=== PATIENT | female | born 1930 | race Caucasian/White ===

== ENCOUNTER 2016-09-23 08:37 | Inpatient (IN) | payer MEDICARE, BC ==
[~2016-09-23] VITALS: Ht 160 cm; Wt 53.4 kg
[2016-09-23] VITALS (7 sets, daily range): BP systolic 146–184; BP diastolic 67–81; PULSE 77–93; RESP 14–18; TEMP 98.7–98.9; O2SAT 92–98
[~2016-09-23 08:37] MED LIST: ACET325 PO; ASPI81TA82 PO; ATOR20TA PO; COMMODE 3:1; LEVO112T20 PO; LISI20 PO; LORTA5 PO; MECL25 PO; REFR0.5D4 EACH EYE; TOPR50TA PO
[2016-09-23] MEDS ORDERED: ATOR20TA15 PO (08:55)
[2016-09-23] MEDS ORDERED: ASPI1TAB69 PO (08:55)
[2016-09-23] MEDS ORDERED: LISI-515 PO (08:55)
[2016-09-23] MEDS ORDERED: LEVO-168 PO (08:55)
[2016-09-23] MEDS ORDERED: [UNRECOGNIZED DRUG - CODE] EACH EYE (08:55)
[2016-09-23] MEDS ORDERED: MECL12.574 PO (08:55)
[2016-09-23] MEDS ORDERED: OXYC1TAB63 PO (08:55)
[2016-09-23] MEDS ORDERED: TOPR50TA PO (08:55)
[2016-09-23] MEDS ORDERED: SODIUM CHLOR 0.9% 1000 ML INJ 1,000 ML IV SCH ×2 (08:58→11:15)
[2016-09-23] MEDS ORDERED: ONDANSETRON HCL 4 MG/2 ML VIAL IVP ONE (09:00)
[2016-09-23] MEDS ORDERED: SODIUM CHLORIDE 0.9% FLUSH 10 ML FLUSH IV FLUSH PRN ×2 (09:00→12:15)
[2016-09-23] MEDS ORDERED: MORPHINE SULFATE 4 MG/ML INJ IV PUSH ONE (09:00)
[2016-09-23 09:19] LABS: AUTOMATED NEUTROPHIL # 8.4 TH/MM3 (1.8-7.7); BASOPHIL % 0.4 % (0.0-2.0); EOSINOPHIL % 0.3 % (0.0-4.0); HEMATOCRIT 37.2 % (35.0-46.0); HEMO FLAGS DIFF FINAL; LYMPH % 17.8 % (9.0-44.0); MEAN CELL VOLUME 92.2 FL (80.0-100.0); MEAN CORPUSCULAR HEMOGLOBIN 31.2 PG (27.0-34.0); MEAN CORPUSCULAR HGB CONC 33.8 % (32.0-36.0); MONO % 7.1 % (0.0-8.0); NEUT % 74.4 % (16.0-70.0); PLATELET COUNT 186 TH/MM3 (150-450); RED BLOOD COUNT 4.04 MIL/MM3 (4.00-5.30); RED CELL DISTRIBUTION WIDTH 17.2 % (11.6-17.2); WHITE BLOOD COUNT 11.3 TH/MM3 (4.0-11.0)
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
[2016-09-23 09:28] LABS: APTT (PATIENT) 24.2 SEC (24.3-30.1); PROTHROMBIN TIME - PATIENT 10.7 SEC (9.8-11.6)
[2016-09-23 09:38] LABS: ANION GAP 8 MEQ/L (5-15); AST (GOT) 39 U/L (15-37); BICARBONATE 27.7 MEQ/L (21.0-32.0); BLOOD UREA NITROGEN 15 MG/DL (7-18); CHLORIDE 103 MEQ/L (98-107); GLOMERULAR FILTRATION RATE 77 ML/MIN (>89); POTASSIUM 3.6 MEQ/L (3.5-5.1); SODIUM (NA) 139 MEQ/L (136-145)
[2016-09-23 09:41] LABS: ALKALINE PHOSPHATASE 84 U/L (45-117); ALT (GPT) 32 U/L (10-53); TOTAL BILIRUBIN ADULT 0.6 MG/DL (0.2-1.0)
[2016-09-23 09:55] LABS: BACTERIA, URINE MANY /hpf; BLOOD, URINE SMALL (NEG); GLUCOSE,URINE NEG (NEG); KETONE, URINE NEG (NEG); MUCUS URINE FEW /lpf (OCC); PH, URINE 6.5 (5.0-8.5); URINE COLOR YELLOW (YELLW/STRAW)
[2016-09-23 10:08] LABS: COMMENT (UR) CATH-CULTURE IND; CULTURE IF INDICATED CATH CULTURE IND; NITRITE,URINE POS (NEG)
[2016-09-23] MEDS ORDERED: IOHEXOL 350 MG/ML 10 ML VIAL (for RAD DIAG) IV ONE (10:23)
--- NOTE | 2016-09-23 10:57 | RADRPT ---
EXAM DATE/TIME: 09/23/2016 10:11 [facility] COMPARISON: CT ABDOMEN & PELVIS W CONTRAST, April 09, 2016, 12:29. INDICATIONS: Lower right abdomen pain. IV CONTRAST: 80 cc Omnipaque 350 (iohexol) IV ORAL CONTRAST: No oral contrast ingested. RADIATION DOSE: 9.96 CTDIvol (mGy) MEDICAL HISTORY: Cardiovascular disease. SURGICAL HISTORY: Hysterectomy. ENCOUNTER: Initial ACUITY: 1 month PAIN SCALE: 8/10 LOCATION: Right abdomen TECHNIQUE: Volumetric scanning of the abdomen and pelvis was performed. Using automated exposure control and ad justment of the mA and/or kV according to patient size, radiation dose was kept as low as reasonably achievable to obtain optimal diagnostic quality images. FINDINGS: Again, there is a solid enhancing right adrenal mass which measures 3.7 x 2.9 cm. The left adrenal g land is unremarkable. The gallbladder is significantly distended, its wall is mildly thickened and there is evidence of pericholecystic fluid. The findings raise the possibility of acute cholecystitis. Clinical correlat ion is recommended. The liver is mildly prominent. No focal hepatic mass is noted. There is some minimal prominence of the central intrahepatic and extrahepatic biliary system without definite calcified obs tructing stone identified. Correlation with alkaline phosphatase and bilirubin levels is recommended. The spleen i s normal. The pancreas is unremarkable. There are multiple stable bilateral renal cysts. No solid renal mass is noted. No hydronephrosis is noted. The abdominal aorta calcified but is not aneurysmally dilated. The inferio r vena cava is normal. There is no paraaortic, retroperitoneal or mesenteric lymphadenopathy. No ascites is noted. The urinary bladder is unremarkable. Uncomplicated sigmoid diverticulosis is noted. There is no acute diverticu litis. Bilateral inguinal hernias containing only fat are noted. No pelvic lymphadenopathy is noted. Degen erative changes and scoliosis of the thoracolumbar spine are noted. There is grade I anterolisthesis of L5 i n relation to S1, L4 in relation to L5 and L3 in relation to L2. CONCLUSION: 1. Solid enhancing right adrenal mass measuring 3.7 x 2.9 cm. 2. Distended gallbladder with mild wall thickening and pericholecystic fluid raising the possibility of acute cholecystitis. Clinical correlation is recommended. 3. Minimal central intrahepatic and extrahepatic biliary ductal dilatation. Correlation with alkali ne phosphatase and bilirubin levels is suggested. 4. Uncomplicated colonic diverticulosis. 5. Multiple bilateral renal cysts. 6. Mild hepatomegaly. 7. Grade I anterolisthesis of L5 in relation to S1, L4 in relation to L5 and L3 in relation to L2. 8. Degenerative changes and scoliosis of the thoracolumbar spine. 9. Bilateral inguinal hernias containing only fat. Carroll Bruce MD on September 23, 2016 at 10:31 Board Certified Radiologist. This report was verified electronically.
[2016-09-23] MEDS ORDERED: PIPERACIL-TAZO 3.375 GM PREMIX 50 ML IV ONE (11:15)
--- NOTE | 2016-09-23 11:24 | EKG ---
Date Performed: 09/23/2016 Time Performed: 09:19:17 PTAGE: 86 years EKG: Sinus rhythm BORDERLINE LEFT AXIS DEVIATION MINIMAL VOLTAGE CRITERIA FOR LVH, CONSIDER NORMAL VARIANT BORDERLINE ECG PREVIOUS TRACING : 04/09/2016 11.21 DOCTOR: Bryson Grewal Interpretating Date/Time 09/23/2016 11:22:39
[2016-09-23] MEDS ORDERED: NALOXONE HCL 0.4 MG/ML AMP IV PRN (12:15)
[2016-09-23] MEDS ORDERED: PILL SPLITTER OTHER PRN (12:45)
[2016-09-23] MEDS: SODIUM CHLOR 0.9% 1000 ML INJ 1,000 ML IV SCH (13:00)
[2016-09-23] MEDS: MORPHINE SULFATE 4 MG/ML INJ IV PUSH PRN (13:10)
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
[2016-09-23] MEDS: ONDANSETRON HCL 4 MG/2 ML VIAL IVP PRN (14:43)
[2016-09-23] MEDS: ENOXAPARIN SODIUM 40 MG/0.4 ML SYRINGE SQ SCH (14:43)
[2016-09-23] MEDS: MECLIZINE HCL 25 MG TAB PO PRN (16:38)
[2016-09-23] MEDS: PROMETHAZINE HCL 12.5 MG SUPP RECTAL PRN (16:50)
[2016-09-23] MEDS: PIPERACIL-TAZO 3.375 GM PREMIX 50 ML IV SCH (17:58)
--- NOTE | 2016-09-23 19:09 | HHI.PR ---
Addendum to Inpatient Note Addendum Reason: Additional Documentation Additional Information from Coretta Schroeder MD (her primary): Ms Mccloud has had issues with HTN and cardiovascular disease in addition to the adrenal adenoma. She has been unable to collect a 24 hour urine due to significant urinary incontinence and cannot keep a [place] catheter in for 24 hours at home (thus unable to get catecholamine , metanephrine testing). rest of her labs have been wnl regarding adenoma ( done previously at [place]). I believe, based her her symptoms of the past few years, that she has significant cardiovascular disease but has declined to do any cardiac evaluation for a preoperative status. Overall, I think she is a poor surgical candidate unless this were really needed for comfort care/urgent need. We had discussed consideration of radiation therapy to the adrenal but only if we could get the 24 hour completed (which she hasn't). I'll get my office to send over her last note tomorrow. Call if you have further questions. Coretta Zimmer MD Sep 23, 2016 19:09
[2016-09-23] MEDS: SODIUM CHLORIDE 0.9% FLUSH 10 ML FLUSH IV FLUSH SCH (21:00)
[2016-09-23] MEDS: ATORVASTATIN 20 MG TAB PO SCH (21:45)
[2016-09-24] VITALS: BP 155/72; PULSE 75; RESP 18; TEMP 96.7; O2SAT 95
[2016-09-24] MEDS: SODIUM CHLOR 0.9% 1000 ML INJ 1,000 ML IV SCH ×3 (01:15→21:05)
[2016-09-24] MEDS: PIPERACIL-TAZO 3.375 GM PREMIX 50 ML IV SCH ×5 (01:16→23:21)
[2016-09-24 05:39] LABS: MEAN CELL VOLUME 93.4 FL (80.0-100.0); MEAN CORPUSCULAR HEMOGLOBIN 31.4 PG (27.0-34.0); MEAN CORPUSCULAR HGB CONC 33.6 % (32.0-36.0); PLATELET COUNT 154 TH/MM3 (150-450); RED BLOOD COUNT 3.53 MIL/MM3 (4.00-5.30); RED CELL DISTRIBUTION WIDTH 17.2 % (11.6-17.2); REVIEW FLAG FINAL; WHITE BLOOD COUNT 8.3 TH/MM3 (4.0-11.0)
[2016-09-24 05:52] LABS: BICARBONATE 28.1 MEQ/L (21.0-32.0); INDIRECT BILIRUBIN 0.5 MG/DL (0.0-0.8); POTASSIUM 3.9 MEQ/L (3.5-5.1); TOTAL BILIRUBIN ADULT 0.7 MG/DL (0.2-1.0)
[2016-09-24] MEDS: LEVOTHYROXINE SODIUM 112 MCG TAB PO SCH (06:45)
[2016-09-24] MEDS: SODIUM CHLORIDE 0.9% FLUSH 10 ML FLUSH IV FLUSH SCH ×2 (07:41→21:04)
[2016-09-24] MEDS: METOPROLOL SUCCINATE 50 MG EXTENDED RELEASE TAB PO SCH (07:43)
[2016-09-24] MEDS: ASPIRIN EC 81 MG TABEC PO SCH (07:43)
[2016-09-24] MEDS: LISINOPRIL 20 MG TAB PO SCH (07:43)
[2016-09-24 08:00] VITALS: BP 146/71; PULSE 79; RESP 17; TEMP 97.6; O2SAT 96
[2016-09-24] MEDS: MORPHINE SULFATE 4 MG/ML INJ IV PUSH PRN ×3 (11:14→22:15)
[2016-09-24] MEDS: ENOXAPARIN SODIUM 40 MG/0.4 ML SYRINGE SQ SCH (11:29)
[2016-09-24 12:00] VITALS: BP 156/65; PULSE 75; RESP 18; TEMP 98.6; O2SAT 94
[2016-09-24] MEDS ORDERED: BUPIVACAINE/EPINEPHRINE 0.25% 50 ML VIAL ONE (14:07)
[2016-09-24 16:00] VITALS: BP 156/87; PULSE 81; RESP 19; TEMP 98.4; O2SAT 94
--- NOTE | 2016-09-24 16:37 | HHI.PR ---
Subjective Subjective Notes Resting in bed Son at bedside Agrees to have surgery although understands the risks Objective Vitals/I&O Vital Signs Date Time Temp Pulse Resp B/P Pulse Ox O2 Delivery O2 Flow Rate FiO2 09/24/16 12:00 98.6 75 18 156/65 94 09/23/16 15:39 Nasal Cannula 2 Labs Laboratory Tests Test 09/24/16 04:54 White Blood Count 8.3 Red Blood Count 3.53 Hemoglobin 11.1 Hematocrit 33.0 Mean Corpuscular Volume 93.4 Mean Corpuscular Hemoglobin 31.4 Mean Corpuscular Hemoglobin 33.6 Concent Red Cell Distribution Width 17.2 Platelet Count 154 Mean Platelet Volume 10.3 Sodium Level 143 Potassium Level 3.9 Chloride Level 108 Carbon Dioxide Level 28.1 Anion Gap 7 Blood Urea Nitrogen 11 Creatinine 0.54 Estimat Glomerular Filtration 107 Rate Random Glucose 83 Calcium Level 8.7 Total Bilirubin 0.7 Direct Bilirubin 0.2 Indirect Bilirubin 0.5 Aspartate Amino Transf 675 (AST/SGOT) Alanine Aminotransferase 622 (ALT/SGPT) Alkaline Phosphatase 179 Total Protein 6.1 Albumin 2.9 Date/Time Procedure Status Source Growth 09/23/16 09:25 Urine Culture - Preliminary Resulted Urine Catheterized Urine Gram Negative Ryan Cardiovascular: Regular Lungs: Clear Abdomen: Non-distended, Other (right upper quadrant pain with palpation) Extremities: No edema A/P Assessment and Plan 86-year-old female with acute cholecystitis -Await cardiology clearance -Okay for diet from general surgery standpoint until cardiac clears patient for surgery -Continue IV antibiotics -Discussed with patient and son at bedside I CERTIFY AND ATTEST THAT I PERSONALLY EXAMINED THIS PATIENT IN THEIR ROOM WITH THE [employer] PRESENT. MS HOGAN IS DOCUMENTING OUR VISIT IN THE EMR AND ENTERED ORDERS UNDER MY DIRECT SUPERVISION. I DISCUSSED THE CARE PLAN WITH THE PATIENT AND THEIR [facility] STAFF. Nickie Messina MD, FACS Sep 24, 2016 16:37 Andrew Correa MD Oct 03, 2016 13:38
--- NOTE | 2016-09-24 17:02 | HHI.PR ---
Subjective Remarks f/u for RUQ pain. patient stated she continues to have pain and nausea. She stated that she cannot live in pain. Patient stated she understands surgery is high risk for her but wants it done. Patient son is at bedside. she remains afebrile. Objective Vitals Vital Signs Date Time Temp Pulse Resp B/P Pulse Ox O2 Delivery O2 Flow Rate FiO2 09/24/16 16:00 98.4 81 19 156/87 94 09/24/16 12:00 98.6 75 18 156/65 94 09/24/16 08:00 97.6 79 17 146/71 96 09/24/16 00:00 96.7 75 18 155/72 95 09/23/16 20:00 98.7 89 18 149/67 92 I/O 09/23/16 09/23/16 09/23/16 09/24/16 09/24/16 09/24/16 07:00 15:00 23:00 07:00 15:00 23:00 Intake Total 983 ml 687 ml Output Total 300 ml Balance 983 ml 387 ml Intake Oral 120 ml 0 ml IV Total 863 ml 687 ml Output Urine Total 300 ml # Voids 1 1 1 # Bowel Movements 1 0 Result Diagram: 09/24/16 0454 09/24/16 0454 Objective Remarks GENERAL: in NAD CARDIOVASCULAR: Regular rate and rhythm without murmurs, gallops, or rubs. RESPIRATORY: Breath sounds equal bilaterally. No accessory muscle use. GASTROINTESTINAL: Abdomen soft, nondistended, + TTP in RUQ. no peritoneal signs. normoactive BS. MUSCULOSKELETAL: No cyanosis, or edema. BACK: Nontender without obvious deformity. No CVA tenderness. Medications and IVs Current Medications Morphine Sulfate (Morphine Inj) 2 mg ONCE ONCE IV PUSH Last administered on 09:37; Start 09/23/16 at 09:00; Stop 09/23/16 at 09:01; Status DC Ondansetron HCl 4 mg 4 mg ONCE ONCE IVP Last administered on 09/23/16 09:36; Start 09/23/16 at 09:00; Stop 09/23/16 at 09:01; Status DC Sodium Chloride (NS 1000 ml Inj) 1,000 ml @ 125 mls/hr Q8H IV Last administered on 09/23/16 09:01; Start 09/23/16 at 08:58; Stop 09/23/16 at 16:57 ; Status DC Sodium Chloride (NS Flush) 2 ml UNSCH PRN IV FLUSH FLUSH AFTER USING IV ACCESS ; Start 09/23/16 at 09:00; Stop 09/23/16 at 12:32; Status DC Iohexol 80 ml 80 ml STK-MED ONCE IV Last administered on 09/23/16 10:23; Start 09/23/16 at 10:23; Stop 09/23/16 at 10:24; Status DC Piperacillin Sod/ Tazobactam Sod 50 ml @ 100 mls/hr ONCE ONCE IV Last administered on 09/23/16 11:31; Start 09/23/16 at 11:15; Stop 09/23/16 at 11:44 ; Status DC Sodium Chloride 1,000 ml @ 125 mls/hr Q8H IV ; Start 09/23/16 at 11:15; Stop at 19:14; Status DC Sodium Chloride (NS 1000 ml Inj) 1,000 ml @ 100 mls/hr Q10H IV Last administered on 09/24/16 16:07; Start 09/23/16 at 13:00 Sodium Chloride (NS Flush) 2 ml UNSCH PRN IV FLUSH FLUSH AFTER USING IV ACCESS ; Start 09/23/16 at 12:15 Sodium Chloride (NS Flush) 2 ml BID IV FLUSH Last administered on 09/23/16 21: 00; Start 09/23/16 at 21:00 Ondansetron HCl (Zofran Inj) 4 mg Q6H PRN IVP NAUSEA OR VOMITING Last administered on 09/23/16 14:43; Start 09/23/16 at 12:15 Enoxaparin Sodium (Lovenox Inj) 40 mg Q24H SQ Last administered on 09/23/16 14 :43; Start 09/23/16 at 13:00 Naloxone HCl 0.4 mg 0.4 mg UNSCH PRN IV SEE LABEL COMMENTS; Start 09/23/16 at 12:15 Piperacillin Sod/ Tazobactam Sod (Zosyn 3.375 Gm Premix) 50 ml @ 100 mls/hr Q6H IV Last administered on 09/24/16 16:06; Start 09/23/16 at 18:00 Morphine Sulfate (Morphine Inj) 2 mg Q3H PRN IV PUSH PAIN SCALE 6 TO 10 Last administered on 09/24/16 11:14; Start 09/23/16 at 12:15 Aspirin (Ecotrin Ec) 81 mg DAILY PO Last administered on 09/24/16 07:43; Start 09/24/16 at 09:00 Atorvastatin Calcium (Lipitor) 20 mg HS PO Last administered on 09/23/16 21:45 ; Start 09/23/16 at 21:00 Levothyroxine Sodium (Synthroid) 112 mcg DAILY@06 PO Last administered on 06:45; Start 09/24/16 at 06:00 Lisinopril (Prinivil) 20 mg DAILY PO Last administered on 09/24/16 07:43; Start 09/24/16 at 09:00 Meclizine HCl (Antivert) 12.5 mg TID PRN PO VERTIGO Last administered on 16:38; Start 09/23/16 at 12:15 Metoprolol Succinate (Toprol Xl) 50 mg DAILY PO Last administered on 09/24/16 07:43; Start 09/24/16 at 09:00 Miscellaneous (Pill Splitter) 1 ea UNSCH PRN OTHER SEE LABEL COMMENTS; Start at 12:45 Promethazine HCl (Phenergan Supp) 12.5 mg Q6H PRN RECTAL NAUSEA OR VOMITING Last administered on 09/23/16 16:50; Start 09/23/16 at 16:15 Bupivacaine HCl/ Epinephrine Bitart (Sensorcaine-Epinephrine 0.25% Inj) 50 ml STK-MED ONCE .ROUTE ; Start 09/24/16 at 14:07; Stop 09/24/16 at 14:08; Status DC A/P Assessment and Plan Acute on chronic right upper quadrant pain -CT suggest possible cholecystitis. -GS is ff and recommend acute cholecystectomy that she is now in agreement with. -Per patient's PCP Dr. Schroeder patient is high cardiovascular risk, so will consult field crop farm worker for clearance. -Patient was given doses Zosyn in the ED. Will continue with Zosyn. -Will give supportive care with IV fluids, antiemetics, and pain medication. -Continue to monitor with serial exams. Elevated LFTs -worsening. -see above. -continue to monitor. Adrenal mass -Per Dr. Schroeder difficulty working up patient. please refer to her note. -patient to f/u as outpatient with Dr. Schroeder. UTI -Asymptomatic. -Patient will be on Zosyn and cultures growing gram negative rods. -continue with treatment pending final cultures. Hypertension/hyperlipidemia/hypothyroidism -continue home medication. DVT prophylaxis -Lovenox. Discharge Planning field crop farm worker consulted for cardiac clearance. patient understand that based on what her PCP stated she is high risk for cardiovascular events during surgery. patient understands and wants to pursue with surgery. Most likely she will have cholecystectomy done tomorrow. Liliya Bran MD Sep 24, 2016 17:02
[2016-09-24 20:00] VITALS: BP 149/67; PULSE 79; RESP 16; TEMP 99.4; O2SAT 94
[2016-09-24] MEDS: ATORVASTATIN 20 MG TAB PO SCH (21:04)
[2016-09-25] VITALS: BP 168/71; PULSE 81; RESP 18; TEMP 99.6; O2SAT 94
[2016-09-25] MEDS: MORPHINE SULFATE 4 MG/ML INJ IV PUSH PRN (01:21)
[2016-09-25] MEDS: MECLIZINE HCL 25 MG TAB PO PRN ×2 (01:24→23:45)
[2016-09-25 04:21] LABS: HEMATOCRIT 33.2 % (35.0-46.0); MEAN CELL VOLUME 93.3 FL (80.0-100.0); MEAN CORPUSCULAR HEMOGLOBIN 30.5 PG (27.0-34.0); MEAN CORPUSCULAR HGB CONC 32.8 % (32.0-36.0); PLATELET COUNT 139 TH/MM3 (150-450); RED BLOOD COUNT 3.55 MIL/MM3 (4.00-5.30); RED CELL DISTRIBUTION WIDTH 17.4 % (11.6-17.2); REVIEW FLAG FINAL; WHITE BLOOD COUNT 8.3 TH/MM3 (4.0-11.0)
[2016-09-25] MEDS: LACTATED RINGER'S 1000 ML IV SCH (04:30)
[2016-09-25 04:47] LABS: BICARBONATE 28.6 MEQ/L (21.0-32.0); POTASSIUM 3.4 MEQ/L (3.5-5.1)
[2016-09-25 04:49] LABS: INDIRECT BILIRUBIN 0.5 MG/DL (0.0-0.8); TOTAL BILIRUBIN ADULT 0.9 MG/DL (0.2-1.0)
[2016-09-25] MEDS: SODIUM CHLOR 0.9% 1000 ML INJ 1,000 ML IV SCH ×3 (05:00→23:43)
[2016-09-25] MEDS: PIPERACIL-TAZO 3.375 GM PREMIX 50 ML IV SCH (05:30)
[2016-09-25] MEDS: LEVOTHYROXINE SODIUM 112 MCG TAB PO SCH (05:30)
--- NOTE | 2016-09-25 06:34 | MB ---
cc: STEVE FLOWERS DO DATE OF CONSULTATION September 24, 2016 REASON FOR CONSULTATION Preoperative risk assessment. HISTORY OF PRESENT ILLNESS Hanny Mccloud is a pleasant 86-year-old female who presents to [facility] on September 23, 2016, due to chronic right upper quadrant pain. Originally in April the patient developed right upper quadrant pain and was told that she had a fracture of her right ribs and was treated with pain medications. She states the pain never resolved and has been chronic and constant since then. Over the last few months it has worsened and she presented to the emergency room and was found to have acute cholecystitis. She admits to feeling nauseated but denies any emesis. She also was noted to have an abdominal mass for some time. She had been worked up by her primary physician in consideration of surgery for the abdominal mass. She decided that she did not want surgery for this as she would have to undergo cardiovascular risk assessment for an elective procedure. In seeing her today, she states that she has no chest pain or shortness of breath. She does do work around her house and gets short of breath with this. PAST MEDICAL HISTORY 1. Hypertension. 2. Hyperlipidemia. 3. Depression. 4. Hypothyroidism. PAST SURGICAL HISTORY 1. Back surgery. 2. Thyroidectomy. 3. Hysterectomy. 4. Cataract surgery. 5. Right wrist surgery. ALLERGIES TETANUS. CEFTIN. MEDICATIONS 1. Toprol XL 50 mg daily. 2. Meclizine 12.5 mg t.i.d. as needed. 3. Lisinopril 20 mg daily. 4. Synthroid 112 mcg daily. 5. Percocet 5/325 every 6 hours as needed for pain. 6. Lipitor 20 mg every night 7. Aspirin mg daily. FAMILY HISTORY Denies premature coronary artery disease or sudden cardiac within the family. Son has brain cancer. Sibling has epilepsy. SOCIAL HISTORY Lives by herself and is independent. Denies tobacco, alcohol or drug abuse. REVIEW OF SYSTEMS Fourteen systems were reviewed in the history and physical and above pertinent positives and negatives above, otherwise negative. PHYSICAL EXAMINATION VITAL SIGNS: Temperature 99.4, heart rate 79, blood pressure 149/67, respirations 16, pulse ox 94% on 2 liters. IN GENERAL: The patient appears well, in no acute distress. Alert, awake and oriented x 3. Extraocular muscles intact. Mucous membranes moist. NECK: Supple. No JVD at 45 degrees. No carotid bruits heard bilaterally. Carotid upstroke is brisk in nature. HEART: Regular rate and rhythm. Positive first and second heart sounds with no noted murmurs, gallops or rubs. LUNGS: Clear to auscultation bilaterally. No wheezes, rales or rhonchi. ABDOMEN: Soft with tenderness in the right upper quadrant. EXTREMITIES: No clubbing, cyanosis or edema. Femoral and distal pulses intact bilaterally. NEUROLOGICALLY: No focal deficits. SKIN: Warm, dry and intact. OSTEOPATHIC EXAM: Mild kyphoscoliosis. No lordosis or paraspinal tender points. LABORATORY FINDINGS Hemoglobin 11.1, hematocrit 33.0, platelets 154. Potassium 3.9, BUN 11, creatinine 0.54. AST 675, ALT 622, alk phosphatase 179. ELECTROCARDIOGRAM (September 23, 2016, at 09:19) Normal sinus rhythm, borderline left axis deviation, LVH. IMPRESSION 1. Preoperative risk assessment for possible laparoscopic cholecystectomy. 2. Acute cholecystitis. 3. Adrenal mass. 4. History of hypertension. 5. History of hyperlipidemia. 6. Hypothyroidism. RECOMMENDATIONS 1. Mrs. Mccloud appears to have acute cholecystitis. I discussed her risk assessment with her and her son extensively in that she has a high cardiovascular risk due to her shortness of breath with work around the house. 2. She has a recent echocardiogram on the chart showing no significant valvopathies and a normal ejection fraction. 3. Due to the urgent nature of her condition, no further ischemic evaluation can be done which will decrease her risks. Further on this, she does not want any further ischemic evaluation. 4. She and her son understand that surgery is high risk due to her comorbidities and current state, but they would like to proceed anyway. 5. I cannot decrease her risk any further at this time. As she was on beta adilene therapy chronically, would continue this perioperatively. 6. I did discuss with Dr. Correa about her surgical risk and he agrees that she is high risk. 7. Currently she does not appear to be in acute coronary syndrome or acute congestive heart failure. 8. I will see her as needed. Please call with questions. Thank you for allowing me to see Hanny Mccloud. If there are any questions, please do not hesitate to call. Steve Flowers DO VGP/SSB /9:53 PM /6:23 AM
[2016-09-25] MEDS: ASPIRIN EC 81 MG TABEC PO SCH (07:29)
[2016-09-25] MEDS: SODIUM CHLORIDE 0.9% FLUSH 10 ML FLUSH IV FLUSH SCH ×2 (07:29→21:00)
[2016-09-25] MEDS: METOPROLOL SUCCINATE 50 MG EXTENDED RELEASE TAB PO SCH (07:30)
[2016-09-25] MEDS: LISINOPRIL 20 MG TAB PO SCH (07:30)
[2016-09-25 08:00] VITALS: BP 162/64; PULSE 77; RESP 15; TEMP 98.9; O2SAT 94
[2016-09-25] MEDS ORDERED: BUPIVACAINE/EPINEPHRINE 0.5% 50 ML VIAL ONE (09:05)
[2016-09-25] MEDS ORDERED: SUGAMMADEX SODIUM 200 MG/2 ML VIAL IV PUSH ONE ×2 (09:55)
[2016-09-25] MEDS ORDERED: METOPROLOL SUCCINATE 25 MG EXTENDED RELEASE TAB PO ONE (10:45)
[2016-09-25] MEDS ORDERED: POTASSIUM CHLORIDE 10 MEQ CONTROLLED RELEASE TAB PO ONE (11:00)
[2016-09-25] MEDS ORDERED: DO NOT ADM ANY ANTICOAGULANT DRUGS XX PRN (11:54)
--- NOTE | 2016-09-25 12:00 | HHI.PR ---
Immediate Post Op Note Procedure Date: Sep 25, 2016 Pre Op Diagnosis: acute cholecystitis Post Op Diagnosis: same Surgeon: Andrew Correa Dye Box Operator(s): Donna DAWN MS3 Procedure: laparoscopic cholecystectomy Complications: NONE Specimen(s) removed: gallbladder Estimated blood loss: 50cc Anesthesia: General Drains: BOO Patient to: PACU Patient Condition: Andrew Myers MD Sep 25, 2016 12:00
[2016-09-25] MEDS ORDERED: *morphine SULFATE 8 MG/ML PERIprocedure ONLY ONE ×2 (12:16→12:25)
[2016-09-25] MEDS ORDERED: *LABETALOL HCL 100 MG/20 ML VIAL PERIprocedural Use ONLY ONE (12:16)
[2016-09-25] MEDS ORDERED: MORPHINE SULFATE 4 MG/ML INJ IV PUSH PRN (12:30)
[2016-09-25] MEDS ORDERED: DICLOFENAC SODIUM 37.5 MG/ML VIAL IV PUSH PRN (12:30)
[2016-09-25] MEDS ORDERED: *ENALAPRILAT 1.25 MG/ML VIAL PERIprocedural Use ONLY ONE (12:36)
[2016-09-25] MEDS: CIPROFLOXACIN 400 MG PREMIX 200 ML IV SCH ×2 (13:30→22:20)
[2016-09-25] MEDS ORDERED: ONDANSETRON HCL 4 MG/2 ML VIAL IV PUSH ONE (13:53)
[2016-09-25] MEDS ORDERED: PROPOFOL 200 MG/20 ML AMP IV ONE (13:53)
[2016-09-25] MEDS ORDERED: NEOSTIGMINE 3 MG/3 ML SYR IV ONE (13:53)
[2016-09-25] MEDS: ENOXAPARIN SODIUM 40 MG/0.4 ML SYRINGE SQ SCH (14:41)
[2016-09-25 16:00] VITALS: BP 174/81; PULSE 86; RESP 17; TEMP 99.3; O2SAT 94
[2016-09-25 18:25] VITALS: O2SAT 94
[2016-09-25] MEDS: ACETAMINOPHEN/HYDROcodone 325 MG/5 MG TAB PO PRN (18:46)
[2016-09-25 20:00] VITALS: BP 148/72; PULSE 96; RESP 20; TEMP 97.9; O2SAT 94
--- NOTE | 2016-09-25 21:38 | HHI.PR ---
Subjective Remarks Patient is sp lap cholecystectomy states feels confused denies cp/sob stable vital signs Objective Vitals Vital Signs Date Time Temp Pulse Resp B/P Pulse Ox O2 Delivery O2 Flow Rate FiO2 09/25/16 18:25 94 21 09/25/16 16:00 99.3 86 17 174/81 94 09/25/16 13:40 75 18 145/68 98 Nasal Cannula 2 09/25/16 13:30 78 18 149/67 98 Nasal Cannula 2 09/25/16 13:15 69 18 144/65 98 Nasal Cannula 3 09/25/16 13:00 80 18 153/62 96 Nasal Cannula 3 09/25/16 12:45 72 18 164/65 98 Nasal Cannula 3 09/25/16 12:30 71 18 180/69 97 Nasal Cannula 3 09/25/16 12:15 64 18 206/80 98 Nasal Cannula 3 09/25/16 12:00 97.7 75 18 202/82 91 Nasal Cannula 3 09/25/16 08:00 98.9 77 15 162/64 94 09/25/16 00:00 99.6 81 18 168/71 94 09/24/16 22:38 18 I/O 09/24/16 09/24/16 09/24/16 09/25/16 09/25/16 09/25/16 07:00 15:00 23:00 07:00 15:00 23:00 Intake Total 983 ml 687 ml 240 ml 1350 ml 1618 ml Output Total 300 ml 330 ml Balance 983 ml 387 ml 240 ml 1350 ml 1288 ml Intake Oral 120 ml 0 ml 240 ml 120 ml 450 ml IV Total 863 ml 687 ml 1230 ml 168 ml Other 1000 ml Output Urine Total 300 ml 250 ml Drainage Total 70 ml Estimated Blood Loss 10 ml # Voids 1 2 1 7 # Bowel Movements 1 0 0 0 2 Result Diagram: 09/25/16 03409/25/16 0340 Imaging Last Impressions Abdomen/Pelvis CT 09/23/16 0858 Signed Impressions: Service Date/Time: Friday, September 23, 2016 10:11 - CONCLUSION: 1. Solid enhancing right adrenal mass measuring 3.7 x 2.9 cm. 2. Distended gallbladder with mild wall thickening and pericholecystic fluid raising the possibility of acute cholecystitis. Clinical correlation is recommended. 3. Minimal central intrahepatic and extrahepatic biliary ductal dilatation. Correlation with alkaline phosphatase and bilirubin levels is suggested. 4. Uncomplicated colonic diverticulosis. 5. Multiple bilateral renal cysts. 6. Mild hepatomegaly. 7. Grade I anterolisthesis of L5 in relation to S1, L4 in relation to L5 and L3 in relation to L2. 8. Degenerative changes and scoliosis of the thoracolumbar spine. 9. Bilateral inguinal hernias containing only fat. Carroll Bruce MD Objective Remarks GENERAL: in NAD CARDIOVASCULAR: Regular rate and rhythm without murmurs, gallops, or rubs. RESPIRATORY: Breath sounds equal bilaterally. No accessory muscle use. GASTROINTESTINAL: Abdomen soft, slightly distended, diffuse tenderness in abdomen especially in the right upper quadrant. No peritoneal signs. Bowel sounds present. MUSCULOSKELETAL: No cyanosis, or edema. BACK: Nontender without obvious deformity. No CVA tenderness. Procedures Status post laparoscopic cholecystectomy. Medications and IVs Current Medications Medications (Trade) Dose Ordered Sig/Park Route Start Time Stop Time Status Last Admin (NS 1000 ml Inj) 1,000 ml @ 100 mls/hr Q10H IV 09/23/16 13:00 09/25/16 13:30 (NS Flush) 2 ml UNSCH PRN IV FLUSH 09/23/16 12:15 (NS Flush) 2 ml BID IV FLUSH 09/23/16 21:00 09/24/16 21:04 (Zofran Inj) 4 mg Q6H PRN IVP 09/23/16 12:15 09/23/16 14:43 (Lovenox Inj) 40 mg Q24H SQ 09/23/16 13:00 09/25/16 14:41 (Narcan Inj) 0.4 mg UNSCH PRN IV 09/23/16 12:15 (Morphine Inj) 2 mg Q3H PRN IV PUSH 09/23/16 12:15 09/25/16 01:21 (Ecotrin Ec) 81 mg DAILY PO 09/24/16 09:00 09/24/16 07:43 (Lipitor) 20 mg HS PO 09/23/16 21:00 09/24/16 21:04 (Synthroid) 112 mcg DAILY@06 PO 09/24/16 06:00 09/25/16 05:30 (Prinivil) 20 mg DAILY PO 09/24/16 09:00 09/25/16 07:30 (Antivert) 12.5 mg TID PRN PO 09/23/16 12:15 09/25/16 01:24 (Pill Splitter) 1 ea UNSCH PRN OTHER 09/23/16 12:45 Promethazine HCl 12.5 mg 12.5 mg Q6H PRN RECTAL 09/23/16 16:15 09/23/16 16:50 (Lr 1000 ml Inj) 1,000 ml @ 30 mls/hr Q24H IV 09/25/16 04:30 Metoprolol Succinate 75 mg 75 mg DAILY PO 09/26/16 09:00 (Cipro 400 Mg Premix) 200 ml @ 200 mls/hr Q12H IV 09/25/16 11:00 09/25/16 13:30 ([place] 5-325 Mg) 2 tab Q6H PRN PO 09/25/16 12:00 09/25/16 18:46 (Dyloject Inj) 37.5 mg Q6H PRN IV PUSH 09/25/16 12:30 (Morphine Inj) 4 mg Q3H PRN IV PUSH 09/25/16 12:30 Miscellaneous Information ALL NURSING DEPARTME... UNSCH PRN XX 09/25/16 11:54 09/26/16 11:53 Urinary Catheter: No Vascular Central Line Catheter: No A/P Assessment and Plan Acute on chronic right upper quadrant pain Patient with suggested acute cholecystitis. Patient status post laparoscopic cholecystectomy. Patient initially treated with IV Zosyn. Now on IV ciprofloxacin. Continue. -Will give supportive care with IV fluids, antiemetics, and pain medication. Elevated LFTs Nontender down. Continue to monitor LFTs. Adrenal mass -Per Dr. Schroeder difficulty working up patient. please refer to her note. -patient to f/u as outpatient with Dr. Schroeder. UTI -Asymptomatic. Initially treated with IV Zosyn. Urine culture grew Escherichia coli UTI. Continue ciprofloxacin. Hypertension/hyperlipidemia/hypothyroidism -continue home medication. Seems stable. Toxic encephalopathy Patient states he feels confused. This likely secondary to medications used for anesthesia. Will likely subside on its own. Reassured patient. Consults physical therapy. Discharge Planning Discharge pending general surgery clearance. Hemanth Brown MD Sep 25, 2016 21:38
[2016-09-25] MEDS: ATORVASTATIN 20 MG TAB PO SCH (22:20)
[2016-09-26] VITALS (8 sets, daily range): BP systolic 147–198; BP diastolic 66–93; PULSE 73–93; RESP 18–20; TEMP 98.1–99.6; O2SAT 94–96
[2016-09-26 00:13] LABS: HEMATOCRIT 34.7 % (35.0-46.0); MEAN CELL VOLUME 93.4 FL (80.0-100.0); MEAN CORPUSCULAR HEMOGLOBIN 30.8 PG (27.0-34.0); PLATELET COUNT 186 TH/MM3 (150-450); RED BLOOD COUNT 3.72 MIL/MM3 (4.00-5.30); RED CELL DISTRIBUTION WIDTH 17.1 % (11.6-17.2); REVIEW FLAG FINAL; WHITE BLOOD COUNT 11.6 TH/MM3 (4.0-11.0)
[2016-09-26] MEDS: ACETAMINOPHEN/HYDROcodone 325 MG/5 MG TAB PO PRN ×2 (03:12→18:19)
[2016-09-26] MEDS: LACTATED RINGER'S 1000 ML IV SCH (04:30)
[2016-09-26 04:35] LABS: AUTOMATED NEUTROPHIL # 8.9 TH/MM3 (1.8-7.7); BASOPHIL # 0.1 TH/MM3 (0-0.2); BASOPHIL % 0.8 % (0.0-2.0); EOSINOPHIL # 0.1 TH/MM3 (0-0.4); EOSINOPHIL % 0.5 % (0.0-4.0); HEMATOCRIT 36.8 % (35.0-46.0); HEMO FLAGS DIFF FINAL; LYMPH % 19.6 % (9.0-44.0); LYMPHOCYTE # 2.4 TH/MM3 (1.0-4.8); MEAN CELL VOLUME 94.2 FL (80.0-100.0); MEAN CORPUSCULAR HEMOGLOBIN 30.6 PG (27.0-34.0); MEAN CORPUSCULAR HGB CONC 32.5 % (32.0-36.0); MONO % 7.1 % (0.0-8.0); PLATELET COUNT 167 TH/MM3 (150-450); RED BLOOD COUNT 3.91 MIL/MM3 (4.00-5.30); RED CELL DISTRIBUTION WIDTH 17.2 % (11.6-17.2); WHITE BLOOD COUNT 12.4 TH/MM3 (4.0-11.0)
[2016-09-26 04:58] LABS: ALT (GPT) 387 U/L (10-53); ANION GAP 10 MEQ/L (5-15); AST (GOT) 251 U/L (15-37); BICARBONATE 25.1 MEQ/L (21.0-32.0); BLOOD UREA NITROGEN 6 MG/DL (7-18); CHLORIDE 105 MEQ/L (98-107); GLOMERULAR FILTRATION RATE 115 ML/MIN (>89); POTASSIUM 3.4 MEQ/L (3.5-5.1); SODIUM (NA) 140 MEQ/L (136-145)
[2016-09-26 05:00] LABS: ALKALINE PHOSPHATASE 238 U/L (45-117); TOTAL BILIRUBIN ADULT 0.7 MG/DL (0.2-1.0)
[2016-09-26] MEDS: MECLIZINE HCL 25 MG TAB PO PRN (06:12)
[2016-09-26] MEDS: LEVOTHYROXINE SODIUM 112 MCG TAB PO SCH (06:12)
[2016-09-26] MEDS: METOPROLOL SUCCINATE 50 MG EXTENDED RELEASE TAB PO SCH (08:08)
[2016-09-26] MEDS: LISINOPRIL 20 MG TAB PO SCH (08:08)
[2016-09-26] MEDS: CIPROFLOXACIN 400 MG PREMIX 200 ML IV SCH (08:08)
[2016-09-26] MEDS: ASPIRIN EC 81 MG TABEC PO SCH (08:08)
[2016-09-26] MEDS: SODIUM CHLORIDE 0.9% FLUSH 10 ML FLUSH IV FLUSH SCH ×2 (08:44→20:47)
--- NOTE | 2016-09-26 09:29 | HHI.PR ---
Subjective Remarks Patient complains of some abdominal pain, however this is controlled. States that has been having trouble swallowing solids, no trouble swallowing liquids. denies fevers/chills denies nausea and vomiting ate part of her breakfast. Bp elevated patient upset because IV fluid pump alarm goes off very often. Passing gas Objective Vitals Vital Signs Date Time Temp Pulse Resp B/P Pulse Ox O2 Delivery O2 Flow Rate FiO2 09/26/16 08:15 94 21 09/26/16 08:00 98.1 83 19 197/89 95 09/26/16 04:12 18 09/26/16 04:00 98.9 93 20 158/77 95 09/26/16 00:00 99.6 93 20 147/66 94 09/25/16 20:00 97.9 96 20 148/72 94 09/25/16 18:25 94 21 09/25/16 16:00 99.3 86 17 174/81 94 09/25/16 13:40 75 18 145/68 98 Nasal Cannula 2 09/25/16 13:30 78 18 149/67 98 Nasal Cannula 2 09/25/16 13:15 69 18 144/65 98 Nasal Cannula 3 09/25/16 13:00 80 18 153/62 96 Nasal Cannula 3 09/25/16 12:45 72 18 164/65 98 Nasal Cannula 3 09/25/16 12:30 71 18 180/69 97 Nasal Cannula 3 09/25/16 12:15 64 18 206/80 98 Nasal Cannula 3 09/25/16 12:00 97.7 75 18 202/82 91 Nasal Cannula 3 I/O 09/25/16 09/25/16 09/25/16 09/26/16 09/26/16 09/26/16 07:00 15:00 23:00 07:00 15:00 23:00 Intake Total 1350 ml 1618 ml 240 ml 240 ml Output Total 330 ml 600 ml 40 ml Balance 1350 ml 1288 ml 240 ml -360 ml -40 ml Intake Oral 120 ml 450 ml 240 ml 240 ml IV Total 1230 ml 168 ml Other 1000 ml Output Urine Total 250 ml 600 ml Drainage Total 70 ml 40 ml Estimated Blood Loss 10 ml # Voids 1 7 1 # Bowel Movements 0 2 Result Diagram: 09/26/16 0321 09/26/16 0321 Objective Remarks GENERAL: in NAD CARDIOVASCULAR: Regular rate and rhythm without murmurs, gallops, or rubs. RESPIRATORY: Breath sounds equal bilaterally. No accessory muscle use. GASTROINTESTINAL: Abdomen soft, slightly distended, diffuse tenderness in abdomen especially in the right upper quadrant. No peritoneal signs. Bowel sounds present. MUSCULOSKELETAL: No cyanosis, or edema. BACK: Nontender without obvious deformity. No CVA tenderness. Procedures Status post laparoscopic cholecystectomy. Medications and IVs Current Medications Medications (Trade) Dose Ordered Sig/Park Route Start Time Stop Time Status Last Admin (NS 1000 ml Inj) 1,000 ml @ 100 mls/hr Q10H IV 09/23/16 13:00 09/25/16 23:43 (NS Flush) 2 ml UNSCH PRN IV FLUSH 09/23/16 12:15 (NS Flush) 2 ml BID IV FLUSH 09/23/16 21:00 09/24/16 21:04 (Zofran Inj) 4 mg Q6H PRN IVP 09/23/16 12:15 09/23/16 14:43 (Lovenox Inj) 40 mg Q24H SQ 09/23/16 13:00 09/25/16 14:41 (Narcan Inj) 0.4 mg UNSCH PRN IV 09/23/16 12:15 (Morphine Inj) 2 mg Q3H PRN IV PUSH 09/23/16 12:15 09/25/16 01:21 (Ecotrin Ec) 81 mg DAILY PO 09/24/16 09:00 09/26/16 08:08 (Lipitor) 20 mg HS PO 09/23/16 21:00 09/25/16 22:20 (Synthroid) 112 mcg DAILY@06 PO 09/24/16 06:00 09/26/16 06:12 (Prinivil) 20 mg DAILY PO 09/24/16 09:00 09/26/16 08:08 (Antivert) 12.5 mg TID PRN PO 09/23/16 12:15 09/26/16 06:12 (Pill Splitter) 1 ea UNSCH PRN OTHER 09/23/16 12:45 Promethazine HCl 12.5 mg 12.5 mg Q6H PRN RECTAL 09/23/16 16:15 09/23/16 16:50 (Lr 1000 ml Inj) 1,000 ml @ 30 mls/hr Q24H IV 09/25/16 04:30 (Toprol Xl) 75 mg DAILY PO 09/26/16 09:00 09/26/16 08:08 ([place] 5-325 Mg) 2 tab Q6H PRN PO 09/25/16 12:00 09/26/16 03:12 (Dyloject Inj) 37.5 mg Q6H PRN IV PUSH 09/25/16 12:30 (Morphine Inj) 4 mg Q3H PRN IV PUSH 09/25/16 12:30 09/25/16 23:41 Miscellaneous Information ALL NURSING DEPARTME... UNSCH PRN XX 09/25/16 11:54 09/26/16 11:53 (Cipro) 250 mg Q12HR PO 09/26/16 21:00 Urinary Catheter: No Vascular Central Line Catheter: No A/P Assessment and Plan Acute cholecystitis. Patient with suggested acute cholecystitis. Patient status post laparoscopic cholecystectomy. Patient initially treated with IV Zosyn. Now on IV ciprofloxacin. Continue. Discontinue IV fluids, continue antiemetics. Elevated LFTs Liver function tests continued to trend down. Continue to monitor LFTs. Adrenal mass -Per Dr. Schroeder difficulty working up patient. please refer to her note. -patient to f/u as outpatient with Dr. Schroeder. UTI -Asymptomatic. Initially treated with IV Zosyn. Urine culture grew Escherichia coli UTI. Continue ciprofloxacin. Hypertension/hyperlipidemia/hypothyroidism -continue home medication. Seems stable. Toxic encephalopathy Patient felt very confused and foggy after surgical procedure. This is likely due to anesthetics provided during surgery. This has almost completely resolved as per patient. Dysphagia Will order a modified barium swallow with speech pathology. Sore throat Likely secondary to intubation during surgical procedure. I will order lozenges. Consults physical therapy ---> pending Discharge Planning Pending general surgery clearance, barium swallow and clinical improvement. Hemanth Brown MD Sep 26, 2016 09:29
[2016-09-26] MEDS: SODIUM CHLOR 0.9% 1000 ML INJ 1,000 ML IV SCH (10:03)
[2016-09-26] MEDS: ENOXAPARIN SODIUM 40 MG/0.4 ML SYRINGE SQ SCH (11:38)
[2016-09-26] MEDS ORDERED: MAGNESIUM HYDROXIDE SUSP 30 ML CUP PO ONE (12:00)
[2016-09-26] MEDS ORDERED: BISACODYL EC 5 MG TABEC PO ONE (12:00)
--- NOTE | 2016-09-26 12:35 | HHI.PR ---
Subjective Subjective Notes POD1 s/p lap cholecystectomy Patient in room with son Johnathan, reports shes doing well, ate some breakfast this am Some pain in her abdomen No BM yet but passing gas Objective Vitals/I&O Vital Signs Date Time Temp Pulse Resp B/P Pulse Ox O2 Delivery O2 Flow Rate FiO2 09/26/16 08:15 94 21 09/26/16 08:00 98.1 83 19 197/89 09/25/16 13:40 Nasal Cannula 2 Labs Laboratory Tests Test 09/25/16 09/26/16 23:46 03:21 White Blood Count 11.6 12.4 Red Blood Count 3.72 3.91 Hemoglobin 11.4 12.0 Hematocrit 34.7 36.8 Mean Corpuscular Volume 93.4 94.2 Mean Corpuscular Hemoglobin 30.8 30.6 Mean Corpuscular Hemoglobin 33.0 32.5 Concent Red Cell Distribution Width 17.1 17.2 Platelet Count 186 167 Mean Platelet Volume 10.6 10.9 Neutrophils (%) (Auto) 72.0 Lymphocytes (%) (Auto) 19.6 Monocytes (%) (Auto) 7.1 Eosinophils (%) (Auto) 0.5 Basophils (%) (Auto) 0.8 Neutrophils # (Auto) 8.9 Lymphocytes # (Auto) 2.4 Monocytes # (Auto) 0.9 Eosinophils # (Auto) 0.1 Basophils # (Auto) 0.1 CBC Comment DIFF FINAL Differential Comment Sodium Level 140 Potassium Level 3.4 Chloride Level 105 Carbon Dioxide Level 25.1 Anion Gap 10 Blood Urea Nitrogen 6 Creatinine 0.51 Estimat Glomerular Filtration 115 Rate Random Glucose 116 Calcium Level 8.8 Phosphorus Level 2.7 Magnesium Level 2.0 Total Bilirubin 0.7 Aspartate Amino Transf 251 (AST/SGOT) Alanine Aminotransferase 387 (ALT/SGPT) Alkaline Phosphatase 238 Total Protein 6.9 Albumin 3.0 Date/Time Procedure Status Source Growth 09/23/16 09:25 Urine Culture - Final Complete Urine Catheterized Urine Escherichia Coli Cardiovascular: Regular Lungs: Clear Abdomen: Post-op tenderness Extremities: Perfused Wound Wound : Wound Location: Abdomen Appearance: Clean & Dry (some spots of blood) Drainage: Clear (serosanguineous fluid) A/P Assessment and Plan 86 year old white female POD1 s/p Lap Cholecystectomy Patient is stable and doing well Patient is unsteady on her feet and needs assistance ambulating, will need PT Plan to discontinue drain tomorrow morning with plans to discharge home tomorrow if doing well, has BM and unsteadiness improves Andrew Correa MD Sep 26, 2016 12:35
--- NOTE | 2016-09-26 13:25 | RADRPT ---
EXAM DATE/TIME: 09/26/2016 00:00 [place] COMPARISON: No previous studies available for comparison. INDICATIONS : Dysphagia FLUORO TIME: 1.3 minutes IMAGE COUNT: 0 CONTRAST: Dose as prescribed by speech pathologist. MEDICAL HISTORY : Cardiovascular disease. SURGICAL HISTORY : Hysterectomy. Cholecystectomy. ENCOUNTER: Subsequent ACUITY: 1 day PAIN SCORE: 0/10 LOCATION: esophagus FINDINGS: A modified barium swallow was performed with speech pathology. Patient was given a variety of liquids to swallow. Normal formation of bolus and normal swallowing mechanism with a small amount of penetration identifi ed. No evidence of stricture, diverticula or other concerning pathology. For a full detailed report, see report by the speech pathologist. CONCLUSION: Normal swallowing with a trace amount of penetration identified on real-time imaging. No significant pathology identified. Carmel Yen MD on September 26, 2016 at 13:22 Board Certified Radiologist. This report was verified electronically.
[2016-09-26] MEDS ORDERED: POTASSIUM CHLORIDE 10 MEQ CONTROLLED RELEASE TAB PO ONE (16:45)
[2016-09-26] MEDS ORDERED: ACETAMINOPHEN 500 MG CPLT PO PRN (16:45)
[2016-09-26] MEDS ORDERED: PILL SPLITTER OTHER PRN (16:45)
[2016-09-26] MEDS: cloNIDine HCL 0.1 MG TAB PO PRN (16:58)
[2016-09-26] MEDS: ATORVASTATIN 20 MG TAB PO SCH (20:46)
[2016-09-26] MEDS: CIPROFLOXACIN 500 MG TAB PO SCH (20:46)
[2016-09-27] VITALS (8 sets, daily range): BP systolic 124–182; BP diastolic 54–79; PULSE 60–78; RESP 16–20; TEMP 95.6–98.4; O2SAT 93–96
[2016-09-27] MEDS: LACTATED RINGER'S 1000 ML IV SCH (04:04)
[2016-09-27] MEDS: LEVOTHYROXINE SODIUM 112 MCG TAB PO SCH (05:36)
[2016-09-27] MEDS: ACETAMINOPHEN/HYDROcodone 325 MG/5 MG TAB PO PRN ×2 (06:06→15:18)
[2016-09-27] MEDS: CIPROFLOXACIN 500 MG TAB PO SCH ×2 (08:20→19:41)
[2016-09-27] MEDS: LISINOPRIL 20 MG TAB PO SCH (08:20)
[2016-09-27] MEDS: METOPROLOL SUCCINATE 50 MG EXTENDED RELEASE TAB PO SCH (08:20)
[2016-09-27] MEDS: ASPIRIN EC 81 MG TABEC PO SCH (08:20)
[2016-09-27] MEDS: SODIUM CHLORIDE 0.9% FLUSH 10 ML FLUSH IV FLUSH SCH ×2 (08:22→19:42)
[2016-09-27 10:15] LABS: AUTOMATED NEUTROPHIL # 6.1 TH/MM3 (1.8-7.7); BASOPHIL % 0.5 % (0.0-2.0); EOSINOPHIL # 0.3 TH/MM3 (0-0.4); EOSINOPHIL % 3.2 % (0.0-4.0); HEMATOCRIT 32.6 % (35.0-46.0); HEMO FLAGS DIFF FINAL; LYMPH % 25.2 % (9.0-44.0); LYMPHOCYTE # 2.4 TH/MM3 (1.0-4.8); MEAN CORPUSCULAR HEMOGLOBIN 31.7 PG (27.0-34.0); MEAN CORPUSCULAR HGB CONC 34.1 % (32.0-36.0); MONO % 8.2 % (0.0-8.0); NEUT % 62.9 % (16.0-70.0); PLATELET COUNT 172 TH/MM3 (150-450); RED CELL DISTRIBUTION WIDTH 17.4 % (11.6-17.2); WHITE BLOOD COUNT 9.7 TH/MM3 (4.0-11.0)
[2016-09-27 10:58] LABS: ALKALINE PHOSPHATASE 156 U/L (45-117); ALT (GPT) 211 U/L (10-53); ANION GAP 8 MEQ/L (5-15); AST (GOT) 87 U/L (15-37); BICARBONATE 27.7 MEQ/L (21.0-32.0); BLOOD UREA NITROGEN 9 MG/DL (7-18); CHLORIDE 103 MEQ/L (98-107); GLOMERULAR FILTRATION RATE 132 ML/MIN (>89); SODIUM (NA) 139 MEQ/L (136-145); TOTAL BILIRUBIN ADULT 0.5 MG/DL (0.2-1.0)
[2016-09-27] MEDS: ENOXAPARIN SODIUM 40 MG/0.4 ML SYRINGE SQ SCH (13:59)
--- NOTE | 2016-09-27 15:06 | HHI.PR ---
Subjective Remarks Patient states she is doing well denies having a BM and passing gas told surgeon earlier she was passing gas denies fevers/chills Some abdominal pain - now improved Objective Vitals Vital Signs Date Time Temp Pulse Resp B/P Pulse Ox O2 Delivery O2 Flow Rate FiO2 09/27/16 13:40 94 Nasal Cannula 21 09/27/16 12:00 98.3 60 16 146/67 94 09/27/16 08:00 98.4 72 16 139/64 95 09/27/16 04:00 98.3 76 18 147/66 94 09/27/16 00:00 95.6 73 18 124/54 94 09/26/16 22:09 96 Nasal Cannula 2.00 09/26/16 20:00 98.9 85 18 152/66 95 09/26/16 16:00 99.2 83 20 198/93 95 I/O 09/26/16 09/26/16 09/26/16 09/27/16 09/27/16 09/27/16 07:00 15:00 23:00 07:00 15:00 23:00 Intake Total 240 ml 320 ml 0 ml 0 ml Output Total 600 ml 100 ml 830 ml 30 ml Balance -360 ml 220 ml -830 ml -30 ml Intake Oral 240 ml 120 ml 0 ml 0 ml IV Total 200 ml 0 ml 0 ml Output Urine Total 600 ml 800 ml Drainage Total 100 ml 30 ml 30 ml # Voids 3 2 # Bowel Movements 0 Result Diagram: 09/27/16 0950 09/27/16 0950 Imaging Last Impressions Modified Barium Swallow 09/26/16 0000 Signed Impressions: Service Date/Time: Monday, September 26, 2016 00:00 - CONCLUSION: Normal swallowing with a trace amount of penetration identified on real-time imaging. No significant pathology identified. Carmel Yen MD Abdomen/Pelvis CT 09/23/16 0858 Signed Impressions: Service Date/Time: Friday, September 23, 2016 10:11 - CONCLUSION: 1. Solid enhancing right adrenal mass measuring 3.7 x 2.9 cm. 2. Distended gallbladder with mild wall thickening and pericholecystic fluid raising the possibility of acute cholecystitis. Clinical correlation is recommended. 3. Minimal central intrahepatic and extrahepatic biliary ductal dilatation. Correlation with alkaline phosphatase and bilirubin levels is suggested. 4. Uncomplicated colonic diverticulosis. 5. Multiple bilateral renal cysts. 6. Mild hepatomegaly. 7. Grade I anterolisthesis of L5 in relation to S1, L4 in relation to L5 and L3 in relation to L2. 8. Degenerative changes and scoliosis of the thoracolumbar spine. 9. Bilateral inguinal hernias containing only fat. Carroll Bruce MD Objective Remarks GENERAL: in NAD CARDIOVASCULAR: Regular rate and rhythm without murmurs, gallops, or rubs. RESPIRATORY: Breath sounds equal bilaterally. No accessory muscle use. GASTROINTESTINAL: Abdomen soft, slightly distended, diffuse tenderness in abdomen especially in the right upper quadrant. No peritoneal signs. Bowel sounds present. MUSCULOSKELETAL: No cyanosis, or edema. BACK: Nontender without obvious deformity. No CVA tenderness. Procedures Status post laparoscopic cholecystectomy. Medications and IVs Current Medications Medications (Trade) Dose Ordered Sig/Park Route Start Time Stop Time Status Last Admin (NS Flush) 2 ml UNSCH PRN IV FLUSH 09/23/16 12:15 (NS Flush) 2 ml BID IV FLUSH 09/23/16 21:00 09/27/16 08:22 (Zofran Inj) 4 mg Q6H PRN IVP 09/23/16 12:15 09/23/16 14:43 (Lovenox Inj) 40 mg Q24H SQ 09/23/16 13:00 09/27/16 13:59 (Narcan Inj) 0.4 mg UNSCH PRN IV 09/23/16 12:15 (Morphine Inj) 2 mg Q3H PRN IV PUSH 09/23/16 12:15 09/25/16 01:21 (Ecotrin Ec) 81 mg DAILY PO 09/24/16 09:00 09/27/16 08:20 (Lipitor) 20 mg HS PO 09/23/16 21:00 09/26/16 20:46 (Synthroid) 112 mcg DAILY@06 PO 09/24/16 06:00 09/27/16 05:36 (Antivert) 12.5 mg TID PRN PO 09/23/16 12:15 09/26/16 06:12 (Pill Splitter) 1 ea UNSCH PRN OTHER 09/23/16 12:45 Promethazine HCl 12.5 mg 12.5 mg Q6H PRN RECTAL 09/23/16 16:15 09/23/16 16:50 (Lr 1000 ml Inj) 1,000 ml @ 30 mls/hr Q24H IV 09/25/16 04:30 (Toprol Xl) 75 mg DAILY PO 09/26/16 09:00 09/27/16 08:20 ([place] 5-325 Mg) 2 tab Q6H PRN PO 09/25/16 12:00 09/27/16 06:06 (Dyloject Inj) 37.5 mg Q6H PRN IV PUSH 09/25/16 12:30 (Morphine Inj) 4 mg Q3H PRN IV PUSH 09/25/16 12:30 09/25/16 23:41 (Cipro) 500 mg Q12HR PO 09/26/16 21:00 09/27/16 08:20 ([place]) 0.1 mg Q6H PRN PO 09/26/16 16:45 09/26/16 16:58 (Prinivil) 30 mg DAILY PO 09/27/16 09:00 09/27/16 08:20 (Tylenol) 1,000 mg Q6H PRN PO 09/26/16 16:45 (Pill Splitter) 1 ea UNSCH PRN OTHER 09/26/16 16:45 Urinary Catheter: No Vascular Central Line Catheter: No A/P Assessment and Plan Acute cholecystitis. Patient with suggested acute cholecystitis. Patient status post laparoscopic cholecystectomy. This posttreatment with IV Zosyn. Discontinue IV fluids, continue antiemetics. Continue oral ciprofloxacin. management as per surgery Elevated LFTs Liver function tests continued to trend down. Continue to monitor LFTs. Adrenal mass -Per Dr. Schroeder difficulty working up patient. please refer to her note. -patient to f/u as outpatient with Dr. Schroeder. UTI -Asymptomatic. Initially treated with IV Zosyn. Urine culture grew Escherichia coli UTI. Continue ciprofloxacin. Hypertension/hyperlipidemia/hypothyroidism -continue home medication. Seems stable. Toxic encephalopathy Patient felt very confused and foggy after surgical procedure. This is likely due to anesthetics provided during surgery. This has almost completely resolved as per patient. Dysphagia Modified barium swallow was within functional limits, otherwise normal. His therapy recommended soft diet with thin liquids and patient does not require skilled speech therapy. Sore throat Likely secondary to intubation during surgical procedure. Better today. Continue lozenges. Consults physical therapy ---> recommended PT at rehabilitation versus home with home health physical therapy. Discharge Planning Pending general surgery clearance, barium swallow and clinical improvement. Hemanth Brown MD Sep 27, 2016 15:06
[2016-09-27] MEDS: ATORVASTATIN 20 MG TAB PO SCH (19:41)
[2016-09-27] MEDS: cloNIDine HCL 0.1 MG TAB PO PRN (21:43)
--- NOTE | 2016-09-27 23:50 | HHI.PR ---
Subjective Subjective Notes no new c/o seven diet Objective Vitals/I&O Vital Signs Date Time Temp Pulse Resp B/P Pulse Ox O2 Delivery O2 Flow Rate FiO2 09/27/16 20:01 93 Whisper-Flow 21 09/27/16 20:00 96.6 75 20 182/79 09/26/16 22:09 2.00 Labs Laboratory Tests Test 09/27/16 09:50 White Blood Count 9.7 Red Blood Count 3.50 Hemoglobin 11.1 Hematocrit 32.6 Mean Corpuscular Volume 93.0 Mean Corpuscular Hemoglobin 31.7 Mean Corpuscular Hemoglobin 34.1 Concent Red Cell Distribution Width 17.4 Platelet Count 172 Mean Platelet Volume 10.4 Neutrophils (%) (Auto) 62.9 Lymphocytes (%) (Auto) 25.2 Monocytes (%) (Auto) 8.2 Eosinophils (%) (Auto) 3.2 Basophils (%) (Auto) 0.5 Neutrophils # (Auto) 6.1 Lymphocytes # (Auto) 2.4 Monocytes # (Auto) 0.8 Eosinophils # (Auto) 0.3 Basophils # (Auto) 0.0 CBC Comment DIFF FINAL Differential Comment Sodium Level 139 Potassium Level 4.0 Chloride Level 103 Carbon Dioxide Level 27.7 Anion Gap 8 Blood Urea Nitrogen 9 Creatinine 0.45 Estimat Glomerular Filtration 132 Rate Random Glucose 103 Calcium Level 8.2 Total Bilirubin 0.5 Aspartate Amino Transf 87 (AST/SGOT) Alanine Aminotransferase 211 (ALT/SGPT) Alkaline Phosphatase 156 Total Protein 6.2 Albumin 2.5 Date/Time Procedure Status Source Growth 09/23/16 09:25 Urine Culture - Final Complete Urine Catheterized Urine Escherichia Coli Abdomen: Non-distended, Post-op tenderness, BS normal Narrative Exam incisions c/d/i A/P Assessment and Plan 86 year old female POD2 s/p Lap Cholecystectomy, doing well. Patient is unsteady on her feet and needs assistance ambulating, will need PT minimal clear drainage from BOO, DC drain DC planning King Patricio MD Sep 27, 2016 23:50
[2016-09-28] VITALS: BP 154/76; PULSE 76; RESP 20; TEMP 97.4; O2SAT 95
[2016-09-28] MEDS: LACTATED RINGER'S 1000 ML IV SCH ×2 (04:30→22:57)
[2016-09-28] MEDS: LEVOTHYROXINE SODIUM 112 MCG TAB PO SCH (04:53)
[2016-09-28 05:42] LABS: ALKALINE PHOSPHATASE 143 U/L (45-117); ALT (GPT) 167 U/L (10-53); ANION GAP 7 MEQ/L (5-15); AST (GOT) 56 U/L (15-37); BICARBONATE 31.4 MEQ/L (21.0-32.0); BLOOD UREA NITROGEN 9 MG/DL (7-18); CHLORIDE 104 MEQ/L (98-107); GLOMERULAR FILTRATION RATE 156 ML/MIN (>89); MAGNESIUM 2.2 MG/DL (1.5-2.5); POTASSIUM 3.5 MEQ/L (3.5-5.1); SODIUM (NA) 142 MEQ/L (136-145); TOTAL BILIRUBIN ADULT 0.3 MG/DL (0.2-1.0)
[2016-09-28] MEDS: ACETAMINOPHEN/HYDROcodone 325 MG/5 MG TAB PO PRN ×3 (05:46→22:58)
[2016-09-28 05:49] LABS: AUTOMATED NEUTROPHIL # 5.5 TH/MM3 (1.8-7.7); BASOPHIL % 0.3 % (0.0-2.0); EOSINOPHIL # 0.3 TH/MM3 (0-0.4); EOSINOPHIL % 3.4 % (0.0-4.0); HEMATOCRIT 32.6 % (35.0-46.0); HEMO FLAGS DIFF FINAL; LYMPH % 24.9 % (9.0-44.0); LYMPHOCYTE # 2.2 TH/MM3 (1.0-4.8); MEAN CORPUSCULAR HEMOGLOBIN 31.6 PG (27.0-34.0); MEAN CORPUSCULAR HGB CONC 34.3 % (32.0-36.0); MONO % 7.7 % (0.0-8.0); NEUT % 63.7 % (16.0-70.0); PLATELET COUNT 177 TH/MM3 (150-450); RED BLOOD COUNT 3.54 MIL/MM3 (4.00-5.30); RED CELL DISTRIBUTION WIDTH 17.2 % (11.6-17.2); WHITE BLOOD COUNT 8.7 TH/MM3 (4.0-11.0)
[2016-09-28 08:00] VITALS: BP 143/78; PULSE 75; RESP 16; TEMP 96.4; O2SAT 98
[2016-09-28] MEDS: SODIUM CHLORIDE 0.9% FLUSH 10 ML FLUSH IV FLUSH SCH ×2 (09:00→21:00)
[2016-09-28] MEDS: ASPIRIN EC 81 MG TABEC PO SCH (09:04)
[2016-09-28] MEDS: LISINOPRIL 20 MG TAB PO SCH (09:05)
[2016-09-28] MEDS: CIPROFLOXACIN 500 MG TAB PO SCH ×2 (09:05→22:56)
[2016-09-28] MEDS: METOPROLOL SUCCINATE 50 MG EXTENDED RELEASE TAB PO SCH (09:05)
[2016-09-28 09:22] VITALS: O2SAT 94
--- NOTE | 2016-09-28 11:02 | HHI.PR ---
Subjective Subjective Notes Resting in bed Wants to go home today Worried about falling though Objective Vitals/I&O Vital Signs Date Time Temp Pulse Resp B/P Pulse Ox O2 Delivery O2 Flow Rate FiO2 09/28/16 09:22 94 21 09/28/16 08:00 96.4 75 16 143/78 09/27/16 20:01 Whisper-Flow 09/26/16 22:09 2.00 Labs Laboratory Tests Test 09/28/16 04:45 White Blood Count 8.7 Red Blood Count 3.54 Hemoglobin 11.2 Hematocrit 32.6 Mean Corpuscular Volume 92.0 Mean Corpuscular Hemoglobin 31.6 Mean Corpuscular Hemoglobin 34.3 Concent Red Cell Distribution Width 17.2 Platelet Count 177 Mean Platelet Volume 10.0 Neutrophils (%) (Auto) 63.7 Lymphocytes (%) (Auto) 24.9 Monocytes (%) (Auto) 7.7 Eosinophils (%) (Auto) 3.4 Basophils (%) (Auto) 0.3 Neutrophils # (Auto) 5.5 Lymphocytes # (Auto) 2.2 Monocytes # (Auto) 0.7 Eosinophils # (Auto) 0.3 Basophils # (Auto) 0.0 CBC Comment DIFF FINAL Differential Comment Sodium Level 142 Potassium Level 3.5 Chloride Level 104 Carbon Dioxide Level 31.4 Anion Gap 7 Blood Urea Nitrogen 9 Creatinine 0.39 Estimat Glomerular Filtration 156 Rate Random Glucose 86 Calcium Level 8.5 Phosphorus Level 2.4 Magnesium Level 2.2 Total Bilirubin 0.3 Aspartate Amino Transf 56 (AST/SGOT) Alanine Aminotransferase 167 (ALT/SGPT) Alkaline Phosphatase 143 Total Protein 5.9 Albumin 2.5 Cardiovascular: Regular Lungs: Clear Abdomen: Other (lap sites c/d/i ), Post-op tenderness Extremities: No edema A/P Assessment and Plan 86-year-old female with acute cholecystitis -POD3 lap dominique -Tolerating regular diet -Continue PT -BOO drain removed -No acute surgical needs at this time -GS clear for DC -Follow up with Dr. Correa in 10-14 days I CERTIFY AND ATTEST THAT I PERSONALLY EXAMINED THIS PATIENT IN THEIR ROOM WITH THE DELIVERY CONSULTANT PRESENT. MS HOGAN IS DOCUMENTING OUR VISIT IN THE EMR AND ENTERED ORDERS UNDER MY DIRECT SUPERVISION. I DISCUSSED THE CARE PLAN WITH THE PATIENT AND THEIR [facility] ST[facility]FF. Nickie Messina MD, FACS DELIVERY CONSULTANT Sep 28, 2016 11:02 Andrew Correa MD Oct 03, 2016 13:43
[2016-09-28 12:00] VITALS: BP 152/70; PULSE 71; RESP 18; TEMP 99.3; O2SAT 94
[2016-09-28] MEDS: ENOXAPARIN SODIUM 40 MG/0.4 ML SYRINGE SQ SCH (12:34)
[2016-09-28] MEDS: POLYETHYLENE GLYCOL 17 GM PKG PO SCH (14:34)
[2016-09-28 16:00] VITALS: BP 158/72; PULSE 77; RESP 16; TEMP 99.8; O2SAT 93
--- NOTE | 2016-09-28 16:00 | HHI.PR ---
Subjective Remarks pain controlled, denies cp/sob denies fevers and chills passing gas BP elevated into 140 to 150's Objective Vitals Vital Signs Date Time Temp Pulse Resp B/P Pulse Ox O2 Delivery O2 Flow Rate FiO2 09/28/16 09:22 94 21 09/28/16 08:00 96.4 75 16 143/78 98 09/28/16 00:00 97.4 76 20 154/76 95 09/27/16 20:01 93 Whisper-Flow 21 09/27/16 20:00 96.6 75 20 182/79 96 09/27/16 16:00 98.2 78 17 179/75 94 I/O 09/27/16 09/27/16 09/27/16 09/28/16 09/28/16 09/28/16 07:00 15:00 23:00 07:00 15:00 23:00 Intake Total 360 ml 240 ml 0 ml 0 ml Output Total 530 ml 20 ml Balance -170 ml 240 ml -20 ml 0 ml Intake Oral 360 ml 240 ml IV Total 0 ml 0 ml 0 ml Output Urine Total 500 ml Drainage Total 30 ml 20 ml # Voids 2 2 # Bowel Movements 0 0 Result Diagram: 09/28/16 0445 09/28/16 0445 Imaging Last Impressions Modified Barium Swallow 09/26/16 0000 Signed Impressions: Service Date/Time: Monday, September 26, 2016 00:00 - CONCLUSION: Normal swallowing with a trace amount of penetration identified on real-time imaging. No significant pathology identified. Carmel Yen MD Abdomen/Pelvis CT 09/23/16 0858 Signed Impressions: Service Date/Time: Friday, September 23, 2016 10:11 - CONCLUSION: 1. Solid enhancing right adrenal mass measuring 3.7 x 2.9 cm. 2. Distended gallbladder with mild wall thickening and pericholecystic fluid raising the possibility of acute cholecystitis. Clinical correlation is recommended. 3. Minimal central intrahepatic and extrahepatic biliary ductal dilatation. Correlation with alkaline phosphatase and bilirubin levels is suggested. 4. Uncomplicated colonic diverticulosis. 5. Multiple bilateral renal cysts. 6. Mild hepatomegaly. 7. Grade I anterolisthesis of L5 in relation to S1, L4 in relation to L5 and L3 in relation to L2. 8. Degenerative changes and scoliosis of the thoracolumbar spine. 9. Bilateral inguinal hernias containing only fat. Carroll Bruce MD Objective Remarks GENERAL: in NAD CARDIOVASCULAR: Regular rate and rhythm without murmurs, gallops, or rubs. RESPIRATORY: Breath sounds equal bilaterally. No accessory muscle use. GASTROINTESTINAL: Abdomen soft, slightly distended, diffuse tenderness in abdomen especially in the right upper quadrant. No peritoneal signs. Bowel sounds present. MUSCULOSKELETAL: No cyanosis, or edema. BACK: Nontender without obvious deformity. No CVA tenderness. Procedures Status post laparoscopic cholecystectomy. Medications and IVs Current Medications Medications (Trade) Dose Ordered Sig/Park Route Start Time Stop Time Status Last Admin (NS Flush) 2 ml UNSCH PRN IV FLUSH 09/23/16 12:15 (NS Flush) 2 ml BID IV FLUSH 09/23/16 21:00 09/28/16 09:00 (Zofran Inj) 4 mg Q6H PRN IVP 09/23/16 12:15 09/23/16 14:43 (Lovenox Inj) 40 mg Q24H SQ 09/23/16 13:00 09/28/16 12:34 (Narcan Inj) 0.4 mg UNSCH PRN IV 09/23/16 12:15 (Morphine Inj) 2 mg Q3H PRN IV PUSH 09/23/16 12:15 09/25/16 01:21 (Ecotrin Ec) 81 mg DAILY PO 09/24/16 09:00 09/28/16 09:04 (Lipitor) 20 mg HS PO 09/23/16 21:00 09/27/16 19:41 (Synthroid) 112 mcg DAILY@06 PO 09/24/16 06:00 09/28/16 04:53 (Antivert) 12.5 mg TID PRN PO 09/23/16 12:15 09/26/16 06:12 (Pill Splitter) 1 ea UNSCH PRN OTHER 09/23/16 12:45 Promethazine HCl 12.5 mg 12.5 mg Q6H PRN RECTAL 09/23/16 16:15 09/23/16 16:50 (Lr 1000 ml Inj) 1,000 ml @ 30 mls/hr Q24H IV 09/25/16 04:30 (Colon 5-325 Mg) 2 tab Q6H PRN PO 09/25/16 12:00 09/28/16 16:49 (Morphine Inj) 4 mg Q3H PRN IV PUSH 09/25/16 12:30 09/25/16 23:41 (Cipro) 500 mg Q12HR PO 09/26/16 21:00 09/28/16 09:05 (Catapres) 0.1 mg Q6H PRN PO 09/26/16 16:45 09/27/16 21:43 (Prinivil) 30 mg DAILY PO 09/27/16 09:00 09/28/16 09:05 (Tylenol) 1,000 mg Q6H PRN PO 09/26/16 16:45 (Pill Splitter) 1 ea UNSCH PRN OTHER 09/26/16 16:45 (Miralax) 17 gm DAILY PO 09/28/16 13:15 09/28/16 14:34 (Toprol Xl) 100 mg DAILY PO 09/29/16 09:00 Urinary Catheter: No Vascular Central Line Catheter: No A/P Assessment and Plan Acute cholecystitis. Patient with suggested acute cholecystitis. Patient status post laparoscopic cholecystectomy. This posttreatment with IV Zosyn. Discontinue IV fluids, continue antiemetics. Continue oral ciprofloxacin. Patient has been cleared by General surgery. Elevated LFTs Liver function tests continued to trend down. Continue to monitor LFTs. Adrenal mass -Per Dr. Schroeder difficulty working up patient. please refer to her note. -patient to f/u as outpatient with Dr. Schroeder. E Coli UTI -Asymptomatic. Initially treated with IV Zosyn. Urine culture grew Escherichia coli UTI. Continue ciprofloxacin. Hypertension/hyperlipidemia/hypothyroidism - BP uncontrolled persistently with sbp into the 150's systolic. I will increase Metoprolol Succinate to 100 mg daily. Toxic encephalopathy Patient felt very confused and foggy after surgical procedure. This likely was caused due to anesthetics provided during surgery. Resolved. Dysphagia Modified barium swallow was within functional limits, otherwise normal. His therapy recommended soft diet with thin liquids and patient does not require skilled speech therapy. Sore throat Likely secondary to intubation during surgical procedure. Better today. Continue lozenges. Consults physical therapy ---> recommended PT at rehabilitation versus home with home health physical therapy. Discharge Planning Pending general surgery clearance, barium swallow and clinical improvement. Hemanth Brown MD Sep 28, 2016 15:59
[2016-09-28] MEDS ORDERED: METOPROLOL SUCCINATE 25 MG EXTENDED RELEASE TAB PO ONE (16:15)
[2016-09-28 20:00] VITALS: BP 160/64; PULSE 72; RESP 20; TEMP 99; O2SAT 94
[2016-09-28] MEDS: ATORVASTATIN 20 MG TAB PO SCH (22:56)
[2016-09-29] VITALS (9 sets, daily range): BP systolic 141–194; BP diastolic 67–83; PULSE 68–78; RESP 17–20; TEMP 98.2–98.9; O2SAT 93–98
[2016-09-29] MEDS: ONDANSETRON HCL 4 MG/2 ML VIAL IVP PRN (01:08)
[2016-09-29] MEDS: PROMETHAZINE HCL 12.5 MG SUPP RECTAL PRN (01:22)
[2016-09-29 05:03] LABS: AUTOMATED NEUTROPHIL # 4.9 TH/MM3 (1.8-7.7); BASOPHIL % 0.5 % (0.0-2.0); EOSINOPHIL # 0.3 TH/MM3 (0-0.4); EOSINOPHIL % 3.6 % (0.0-4.0); HEMATOCRIT 32.8 % (35.0-46.0); HEMO FLAGS DIFF FINAL; LYMPH % 28.8 % (9.0-44.0); LYMPHOCYTE # 2.5 TH/MM3 (1.0-4.8); MEAN CELL VOLUME 92.9 FL (80.0-100.0); MEAN CORPUSCULAR HEMOGLOBIN 30.8 PG (27.0-34.0); MEAN CORPUSCULAR HGB CONC 33.2 % (32.0-36.0); MONO % 9.6 % (0.0-8.0); NEUT % 57.5 % (16.0-70.0); PLATELET COUNT 198 TH/MM3 (150-450); RED BLOOD COUNT 3.53 MIL/MM3 (4.00-5.30); RED CELL DISTRIBUTION WIDTH 17.4 % (11.6-17.2); WHITE BLOOD COUNT 8.5 TH/MM3 (4.0-11.0)
[2016-09-29 05:30] LABS: ALT (GPT) 159 U/L (10-53); ANION GAP 9 MEQ/L (5-15); AST (GOT) 85 U/L (15-37); BICARBONATE 29.5 MEQ/L (21.0-32.0); BLOOD UREA NITROGEN 8 MG/DL (7-18); CHLORIDE 106 MEQ/L (98-107); GLOMERULAR FILTRATION RATE 140 ML/MIN (>89); POTASSIUM 3.5 MEQ/L (3.5-5.1); SODIUM (NA) 144 MEQ/L (136-145)
[2016-09-29 05:32] LABS: ALKALINE PHOSPHATASE 175 U/L (45-117); TOTAL BILIRUBIN ADULT 0.3 MG/DL (0.2-1.0)
[2016-09-29] MEDS: ACETAMINOPHEN/HYDROcodone 325 MG/5 MG TAB PO PRN ×2 (06:23→19:50)
[2016-09-29] MEDS: LEVOTHYROXINE SODIUM 112 MCG TAB PO SCH (06:23)
[2016-09-29] MEDS: SODIUM CHLORIDE 0.9% FLUSH 10 ML FLUSH IV FLUSH SCH ×2 (08:06→21:00)
[2016-09-29] MEDS: METOPROLOL SUCCINATE 50 MG EXTENDED RELEASE TAB PO SCH (08:42)
[2016-09-29] MEDS: LISINOPRIL 20 MG TAB PO SCH (08:42)
[2016-09-29] MEDS: ASPIRIN EC 81 MG TABEC PO SCH (08:42)
[2016-09-29] MEDS: POLYETHYLENE GLYCOL 17 GM PKG PO SCH (08:43)
[2016-09-29] MEDS: CIPROFLOXACIN 500 MG TAB PO SCH ×2 (08:43→19:50)
--- NOTE | 2016-09-29 10:59 | HHI.PR ---
Subjective Remarks Patient states that does not feel well, has bilateral ear pain. Blood pressure noted to be very elevated in the 190s systolic. Denies abdominal pain, nausea vomiting. As per RN BM yet. Patient afebrile. Objective Vitals Vital Signs Date Time Temp Pulse Resp B/P Pulse Ox O2 Delivery O2 Flow Rate FiO2 09/29/16 08:00 98.9 73 17 194/83 94 09/29/16 07:35 1.00 09/29/16 00:00 98.8 78 20 146/72 95 09/28/16 20:00 99.0 72 20 160/64 94 09/28/16 16:00 99.8 77 16 158/72 93 09/28/16 12:00 99.3 71 18 152/70 94 I/O 09/28/16 09/28/16 09/28/16 09/29/16 09/29/16 09/29/16 07:00 15:00 23:00 07:00 15:00 23:00 Intake Total 0 ml 720 ml 340 ml 240 ml Output Total 500 ml 350 ml Balance 0 ml 720 ml -160 ml -110 ml Intake Oral 720 ml 340 ml 240 ml IV Total 0 ml Output Urine Total 500 ml 350 ml # Voids 4 # Bowel Movements 0 0 0 Result Diagram: 09/29/16 0416 09/29/16 0416 Imaging Last Impressions Modified Barium Swallow 09/26/16 0000 Signed Impressions: Service Date/Time: Monday, September 26, 2016 00:00 - CONCLUSION: Normal swallowing with a trace amount of penetration identified on real-time imaging. No significant pathology identified. Carmel Yen MD Abdomen/Pelvis CT 09/23/16 0858 Signed Impressions: Service Date/Time: Friday, September 23, 2016 10:11 - CONCLUSION: 1. Solid enhancing right adrenal mass measuring 3.7 x 2.9 cm. 2. Distended gallbladder with mild wall thickening and pericholecystic fluid raising the possibility of acute cholecystitis. Clinical correlation is recommended. 3. Minimal central intrahepatic and extrahepatic biliary ductal dilatation. Correlation with alkaline phosphatase and bilirubin levels is suggested. 4. Uncomplicated colonic diverticulosis. 5. Multiple bilateral renal cysts. 6. Mild hepatomegaly. 7. Grade I anterolisthesis of L5 in relation to S1, L4 in relation to L5 and L3 in relation to L2. 8. Degenerative changes and scoliosis of the thoracolumbar spine. 9. Bilateral inguinal hernias containing only fat. Carroll Bruce MD Objective Remarks GENERAL: in NAD CARDIOVASCULAR: Regular rate and rhythm without murmurs, gallops, or rubs. RESPIRATORY: Breath sounds equal bilaterally. No accessory muscle use. GASTROINTESTINAL: Abdomen soft, slightly distended, diffuse tenderness in abdomen especially in the right upper quadrant. No peritoneal signs. Bowel sounds present. MUSCULOSKELETAL: No cyanosis, or edema. BACK: Nontender without obvious deformity. No CVA tenderness. Procedures Status post laparoscopic cholecystectomy. Medications and IVs Current Medications Medications (Trade) Dose Ordered Sig/Park Route Start Time Stop Time Status Last Admin (NS Flush) 2 ml UNSCH PRN IV FLUSH 09/23/16 12:15 (NS Flush) 2 ml BID IV FLUSH 09/23/16 21:00 09/28/16 21:00 (Zofran Inj) 4 mg Q6H PRN IVP 09/23/16 12:15 09/23/16 14:43 (Lovenox Inj) 40 mg Q24H SQ 09/23/16 13:00 09/28/16 12:34 (Narcan Inj) 0.4 mg UNSCH PRN IV 09/23/16 12:15 (Morphine Inj) 2 mg Q3H PRN IV PUSH 09/23/16 12:15 09/25/16 01:21 (Ecotrin Ec) 81 mg DAILY PO 09/24/16 09:00 09/29/16 08:42 (Lipitor) 20 mg HS PO 09/23/16 21:00 09/28/16 22:56 (Synthroid) 112 mcg DAILY@06 PO 09/24/16 06:00 09/29/16 06:23 (Antivert) 12.5 mg TID PRN PO 09/23/16 12:15 09/26/16 06:12 (Pill Splitter) 1 ea UNSCH PRN OTHER 09/23/16 12:45 Promethazine HCl 12.5 mg 12.5 mg Q6H PRN RECTAL 09/23/16 16:15 09/29/16 01:22 (Lr 1000 ml Inj) 1,000 ml @ 30 mls/hr Q24H IV 09/25/16 04:30 ([place] 5-325 Mg) 2 tab Q6H PRN PO 09/25/16 12:00 09/29/16 06:23 (Morphine Inj) 4 mg Q3H PRN IV PUSH 09/25/16 12:30 09/25/16 23:41 (Cipro) 500 mg Q12HR PO 09/26/16 21:00 09/29/16 08:43 (Catapres) 0.1 mg Q6H PRN PO 09/26/16 16:45 09/27/16 21:43 (Prinivil) 30 mg DAILY PO 09/27/16 09:00 09/29/16 08:42 (Tylenol) 1,000 mg Q6H PRN PO 09/26/16 16:45 (Pill Splitter) 1 ea UNSCH PRN OTHER 09/26/16 16:45 (Miralax) 17 gm DAILY PO 09/28/16 13:15 09/29/16 08:43 (Toprol Xl) 100 mg DAILY PO 09/29/16 09:00 09/29/16 08:42 A/P Assessment and Plan Acute cholecystitis. Patient with suggested acute cholecystitis. Patient status post laparoscopic cholecystectomy. This posttreatment with IV Zosyn. Discontinue IV fluids, continue antiemetics. Continue oral ciprofloxacin. Patient has been cleared by General surgery. Elevated LFTs Liver function tests continued to trend down. Continue to monitor LFTs. Adrenal mass -Per Dr. Schroeder difficulty working up patient. please refer to her note. -patient to f/u as outpatient with Dr. Schroeder. E Coli UTI -Asymptomatic. Initially treated with IV Zosyn. Urine culture grew Escherichia coli UTI. Continue ciprofloxacin. Hypertension/hyperlipidemia/hypothyroidism - BP uncontrolled persistently with sbp into the 150's systolic. I will increase Metoprolol Succinate to 100 mg daily. 09/29 blood pressure continues to be uncontrolled. I will likely start the patient on Cardura 2 mg daily if the patient continues to be elevated. Toxic encephalopathy Patient felt very confused and foggy after surgical procedure. This likely was caused due to anesthetics provided during surgery. Resolved. Dysphagia Modified barium swallow was within functional limits, otherwise normal. His therapy recommended soft diet with thin liquids and patient does not require skilled speech therapy. Sore throat Likely secondary to intubation during surgical procedure. Better today. Continue lozenges. Constipation I will add senna and Colace, try Dulcolax suppository, continue MiraLAX. Consults physical therapy ---> recommended PT at rehabilitation versus home with home health physical therapy. Discharge Planning Possible discharge in a.m., pending stabilization of blood pressure. Hemanth Brown MD Sep 29, 2016 10:59
--- NOTE | 2016-09-29 11:19 | MP ---
cc: PHILLIP MARTINEZ M.D. DATE OF SURGERY: 09/25/2016 PREOPERATIVE DIAGNOSIS Acute cholecystitis. POSTOPERATIVE DIAGNOSIS Acute cholecystitis. PROCEDURE PERFORMED Laparoscopic cholecystectomy. SURGEON Phillip Martinez DIRECTOR ECONOMIC Heavenly Doyle, MS III ANESTHESIA General endotracheal. COMPLICATIONS None. ESTIMATED BLOOD LOSS 50 cc. INDICATION FOR PROCEDURE Ms. Mccloud is a pleasant 86-year-old female who presented to the emergency department with abdominal pain. She was worked up and found to have acute cholecystitis. Specifically, she was found to have a markedly distended gallbladder with some mild ductal dilatation, gallbladder wall thickening and pericholecystic fluid. She was advised to undergo cholecystectomy. The patient required cardiac clearance. Once she was cleared for surgery the risks and benefits of the procedure were reviewed with her and her son in detail and they were agreeable. INTRAOPERATIVE FINDINGS The patient had a markedly distended edematous gallbladder. It was very thickened and large and difficult to manipulate due to its large size. We had to open additional instrumentation and took a prolonged amount of time in order to dissect the gallbladder out safely. We also had to aspirate about 150 cc of dark-green bile out of the gallbladder in order to manipulate it due to its large size. DETAILS OF PROCEDURE The patient was identified, brought to the operating room and placed supine on the operating table. After adequate general endotracheal anesthesia was achieved the abdomen was prepped and draped in standard surgical fashion. The supraumbilical space was anesthetized with 0.25% Marcaine. A supraumbilical incision was made. Dissection was carried down through subcutaneous tissue to the midline fascia. The midline fascia was then incised sharply. A finger was then placed in the peritoneal cavity without difficulty. A blunt balloon trocar was inserted and the abdomen was insufflated to 15 mmHg using CO2 gas. A 30 degree laparoscope was inserted. Immediately we noted the patient to have extensive lower midline adhesions from previous surgery. She also had Frkr-Drqi-Qjgnya adhesions all around the liver with the left lobe of the liver completely adherent to the abdominal wall on the left side. Two 5 mm trocars were placed in the right upper quadrant after anesthetizing the skin and subcutaneous tissue with 0.25% Marcaine. The Pfvq-[id number]-Ilukza adhesions were taken down with sharp dissection. Next, the gallbladder was clearly seen as it was markedly distended and protruding out from the liver and displacing the liver anteriorly. The gallbladder was large and unable to be grasped and therefore we had to aspirate it. An aspirating needle was used and we retrieved approximately 150 cc of dark-green bile out of the gallbladder. Once we did this we were able to manipulate the gallbladder. The gallbladder was then retracted cephalad. The gallbladder neck was then dissected. The cystic artery and cystic duct were clearly identified in two planes entering the neck of the gallbladder. Once they were confirmed entering the neck of the gallbladder they were clipped twice proximally, once distally and then divided. The gallbladder was then dissected out of the hepatic fossa using electrocautery Bovie. The gallbladder was a large size and made this dissection quite lengthy as it was densely adherent to the liver. Once we freed it up completely it was placed into an EndoCatch bag. We then had to enlarge the supraumbilical incision in order to retrieve the large gallbladder out. There were no stones noted. The gallbladder was sent to pathology for analysis. Next, the abdominal cavity was re-visualized. The liver bed was hemostatic. The clips were in place on the cystic artery and cystic duct stump. There was a moderate amount of edema that was noted. We washed out the abdomen with one liter of warm saline solution. Once we did this the patient still had a moderate amount of edema and I therefore elected to place a 7-Turkmen Cesar-Willingham drain. A 7-Turkmen drain was placed in the liver bed under direct vision and brought out through one of the 5 mm ports. At this point all ports were removed under direct vision. The abdomen was desufflated. The midline fascia was repaired with 0 Vicryl interrupted. The skin was closed with 4-0 Vicryl. The patient tolerated the procedure well. She was awakened, extubated and brought to Recovery in stable condition. Please note the operative time of this case was in excess of one hour and we had to open additional instrumentation in order to safely complete the procedure laparoscopically due to the acute inflammatory nature of the gallbladder and it's quite large size. MD RON Perez/EMILY /11:58 AM /11:07 AM
[2016-09-29] MEDS ORDERED: BISACODYL 10 MG SUPP RECTAL ONE (11:30)
[2016-09-29] MEDS: DOCUSATE SODIUM 50 MG/SENNA 8.6 MG TAB PO SCH (11:31)
[2016-09-29] MEDS: ENOXAPARIN SODIUM 40 MG/0.4 ML SYRINGE SQ SCH (11:31)
[2016-09-29] MEDS: cloNIDine HCL 0.1 MG TAB PO PRN (12:17)
[2016-09-29] MEDS: DOXAZOSIN MESYLATE 2 MG TAB PO SCH (13:55)
[2016-09-29] MEDS: ATORVASTATIN 20 MG TAB PO SCH (19:50)
[2016-09-30] VITALS: BP 148/61; PULSE 65; RESP 20; TEMP 97.4; O2SAT 94
[2016-09-30] MEDS: LACTATED RINGER'S 1000 ML IV SCH (02:48)
[2016-09-30] MEDS: LEVOTHYROXINE SODIUM 112 MCG TAB PO SCH (05:54)
[2016-09-30] MEDS: ACETAMINOPHEN/HYDROcodone 325 MG/5 MG TAB PO PRN ×2 (05:56→14:29)
[2016-09-30 08:00] VITALS: BP 161/73; PULSE 75; RESP 16; TEMP 97.2; O2SAT 95
[2016-09-30] MEDS: CIPROFLOXACIN 500 MG TAB PO SCH (08:08)
[2016-09-30] MEDS: DOCUSATE SODIUM 50 MG/SENNA 8.6 MG TAB PO SCH (08:08)
[2016-09-30] MEDS: POLYETHYLENE GLYCOL 17 GM PKG PO SCH (08:08)
[2016-09-30] MEDS: LISINOPRIL 20 MG TAB PO SCH (08:08)
[2016-09-30] MEDS: METOPROLOL SUCCINATE 50 MG EXTENDED RELEASE TAB PO SCH (08:09)
[2016-09-30] MEDS: DOXAZOSIN MESYLATE 2 MG TAB PO SCH (08:09)
[2016-09-30] MEDS: SODIUM CHLORIDE 0.9% FLUSH 10 ML FLUSH IV FLUSH SCH (08:09)
[2016-09-30] MEDS: ASPIRIN EC 81 MG TABEC PO SCH (08:11)
[2016-09-30] MEDS ORDERED: SENN1TAB PO (11:56)
[2016-09-30] MEDS ORDERED: METO50TA11 PO (11:56)
[2016-09-30] MEDS ORDERED: CARD2TAB PO (11:56)
[2016-09-30] MEDS ORDERED: LISI-515 PO (11:56)
[2016-09-30] MEDS ORDERED: OXYC1TAB63 PO (11:56)
--- NOTE | 2016-09-30 11:57 | HHI.DCPOC ---
Discharge Care Plan Diagnosis: (1) Acute cholecystitis (2) UTI (urinary tract infection) (3) Hypertension (4) Vertigo (5) Hypothyroidism (6) ASHD (arteriosclerotic heart disease) (7) Adrenal mass, right (8) Hyperlipidemia Goals to Promote Your Health * To prevent worsening of your condition and complications * To maintain your health at the optimal level Directions to Meet Your Goals Take your medications as prescribed Follow your dietary instruction Follow activity as directed Keep your appointments as scheduled Take your immunizations and boosters as scheduled If your symptoms worsen call your PCP, if no PCP go to Urgent Care Center or Emergency Room Smoking is Dangerous to Your Health. Avoid second hand smoke Call the 24-hour hour crisis hotline for domestic abuse at Hemanth Brown MD Sep 30, 2016 11:57
[2016-09-30 12:00] VITALS: BP 147/68; PULSE 77; RESP 17; TEMP 96.9; O2SAT 96
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
[2016-09-30] MEDS: ENOXAPARIN SODIUM 40 MG/0.4 ML SYRINGE SQ SCH (13:09)
== END 2016-09-30 15:04 | DRG 417 ==
LOC: NEPC 08:37 → NEDA 11:55 → N07A 19:03
PROVIDERS: ADMIT Hospitalist; ATTEND Hospitalist
PROC: 0FN04ZZ Release Liver, Percutaneous Endoscopic Approach (ICD-10-PCS; 2016-09-25)
PROC: 0FT44ZZ Resection of Gallbladder, Percutaneous Endoscopic Approach (ICD-10-PCS; principal; 2016-09-25 10:14)
DX: K81.0 Acute cholecystitis (principal); G92 Toxic encephalopathy; N39.0 Urinary tract infection, site not specified; N28.1 Cyst of kidney, acquired; M41.85 Other forms of scoliosis, thoracolumbar region; R13.10 Dysphagia, unspecified; R16.0 Hepatomegaly, not elsewhere classified; K66.0 Peritoneal adhesions (postprocedural) (postinfection); I10 Essential (primary) hypertension; E78.5 Hyperlipidemia, unspecified; D35.00 Benign neoplasm of unspecified adrenal gland; M19.90 Unspecified osteoarthritis, unspecified site; K21.9 Gastro-esophageal reflux disease without esophagitis; G47.30 Sleep apnea, unspecified; E89.0 Postprocedural hypothyroidism; K57.30 Diverticulosis of large intestine without perforation or abscess without bleeding; M43.16 Spondylolisthesis, lumbar region; K40.20 Bilateral inguinal hernia, without obstruction or gangrene, not specified as recurrent; R32 Unspecified urinary incontinence; I25.10 Atherosclerotic heart disease of native coronary artery without angina pectoris; J02.9 Acute pharyngitis, unspecified; R26.81 Unsteadiness on feet; K59.00 Constipation, unspecified; R42 Dizziness and giddiness; F32.9 Major depressive disorder, single episode, unspecified; F41.9 Anxiety disorder, unspecified; B96.20 Unspecified Escherichia coli [E. coli] as the cause of diseases classified elsewhere; T41.205A Adverse effect of unspecified general anesthetics, initial encounter; Y92.239 Unspecified place in hospital as the place of occurrence of the external cause; Z66 Do not resuscitate; Z86.73 Personal history of transient ischemic attack (TIA), and cerebral infarction without residual deficits; Z87.891 Personal history of nicotine dependence; Z88.1 Allergy status to other antibiotic agents; Z88.7 Allergy status to serum and vaccine
CPT/HCPCS: 74177; 74230; 80048; 80053; 80076; 81001; 83605; 83690; 83735; 84100; 85025; 85027; 85610; 85730; 87077; 87086; 87186; 88304; 93005; 94150; 96361; 96365; 96375; J0744; J1650; J2270; J2405; J2543; J2710; J3010; J7030; Q9967

== ENCOUNTER 2017-03-21 19:03 | Emergency (ER) | payer MEDICARE, BC ==
[~2017-03-21] VITALS: Ht 162.6 cm; Wt 66.0 kg
[~2017-03-21 19:03] MED LIST changes: -ACET325 PO; +ASPI1TAB69 PO; -ASPI81TA82 PO; -ATOR20TA PO; +ATOR20TA15 PO; +CARD2TAB PO; -COMMODE 3:1; +LEVO-168 PO; -LEVO112T20 PO; +LISI-515 PO; -LISI20 PO; -LORTA5 PO; +MECL12.574 PO; -MECL25 PO; +METO50TA11 PO; +OXYC1TAB63 PO; -REFR0.5D4 EACH EYE; +SENN1TAB PO; -TOPR50TA PO; +[UNRECOGNIZED DRUG - CODE] EACH EYE
[2017-03-21 19:42] VITALS: BP 196/79; PULSE 84; RESP 16; TEMP 98.8; O2SAT 88
[2017-03-21] MEDS ORDERED: BUPR100T4 PO (19:55)
[2017-03-21] MEDS ORDERED: METO50TA11 PO (19:55)
[2017-03-21] MEDS ORDERED: FURO1TAB62 PO (19:55)
[2017-03-21] MEDS ORDERED: INFL1INJ52 IM (19:55)
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
--- NOTE | 2017-03-21 20:40 | RADRPT ---
EXAM DATE/TIME: 03/21/2017 20:07 [facility] COMPARISON: CHEST PA & LAT, May 24, 2014, 19:35. INDICATIONS : General illness. MEDICAL HISTORY : Hypertension. Cardiovascular disease. Bilateral inguinal hernias SURGICAL HISTORY : Hysterectomy. ENCOUNTER: Initial ACUITY: 1 day PAIN SCORE: 0/10 LOCATION: Bilateral chest FINDINGS: There is trace left base atelectasis. Lungs otherwise appear clear. No significant effusion seen. No pneumothorax. Heart size stable, upper limits of normal. Tortuous and atherosclerotic aorta again noted. CONCLUSION: Mild left base atelectasis. Avila Hammer MD on March 21, 2017 at 20:38 Board Certified Radiologist. This report was verified electronically.
[2017-03-21 20:53] VITALS: O2SAT 98
[2017-03-21 22:08] LABS: BASOPHIL % 0.3 % (0.0-2.0); EOSINOPHIL % 0.1 % (0.0-4.0); HEMATOCRIT 35.3 % (35.0-46.0); HEMO FLAGS DIFF FINAL; LYMPH % 12.8 % (9.0-44.0); LYMPHOCYTE # 1.9 TH/MM3 (1.0-4.8); MEAN CELL VOLUME 94.3 FL (80.0-100.0); MEAN CORPUSCULAR HGB CONC 32.9 % (32.0-36.0); MONO % 4.9 % (0.0-8.0); NEUT % 81.9 % (16.0-70.0); PLATELET COUNT 183 TH/MM3 (150-450); RED BLOOD COUNT 3.74 MIL/MM3 (4.00-5.30); WHITE BLOOD COUNT 14.7 TH/MM3 (4.0-11.0)
[2017-03-21 22:25] LABS: ALT (GPT) 97 U/L (10-53); ANION GAP 10 MEQ/L (5-15); APTT (PATIENT) 19.5 SEC (24.3-30.1); AST (GOT) 32 U/L (15-37); BLOOD UREA NITROGEN 15 MG/DL (7-18); CHLORIDE 107 MEQ/L (98-107); GLOMERULAR FILTRATION RATE 110 ML/MIN (>89); INTERNATIONAL NORMALIZED RATIO 0.9 RATIO; POTASSIUM 3.5 MEQ/L (3.5-5.1); PROTHROMBIN TIME - PATIENT 10.3 SEC (9.8-11.6); SODIUM (NA) 143 MEQ/L (136-145)
[2017-03-21 22:35] LABS: ALKALINE PHOSPHATASE 119 U/L (45-117); TOTAL BILIRUBIN ADULT 0.5 MG/DL (0.2-1.0)
[2017-03-21] MEDS ORDERED: IOHEXOL 350 MG/ML 10 ML VIAL (for RAD DIAG) IVCONTRAST ONE (23:03)
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
[2017-03-21 23:48] LABS: BACTERIA, URINE MANY /hpf; BLOOD, URINE SMALL (NEG); COMMENT (UR) CULTURE INDICATED; CULTURE IF INDICATED CULTURE INDICATED; GLUCOSE,URINE NEG (NEG); KETONE, URINE NEG (NEG); NITRITE,URINE POS (NEG); PH, URINE 6.5 (5.0-8.5); SQUAMOUS EPITHELIAL CELL URINE <1 /hpf (0-5); URINE COLOR DARK-YELLOW (YELLW/STRAW)
[2017-03-22] MEDS ORDERED: BACT800T5 PO (00:09)
[2017-03-22] MEDS ORDERED: LEVOFLOXACIN 750 MG TAB PO ONE (00:15)
[2017-03-22 00:25] VITALS: BP 170/70
--- NOTE | 2017-03-22 14:22 | EKG ---
Date Performed: 03/21/2017 Time Performed: 21:02:45 PTAGE: 86 years EKG: Sinus rhythm MINIMAL VOLTAGE CRITERIA FOR LVH, CONSIDER NORMAL VARIANT BORDERLINE ECG PREVIOUS TRACING : 09/23/2016 09.19 No significant change from previous tracing noted. DOCTOR: Alfredo Landers Interpretating Date/Time 03/22/2017 14:21:16
[2017-03-22] MEDS ORDERED: AMOX500C PO (23:28)
[2017-04-06] MEDS ORDERED: COMMODE 3-IN-11 MIS (08:34)
[2017-04-06] MEDS ORDERED: WHEEMIS3 (08:34)
[2017-04-13] MEDS ORDERED: CIPR-9 PO (08:37)
[2017-04-13] MEDS ORDERED: TEMA7.5C9 PO (08:37)
[2017-04-13] MEDS ORDERED: METO50TA11 PO (08:37)
[2017-04-13] MEDS ORDERED: ATOR20TA15 PO (08:37)
[2017-04-13] MEDS ORDERED: LEVO.1 PO (08:37)
[2017-04-13] MEDS ORDERED: LISI-515 PO (08:37)
[2017-04-13] MEDS ORDERED: NIFE60TA8 PO (08:37)
[2017-04-13] MEDS ORDERED: MECL12.574 PO (08:37)
== END 2017-03-22 01:38 | disposition home or self-care (01) ==
LOC: NEPD 19:03
DX: N39.0 Urinary tract infection, site not specified (principal); E78.00 Pure hypercholesterolemia, unspecified; Z87.891 Personal history of nicotine dependence; B96.20 Unspecified Escherichia coli [E. coli] as the cause of diseases classified elsewhere; R94.31 Abnormal electrocardiogram [ECG] [EKG]; I10 Essential (primary) hypertension; E03.9 Hypothyroidism, unspecified; R42 Dizziness and giddiness; E27.8 Other specified disorders of adrenal gland; E89.0 Postprocedural hypothyroidism; Z86.73 Personal history of transient ischemic attack (TIA), and cerebral infarction without residual deficits
CPT/HCPCS: 71010; 74177; 80053; 81001; 83605; 83690; 84443; 85025; 85610; 85730; 87040; 87077; 87086; 87186; 93005; 99285; Q9967

== ENCOUNTER 2017-03-22 17:34 | Inpatient (IN) | payer MEDICARE, BC ==
[~2017-03-22] VITALS: Ht 157.5 cm; Wt 54.5 kg
[~2017-03-22 17:34] MED LIST changes: +BACT800T5 PO; +BUPR100T4 PO; -CARD2TAB PO; +FURO1TAB62 PO; +INFL1INJ52 IM; -[UNRECOGNIZED DRUG - CODE] EACH EYE
[2017-03-22 17:45] VITALS: BP 137/74; PULSE 92; RESP 14; TEMP 98.1; O2SAT 97
[2017-03-22 19:10] VITALS: BP 166/77; PULSE 103; RESP 20; TEMP 98.5; O2SAT 91
[2017-03-22] MEDS ORDERED: SODIUM CHLORID 0.9% 500 ML INJ 500 ML IV ONE (19:15)
[2017-03-22] MEDS ORDERED: ONDANSETRON HCL 4 MG/2 ML VIAL IV PUSH ONE (19:45)
--- NOTE | 2017-03-22 19:51 | RADRPT ---
EXAM DATE/TIME: 03/22/2017 19:33 [facility] COMPARISON: CHEST SINGLE AP, March 21, 2017, 20:07. INDICATIONS : Fever and dizziness. MEDICAL HISTORY : Hypertension. Cardiovascular disease. Bilateral inguinal hernias. SURGICAL HISTORY : Hysterectomy. ENCOUNTER: [facility]ela ACUITY: 2 days PAIN SCORE: 0/10 LOCATION: Bilateral chest FINDINGS: The heart is enlarged. Scattered atelectatic changes are noted within the lung bases. No focal alve olar consolidation is noted. Degenerative changes and scoliosis of the thoracolumbar spine are stable . CONCLUSION: 1. Cardiomegaly. 2. Scattered atelectatic changes within the lung bases. 3. No acute focal alveolar consolidation or pulmonary vascular congestion. Carroll Bruce MD on March 22, 2017 at 19:45 Board Certified Radiologist. This report was verified electronically.
[2017-03-22 19:53] LABS: AUTOMATED NEUTROPHIL # 20.1 TH/MM3 (1.8-7.7); BASOPHIL # 0.1 TH/MM3 (0-0.2); BASOPHIL % 0.3 % (0.0-2.0); HEMATOCRIT 34.3 % (35.0-46.0); LYMPH % 7.1 % (9.0-44.0); LYMPHOCYTE # 1.6 TH/MM3 (1.0-4.8); MEAN CELL VOLUME 93.8 FL (80.0-100.0); MEAN CORPUSCULAR HEMOGLOBIN 30.5 PG (27.0-34.0); MEAN CORPUSCULAR HGB CONC 32.5 % (32.0-36.0); MONO % 3.6 % (0.0-8.0); PLATELET COUNT 208 TH/MM3 (150-450); RED BLOOD COUNT 3.66 MIL/MM3 (4.00-5.30); RED CELL DISTRIBUTION WIDTH 17.9 % (11.6-17.2); WHITE BLOOD COUNT 22.6 TH/MM3 (4.0-11.0)
[2017-03-22 19:54] LABS: HEMO FLAGS AUTO DIFF
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
[2017-03-22 20:09] LABS: ALKALINE PHOSPHATASE 121 U/L (45-117); ALT (GPT) 86 U/L (10-53); ANION GAP 8 MEQ/L (5-15); AST (GOT) 28 U/L (15-37); BICARBONATE 28.3 MEQ/L (21.0-32.0); BLOOD UREA NITROGEN 14 MG/DL (7-18); CHLORIDE 102 MEQ/L (98-107); GLOMERULAR FILTRATION RATE 99 ML/MIN (>89); POTASSIUM 3.4 MEQ/L (3.5-5.1); SODIUM (NA) 138 MEQ/L (136-145); TOTAL BILIRUBIN ADULT 0.6 MG/DL (0.2-1.0)
[2017-03-22] MEDS ORDERED: cefTRIAXone INJ 1,000 MG in SODIUM CHLORIDE 0.9% INJ 100 ML IV ONE (20:15)
--- NOTE | 2017-03-22 20:23 | PD ---
Physical Exam Date Seen by Provider: Mar 22, 2017 Data Data Last Documented VS Vital Signs Date Time Temp Pulse Resp B/P (MAP) Pulse Ox O2 Delivery O2 Flow Rate FiO2 03/22/17 19:10 98.5 103 20 166/77 (106) 91 Nasal Cannula 2.00 Orders Orders Electrocardiogram (03/22/17 19:08) Complete Blood Count With Diff (03/22/17 19:08) Comprehensive Metabolic Panel (03/22/17 19:08) Lactic Acid Sepsis Protocol (03/22/17 19:08) Urinalysis - C+S If Indicated (03/22/17 19:08) Blood Culture (03/22/17 19:08) Chest, Single Ap (03/22/17 19:08) Sodium Chlorid 0.9% 500 Ml Inj (Ns 500 M (03/22/17 19:15) Electrocardiogram (03/22/17 ) Ondansetron Inj (Zofran Inj) (03/22/17 19:45) Ceftriaxone Inj (Rocephin Inj) (03/22/17 20:15) Potassium Chlor 20 Meq Premix (Kcl 20 Me (03/22/17 20:30) Urine Culture (03/22/17 20:10) Admit To Inpatient (03/22/17 ) Vital Signs (Adult) Q4H (03/22/17 20:43) Activity Oob With Assistance (03/22/17 20:43) Dinkey Engine Firer/Fireman / Telemetry .CONTINUOUS (03/22/17 20:43) Diet Heart Healthy (03/23/17 Breakfast) Sodium Chloride 0.9% Flush (Ns Flush) (03/22/17 20:45) Sodium Chloride 0.9% Flush (Ns Flush) (03/22/17 21:00) Basic Metabolic Panel (Bmp) (03/23/17 06:00) Complete Blood Count With Diff (03/23/17 06:00) Pt Request For Service (03/22/17 20:43) Case Management Consult (03/22/17 20:43) Naloxone Inj (Narcan Inj) (03/22/17 20:45) Inpatient Certification (03/22/17 ) Ceftriaxone Inj (Rocephin Inj) (03/23/17 09:00) Admit Order (Ed Use Only) (03/22/17 20:46) Acetaminophen (Tylenol) (03/22/17 21:00) Labs Laboratory Tests Test 03/22/17 19:20 03/22/17 20:10 White Blood Count 22.6 TH/MM3 Red Blood Count 3.66 MIL/MM3 Hemoglobin 11.1 GM/DL Hematocrit 34.3 % Mean Corpuscular Volume 93.8 FL Mean Corpuscular Hemoglobin 30.5 PG Mean Corpuscular Hemoglobin Concent 32.5 % Red Cell Distribution Width 17.9 % Platelet Count 208 TH/MM3 Mean Platelet Volume 10.3 FL Neutrophils (%) (Auto) 89.0 % Lymphocytes (%) (Auto) 7.1 % Monocytes (%) (Auto) 3.6 % Eosinophils (%) (Auto) 0.0 % Basophils (%) (Auto) 0.3 % Neutrophils # (Auto) 20.1 TH/MM3 Lymphocytes # (Auto) 1.6 TH/MM3 Monocytes # (Auto) 0.8 TH/MM3 Eosinophils # (Auto) 0.0 TH/MM3 Basophils # (Auto) 0.1 TH/MM3 CBC Comment AUTO DIFF Differential Total Cells Counted 100 Neutrophils % (Manual) 83 % Band Neutrophils % 8 % Lymphocytes % 3 % Monocytes % 6 % Neutrophils # (Manual) 20.6 TH/MM3 Differential Comment FINAL DIFF MANUAL Toxic Vacuolation PRESENT Dohle Bodies PRESENT Platelet Estimate NORMAL Platelet Morphology Comment NORMAL Blood Urea Nitrogen 14 MG/DL Creatinine 0.58 MG/DL Random Glucose 137 MG/DL Total Protein 7.5 GM/DL Albumin 3.6 GM/DL Calcium Level 9.1 MG/DL Alkaline Phosphatase 121 U/L Aspartate Amino Transf (AST/SGOT) 28 U/L Alanine Aminotransferase (ALT/SGPT) 86 U/L Total Bilirubin 0.6 MG/DL Sodium Level 138 MEQ/L Potassium Level 3.4 MEQ/L Chloride Level 102 MEQ/L Carbon Dioxide Level 28.3 MEQ/L Anion Gap 8 MEQ/L Estimat Glomerular Filtration Rate 99 ML/MIN Lactic Acid Level 1.1 mmol/L Urine Color DARK-YELLOW Urine Turbidity HAZY Urine pH 6.5 Urine Specific [place] 1.022 Urine Protein 30 mg/dL Urine Glucose (UA) NEG mg/dL Urine Ketones 40 mg/dL Urine Occult Blood SMALL Urine Nitrite NEG Urine Bilirubin NEG Urine Urobilinogen LESS THAN 2.0 MG/DL Urine Leukocyte Esterase LARGE Urine RBC 21 /hpf Urine WBC 162 /hpf Urine Squamous Epithelial Cells 2 /hpf Urine Transitional Epithelial Cells 1 /hpf Urine Amorphous Sediment RARE Urine Bacteria MANY /hpf Urine Mucus FEW /lpf Microscopic Urinalysis Comment CATH-CULTURE IND MDM Medical Record Reviewed: Yes Supervised Visit with ZHANG: Yes Interpretation(s) Vital Signs Date Time Temp Pulse Resp B/P (MAP) Pulse Ox O2 Delivery O2 Flow Rate FiO2 03/22/17 19:10 98.5 103 20 166/77 (106) 91 Nasal Cannula 2.00 03/22/17 19:03 Nasal Cannula 03/22/17 17:45 98.1 92 14 137/74 (95) 97 CBC & BMP Diagram 03/22/17 19:20 Total Protein 7.5, Albumin 3.6, Calcium Level 9.1 #, Alkaline Phosphatase 121 H , Aspartate Amino Transf (AST/SGOT) 28, Alanine Aminotransferase (ALT/SGPT) 86 H , Total Bilirubin 0.6 Narrative Course Patient is an 86-year-old female who returns to emergency for evaluation of nausea, vomiting and diarrhea and generalized weakness. Patient was seen and evaluated in emergency and yesterday, she was sent home with a prescription for Bactrim for treatment of a UTI. Patient returns today with her son as she has been having increased nausea, vomiting and diarrhea and has not been able tolerate her antibiotics or any food or fluids since her discharge. As per son, patient is too weak to ambulate and take care of herself at home. Labs were repeated from yesterday, CBC & BMP Diagram 03/22/17 19:20 Total Protein 7.5, Albumin 3.6, Calcium Level 9.1 #, Alkaline Phosphatase 121 H , Aspartate Amino Transf (AST/SGOT) 28, Alanine Aminotransferase (ALT/SGPT) 86 H , Total Bilirubin 0.6 Patient was found to have a white blood cell count of 22.6 which was elevated from yesterday. She is also tachycardic on exam. Patient meets SIRS criteria, source infection as the urine as she did have gram-negative rods growing in her urine cultures yesterday. Patient with sepsis due to UTI. Prior micro ua was reviewed - patient sensitive to rocephin. Will administer dose of rocephin and admit to hospital. Diagnosis Primary Impression: Sepsis Additional Impressions: Nausea & vomiting Qualified Codes: R11.2 - Nausea with vomiting, unspecified Gastroenteritis UTI (urinary tract infection) Qualified Codes: N39.0 - Urinary tract infection, site not specified Admitting Information Admitting Physician Requests: Admit Vanesa Cabrera DO Mar 22, 2017 20:23
[2017-03-22 20:26] LABS: BANDS 8 % (0-6); NEUTROPHIL # MANUAL DIFF 20.6 TH/MM3 (1.8-7.7); POLYS (SEG NEUTROPHILS) 83 % (16-70); WBC DIFF SAMPLE 100
[2017-03-22 20:27] LABS: DOHLE BODIES PRESENT (NONE SEEN); PLATELET ESTIMATE SMEAR NORMAL (NORMAL); TOXIC VACUOLATION PRESENT (NONE SEEN)
[2017-03-22 20:28] LABS: PLATELET MORPHOLOGY NORMAL (NORMAL); SCAN/DIFF FINAL DIFF MANUAL
[2017-03-22 20:41] LABS: BACTERIA, URINE MANY /hpf; BLOOD, URINE SMALL (NEG); COMMENT (UR) CATH-CULTURE IND; CULTURE IF INDICATED CATH CULTURE IND; GLUCOSE,URINE NEG (NEG); KETONE, URINE 40 mg/dL (NEG); MUCUS URINE FEW /lpf (OCC); NITRITE,URINE NEG (NEG); PH, URINE 6.5 (5.0-8.5); SQUAMOUS EPITHELIAL CELL URINE 2 /hpf (0-5); TRANSITIONAL EPI CELLS, URINE 1 /hpf; URINE COLOR DARK-YELLOW (YELLW/STRAW)
[2017-03-22] MEDS ORDERED: NALOXONE HCL 0.4 MG/ML AMP IV PUSH PRN (20:45)
[2017-03-22] MEDS ORDERED: SODIUM CHLORIDE 0.9% FLUSH 10 ML FLUSH IV FLUSH PRN (20:45)
[2017-03-22] MEDS: POTASSIUM CHLOR 20 MEQ PREMIX 100 ML IV SCH ×2 (20:58→23:00)
[2017-03-22] MEDS ORDERED: ACETAMINOPHEN 325 MG TAB PO ONE (21:00)
[2017-03-22] MEDS: SODIUM CHLORIDE 0.9% FLUSH 10 ML FLUSH IV FLUSH SCH (21:03)
[2017-03-22 21:11] VITALS: BP 173/74; PULSE 89; RESP 18; O2SAT 96
--- NOTE | 2017-03-22 21:27 | HHI.HP ---
[facility] Coretta Schroeder MD Admission Diagnosis sepsis, UTI, gastroenteritis Diagnoses: Chief Complaint: uti, n/v/d Travel History International Travel<30 Days: No Contact w/Intl Traveler <30 Da: No Traveled to Known Affected Are: No Sepsis Criteria SIRS Criteria (2 or more): Heart rate over 90, WBC > 72757, < 4000 or > 10% bands Sepsis Criteria (SIRS+source): Infect source susp/known History of Present Illness Written by FUENTES Hall acting as scribe for [Rhett] on 03/22/17 at 21: 19. 86 y/o with a history HTN, HLD, vertigo, adrenal mass, diastolic HF, incontinence and hypothyroid of presented to the ED with increased nausea, vomiting and diarrhea. Starting on Wednesday she began to have burning and frequency with urination. For the last 2 days she has been having the nausea, vomiting and diarrhea x once a day, prior to this she was constipated and she look laxatives for it. She was taking AZO over the counter. She was seen last night in the ED diagnosed with UTI, and sent home on antibiotics. She filled the prescription today but could not keep food down or antibiotics. She states she has had some confusion with associated headaches. She lives alone, but her son does come to visit frequently, and at times she thinks he is her . No history of cva, seizures or dementia. Review of Systems Except as stated in HPI: all other systems reviewed are Neg Past Family Social History Past Medical History HTN HLD Adrenal mass Hypothyroid s/p thyroidectomy Vertigo Diastolic CHF Incontinence Past Surgical History Cholecystectomy Thyroidectomy Back surgery Hysterectomy Cataract surgery Right wrist surgery Reported Medications Reported Meds & Active Scripts Active Bactrim DS (Sulfamethoxazole-Trimethoprim) 800-160 Mg Tab 1 Tab PO BID Lisinopril 20 Mg Tab 30 Mg PO DAILY Reported Metoprolol Succinate ER 24 HR (Metoprolol Succinate) 50 Mg Tab 50 Mg PO DAILY Lasix (Furosemide) 20 Mg Tab 20 Mg PO DAILY Fluzone High-Dose Trivalent Inj (Influenza Virus Vaccine) 0.5 Ml Syr 0.5 Ml IM .ONCE Meclizine (Meclizine HCl) 12.5 Mg Tab 12.5 Mg PO TID PRN Levothyroxine (Levothyroxine Sodium) 112 Mcg Tab 100 Mcg PO DAILY Atorvastatin (Atorvastatin Calcium) 20 Mg Tab 20 Mg PO HS Allergies: Coded Allergies: tetanus toxoid, adsorbed (Unverified Allergy, Severe, FEVER, 03/22/17) cefuroxime (Unverified Adverse Reaction, Intermediate, UPSET STOMACH, 03/22) Active Ordered Medications Current Medications Medications (Trade) Dose Ordered Sig/Park Route Start Time Stop Time Status Last Admin Potassium Chloride 100 ml @ 50 mls/hr Q2H IV 03/22/17 20:30 03/23/17 00:29 03/22/17 20:58 (NS Flush) 2 ml UNSCH PRN IV FLUSH 03/22/17 20:45 (NS Flush) 2 ml BID IV FLUSH 03/22/17 21:00 03/22/17 21:03 (Narcan Inj) 0.4 mg UNSCH PRN IV PUSH 03/22/17 20:45 Ceftriaxone Sodium 1000 mg/ Sodium Chloride 100 ml @ 200 mls/hr Q12H IV 03/23/17 09:00 Family History Mom: Cancer Son: Brain cancer Brother: Epilepsy Social History Tobacco use: Quit in the 70s Alcohol use: Denies Illicit drug use: Denies Patient lives with her son, and does not drive Physical Exam Vital Signs Vital Signs Date Time Temp Pulse Resp B/P (MAP) Pulse Ox O2 Delivery O2 Flow Rate FiO2 03/22/17 21:11 89 18 173/74 (107) 96 Room Air 03/22/17 19:10 98.5 103 20 166/77 (106) 91 Nasal Cannula 2.00 03/22/17 19:03 Nasal Cannula 03/22/17 17:45 98.1 92 14 137/74 (95) 97 Physical Exam GENERAL: This is a well-nourished, well-developed patient, in no apparent distress. SKIN: No rashes, ecchymoses or lesions. Cool and dry. HEAD: Atraumatic. Normocephalic. EYES: Pupils equal round and reactive. ENT: Nose without bleeding, purulent drainage or septal hematoma. Airway patent. NECK: Trachea midline. No JVD or lymphadenopathy. CARDIOVASCULAR: Regular rate and rhythm without murmurs, gallops, or rubs. RESPIRATORY: Clear to auscultation. Breath sounds equal bilaterally. No wheezes , rales, or rhonchi. GASTROINTESTINAL: Abdomen soft, non-tender, nondistended. MUSCULOSKELETAL: Extremities without clubbing, cyanosis, or edema. No calf tenderness. NEUROLOGICAL: Awake and alert.Motor and sensory grossly within normal limits.Normal speech. Laboratory Laboratory Tests Test 03/22/17 19:20 03/22/17 20:10 White Blood Count 22.6 Red Blood Count 3.66 Hemoglobin 11.1 Hematocrit 34.3 Mean Corpuscular Volume 93.8 Mean Corpuscular Hemoglobin 30.5 Mean Corpuscular Hemoglobin Concent 32.5 Red Cell Distribution Width 17.9 Platelet Count 208 Mean Platelet Volume 10.3 Neutrophils (%) (Auto) 89.0 Lymphocytes (%) (Auto) 7.1 Monocytes (%) (Auto) 3.6 Eosinophils (%) (Auto) 0.0 Basophils (%) (Auto) 0.3 Neutrophils # (Auto) 20.1 Lymphocytes # (Auto) 1.6 Monocytes # (Auto) 0.8 Eosinophils # (Auto) 0.0 Basophils # (Auto) 0.1 CBC Comment AUTO DIFF Differential Total Cells Counted 100 Neutrophils % (Manual) 83 Band Neutrophils % 8 Lymphocytes % 3 Monocytes % 6 Neutrophils # (Manual) 20.6 Differential Comment FINAL DIFF MANUAL Toxic Vacuolation PRESENT Dohle Bodies PRESENT Platelet Estimate NORMAL Platelet Morphology Comment NORMAL Blood Urea Nitrogen 14 Creatinine 0.58 Random Glucose 137 Total Protein 7.5 Albumin 3.6 Calcium Level 9.1 Alkaline Phosphatase 121 Aspartate Amino Transf (AST/SGOT) 28 Alanine Aminotransferase (ALT/SGPT) 86 Total Bilirubin 0.6 Sodium Level 138 Potassium Level 3.4 Chloride Level 102 Carbon Dioxide Level 28.3 Anion Gap 8 Estimat Glomerular Filtration Rate 99 Lactic Acid Level 1.1 Urine Color DARK-YELLOW Urine Turbidity HAZY Urine pH 6.5 Urine Specific [place] 1.022 Urine Protein 30 Urine Glucose (UA) NEG Urine Ketones 40 Urine Occult Blood SMALL Urine Nitrite NEG Urine Bilirubin NEG Urine Urobilinogen LESS THAN 2.0 Urine Leukocyte Esterase LARGE Urine RBC 21 Urine WBC 162 Urine Squamous Epithelial Cells 2 Urine Transitional Epithelial Cells 1 Urine Amorphous Sediment RARE Urine Bacteria MANY Urine Mucus FEW Microscopic Urinalysis Comment CATH-CULTURE IND Date/Time Source Procedure Growth Status 03/22/17 19:25 Blood Peripheral Aerobic Blood Culture Pending Received 03/22/17 19:25 Blood Peripheral Anaerobic Blood Culture Pending Received 03/22/17 20:10 Urine Catheterized Urine Urine Culture Pending Received Result Diagram: 03/22/17191903/22/171919 Caprini VTE Risk Assessment Caprini VTE Risk Assessment: Mod/High Risk (score >= 2) Caprini Risk Assessment Model Point Value = 1 Point Value = 2 Point Value = 3 Point Value = 5 Age 41-60 Minor surgery BMI > 25 kg/m2 Swollen legs Varicose veins or History of unexplained or recurrent spontaneous Oral contraceptives or hormone replacement Sepsis (< 1 month) Serious lung disease, including pneumonia (< 1 month) Abnormal pulmonary function Acute myocardial infarction Congestive heart failure (< 1 month) History of inflammatory bowel disease Medical patient at bed rest Age 61-74 Arthroscopic surgery Major open surgery (> 45 min) Laparoscopic surgery (> 45 min) Malignancy Confined to bed (> 72 hours) Immobilizing plaster cast Central venous access Age >= 75 History of VTE Family history of VTE Factor V Leiden Prothrombin [id number] Lupus anticoagulant Anticardiolipin antibodies Elevated serum homocysteine Heparin-induced thrombocytopenia Other congenital or acquired thrombophilia Stroke (< 1 month) Elective arthroplasty Hip, pelvis, or leg fracture Acute spinal cord injury (< 1 month) Prophylaxis Regimen Total Risk Factor Score Risk Level Prophylaxis Regimen 0-1 Low Early ambulation 2 Moderate Order ONE of the following: *Sequential Compression Device (SCD) *Heparin 5000 units SQ BID 3-4 Higher Order ONE of the following medications: *Heparin 5000 units SQ TID *Enoxaparin/Lovenox 40 mg SQ daily (WT < 150 kg, CrCl > 30 mL/min) *Enoxaparin/Lovenox 30 mg SQ daily (WT < 150 kg, CrCl > 10-29 mL/min) *Enoxaparin/Lovenox 30 mg SQ BID (WT < 150 kg, CrCl > 30 mL/min) AND/OR *Sequential Compression Device (SCD) 5 or more Highest Order ONE of the following medications: *Heparin 5000 units SQ TID (Preferred with Epidurals) *Enoxaparin/Lovenox 40 mg SQ daily (WT < 150 kg, CrCl > 30 mL/min) *Enoxaparin/Lovenox 30 mg SQ daily (WT < 150 kg, CrCl > 10-29 mL/min) *Enoxaparin/Lovenox 30 mg SQ BID (WT < 150 kg, CrCl > 30 mL/min) AND *Sequential Compression Device (SCD) Assessment and Plan Problem List: (1) Sepsis ICD Code: A41.9 - Sepsis, unspecified organism Status: Acute (2) Urinary tract infection ICD Code: N39.0 - Urinary tract infection Status: Acute (3) CHF (congestive heart failure) ICD Code: I50.9 - Heart failure, unspecified Status: Chronic (4) Hypertension ICD Code: I10 - Essential (primary) hypertension Status: Chronic (5) Nausea & vomiting ICD Code: R11.2 - Nausea with vomiting, unspecified Status: Acute Assessment and Plan 86 y/o with a history HTN, HLD, vertigo, adrenal mass, diastolic HF, and hypothyroid of presented to the ED with increased nausea, vomiting and diarrhea. Diarrhea happened after taking laxatives as treatment for her constipation- and happened only once or twice yesterday Sepsis, wbc 22.6, HR 103, source UTI, with associated nausea and vomiting, abnormal UA with large leukocyte esterase, lactic 1.1 -IV antibiotics Rocephin -500ml bolus given in ED -CBC in AM -Urine culture pending -Antiemetics as needed CHF, diastolic, chronic Last echo showed EF 55-60% -Cont home medications Lasix -Monitor for fluid overload Headaches with some confusion -Head CT ordered Hypokalemia, potassium 3.4 -Supplementation ordered, labs in AM, replace as needed Hypertension, chronic: resume home medications, monitor vitals Vertigo, chronic: resume home medications, PT eval DVT prophylaxis: lovenox This note was transcribed by miguel a [Sue Matamoros]. I, Dr. Leonidas Delaney personally performed the history, physical exam, and medical decision making; and confirmed the accuracy of the information in the transcribed note. Authenticated by Dr. Leonidas Delaney on 03/22/17 at 21:19. Discussed Condition With Patient and patients son Physician Certification 2 Midnight Certification Type: Admission for Inpatient Services Order for Inpatient Services The services are ordered in accordance with Medicare regulations or non- Medicare payer requirements, as applicable. In the case of services not specified as inpatient-only, they are appropriately provided as inpatient services in accordance with the 2-midnight benchmark. Estimated LOS (days): 2 days is the estimated time the patient will need to remain in the hospital, assuming treatment plan goals are met and no additional complications. Post-Hospital Plan: Home Problem Qualifiers (1) Urinary tract infection: Qualified Codes: N30.00 - Acute cystitis without hematuria (2) CHF (congestive heart failure): Qualified Codes: I50.32 - Chronic diastolic (congestive) heart failure (3) Nausea & vomiting: Qualified Codes: R11.2 - Nausea with vomiting, unspecified Sue Matamoros Mar 22, 2017 21:27 Leonidas Delaney MD Mar 22, 2017 23:59
--- NOTE | 2017-03-22 22:48 | RADRPT ---
EXAM DATE/TIME: 03/22/2017 22:18 [place] COMPARISON: CT BRAIN W/O CONTRAST, April 09, 2016, 12:21. INDICATIONS : Altered mental status. RADIATION DOSE: 56.35 CTDIvol (mGy) MEDICAL HISTORY : Cerebrovascular disease. Hypertension. Vertigo. SURGICAL HISTORY : None. ENCOUNTER: Initial ACUITY: 1 day PAIN SCALE: 0/10 LOCATION: Cranial TECHNIQUE: Multiple contiguous axial images were obtained of the head. Using automated exposure control and adj ustment of the mA and/or kV according to patient size, radiation dose was kept as low as reasonably a chievable to obtain optimal diagnostic quality images. DICOM format image data is available electro nically for review and comparison. FINDINGS: There is worsening ventriculomegaly compared to the previous examination suggesting worsening hydroce phalus or very severe central cerebral atrophy. Clinical correlation is recommended. Moderate to sev ere periventricular and subcortical areas of decreased attenuation are noted and are stable. There i s no acute infarct, acute hemorrhage, midline shift or extra-axial fluid collections. CONCLUSION: 1. Worsening ventriculomegaly suggesting worsening hydrocephalus or very severe central cerebral atro phy. Clinical correlation is recommended. 2. Moderate to severe periventricular and subcortical areas of decreased attenuation consistent with probable sequelae of small vessel ischemic disease. 3. No acute infarct, acute hemorrhage, midline shift or extra-axial fluid collections. Carroll Bruce MD on March 22, 2017 at 22:32 Board Certified Radiologist. This report was verified electronically.
[2017-03-22] MEDS: ACETAMINOPHEN 325 MG TAB PO PRN (23:11)
[2017-03-22] MEDS ORDERED: AMOX500C PO (23:28)
[2017-03-23] VITALS (7 sets, daily range): BP systolic 132–203; BP diastolic 60–88; PULSE 81–92; RESP 16–18; TEMP 98.2–99.3; O2SAT 92–99
[2017-03-23] MEDS ORDERED: MECLIZINE HCL 25 MG TAB PO PRN
[2017-03-23] MEDS: ACETAMINOPHEN 325 MG TAB PO PRN ×3 (03:48→18:18)
[2017-03-23] MEDS: LEVOTHYROXINE SODIUM 100 MCG TAB PO SCH (06:55)
[2017-03-23] MEDS ORDERED: FUROSEMIDE 20 MG TAB PO SCH (09:00)
[2017-03-23] MEDS: ONDANSETRON HCL 4 MG/2 ML VIAL IV PUSH PRN ×2 (09:32→11:07)
[2017-03-23] MEDS: LISINOPRIL 20 MG TAB PO SCH (09:32)
[2017-03-23] MEDS: cefTRIAXone INJ 1,000 MG in SODIUM CHLORIDE 0.9% INJ 100 ML IV SCH ×2 (09:33→21:00)
[2017-03-23] MEDS: SODIUM CHLORIDE 0.9% FLUSH 10 ML FLUSH IV FLUSH SCH ×2 (09:33→21:00)
[2017-03-23] MEDS: METOPROLOL SUCCINATE 50 MG EXTENDED RELEASE TAB PO SCH (09:33)
[2017-03-23] MEDS: ENOXAPARIN SODIUM 40 MG/0.4 ML SYRINGE SQ SCH (09:33)
[2017-03-23 09:42] LABS: AUTOMATED NEUTROPHIL # 10.2 TH/MM3 (1.8-7.7); BASOPHIL % 0.2 % (0.0-2.0); EOSINOPHIL % 0.2 % (0.0-4.0); HEMATOCRIT 34.7 % (35.0-46.0); HEMO FLAGS DIFF FINAL; LYMPH % 13.9 % (9.0-44.0); LYMPHOCYTE # 1.8 TH/MM3 (1.0-4.8); MEAN CELL VOLUME 95.2 FL (80.0-100.0); MEAN CORPUSCULAR HEMOGLOBIN 31.5 PG (27.0-34.0); MONO % 5.8 % (0.0-8.0); NEUT % 79.9 % (16.0-70.0); PLATELET COUNT 188 TH/MM3 (150-450); RED BLOOD COUNT 3.64 MIL/MM3 (4.00-5.30); RED CELL DISTRIBUTION WIDTH 18.1 % (11.6-17.2); WHITE BLOOD COUNT 12.8 TH/MM3 (4.0-11.0)
[2017-03-23 10:00] LABS: BICARBONATE 23.2 MEQ/L (21.0-32.0); POTASSIUM 3.8 MEQ/L (3.5-5.1)
--- NOTE | 2017-03-23 11:32 | HHI.PR ---
Subjective Remarks Follow up for gastroenteritis, UTI. Patient reports no fever, chills but she is still having a lot of nausea, vomiting. Objective Vitals Vital Signs Date Time Temp Pulse Resp B/P (MAP) Pulse Ox O2 Delivery O2 Flow Rate FiO2 03/23/17 08:00 98.4 85 16 142/84 (103) 99 03/23/17 04:00 98.2 81 18 168/72 (104) 92 03/23/17 00:00 98.4 84 17 132/60 (84) 94 03/22/17 21:11 89 18 173/74 (107) 96 Room Air 03/22/17 19:10 98.5 103 20 166/77 (106) 91 Nasal Cannula 2.00 03/22/17 19:03 Nasal Cannula 03/22/17 17:45 98.1 92 14 137/74 (95) 97 I/O 03/22/17 03/22/17 03/22/17 03/23/17 03/23/17 03/23/17 06:59 14:59 22:59 06:59 14:59 22:59 Intake Total 700 ml 100 ml Balance 700 ml 100 ml Intake IV Total 700 ml 100 ml # Voids 2 # Bowel Movements 0 Result Diagram: 03/23/17 0857 03/23/17 0857 Imaging Last Impressions Chest X-Ray 03/22/17 1908 Signed Impressions: Service Date/Time: Wednesday, March 22, 2017 19:33 - CONCLUSION: 1. Cardiomegaly. 2. Scattered atelectatic changes within the lung bases. 3. No acute focal alveolar consolidation or pulmonary vascular congestion. Carroll Bruce MD Head CT 03/22/17 0000 Signed Impressions: Service Date/Time: Wednesday, March 22, 2017 22:18 - CONCLUSION: 1. Worsening ventriculomegaly suggesting worsening hydrocephalus or very severe central cerebral atrophy. Clinical correlation is recommended. 2. Moderate to severe periventricular and subcortical areas of decreased attenuation consistent with probable sequelae of small vessel ischemic disease. 3. No acute infarct, acute hemorrhage, midline shift or extra-axial fluid collections. Carroll Bruce MD Objective Remarks GENERAL: Alert, NAD. SKIN: Warm and dry. HEAD: Normocephalic. EYES: No scleral icterus. No injection or drainage. NECK: Supple, trachea midline. No JVD or lymphadenopathy. CARDIOVASCULAR: Regular rate and rhythm without murmurs, gallops, or rubs. RESPIRATORY: Breath sounds equal bilaterally. No accessory muscle use. GASTROINTESTINAL: Abdomen soft, non-tender, nondistended. MUSCULOSKELETAL: No cyanosis, or edema. BACK: Nontender without obvious deformity. No CVA tenderness. Procedures None. A/P Problem List: (1) Sepsis ICD Code: A41.9 - Sepsis, unspecified organism Status: Acute (2) Urinary tract infection ICD Code: N39.0 - Urinary tract infection Status: Acute (3) CHF (congestive heart failure) ICD Code: I50.9 - Heart failure, unspecified Status: Chronic (4) Hypertension ICD Code: I10 - Essential (primary) hypertension Status: Chronic (5) Nausea & vomiting ICD Code: R11.2 - Nausea with vomiting, unspecified Status: Acute Assessment and Plan 86 y/o with a history HTN, HLD, vertigo, adrenal mass, diastolic HF, and hypothyroid of presented to the ED with increased nausea, vomiting and diarrhea. Diarrhea happened after taking laxatives as treatment for her constipation- and happened only once or twice yesterday Sepsis, wbc 22.6, HR 103, source UTI, with associated nausea and vomiting, abnormal UA with large leukocyte esterase, lactic 1.1 Probable urinary tract infection. -IV antibiotics Rocephin -Will continue gentle hydration with NS 100cc/hour. -CBC shows WBC 22.6 --> 12.8. -Urine culture --> no growth. -Antiemetics as needed CHF, diastolic, chronic Last echo showed EF 55-60% -Monitor for fluid overload Headaches with some confusion -Head CT shows worsening ventriculomegaly. Images reviewed by me. Hypokalemia, potassium 3.4 -Replaced. Repeat K+ 3.8. Hypertension, chronic: resume home medications, monitor vitals Vertigo, chronic: resume home medications, PT eval DVT prophylaxis: lovenox Problem Qualifiers (1) Urinary tract infection: Qualified Codes: N30.00 - Acute cystitis without hematuria (2) CHF (congestive heart failure): Qualified Codes: I50.32 - Chronic diastolic (congestive) heart failure (3) Nausea & vomiting: Qualified Codes: R11.2 - Nausea with vomiting, unspecified Josef Chavarria DO Mar 23, 2017 11:32
[2017-03-23] MEDS: SODIUM CHLOR 0.9% 1000 ML INJ 1,000 ML IV SCH ×2 (12:24→21:30)
--- NOTE | 2017-03-23 14:07 | EKG ---
Date Performed: 03/22/2017 Time Performed: 20:44:57 PTAGE: 86 years EKG: Sinus rhythm NORMAL ECG Compared to prior tracing no significant change PREVIOUS TRACING : 03/21/2017 21.02 DOCTOR: Eric Pearce Interpretating Date/Time 03/23/2017 14:05:43
[2017-03-23] MEDS ORDERED: ACETAMINOPHEN/CODEINE 300 MG/30 MG TAB PO ONE (22:15)
--- NOTE | 2017-03-23 22:30 | PD.CONS ---
History of Present Illness Service Neurosurgery Consult Requested By Dr. Leonidas Delaney Reason for Consult Hydrocephalus Primary Care Physician Coretta Schroeder MD Diagnoses: History of Present Illness Pleasant 86-year-old female admitted through the emergency room 03/12/17 after she presented with several days of urinary urgency frequency and dysuria with approximately 2-3 days of dizziness, nausea, vomiting and diarrhea. She denies significant abdominal pain. States that she feels hot and sweaty but no chills. The patient states that she has been having significant problems with ambulation for the past few weeks to months. She has a somewhat poor historian , and cannot accurately tell me how long her gait has been a problem. She does state that she feels off balance when she walks, and tends to shuffle. She does use a walker. Patient denies significant problems with her memory. She does complain of urinary incontinence for an extended period of time. She denies vertigo but complains of some dizziness. No tenderness. No complaining of significant hearing loss. She has no complaint of headaches or diplopia but has some problems with blurred vision. Review of Systems Constitutional: COMPLAINS OF: Diaphoretic episodes, Fatigue, Fever, Dizziness, Change in appetite Eyes: COMPLAINS OF: Blurred vision, DENIES: Diplopia Ears, nose, mouth, throat: COMPLAINS OF: Hearing loss, DENIES: Tinnitus, Vertigo Respiratory: DENIES: Cough, Shortness of breath Cardiovascular: DENIES: Chest pain, Palpitations Gastrointestinal: COMPLAINS OF: Diarrhea, Nausea, Vomiting, DENIES: Abdominal pain Musculoskeletal: COMPLAINS OF: Muscle aches, DENIES: Joint pain, Back pain, Neck pain Hematologic/lymphatic: DENIES: Bruising Neurologic: COMPLAINS OF: Abnormal gait, DENIES: Headache Psychiatric: DENIES: Anxiety, Confusion Past Family Social History Allergies: Coded Allergies: tetanus toxoid, adsorbed (Unverified Allergy, Severe, FEVER, 03/22/17) cefuroxime (Unverified Adverse Reaction, Intermediate, UPSET STOMACH, 03/22) Past Medical History Congestive heart failure Hypertension Dyslipidemia Hypothyroidism Adrenal mass Past Surgical History Hysterectomy Cholecystectomy Thyroidectomy Cataract surgery Spinal surgery Reported Medications Reported Meds & Active Scripts Active Lisinopril 20 Mg Tab 30 Mg PO DAILY Reported Amoxicillin 500 Mg Cap 500 Mg PO TID Metoprolol Succinate ER 24 HR (Metoprolol Succinate) 50 Mg Tab 50 Mg PO DAILY Lasix (Furosemide) 20 Mg Tab 20 Mg PO DAILY Fluzone High-Dose Trivalent Inj (Influenza Virus Vaccine) 0.5 Ml Syr 0.5 Ml IM .ONCE Meclizine (Meclizine HCl) 12.5 Mg Tab 12.5 Mg PO TID PRN Levothyroxine (Levothyroxine Sodium) 112 Mcg Tab 100 Mcg PO DAILY Atorvastatin (Atorvastatin Calcium) 20 Mg Tab 20 Mg PO HS Family History She has a son who had brain cancer. Also cancer in her mother. Social History She quit smoking many years ago. Does not use alcohol. She lives alone. She states that her son helps her intermittently. Physical Exam Vital Signs Vital Signs Date Time Temp Pulse Resp B/P (MAP) Pulse Ox O2 Delivery O2 Flow Rate FiO2 03/23/17 20:30 99.0 91 17 171/72 (105) 93 03/23/17 16:00 99.3 88 18 157/67 (97) 94 03/23/17 12:00 99.0 90 18 162/74 (103) 92 03/23/17 08:00 98.4 85 16 142/84 (103) 99 03/23/17 04:00 98.2 81 18 168/72 (104) 92 03/23/17 00:00 98.4 84 17 132/60 (84) 94 Physical Exam GENERAL: This is a well-nourished, well-developed patient, no apparent distress. SKIN: No abrasions, contusion, rash noted. Skin warm and dry. HEAD: Atraumatic. Normocephalic. No temporal or scalp tenderness. EYES: Sclerae are clear and nonicteric ENT: No facial edema or ecchymosis. No periorbital edema. No CSF otorrhea or rhinorrhea. No palpable facial fracture or deformity. NECK: Trachea midline. No cervical spine tenderness. CARDIOVASCULAR: Regular rate and rhythm without murmurs, gallops, or rubs. RESPIRATORY: Clear to auscultation. Breath sounds equal bilaterally. No wheezes , rales, or rhonchi. GASTROINTESTINAL: Abdomen soft, non-tender, nondistended. No hepato-splenomegaly , or palpable masses. No guarding. MUSCULOSKELETAL: Extremities without cyanosis, or edema. No joint tenderness, or edema noted. No calf tenderness. Dorsalis pedis pulses 2+ bilateral NEUROLOGICAL: Awake and alert Oriented X 3 Speech is clear Conversant and appropriate Follow simple commands well Answers questions appropriately Mild judgment and insight Recent and remote memory are mildly to moderately impaired Exhibits anxiety Pupils are equal and reactive to accommodation. Extra-ocular movements, visual godinez to confrontation, facial sensorimotor, tongue, palate, sternocleidomastoid testing, hearing to finger rub testing, and bilateral shoulder shrug are all intact. Sensation is intact to light touch in all extremities Strength normal for age major flexion and extension groups all extremities Altaf's absent bilaterally No ankle clonus Plantar responses absent bilateral Fine motor movements mildly impaired upper extremities Laboratory Laboratory Tests Test 03/23/17 08:57 White Blood Count 12.8 Red Blood Count 3.64 Hemoglobin 11.5 Hematocrit 34.7 Mean Corpuscular Volume 95.2 Mean Corpuscular Hemoglobin 31.5 Mean Corpuscular Hemoglobin Concent 33.0 Red Cell Distribution Width 18.1 Platelet Count 188 Mean Platelet Volume 9.6 Neutrophils (%) (Auto) 79.9 Lymphocytes (%) (Auto) 13.9 Monocytes (%) (Auto) 5.8 Eosinophils (%) (Auto) 0.2 Basophils (%) (Auto) 0.2 Neutrophils # (Auto) 10.2 Lymphocytes # (Auto) 1.8 Monocytes # (Auto) 0.7 Eosinophils # (Auto) 0.0 Basophils # (Auto) 0.0 CBC Comment DIFF FINAL Differential Comment Blood Urea Nitrogen 12 Creatinine 0.53 Random Glucose 80 Calcium Level 8.9 Sodium Level 138 Potassium Level 3.8 Chloride Level 106 Carbon Dioxide Level 23.2 Anion Gap 9 Estimat Glomerular Filtration Rate 110 Date/Time Source Procedure Growth Status 03/22/17 19:25 Blood Peripheral Aerobic Blood Culture - Preliminary NO GROWTH IN 1 DAY Resulted 03/22/17 19:25 Blood Peripheral Anaerobic Blood Culture - Preliminary NO GROWTH IN 1 DAY Resulted 03/22/17 20:10 Urine Catheterized Urine Urine Culture - Preliminary NO GROWTH IN 24 HOURS. Resulted Result Diagram: 03/23/17 0857 03/23/17 0857 Imaging 03/22/17 CT scan head images reviewed and compared to prior study from April 2016. There is moderately severe diffuse hydrocephalus which appears out of proportion to degree of surrounding atrophy, significantly increased from degree of hydrocephalus in April 2016. Chest X-Ray 03/22/17 1908 Signed Impressions: Service Date/Time: Wednesday, March 22, 2017 19:33 - CONCLUSION: 1. Cardiomegaly. 2. Scattered atelectatic changes within the lung bases. 3. No acute focal alveolar consolidation or pulmonary vascular congestion. Carroll Bruce MD Head CT 03/22/17 0000 Signed Impressions: Service Date/Time: Wednesday, March 22, 2017 22:18 - CONCLUSION: 1. Worsening ventriculomegaly suggesting worsening hydrocephalus or very severe central cerebral atrophy. Clinical correlation is recommended. 2. Moderate to severe periventricular and subcortical areas of decreased attenuation consistent with probable sequelae of small vessel ischemic disease. 3. No acute infarct, acute hemorrhage, midline shift or extra-axial fluid collections. Carroll Bruce MD Laboratory Tests Test 03/23/17 08:57 White Blood Count 12.8 TH/MM3 Red Blood Count 3.64 MIL/MM3 Hemoglobin 11.5 GM/DL Hematocrit 34.7 % Mean Corpuscular Volume 95.2 FL Mean Corpuscular Hemoglobin 31.5 PG Mean Corpuscular Hemoglobin Concent 33.0 % Red Cell Distribution Width 18.1 % Platelet Count 188 TH/MM3 Mean Platelet Volume 9.6 FL Neutrophils (%) (Auto) 79.9 % Lymphocytes (%) (Auto) 13.9 % Monocytes (%) (Auto) 5.8 % Eosinophils (%) (Auto) 0.2 % Basophils (%) (Auto) 0.2 % Neutrophils # (Auto) 10.2 TH/MM3 Lymphocytes # (Auto) 1.8 TH/MM3 Monocytes # (Auto) 0.7 TH/MM3 Eosinophils # (Auto) 0.0 TH/MM3 Basophils # (Auto) 0.0 TH/MM3 CBC Comment DIFF FINAL Differential Comment Blood Urea Nitrogen 12 MG/DL Creatinine 0.53 MG/DL Random Glucose 80 MG/DL Calcium Level 8.9 MG/DL Sodium Level 138 MEQ/L Potassium Level 3.8 MEQ/L Chloride Level 106 MEQ/L Carbon Dioxide Level 23.2 MEQ/L Anion Gap 9 MEQ/L Estimat Glomerular Filtration Rate 110 ML/MIN Assessment and Plan Assessment and Plan Impression: 1. Progressive hydrocephalus. Possible NPH. 2. Gait disturbance. No definite myelopathy on exam. Possibly related to NPH. Recommendations: Findings were discussed at length with the patient. She is somewhat anxious during the exam today, but appears to have reasonable understanding of the explanation of the hydrocephalus and diagnostic and treatment options. Options of conservative treatment and observation versus possible temporary lumbar subarachnoid drain for diagnostic purposes as well as possible ventriculoperitoneal shunt placement have all been discussed. The procedure of [employer] shunt placement along with risks and possible complications has been discussed in detail. She appears to understand the above. Ms. Mccloud is quite adamant that she does not wish to undergo any invasive studies or surgery. I did advise her that I would be pleased to discuss this further with her son, and she indicates that she will also discuss this with him. She otherwise will need to continue PT and OT for further state assessment and improvement of ambulation and coordination. Abhay Medina MD Mar 23, 2017 22:30
[2017-03-23] MEDS: ENALAPRILAT 2.5 MG/2 ML VIAL IV PUSH PRN (23:07)
[2017-03-23] MEDS: ATORVASTATIN 20 MG TAB PO SCH (23:08)
[2017-03-24] MEDS ORDERED: MAGNESIUM HYDROXIDE SUSP 30 ML CUP PO PRN (00:45)
[2017-03-24] MEDS ORDERED: DOCUSATE SODIUM 100 MG CAP PO ONE (00:45)
[2017-03-24 04:00] VITALS: BP 179/79; PULSE 84; RESP 18; TEMP 99; O2SAT 95
[2017-03-24] MEDS: ENALAPRILAT 2.5 MG/2 ML VIAL IV PUSH PRN (04:45)
[2017-03-24] MEDS: LEVOTHYROXINE SODIUM 100 MCG TAB PO SCH (05:57)
[2017-03-24 08:05] VITALS: BP 200/90; PULSE 83; RESP 20; TEMP 98.9; O2SAT 93
[2017-03-24] MEDS ORDERED: LACTULOSE SYRUP 20 GM/30 ML CUP PO PRN (09:00)
[2017-03-24] MEDS ORDERED: NALOXONE HCL 0.4 MG/ML AMP IV PUSH PRN (09:00)
[2017-03-24] MEDS ORDERED: SENNOSIDES 8.6 MG TAB PO PRN (09:00)
[2017-03-24] MEDS: cefTRIAXone INJ 1,000 MG in SODIUM CHLORIDE 0.9% INJ 100 ML IV SCH (09:00)
[2017-03-24] MEDS ORDERED: BISACODYL 10 MG SUPP RECTAL PRN (09:00)
[2017-03-24] MEDS: METOPROLOL SUCCINATE 50 MG EXTENDED RELEASE TAB PO SCH (09:05)
[2017-03-24] MEDS: SODIUM CHLORIDE 0.9% FLUSH 10 ML FLUSH IV FLUSH SCH ×2 (09:05→21:00)
[2017-03-24] MEDS: ACETAMINOPHEN 325 MG TAB PO PRN ×2 (09:06→22:35)
[2017-03-24] MEDS: LISINOPRIL 20 MG TAB PO SCH (09:07)
[2017-03-24] MEDS: ENOXAPARIN SODIUM 40 MG/0.4 ML SYRINGE SQ SCH (09:07)
[2017-03-24] MEDS ORDERED: cloNIDine HCL 0.1 MG TAB PO PRN (09:30)
[2017-03-24 10:25] VITALS: BP 164/72
[2017-03-24] MEDS ORDERED: NIFEdipine 60 MG SUSTAINED RELEASE TAB PO ONE (10:30)
[2017-03-24] MEDS: DOCUSATE SODIUM 50 MG/SENNA 8.6 MG TAB PO SCH ×2 (10:34→21:00)
--- NOTE | 2017-03-24 10:36 | HHI.PR ---
Subjective Remarks Follow up for gastroenteritis, UTI. Patient is doing well. She is eager to go home. However, after discussing for sometime, she agrees that a rehab may be a good place for her for now. No fever, chills. Objective Vitals Vital Signs Date Time Temp Pulse Resp B/P (MAP) Pulse Ox O2 Delivery O2 Flow Rate FiO2 03/24/17 10:34 16 03/24/17 10:25 164/72 (102) 03/24/17 08:05 98.9 83 20 200/90 (126) 93 03/24/17 04:00 99.0 84 18 179/79 (112) 95 03/23/17 23:02 98.3 92 16 203/88 (126) 97 03/23/17 20:30 99.0 91 17 171/72 (105) 93 03/23/17 16:00 99.3 88 18 157/67 (97) 94 03/23/17 12:00 99.0 90 18 162/74 (103) 92 I/O 03/23/17 03/23/17 03/23/17 03/24/17 03/24/17 03/24/17 07:00 15:00 23:00 07:00 15:00 23:00 Intake Total 100 ml 120 ml 132 ml Balance 100 ml 120 ml 132 ml Intake Oral 120 ml IV Total 100 ml 132 ml # Voids 2 5 4 # Bowel Movements 0 0 0 Result Diagram: 03/23/17 0857 03/23/17 0857 Imaging Last Impressions Chest X-Ray 03/22/17 1908 Signed Impressions: Service Date/Time: Wednesday, March 22, 2017 19:33 - CONCLUSION: 1. Cardiomegaly. 2. Scattered atelectatic changes within the lung bases. 3. No acute focal alveolar consolidation or pulmonary vascular congestion. Carroll Bruce MD Head CT 03/22/17 0000 Signed Impressions: Service Date/Time: Wednesday, March 22, 2017 22:18 - CONCLUSION: 1. Worsening ventriculomegaly suggesting worsening hydrocephalus or very severe central cerebral atrophy. Clinical correlation is recommended. 2. Moderate to severe periventricular and subcortical areas of decreased attenuation consistent with probable sequelae of small vessel ischemic disease. 3. No acute infarct, acute hemorrhage, midline shift or extra-axial fluid collections. Carroll Bruce MD Objective Remarks GENERAL: Alert, NAD. SKIN: Warm and dry. HEAD: Normocephalic. EYES: No scleral icterus. No injection or drainage. NECK: Supple, trachea midline. No JVD or lymphadenopathy. CARDIOVASCULAR: Regular rate and rhythm without murmurs, gallops, or rubs. RESPIRATORY: Breath sounds equal bilaterally. No accessory muscle use. GASTROINTESTINAL: Abdomen soft, non-tender, nondistended. MUSCULOSKELETAL: No cyanosis, or edema. BACK: Nontender without obvious deformity. No CVA tenderness. Procedures None. A/P Problem List: (1) Sepsis ICD Code: A41.9 - Sepsis, unspecified organism Status: Acute (2) Urinary tract infection ICD Code: N39.0 - Urinary tract infection Status: Acute (3) CHF (congestive heart failure) ICD Code: I50.9 - Heart failure, unspecified Status: Chronic (4) Hypertension ICD Code: I10 - Essential (primary) hypertension Status: Chronic (5) Nausea & vomiting ICD Code: R11.2 - Nausea with vomiting, unspecified Status: Acute Assessment and Plan 86 y/o with a history HTN, HLD, vertigo, adrenal mass, diastolic HF, and hypothyroid of presented to the ED with increased nausea, vomiting and diarrhea. Diarrhea happened after taking laxatives as treatment for her constipation- and happened only once or twice yesterday Sepsis, wbc 22.6, HR 103, source UTI, with associated nausea and vomiting, abnormal UA with large leukocyte esterase, lactic 1.1 Probable urinary tract infection. - Received IV antibiotics Rocephin -CBC shows WBC 22.6 --> 12.8. -Urine culture --> mixed gram positive gena. This is not significant. Will d /c Abx. -Antiemetics as needed CHF, diastolic, chronic Last echo showed EF 55-60% -Monitor for fluid overload Headaches with some confusion Probable normal pressure hydrocephalus (NPH). -Head CT shows worsening ventriculomegaly. Images reviewed by me. - Dr. Medina (neurosurgery) evaluated patient. Patient is adamantly against any surgery. Hypokalemia, potassium 3.4 -Replaced. Repeat K+ 3.8. Hypertension - today, HTN went upto 200 systolic. - Continue metoprolol 50mg Qday, Lisinopril 30mg Qday - Start Nifedipine 60mg Qday and Clonidine 0.1mg PO Q6hrs PRN. - Constipation - Will add various PRN meds including suppository. Vertigo, chronic: resume home medications, PT eval --> recommends rehab. DVT prophylaxis: lovenox Problem Qualifiers (1) Urinary tract infection: Qualified Codes: N30.00 - Acute cystitis without hematuria (2) CHF (congestive heart failure): Qualified Codes: I50.32 - Chronic diastolic (congestive) heart failure (3) Nausea & vomiting: Qualified Codes: R11.2 - Nausea with vomiting, unspecified Josef Chavarria DO Mar 24, 2017 10:36 am
[2017-03-24] MEDS ORDERED: PILL SPLITTER OTHER PRN (10:45)
[2017-03-24] MEDS ORDERED: oxyCODONE/ACETAMINOPHEN 5 MG/325 MG TAB PO PRN (10:45)
[2017-03-24 12:10] VITALS: BP 142/67; PULSE 76; RESP 20; TEMP 97.5; O2SAT 95
[2017-03-24 16:17] VITALS: BP 136/67; PULSE 75; RESP 20; TEMP 98.1; O2SAT 96
[2017-03-24 20:00] VITALS: BP 136/59; PULSE 82; RESP 19; TEMP 98.2; O2SAT 91
[2017-03-24] MEDS: ATORVASTATIN 20 MG TAB PO SCH (22:34)
[2017-03-25] VITALS (7 sets, daily range): BP systolic 118–160; BP diastolic 59–76; PULSE 62–85; RESP 20; TEMP 97.5–98.1; O2SAT 90–96
[2017-03-25] MEDS: LEVOTHYROXINE SODIUM 100 MCG TAB PO SCH ×2 (06:58→10:58)
[2017-03-25] MEDS: METOPROLOL SUCCINATE 50 MG EXTENDED RELEASE TAB PO SCH (08:38)
[2017-03-25] MEDS: DOCUSATE SODIUM 50 MG/SENNA 8.6 MG TAB PO SCH (08:38)
[2017-03-25] MEDS: SODIUM CHLORIDE 0.9% FLUSH 10 ML FLUSH IV FLUSH SCH (08:39)
[2017-03-25] MEDS: LISINOPRIL 20 MG TAB PO SCH (08:39)
[2017-03-25] MEDS ORDERED: NIFEdipine 60 MG SUSTAINED RELEASE TAB PO SCH (09:00)
[2017-03-25] MEDS: ENOXAPARIN SODIUM 40 MG/0.4 ML SYRINGE SQ SCH (11:00)
--- NOTE | 2017-03-25 11:29 | HHI.DS ---
Discharge Summary Admission Date Mar 22, 2017 at 8:48 pm Discharge Date: Mar 25, 2017 Admitting Diagnosis sepsis, UTI, gastroenteritis (1) Sepsis ICD Code: A41.9 - Sepsis, unspecified organism Status: Acute (2) Urinary tract infection ICD Code: N39.0 - Urinary tract infection Status: Acute (3) CHF (congestive heart failure) ICD Code: I50.9 - Heart failure, unspecified Status: Chronic (4) Hypertension ICD Code: I10 - Essential (primary) hypertension Status: Chronic (5) Nausea & vomiting ICD Code: R11.2 - Nausea with vomiting, unspecified Status: Acute Procedures None. Brief History - From Admission Written by FUENTES Hall acting as scribe for [Rhett] on 03/22/17 at 21: 19. 86 y/o with a history HTN, HLD, vertigo, adrenal mass, diastolic HF, incontinence and hypothyroid of presented to the ED with increased nausea, vomiting and diarrhea. Starting on Wednesday she began to have burning and frequency with urination. For the last 2 days she has been having the nausea, vomiting and diarrhea x once a day, prior to this she was constipated and she look laxatives for it. She was taking AZO over the counter. She was seen last night in the ED diagnosed with UTI, and sent home on antibiotics. She filled the prescription today but could not keep food down or antibiotics. She states she has had some confusion with associated headaches. She lives alone, but her son does come to visit frequently, and at times she thinks he is her . No history of cva, seizures or dementia. CBC/BMP: 03/23/17 0857 03/23/17 0857 Significant Findings Laboratory Tests Test 03/22/17 19:20 03/22/17 20:10 03/23/17 08:57 White Blood Count 22.6 TH/MM3 (4.0-11.0) 12.8 TH/MM3 (4.0-11.0) Red Blood Count 3.66 MIL/MM3 (4.00-5.30) 3.64 MIL/MM3 (4.00-5.30) Hemoglobin 11.1 GM/DL (11.6-15.3) 11.5 GM/DL (11.6-15.3) Hematocrit 34.3 % (35.0-46.0) 34.7 % (35.0-46.0) Red Cell Distribution Width 17.9 % (11.6-17.2) 18.1 % (11.6-17.2) Neutrophils (%) (Auto) 89.0 % (16.0-70.0) 79.9 % (16.0-70.0) Lymphocytes (%) (Auto) 7.1 % (9.0-44.0) Neutrophils # (Auto) 20.1 TH/MM3 (1.8-7.7) 10.2 TH/MM3 (1.8-7.7) Neutrophils % (Manual) 83 % (16-70) Band Neutrophils % 8 % (0-6) Lymphocytes % 3 % (9-44) Neutrophils # (Manual) 20.6 TH/MM3 (1.8-7.7) Toxic Vacuolation PRESENT (NONE SEEN) Dohle Bodies PRESENT (NONE SEEN) Random Glucose 137 MG/DL (74-106) Alkaline Phosphatase 121 U/L (45-117) Alanine Aminotransferase (ALT/SGPT) 86 U/L (10-53) Potassium Level 3.4 MEQ/L (3.5-5.1) Urine Color DARK-YELLOW (YELLW/STRAW) Urine Turbidity HAZY (CLEAR) Urine Protein 30 mg/dL (NEG-TRACE) Urine Ketones 40 mg/dL (NEG) Urine Occult Blood SMALL (NEG) Urine Leukocyte Esterase LARGE (NEG) Urine RBC 21 /hpf (0-3) Urine WBC 162 /hpf (0-5) Urine Bacteria MANY /hpf (NONE) Urine Mucus FEW /lpf (OCC) Imaging Last Impressions Chest X-Ray 03/22/17 1908 Signed Impressions: Service Date/Time: Wednesday, March 22, 2017 19:33 - CONCLUSION: 1. Cardiomegaly. 2. Scattered atelectatic changes within the lung bases. 3. No acute focal alveolar consolidation or pulmonary vascular congestion. Carroll Bruce MD Head CT 03/22/17 0000 Signed Impressions: Service Date/Time: Jesus, March 22, 2017 22:18 - CONCLUSION: 1. Worsening ventriculomegaly suggesting worsening hydrocephalus or very severe central cerebral atrophy. Clinical correlation is recommended. 2. Moderate to severe periventricular and subcortical areas of decreased attenuation consistent with probable sequelae of small vessel ischemic disease. 3. No acute infarct, acute hemorrhage, midline shift or extra-axial fluid collections. Carroll Bruce MD PE at Discharge GENERAL: Alert, NAD. SKIN: Warm and dry. HEAD: Normocephalic. EYES: No scleral icterus. No injection or drainage. NECK: Supple, trachea midline. No JVD or lymphadenopathy. CARDIOVASCULAR: Regular rate and rhythm without murmurs, gallops, or rubs. RESPIRATORY: Breath sounds equal bilaterally. No accessory muscle use. GASTROINTESTINAL: Abdomen soft, non-tender, nondistended. MUSCULOSKELETAL: No cyanosis, or edema. BACK: Nontender without obvious deformity. No CVA tenderness. Pt update on day of discharge Patient is doing well, sitting in her chair. Son at bedside. No new concerns. Hospital Course 86 y/o with a history HTN, HLD, vertigo, adrenal mass, diastolic HF, and hypothyroid of presented to the ED with increased nausea, vomiting and diarrhea. Diarrhea happened after taking laxatives as treatment for her constipation- and happened only once or twice yesterday Sepsis, wbc 22.6, HR 103, source UTI, with associated nausea and vomiting, abnormal UA with large leukocyte esterase, lactic 1.1 Probable urinary tract infection. - Received IV antibiotics Rocephin -CBC shows WBC 22.6 --> 12.8. -Urine culture --> mixed gram positive gena. This is not significant. Will d /c Abx. -Antiemetics as needed CHF, diastolic, chronic Last echo showed EF 55-60% -No sign of fluid overload. Headaches with some confusion Probable normal pressure hydrocephalus (NPH). -Head CT shows worsening ventriculomegaly. Images reviewed by me. - Dr. Medina (neurosurgery) evaluated patient. Patient is adamantly against any surgery. Hypokalemia, potassium 3.4 -Replaced. Repeat K+ 3.8. Hypertension - today, HTN went upto 200 systolic. - Continue metoprolol 50mg Qday, Lisinopril 30mg Qday - Start Nifedipine 60mg Qday and Clonidine 0.1mg PO Q6hrs PRN. - Constipation - Will add various PRN meds including suppository. Vertigo, chronic: resume home medications, PT eval --> recommends rehab. DVT prophylaxis: lovenox Pt Condition on Discharge: Good Discharge Disposition: Rehab Inpatient Discharge Time: > 30 minutes Discharge Instructions DIET: Follow Instructions for: Heart Healthy Diet Activities you can perform: Regular-No Restrictions Continued Medications: Atorvastatin (Atorvastatin) 20 Mg Tab 20 MG PO HS for Cholesterol Management, #30 TAB 0 Refills Levothyroxine (Levothyroxine) 112 Mcg Tab 100 MCG PO DAILY, #30 TAB 0 Refills Lisinopril (Lisinopril) 20 Mg Tab 30 MG PO DAILY for Blood Pressure Management, #30 TAB Meclizine (Meclizine) 12.5 Mg Tab 12.5 MG PO TID PRN for VERTIGO, TAB 0 Refills Metoprolol Succinate ER 24 HR (Metoprolol Succinate ER 24 HR) 50 Mg Tab 50 MG PO DAILY, #30 TAB 0 Refills Discontinued Medications: Amoxicillin (Amoxicillin) 500 Mg Cap 500 MG PO TID, CAP 0 Refills Furosemide (Lasix) 20 Mg Tab 20 MG PO DAILY, #30 TAB 0 Refills Influenza Virus Vaccine High-Dose [place] Inj (Fluzone High-Dose Trivalent 2015- Inj) 0.5 Ml Syr 0.5 ML IM .ONCE for Immunization, #1 SYRINGE 0 Refills Josef Chavarria DO Mar 25, 2017 11:29
[2017-04-06] MEDS ORDERED: WHEEMIS3 (08:34)
[2017-04-06] MEDS ORDERED: COMMODE 3-IN-11 MIS (08:34)
[2017-04-13] MEDS ORDERED: CIPR-9 PO (08:37)
[2017-04-13] MEDS ORDERED: MECL12.574 PO (08:37)
[2017-04-13] MEDS ORDERED: METO50TA11 PO (08:37)
[2017-04-13] MEDS ORDERED: NIFE60TA8 PO (08:37)
[2017-04-13] MEDS ORDERED: ATOR20TA15 PO (08:37)
[2017-04-13] MEDS ORDERED: LISI-515 PO (08:37)
[2017-04-13] MEDS ORDERED: LEVO.1 PO (08:37)
[2017-04-13] MEDS ORDERED: TEMA7.5C9 PO (08:37)
== END 2017-03-25 15:22 | DRG 872 ==
LOC: NEPE 17:34 → NEDA 20:48 → N05B 22:31
PROVIDERS: ADMIT Hospitalist; ATTEND Hospitalist
DX: A41.9 Sepsis, unspecified organism (principal); I11.0 Hypertensive heart disease with heart failure; G91.2 (Idiopathic) normal pressure hydrocephalus; I50.32 Chronic diastolic (congestive) heart failure; N30.00 Acute cystitis without hematuria; G93.89 Other specified disorders of brain; E78.5 Hyperlipidemia, unspecified; E87.6 Hypokalemia; E89.0 Postprocedural hypothyroidism; G47.30 Sleep apnea, unspecified; K21.9 Gastro-esophageal reflux disease without esophagitis; K52.9 Noninfective gastroenteritis and colitis, unspecified; K59.00 Constipation, unspecified; Z86.73 Personal history of transient ischemic attack (TIA), and cerebral infarction without residual deficits; Z87.891 Personal history of nicotine dependence; M19.90 Unspecified osteoarthritis, unspecified site; F41.8 Other specified anxiety disorders; B96.20 Unspecified Escherichia coli [E. coli] as the cause of diseases classified elsewhere; R94.31 Abnormal electrocardiogram [ECG] [EKG]; R42 Dizziness and giddiness; E27.8 Other specified disorders of adrenal gland
CPT/HCPCS: 70450; 71010; 76937; 80048; 80053; 81001; 83605; 85007; 85025; 85027; 87040; 87086; 93005; 96361; 96365; 96375; J0696; J1650; J2405; J3480; J7030; J7040

== ENCOUNTER 2017-07-24 12:11 | Emergency (ER) | payer MEDICARE, BC ==
[~2017-07-24 12:11] MED LIST changes: -ASPI1TAB69 PO; -BACT800T5 PO; -BUPR100T4 PO; +CIPR-9 PO; +COMMODE 3-IN-11 MIS; -FURO1TAB62 PO; -INFL1INJ52 IM; -LEVO-168 PO; +LEVO.1 PO; +MECL-62 PO; -MECL12.574 PO; +METO1TAB9 PO; -METO50TA11 PO; +NIFE60TA8 PO; -OXYC1TAB63 PO; -SENN1TAB PO; +TEMA7.5C9 PO; +WHEEMIS3
[2017-07-24 12:12] VITALS: BP 209/93; PULSE 75; RESP 20; TEMP 97.9; O2SAT 99
[2017-07-24 12:27] VITALS: PULSE 70; RESP 16; O2SAT 94
[2017-07-24 13:29] LABS: AUTOMATED NEUTROPHIL # 4.4 TH/MM3 (1.8-7.7); BASOPHIL # 0.1 TH/MM3 (0-0.2); BASOPHIL % 0.6 % (0.0-2.0); EOSINOPHIL # 0.2 TH/MM3 (0-0.4); EOSINOPHIL % 2.1 % (0.0-4.0); HEMATOCRIT 35.3 % (35.0-46.0); HEMOGLOBIN 11.9 GM/DL (11.6-15.3); LYMPH % 37.2 % (9.0-44.0); LYMPHOCYTE # 3.2 TH/MM3 (1.0-4.8); MEAN CELL VOLUME 93.4 FL (80.0-100.0); MEAN CORPUSCULAR HEMOGLOBIN 31.4 PG (27.0-34.0); MEAN CORPUSCULAR HGB CONC 33.7 % (32.0-36.0); MEAN PLATELET VOLUME 9.8 FL (7.0-11.0); MONO % 8.7 % (0.0-8.0); MONOCYTE # 0.7 TH/MM3 (0-0.9); NEUT % 51.4 % (16.0-70.0); PLATELET COUNT 190 TH/MM3 (150-450); RED BLOOD COUNT 3.78 MIL/MM3 (4.00-5.30); RED CELL DISTRIBUTION WIDTH 17.3 % (11.6-17.2); WHITE BLOOD COUNT 8.5 TH/MM3 (4.0-11.0)
[2017-07-24 13:38] LABS: BACTERIA, URINE OCC /hpf; BILIRUBIN, URINE NEG (NEG); BLOOD, URINE TRACE (NEG); GLUCOSE,URINE NEG (NEG); KETONE, URINE NEG (NEG); MUCUS URINE FEW /lpf (OCC); NITRITE,URINE POS (NEG); SQUAMOUS EPITHELIAL CELL URINE 1 /hpf (0-5); URINE COLOR DARK-YELLOW (YELLW/STRAW); URINE LEUKOCYTE ESTERASE LARGE (NEG)
[2017-07-24 13:45] LABS: ALT (GPT) 70 U/L (10-53)
[2017-07-24 13:48] LABS: ALKALINE PHOSPHATASE 108 U/L (45-117); TOTAL BILIRUBIN ADULT 0.3 MG/DL (0.2-1.0); TOTAL PROTEIN 7.5 GM/DL (6.4-8.2)
[2017-07-24 13:50] LABS: ALBUMIN 3.7 GM/DL (3.4-5.0); AST (GOT) 60 U/L (15-37); BICARBONATE 27.5 MEQ/L (21.0-32.0); BLOOD UREA NITROGEN 18 MG/DL (7-18); CALCIUM 8.9 MG/DL (8.5-10.1); CHLORIDE 107 MEQ/L (98-107); CREATININE 0.58 MG/DL (0.50-1.00); GLOMERULAR FILTRATION RATE 99 ML/MIN (>89); GLUCOSE,RANDOM 84 MG/DL (74-106); SODIUM (NA) 141 MEQ/L (136-145)
[2017-07-24] MEDS ORDERED: cefTRIAXone INJ 1,000 MG in SODIUM CHLORIDE 0.9% INJ 100 ML IV ONE (14:00)
--- NOTE | 2017-07-24 15:10 | PD ---
HPI Chief Complaint: Complaint Time Seen by Provider: 12:38 Travel History International Travel<30 days: No Contact w/Intl Traveler<30days: No Traveled to known affect area: No History of Present Illness HPI Patient is a 87 year old female who comes in complaining of lower abdominal pain and concern for UTI. She has had issues with UTIs in the past. She has had the symptoms since Wednesday. Family is worried because she had sepsis secondary to UTI in April. She has been taking Azo to help with her symptoms , but they have persisted. She denies any fever. She says she has some nausea and dizziness, but this is chronic for her. She says she has urgency and frequency. She says the pain goes up into her left flank. She saw her PCP on Wednesday and was not stared on any medications. 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) Cardiovascular Problems: Yes High Cholesterol: Yes Chemotherapy: No Chest Pain: No Congestive Heart Failure: Yes COPD: No Cerebrovascular Accident: No Diabetes: No Diminished Hearing: No Endocrine: Yes Gastrointestinal Disorders: Yes (Has adrenal gland tumor) GERD: Yes Glaucoma: No Genitourinary: Yes (INCONTINENT) Headaches: No Hepatitis: No Hiatal Hernia: No Heparin Induced Thrombocytopen: No Hypertension: Yes Immune Disorder: Yes Implanted Vascular Access Dvce: No Kidney Stones: No Medical other: Yes (back/neck problems,arthritis,lupus,reflux) Musculoskeletal: Yes Neurologic: Yes Psychiatric: Yes Reproductive: Yes Respiratory: Yes Migraines: No Radiation Therapy: No Renal Failure: No Seizures: No Sickle Cell Disease: No Sleep Apnea: No (wear sleep right nasal strips) Thyroid Disease: Yes (THYROIDECTOMY) Ulcer: No PNEUMOCCOCAL Vaccine (Year): 1 Menopausal: Yes : 2 Para: 2 Past Surgical History Abdominal Surgery: Yes ([facility] age 40 ) AICD: No Arteriovenous Shunt: No Ear Surgery: No Endocrine Surgery: Yes (complete thyroidectomy) Eye Surgery: Yes ("DOCTOR PLUGGED UP EYE DUCTS") Gynecologic Surgery: Yes (hysterectomy right breast benign tumor removed) Hysterectomy: Yes Insulin Pump: No Joint Replacement: No Oral Surgery: No Pacemaker: No Other Surgery: Yes Social History Alcohol Use: No Tobacco Use: No (QUIT 1996 ) Substance Use: No Allergies-Medications (Allergen,Severity, Reaction): Coded Allergies: tetanus toxoid, adsorbed (Unverified Allergy, Severe, FEVER, 03/22/17) cefuroxime (Unverified Adverse Reaction, Intermediate, UPSET STOMACH, 03/22) Reported Meds & Prescriptions Reported Meds & Active Scripts Active Meclizine (Meclizine HCl) 25 Mg Tab 25 Mg PO TID PRN Cipro (Ciprofloxacin HCl) 500 Mg Tab 500 Mg PO BID Synthroid (Levothyroxine Sodium) 100 Mcg Tab 100 Mcg PO DAILY@0600 Restoril (Temazepam) 7.5 Mg Cap 7.5 Mg PO HS PRN Lisinopril 20 Mg Tab 20 Mg PO BID Nifedipine ER 24 HR (Nifedipine) 60 Mg Tab 60 Mg PO DAILY Metoprolol Succinate ER 24 HR (Metoprolol Succinate) 50 Mg Tab 50 Mg PO DAILY Atorvastatin (Atorvastatin Calcium) 20 Mg Tab 20 Mg PO HS Commode 3-in-1 (Device) 1 Mis Mis Ea .ROUTE DIRECTED Wheelchair (Device) 1 Mis Mis Ea .ROUTE DIRECTED Review of Systems Except as stated in HPI: all other systems reviewed are Neg General / Constitutional: No: Fever, Chills HENT: No: Headaches, Lightheadedness Cardiovascular: No: Chest Pain or Discomfort Respiratory: No: Shortness of Breath Gastrointestinal: Positive: Nausea, Abdominal Pain, No: Vomiting Genitourinary: Positive: Urgency, Frequency, Flank Pain Musculoskeletal: No: Myalgias, Edema Skin: No Rash, No Change in Pigmentation Neurologic: Positive: Dizziness, No: Weakness Physical Exam Narrative GENERAL: Awake and alert, in no acute distress. SKIN: Focused skin assessment warm/dry. HEAD: Atraumatic. Normocephalic. EYES: Pupils equal and round. No scleral icterus. EOMI. ENT: Mucous membranes pink and moist. NECK: Trachea midline. No JVD. CARDIOVASCULAR: Regular rate and rhythm. No murmur appreciated. RESPIRATORY: No accessory muscle use. Clear to auscultation. Breath sounds equal bilaterally. GASTROINTESTINAL: Abdomen soft, mild suprapubic tenderness, nondistended. No rebound or guarding. No CVA tenderness. MUSCULOSKELETAL: No obvious deformities. No clubbing. No cyanosis. No edema. NEUROLOGICAL: Awake and alert. No obvious cranial nerve deficits. Motor grossly within normal limits. Normal speech. PSYCHIATRIC: Appropriate mood and affect; insight and judgment normal. Data Data Last Documented VS Vital Signs Date Time Temp Pulse Resp B/P (MAP) Pulse Ox O2 Delivery O2 Flow Rate FiO2 07/24/17 12:27 70 16 94 Room Air 07/24/17 12:12 97.9 Orders Orders Iv Access Insert/Monitor (07/24/17 13:12) Complete Blood Count With Diff (07/24/17 13:12) Comprehensive Metabolic Panel (07/24/17 13:12) Urinalysis - C+S If Indicated (07/24/17 13:12) Ct Abd/Pel W/O Iv Contrast (07/24/17 ) Urine Culture (07/24/17 13:20) Ceftriaxone Inj (Rocephin Inj) (07/24/17 14:00) Labs Laboratory Tests Test 07/24/17 13:20 White Blood Count 8.5 TH/MM3 Red Blood Count 3.78 MIL/MM3 Hemoglobin 11.9 GM/DL Hematocrit 35.3 % Mean Corpuscular Volume 93.4 FL Mean Corpuscular Hemoglobin 31.4 PG Mean Corpuscular Hemoglobin Concent 33.7 % Red Cell Distribution Width 17.3 % Platelet Count 190 TH/MM3 Mean Platelet Volume 9.8 FL Neutrophils (%) (Auto) 51.4 % Lymphocytes (%) (Auto) 37.2 % Monocytes (%) (Auto) 8.7 % Eosinophils (%) (Auto) 2.1 % Basophils (%) (Auto) 0.6 % Neutrophils # (Auto) 4.4 TH/MM3 Lymphocytes # (Auto) 3.2 TH/MM3 Monocytes # (Auto) 0.7 TH/MM3 Eosinophils # (Auto) 0.2 TH/MM3 Basophils # (Auto) 0.1 TH/MM3 CBC Comment DIFF FINAL Differential Comment Urine Color DARK-YELLOW Urine Turbidity CLEAR Urine pH 6.0 Urine Specific [place] 1.017 Urine Protein NEG mg/dL Urine Glucose (UA) NEG mg/dL Urine Ketones NEG mg/dL Urine Occult Blood TRACE Urine Nitrite POS Urine Bilirubin NEG Urine Urobilinogen LESS THAN 2.0 MG/DL Urine Leukocyte Esterase LARGE Urine RBC 4 /hpf Urine WBC 88 /hpf Urine Squamous Epithelial Cells 1 /hpf Urine Bacteria OCC /hpf Urine Mucus FEW /lpf Microscopic Urinalysis Comment CULTURE INDICATED Blood Urea Nitrogen 18 MG/DL Creatinine 0.58 MG/DL Random Glucose 84 MG/DL Total Protein 7.5 GM/DL Albumin 3.7 GM/DL Calcium Level 8.9 MG/DL Alkaline Phosphatase 108 U/L Aspartate Amino Transf (AST/SGOT) 60 U/L Alanine Aminotransferase (ALT/SGPT) 70 U/L Total Bilirubin 0.3 MG/DL Sodium Level 141 MEQ/L Potassium Level 4.0 MEQ/L Chloride Level 107 MEQ/L Carbon Dioxide Level 27.5 MEQ/L Anion Gap 7 MEQ/L Estimat Glomerular Filtration Rate 99 ML/MIN MDM Medical Decision Making Medical Screen Exam Complete: Yes Emergency Medical Condition: Yes Medical Record Reviewed: Yes Differential Diagnosis UTI vs pyelonephritis vs renal stone Narrative Course Patient is an 87-year-old female who comes in complaining of urinary urgency, frequency, lower abdominal pain. Exam shows suprapubic tenderness. IV established, labs sent. Labs show normal creatinine. Urinalysis is positive for UTI. Patient given IV fluids, Rocephin. CT abdomen and pelvis performed shows no acute abnormalities. Last 24 hours Impressions Abdomen/Pelvis CT 07/24/17 0000 Signed Impressions: Service Date/Time: Monday, July 24, 2017 15:22 - CONCLUSION: 1. Diverticulosis without diverticulitis. 2. Right adrenal mass cannot be classified as a typical adrenal adenoma. 3. Right renal cyst. 4. Cholecystectomy clips. 5. Small hiatal hernia. Arias Montaño MD Based on prior sensitivities, patient will be discharged with a prescription for Augmentin. She is advised follow-up with her PCP. Advised to return any time for any worsening symptoms. Diagnosis Primary Impression: UTI (urinary tract infection) Qualified Codes: N30.00 - Acute cystitis without hematuria Patient Instructions: General Instructions, Urinary Tract Infection in Women ( ED) Additional Instructions: Take all of your antibiotic. Drink plenty of fluids. Follow-up with your primary care doctor. Return to the ED as needed for any worsening symptoms. Scripts Amoxicillin-Clavulanate (Augmentin) 875-125 Mg Tab 1 TAB PO BID for Infection for 7 Days, #14 TAB 0 Refills Prov: Tana Figueroa MD 07/24/17 Disposition: 01 DISCHARGE HOME Condition: Stable Tana Figueroa MD Jul 24, 2017 15:10
--- NOTE | 2017-07-24 15:47 | RADRPT ---
EXAM DATE/TIME: 07/24/2017 15:22 [facility] COMPARISON: No previous studies available for comparison. INDICATIONS : Diffuse abdomen pain today. ORAL CONTRAST: No oral contrast ingested. RADIATION DOSE: 5.78 CTDIvol (mGy) MEDICAL HISTORY : Congestive heart failure. Gastroesophageal reflux disease. adrenal gland cancer SURGICAL HISTORY : Hysterectomy. ENCOUNTER: Initial ACUITY: 1 day PAIN SCALE: 5/10 LOCATION: Bilateral abdomen TECHNIQUE: Volumetric scanning of the abdomen and pelvis was performed. Using automated exposure control and ad justment of the mA and/or kV according to patient size, radiation dose was kept as low as reasonably achievable to obtain optimal diagnostic quality images. DICOM format image data is available electro nically for review and comparison. FINDINGS: LOWER LUNGS: The visualized lower lungs are clear. LIVER: Homogeneous density without lesion. There is no dilation of the biliary tree. Cholecystectomy clips. SPLEEN: Normal size without lesion. PANCREAS: Within normal limits. KIDNEYS: Normal in size and shape. There is no mass, stone, or hydronephrosis. Right renal densities likely c ysts. ADRENAL GLANDS: 3.3 x 2.4 cm right adrenal lesion. VASCULAR: There is no aortic aneurysm. Atherosclerotic changes. BOWEL/MESENTERY: Scattered diverticulosis without diverticulitis. Small hiatal hernia. There is no free intraperitone al air or fluid. ABDOMINAL WALL: Within normal limits. RETROPERITONEUM: There is no lymphadenopathy. BLADDER: No wall thickening or mass. REPRODUCTIVE: Within normal limits. INGUINAL: There is no lymphadenopathy. Bilateral fat containing inguinal hernias.. MUSCULOSKELETAL: Within normal limits for patient age. CONCLUSION: 1. Diverticulosis without diverticulitis. 2. Right adrenal mass cannot be classified as a typical adrenal adenoma. 3. Right renal cyst. 4. Cholecystectomy clips. 5. Small hiatal hernia. Arias Montaño MD on July 24, 2017 at 15:43 Board Certified Radiologist. This report was verified electronically.
[2017-07-24] MEDS ORDERED: AUGM875T3 PO (16:05)
== END 2017-07-24 16:25 | disposition home or self-care (01) ==
LOC: NEPE 12:11
DX: N30.00 Acute cystitis without hematuria (principal); B96.4 Proteus (mirabilis) (morganii) as the cause of diseases classified elsewhere; E78.00 Pure hypercholesterolemia, unspecified; I11.0 Hypertensive heart disease with heart failure; I50.9 Heart failure, unspecified; M32.9 Systemic lupus erythematosus, unspecified; F32.9 Major depressive disorder, single episode, unspecified; F41.9 Anxiety disorder, unspecified; Z87.891 Personal history of nicotine dependence
CPT/HCPCS: 74176; 80053; 81001; 85025; 87077; 87086; 87186; 96374; 99285; J0696

== ENCOUNTER 2017-10-03 16:38 | Inpatient (IN) | payer MEDICARE, BC ==
[~2017-10-03] VITALS: Ht 157.5 cm; Wt 55.1 kg
[~2017-10-03 16:38] MED LIST changes: +AUGM875T3 PO
[2017-10-03 16:43] VITALS: BP 222/96; PULSE 70; RESP 14; TEMP 97.6; O2SAT 95
[2017-10-03] MEDS ORDERED: HYDR-3516 PO (17:38)
[2017-10-03 17:42] LABS: AUTOMATED NEUTROPHIL # 6.2 TH/MM3 (1.8-7.7); BASOPHIL % 0.4 % (0.0-2.0); EOSINOPHIL # 0.2 TH/MM3 (0-0.4); EOSINOPHIL % 2.3 % (0.0-4.0); HEMATOCRIT 39.1 % (35.0-46.0); HEMOGLOBIN 12.9 GM/DL (11.6-15.3); LYMPHOCYTE # 2.5 TH/MM3 (1.0-4.8); MEAN CORPUSCULAR HEMOGLOBIN 31.1 PG (27.0-34.0); MEAN PLATELET VOLUME 10.5 FL (7.0-11.0); MONO % 3.7 % (0.0-8.0); MONOCYTE # 0.3 TH/MM3 (0-0.9); NEUT % 66.6 % (16.0-70.0); PLATELET COUNT 172 TH/MM3 (150-450); RED BLOOD COUNT 4.16 MIL/MM3 (4.00-5.30); RED CELL DISTRIBUTION WIDTH 17.1 % (11.6-17.2); WHITE BLOOD COUNT 9.4 TH/MM3 (4.0-11.0)
[2017-10-03 17:49] LABS: PROTHROMBIN TIME - PATIENT 10.2 SEC (9.8-11.6)
[2017-10-03 17:52] LABS: BACTERIA, URINE RARE /hpf; BILIRUBIN, URINE NEG (NEG); BLOOD, URINE NEG (NEG); GLUCOSE,URINE NEG (NEG); KETONE, URINE NEG (NEG); MUCUS URINE FEW /lpf (OCC); NITRITE,URINE NEG (NEG); SQUAMOUS EPITHELIAL CELL URINE 1 /hpf (0-5); TRANSITIONAL EPI CELLS, URINE <1 /hpf; URINE COLOR YELLOW (YELLW/STRAW); URINE LEUKOCYTE ESTERASE MOD (NEG)
[2017-10-03 18:04] LABS: ALBUMIN 3.8 GM/DL (3.4-5.0); ALT (GPT) 23 U/L (10-53); BICARBONATE 25.7 MEQ/L (21.0-32.0); BLOOD UREA NITROGEN 20 MG/DL (7-18); CALCIUM 8.7 MG/DL (8.5-10.1); CHLORIDE 108 MEQ/L (98-107); CREATININE 0.55 MG/DL (0.50-1.00); GLOMERULAR FILTRATION RATE 105 ML/MIN (>89); GLUCOSE,RANDOM 95 MG/DL (74-106); SODIUM (NA) 141 MEQ/L (136-145)
[2017-10-03 18:07] LABS: ALKALINE PHOSPHATASE 84 U/L (45-117); AST (GOT) 30 U/L (15-37); TOTAL BILIRUBIN ADULT 0.3 MG/DL (0.2-1.0); TOTAL PROTEIN 7.6 GM/DL (6.4-8.2)
[2017-10-03] MEDS ORDERED: IOHEXOL 350 MG/ML 10 ML VIAL (for RAD DIAG) IVCONTRAST ONE (18:30)
--- NOTE | 2017-10-03 18:54 | RADRPT ---
EXAM DATE/TIME: 10/03/2017 18:29 [facility] COMPARISON: CT ABDOMEN & PELVIS W CONTRAST, March 21, 2017, 23:01. INDICATIONS : Constipation for one week. Lower abdomen pain. IV CONTRAST: 94 cc Omnipaque 350 (iohexol) IV ORAL CONTRAST: No oral contrast ingested. RADIATION DOSE: 5.25 CTDIvol (mGy) MEDICAL HISTORY : Cardiovascular disease. Hypertension. Gastroesophageal reflux disease. SURGICAL HISTORY : Hysterectomy. ENCOUNTER: Initial ACUITY: 1 week PAIN SCALE: 6/10 LOCATION: Bilateral lower quadrant TECHNIQUE: Volumetric scanning of the abdomen and pelvis was performed. Using automated exposure control and ad justment of the mA and/or kV according to patient size, radiation dose was kept as low as reasonably achievable to obtain optimal diagnostic quality images. DICOM format image data is available electro nically for review and comparison. FINDINGS: There is a heterogeneous, avidly enhancing right adrenal mass again seen measuring 3.8 x 2.8 cm in AP and transverse dimension. Bilateral renal cysts are noted, the largest on the right at the upper shavonne e measuring 5.4 cm. Left adrenal, spleen, pancreas unremarkable. Atherosclerotic calcification of the aorta and iliac vessels small fat-containing inguinal hernias are noted bilaterally. Urinary bladder unremarkable. Diverticulosis of the sigmoid and descending colon without diverticulitis. Tiny fat co ntaining umbilical hernia. No inflammatory changes are identified in the abdomen or pelvis. Mild bron chiectasis is seen in the lower lobes. There are degenerative changes of the spine. CONCLUSION: 1. Right adrenal mass again seen. 2. Renal cysts. 3. Atherosclerosis. 4. Diverticulosis. Chance Lobo MD on October 03, 2017 at 18:50 Board Certified Radiologist. This report was verified electronically.
[2017-10-03] MEDS ORDERED: SOD PHOSPHATE/SOD BIPHOSPHATE (ADULT) ENEMA 133ML RECTAL ONE (19:00)
--- NOTE | 2017-10-03 20:22 | PD ---
HPI Chief Complaint: Abdominal Pain Time Seen by Provider: 16:53 Travel History International Travel<30 days: No Contact w/Intl Traveler<30days: No Traveled to known affect area: No History of Present Illness HPI 87-year-old female presents emergency department complaining of abdominal pain and constipation for 1 week. Patient states her pain is diffuse and is lasted for several days. No palliative or provocative factors. Says her lower rib/ upper abdominal area is painful, mild to moderate. Says she has been using suppositories without significant relief. Denies urinary symptoms. [facility] states they gave Zofran and 500 cc normal saline IV fluids with some relief of her pain. Says she has had nonbloody, nonbilious vomiting for approximately 1 hour. Patient takes lisinopril, meclizine, hydrocodone, and levothyroxine. Says she has chronic dizzy episodes which is the reason for her meclizine. 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) Cardiovascular Problems: Yes (htn) High Cholesterol: Yes Chemotherapy: No Chest Pain: No Congestive Heart Failure: Yes COPD: No Cerebrovascular Accident: No Diabetes: No Diminished Hearing: No Endocrine: Yes Gastrointestinal Disorders: Yes (Has adrenal gland tumor) GERD: Yes Glaucoma: No Genitourinary: Yes (INCONTINENT) Headaches: No Hepatitis: No Hiatal Hernia: No Heparin Induced Thrombocytopen: No Hypertension: Yes Immune Disorder: Yes Implanted Vascular Access Dvce: No Kidney Stones: No Medical other: Yes (back/neck problems,arthritis,lupus,reflux) Musculoskeletal: Yes Neurologic: Yes Psychiatric: Yes Reproductive: Yes Respiratory: Yes Migraines: No Radiation Therapy: No Renal Failure: No Seizures: No Sickle Cell Disease: No Sleep Apnea: No (wear sleep right nasal strips) Thyroid Disease: Yes (THYROIDECTOMY) Ulcer: No PNEUMOCCOCAL Vaccine (Year): 1 Menopausal: Yes : 2 Para: 2 Past Surgical History Abdominal Surgery: Yes ([facility] age 40 ) AICD: No Arteriovenous Shunt: No Ear Surgery: No Endocrine Surgery: Yes (complete thyroidectomy) Eye Surgery: Yes ("DOCTOR PLUGGED UP EYE DUCTS") Gynecologic Surgery: Yes (hysterectomy right breast benign tumor removed) Hysterectomy: Yes Insulin Pump: No Joint Replacement: No Oral Surgery: No Pacemaker: No Other Surgery: Yes Social History Alcohol Use: No Tobacco Use: No (QUIT 1996 ) Substance Use: No Allergies-Medications (Allergen,Severity, Reaction): Coded Allergies: tetanus toxoid, adsorbed (Unverified Allergy, Severe, FEVER, 10/03/17) cefuroxime (Unverified Adverse Reaction, Intermediate, UPSET STOMACH, ) Reported Meds & Prescriptions Reported Meds & Active Scripts Active Meclizine (Meclizine HCl) 25 Mg Tab 25 Mg PO TID PRN Synthroid (Levothyroxine Sodium) 100 Mcg Tab 100 Mcg PO DAILY@0600 Lisinopril 20 Mg Tab 20 Mg PO BID Metoprolol Succinate ER 24 HR (Metoprolol Succinate) 50 Mg Tab 50 Mg PO DAILY Atorvastatin (Atorvastatin Calcium) 20 Mg Tab 20 Mg PO HS Commode 3-in-1 (Device) 1 Mis Mis Ea .ROUTE DIRECTED Wheelchair (Device) 1 Mis Mis Ea .ROUTE DIRECTED Reported Hydrocodone-Acetaminophen 5-325 mg Tab 1 Tab PO Q6H PRN Review of Systems Except as stated in HPI: all other systems reviewed are Neg Physical Exam Narrative GENERAL: Well-nourished in mild distress SKIN: Focused skin assessment warm/dry. HEAD: Atraumatic. Normocephalic. EYES: Pupils equal and round. No scleral icterus. No injection or drainage. ENT: No nasal bleeding or discharge. Mucous membranes pink and moist. NECK: Trachea midline. No JVD. CARDIOVASCULAR: Regular rate and rhythm. No murmur appreciated. RESPIRATORY: No accessory muscle use. Clear to auscultation. Breath sounds equal bilaterally. GASTROINTESTINAL: Abdomen soft, non-tender, nondistended. Hepatic and splenic margins not palpable. MUSCULOSKELETAL: No obvious deformities. No clubbing. No cyanosis. No edema. NEUROLOGICAL: Awake and alert. No obvious cranial nerve deficits. Motor grossly within normal limits. Normal speech. PSYCHIATRIC: Appropriate mood and affect; insight and judgment normal. Data Data Last Documented VS Vital Signs Date Time Temp Pulse Resp B/P (MAP) Pulse Ox O2 Delivery O2 Flow Rate FiO2 10/03/17 22:10 160/98 (118) 10/03/17 22:02 72 18 100 10/03/17 16:43 97.6 Orders Orders Complete Blood Count With Diff (10/03/17 16:54) Comprehensive Metabolic Panel (10/03/17 16:54) Lipase (10/03/17 16:54) Prothrombin Time / Inr (Pt) (10/03/17 16:54) Act Partial Throm Time (Ptt) (10/03/17 16:54) Urinalysis - C+S If Indicated (10/03/17 16:54) Ct Abd/Pel W Iv Contrast(Rout) (10/03/17 16:54) Iv Access Insert/Monitor (10/03/17 16:54) Ecg Monitoring (10/03/17 16:54) Oximetry (10/03/17 16:54) NPO (10/03/17 16:54) Electrocardiogram (10/03/17 16:54) Urine Culture (10/03/17 17:10) Iohexol 350 Inj (Omnipaque 350 Inj) (10/03/17 18:30) Fleets Enema (Adult) (Fleets Enema (Adul (10/03/17 19:00) Ceftriaxone Inj (Rocephin Inj) (10/03/17 20:30) Ondansetron Inj (Zofran Inj) (10/03/17 20:45) Sodium Chlorid 0.9% 500 Ml Inj (Ns 500 M (10/03/17 20:45) Admit Order (Ed Use Only) (10/03/17 22:09) Labs Laboratory Tests Test 10/03/17 17:10 10/03/17 17:16 Urine Color YELLOW Urine Turbidity CLEAR Urine pH 7.0 Urine Specific [place] 1.014 Urine Protein TRACE mg/dL Urine Glucose (UA) NEG mg/dL Urine Ketones NEG mg/dL Urine Occult Blood NEG Urine Nitrite NEG Urine Bilirubin NEG Urine Urobilinogen LESS THAN 2.0 MG/DL Urine Leukocyte Esterase MOD Urine RBC 1 /hpf Urine WBC 12 /hpf Urine Squamous Epithelial Cells 1 /hpf Urine Transitional Epithelial Cells <1 /hpf Urine Bacteria RARE /hpf Urine Mucus FEW /lpf Microscopic Urinalysis Comment CULTURE INDICATED White Blood Count 9.4 TH/MM3 Red Blood Count 4.16 MIL/MM3 Hemoglobin 12.9 GM/DL Hematocrit 39.1 % Mean Corpuscular Volume 94.0 FL Mean Corpuscular Hemoglobin 31.1 PG Mean Corpuscular Hemoglobin Concent 33.0 % Red Cell Distribution Width 17.1 % Platelet Count 172 TH/MM3 Mean Platelet Volume 10.5 FL Neutrophils (%) (Auto) 66.6 % Lymphocytes (%) (Auto) 27.0 % Monocytes (%) (Auto) 3.7 % Eosinophils (%) (Auto) 2.3 % Basophils (%) (Auto) 0.4 % Neutrophils # (Auto) 6.2 TH/MM3 Lymphocytes # (Auto) 2.5 TH/MM3 Monocytes # (Auto) 0.3 TH/MM3 Eosinophils # (Auto) 0.2 TH/MM3 Basophils # (Auto) 0.0 TH/MM3 CBC Comment DIFF FINAL Differential Comment Prothrombin Time 10.2 SEC Prothromb Time International Ratio 1.0 RATIO Activated Partial Thromboplast Time 23.6 SEC Blood Urea Nitrogen 20 MG/DL Creatinine 0.55 MG/DL Random Glucose 95 MG/DL Total Protein 7.6 GM/DL Albumin 3.8 GM/DL Calcium Level 8.7 MG/DL Alkaline Phosphatase 84 U/L Aspartate Amino Transf (AST/SGOT) 30 U/L Alanine Aminotransferase (ALT/SGPT) 23 U/L Total Bilirubin 0.3 MG/DL Sodium Level 141 MEQ/L Potassium Level 3.7 MEQ/L Chloride Level 108 MEQ/L Carbon Dioxide Level 25.7 MEQ/L Anion Gap 7 MEQ/L Estimat Glomerular Filtration Rate 105 ML/MIN Lipase 236 U/L MDM Medical Decision Making Medical Screen Exam Complete: Yes Emergency Medical Condition: Yes Differential Diagnosis UTI, hypotension, constipation, SBO, ileus Narrative Course 87-year-old female presents emergency department for evaluation of abdominal pain and constipation for 1 week. Labs and imaging studies ordered. Last Impressions Abdomen/Pelvis CT 10/03/17 [id number] Signed Impressions: Service Date/Time: Tuesday, October 03, 2017 18:29 - CONCLUSION: 1. Right adrenal mass again seen. 2. Renal cysts. 3. Atherosclerosis. 4. Diverticulosis. Chance Lobo MD CBC & BMP Diagram 10/03/17 17:16 Total Protein 7.6, Albumin 3.8, Calcium Level 8.7, Alkaline Phosphatase 84, Aspartate Amino Transf (AST/SGOT) 30, Alanine Aminotransferase (ALT/SGPT) 23, Total Bilirubin 0.3 Urinalysis-moderate leukocyte esterase, 12 WBCs, rare bacteria. As I was discussing the results with the patient, her son Johnathan was adamant about her being admitted for urinary tract infection. States that she previous had a urinary tract tract infection that required a 4 week stay in the hospital. I explained to him 2-3 times why this scenario was different than the previous. I explained that previously, her white blood cell count was elevated and she had a rather significant urinary tract infection that required admission. Ceftriaxone 1g IV, 500cc NS IVF administered. After further discussion with her son, Johnathan and the patient, they state that she has been admitted for a complicated UTI in 03/2017 which required several weeks of rehab therapy. Patient return to the emergency department July where she was treated for urinary tract infection that persisted until August when she saw her primary care physician. She does not remember what antibiotics she was given but says she is unsure if this completely resolved. She has not seen an outpatient urologist or been evaluated by any specialists other than her primary care physician. Patient will admitted with weakness, complicated UTI to Dr. Kennedy. Consider infectious disease and urology consult as she has had 2 urinary tract infection since March and July. Possibly a 3rd in August that was treated by her PCP. Diagnosis Primary Impression: Urinary tract infection Qualified Codes: N30.00 - Acute cystitis without hematuria Additional Impression: Weakness Admitting Information Admitting Physician Requests: Observation Condition: Stable Elis Ridley Oct 03, 2017 20:22
[2017-10-03] MEDS ORDERED: cefTRIAXone INJ 1,000 MG in SODIUM CHLORIDE 0.9% INJ 100 ML IV ONE (20:30)
[2017-10-03] MEDS ORDERED: ONDANSETRON HCL 4 MG/2 ML VIAL IV PUSH ONE (20:45)
[2017-10-03] MEDS ORDERED: SODIUM CHLORID 0.9% 500 ML INJ 500 ML IV ONE (20:45)
[2017-10-03 22:02] VITALS: BP 220/107; PULSE 72; RESP 18; O2SAT 100
[2017-10-03 22:10] VITALS: BP 160/98
[2017-10-03] MEDS ORDERED: NALOXONE HCL 0.4 MG/ML AMP IV PUSH PRN (23:00)
[2017-10-03] MEDS ORDERED: SODIUM CHLORIDE 0.9% FLUSH 10 ML FLUSH IV FLUSH PRN (23:00)
[2017-10-04] VITALS (8 sets, daily range): BP systolic 155–198; BP diastolic 72–90; PULSE 63–76; RESP 18; TEMP 97.6–98.3; O2SAT 93–96
--- NOTE | 2017-10-04 00:11 | HHI.HP ---
HPI Service [facility] ([place], [place])ists Primary Care Physician Coretta Schroeder MD Admission Diagnosis complicated UTI, weakness Diagnoses: Travel History International Travel<30 Days: No Contact w/Intl Traveler <30 Da: No Traveled to Known Affected Are: No History of Present Illness 87-year-old female with a past medical history significant for hypertension, hyperlipidemia, vertigo and frequent urinary tract infections presents the emergency department for evaluation of increasingly worsening dizziness and weakness. The patient reports she is dizzy at baseline for which she takes meclizine and has frequent falls secondary to this however today her symptoms acutely worsened. She also states that she has been treated with antibiotics once in July, twice in August and continues to have increasing urinary frequency and UTI symptoms. She states that her UTIs worsen her dizziness and weakness symptoms. The patient denies any shortness of breath or chest pain. No nausea/vomiting/diarrhea. No burning with urination. No lateralizing signs/ symptoms. No abdominal pain. Review of Systems Except as stated in HPI: all other systems reviewed are Neg Past Family Social History Past Medical History Hypertension Hyperlipidemia Vertigo Frequent urinary tract infections Past Surgical History Cholecystectomy Reported Medications Reported Meds & Active Scripts Active Meclizine (Meclizine HCl) 25 Mg Tab 25 Mg PO TID PRN Synthroid (Levothyroxine Sodium) 100 Mcg Tab 100 Mcg PO DAILY@0600 Lisinopril 20 Mg Tab 20 Mg PO BID Metoprolol Succinate ER 24 HR (Metoprolol Succinate) 50 Mg Tab 50 Mg PO DAILY Atorvastatin (Atorvastatin Calcium) 20 Mg Tab 20 Mg PO HS Commode 3-in-1 (Device) 1 Mis Mis Ea .ROUTE DIRECTED Wheelchair (Device) 1 Mis Mis Ea .ROUTE DIRECTED Reported Hydrocodone-Acetaminophen 5-325 mg Tab 1 Tab PO Q6H PRN Allergies: Coded Allergies: tetanus toxoid, adsorbed (Unverified Allergy, Severe, FEVER, 10/03/17) cefuroxime (Unverified Adverse Reaction, Intermediate, UPSET STOMACH, ) Family History Negative for CAD/DM Social History Denies alcohol, tobacco and illicit drugs Physical Exam Vital Signs Vital Signs Date Time Temp Pulse Resp B/P (MAP) Pulse Ox O2 Delivery O2 Flow Rate FiO2 10/03/17 22:10 160/98 (118) 10/03/17 22:02 72 18 220/107 (144) 100 10/03/17 16:43 97.6 70 14 222/96 (138) 95 Physical Exam GENERAL: female lying in bed SKIN: No rashes, ecchymoses or lesions. Cool and dry. HEAD: Atraumatic. Normocephalic. No temporal or scalp tenderness. EYES: Pupils equal round and reactive. Extraocular motions intact. No scleral icterus. No injection or drainage. ENT: Nose without bleeding, purulent drainage or septal hematoma. Throat without erythema, tonsillar hypertrophy or exudate. Uvula midline. Airway patent. NECK: Trachea midline. No JVD or lymphadenopathy. Supple, nontender, no meningeal signs. CARDIOVASCULAR: Regular rate and rhythm without murmurs, gallops, or rubs. RESPIRATORY: Clear to auscultation. Breath sounds equal bilaterally. No wheezes , rales, or rhonchi. GASTROINTESTINAL: Abdomen soft, non-tender, nondistended. No hepato-splenomegaly , or palpable masses. No guarding. MUSCULOSKELETAL: Extremities without clubbing, cyanosis, or edema. No joint tenderness, effusion, or edema noted. No calf tenderness. NEUROLOGICAL: Awake and alert. Cranial nerves II through XII intact. Motor and sensory grossly within normal limits. Normal speech. Laboratory Laboratory Tests Test 10/03/17 17:10 10/03/17 17:16 Urine Color YELLOW Urine Turbidity CLEAR Urine pH 7.0 Urine Specific Caspian 1.014 Urine Protein TRACE Urine Glucose (UA) NEG Urine Ketones NEG Urine Occult Blood NEG Urine Nitrite NEG Urine Bilirubin NEG Urine Urobilinogen LESS THAN 2.0 Urine Leukocyte Esterase MOD Urine RBC 1 Urine WBC 12 Urine Squamous Epithelial Cells 1 Urine Transitional Epithelial Cells <1 Urine Bacteria RARE Urine Mucus FEW Microscopic Urinalysis Comment CULTURE INDICATED White Blood Count 9.4 Red Blood Count 4.16 Hemoglobin 12.9 Hematocrit 39.1 Mean Corpuscular Volume 94.0 Mean Corpuscular Hemoglobin 31.1 Mean Corpuscular Hemoglobin Concent 33.0 Red Cell Distribution Width 17.1 Platelet Count 172 Mean Platelet Volume 10.5 Neutrophils (%) (Auto) 66.6 Lymphocytes (%) (Auto) 27.0 Monocytes (%) (Auto) 3.7 Eosinophils (%) (Auto) 2.3 Basophils (%) (Auto) 0.4 Neutrophils # (Auto) 6.2 Lymphocytes # (Auto) 2.5 Monocytes # (Auto) 0.3 Eosinophils # (Auto) 0.2 Basophils # (Auto) 0.0 CBC Comment DIFF FINAL Differential Comment Prothrombin Time 10.2 Prothromb Time International Ratio 1.0 Activated Partial Thromboplast Time 23.6 Blood Urea Nitrogen 20 Creatinine 0.55 Random Glucose 95 Total Protein 7.6 Albumin 3.8 Calcium Level 8.7 Alkaline Phosphatase 84 Aspartate Amino Transf (AST/SGOT) 30 Alanine Aminotransferase (ALT/SGPT) 23 Total Bilirubin 0.3 Sodium Level 141 Potassium Level 3.7 Chloride Level 108 Carbon Dioxide Level 25.7 Anion Gap 7 Estimat Glomerular Filtration Rate 105 Lipase 236 Date/Time Source Procedure Growth Status 10/03/17 17:10 Urine Clean Catch Urine Culture Pending Received Result Diagram: 10/03/17 1716 10/03/17 1716 Caprini VTE Risk Assessment Caprini VTE Risk Assessment: Mod/High Risk (score >= 2) Caprini Risk Assessment Model Point Value = 1 Point Value = 2 Point Value = 3 Point Value = 5 Age 41-60 Minor surgery BMI > 25 kg/m2 Swollen legs Varicose veins or History of unexplained or recurrent spontaneous Oral contraceptives or hormone replacement Sepsis (< 1 month) Serious lung disease, including pneumonia (< 1 month) Abnormal pulmonary function Acute myocardial infarction Congestive heart failure (< 1 month) History of inflammatory bowel disease Medical patient at bed rest Age 61-74 Arthroscopic surgery Major open surgery (> 45 min) Laparoscopic surgery (> 45 min) Malignancy Confined to bed (> 72 hours) Immobilizing plaster cast Central venous access Age >= 75 History of VTE Family history of VTE Factor V Leiden Prothrombin [id number] Lupus anticoagulant Anticardiolipin antibodies Elevated serum homocysteine Heparin-induced thrombocytopenia Other congenital or acquired thrombophilia Stroke (< 1 month) Elective arthroplasty Hip, pelvis, or leg fracture Acute spinal cord injury (< 1 month) Prophylaxis Regimen Total Risk Factor Score Risk Level Prophylaxis Regimen 0-1 Low Early ambulation 2 Moderate Order ONE of the following: *Sequential Compression Device (SCD) *Heparin 5000 units SQ BID 3-4 Higher Order ONE of the following medications: *Heparin 5000 units SQ TID *Enoxaparin/Lovenox 40 mg SQ daily (WT < 150 kg, CrCl > 30 mL/min) *Enoxaparin/Lovenox 30 mg SQ daily (WT < 150 kg, CrCl > 10-29 mL/min) *Enoxaparin/Lovenox 30 mg SQ BID (WT < 150 kg, CrCl > 30 mL/min) AND/OR *Sequential Compression Device (SCD) 5 or more Highest Order ONE of the following medications: *Heparin 5000 units SQ TID (Preferred with Epidurals) *Enoxaparin/Lovenox 40 mg SQ daily (WT < 150 kg, CrCl > 30 mL/min) *Enoxaparin/Lovenox 30 mg SQ daily (WT < 150 kg, CrCl > 10-29 mL/min) *Enoxaparin/Lovenox 30 mg SQ BID (WT < 150 kg, CrCl > 30 mL/min) AND *Sequential Compression Device (SCD) Assessment and Plan Assessment and Plan Assessment/plan: 1. Urinary tract infection UA consistent with urinary tract infection Urine culture pending Culture from 07/24/17 showed pansensitive Proteus Rocephin 2. Dizziness/weakness Patient reports she is worse than baseline May be secondary to UTI Physical therapy consulted Continue home meclizine 3. Hypertension/hyperlipidemia Continue home atorvastatin, metoprolol and lisinopril 4. Vertigo Meclizine 5. Hypothyroidism Continue home Synthroid FEN Heart healthy diet Electrolytes: Replete when necessary Heparin Vanesa eKnnedy MD Oct 04, 2017 00:11
[2017-10-04] MEDS: ACETAMINOPHEN 325 MG TAB PO PRN ×3 (03:45→22:26)
[2017-10-04] MEDS: ENALAPRILAT 1.25 MG/ML VIAL IV PUSH PRN ×2 (03:45→12:47)
[2017-10-04 05:13] LABS: AUTOMATED NEUTROPHIL # 4.8 TH/MM3 (1.8-7.7); BASOPHIL # 0.1 TH/MM3 (0-0.2); BASOPHIL % 0.7 % (0.0-2.0); EOSINOPHIL # 0.2 TH/MM3 (0-0.4); EOSINOPHIL % 1.7 % (0.0-4.0); HEMATOCRIT 37.2 % (35.0-46.0); HEMOGLOBIN 12.6 GM/DL (11.6-15.3); LYMPH % 39.4 % (9.0-44.0); LYMPHOCYTE # 3.6 TH/MM3 (1.0-4.8); MEAN CELL VOLUME 92.1 FL (80.0-100.0); MEAN CORPUSCULAR HEMOGLOBIN 31.3 PG (27.0-34.0); MEAN PLATELET VOLUME 10.3 FL (7.0-11.0); MONO % 6.4 % (0.0-8.0); MONOCYTE # 0.6 TH/MM3 (0-0.9); NEUT % 51.8 % (16.0-70.0); PLATELET COUNT 178 TH/MM3 (150-450); RED BLOOD COUNT 4.04 MIL/MM3 (4.00-5.30); RED CELL DISTRIBUTION WIDTH 17.4 % (11.6-17.2); WHITE BLOOD COUNT 9.2 TH/MM3 (4.0-11.0)
[2017-10-04 05:46] LABS: BICARBONATE 28.1 MEQ/L (21.0-32.0); CREATININE 0.6 MG/DL (0.50-1.00)
[2017-10-04] MEDS: LISINOPRIL 20 MG TAB PO SCH ×2 (06:45→22:24)
[2017-10-04] MEDS: METOPROLOL SUCCINATE 50 MG EXTENDED RELEASE TAB PO SCH (06:45)
[2017-10-04] MEDS: LEVOTHYROXINE SODIUM 100 MCG TAB PO SCH (06:45)
--- NOTE | 2017-10-04 08:57 | EKG ---
Date Performed: 10/03/2017 Time Performed: 17:33:51 PTAGE: 87 years EKG: SINUS BRADYCARDIA LEFT VENTRICULAR HYPERTROPHY AND ST-T CHANGE ABNORMAL ECG PREVIOUS TRACING : 03/22/2017 20.44 Compared to previous tracing, rate slower DOCTOR: Lynn Chacko Interpretating Date/Time 10/04/2017 08:56:13
[2017-10-04] MEDS: HEPARIN SODIUM - SQ 10,000 UNITS/ML VIAL SQ SCH ×2 (10:14→22:25)
[2017-10-04] MEDS: SODIUM CHLORIDE 0.9% FLUSH 10 ML FLUSH IV FLUSH SCH ×2 (10:15→22:24)
[2017-10-04] MEDS: MECLIZINE HCL 25 MG TAB PO PRN ×2 (12:59→22:25)
--- NOTE | 2017-10-04 13:17 | RADRPT ---
EXAM DATE/TIME: 10/04/2017 12:34 [facility] COMPARISON: CT ABDOMEN & PELVIS W CONTRAST, October 03, 2017, 18:29. INDICATIONS : Weakness RADIATION DOSE: 38.92 CTDIvol (mGy) MEDICAL HISTORY : Hypertension. Congestive heart failure. SURGICAL HISTORY : Hysterectomy. ENCOUNTER: Initial ACUITY: 1 day PAIN SCALE: 0/10 LOCATION: cranial TECHNIQUE: Multiple contiguous axial images were obtained of the head. Using automated exposure control and adj ustment of the mA and/or kV according to patient size, radiation dose was kept as low as reasonably a chievable to obtain optimal diagnostic quality images. DICOM format image data is available electro nically for review and comparison. FINDINGS: The ventricular system is dilated. The dilation appears slightly out of proportion to sulcal atrophy. The appropriate clinical setting, this could suggest NPH. No mass lesion is identified. No acute int racranial hemorrhage is present. The appearance of the posterior fossa is unremarkable. The osseous structures of the skull are grossly intact. CONCLUSION: 1. Dilation of the ventricular system which is somewhat out of proportion to the sulci laxity. In the appropriate setting this could suggest NPH. 2. No acute intracranial hemorrhage identified. No mass lesion is present Andrea Ndiaye MD on October 04, 2017 at 13:13 Board Certified Radiologist. This report was verified electronically.
--- NOTE | 2017-10-04 16:47 | HHI.PR ---
Subjective Remarks Patient says she continues to feel weak. Denies any chest pain or shortness of breath. She does report burning with urination previously which has resolved today. Patient endorses abdominal discomfort and constipation going on for about a week. Objective Vital Signs Date Time Temp Pulse Resp B/P (MAP) Pulse Ox O2 Delivery O2 Flow Rate FiO2 10/04/17 15:09 170/72 (104) 10/04/17 13:02 157/81 (106) 10/04/17 11:12 98.3 67 18 178/74 (108) 96 10/04/17 08:45 97.6 63 18 168/79 (108) 95 10/04/17 04:54 97.9 69 180/74 (109) 93 10/04/17 04:50 21 10/04/17 00:17 97.9 68 18 181/77 (111) 95 10/03/17 22:10 160/98 (118) 10/03/17 22:02 72 18 220/107 (144) 100 10/03/17 16:43 97.6 70 14 222/96 (138) 95 I/O 10/03/17 10/03/17 10/03/17 10/04/17 10/04/17 10/04/17 07:00 15:00 23:00 07:00 15:00 23:00 Intake Total 600 ml 500 ml Balance 600 ml 500 ml Intake Oral 500 ml IV Total 600 ml # Voids 1 1 Result Diagram: 10/04/17 0452 10/04/17 0452 Objective Remarks GENERAL: Patient lying in bed. Appears comfortable. SKIN: Warm and dry. HEAD: Normocephalic. EYES: No scleral icterus. No injection or drainage. NECK: Supple, trachea midline. No JVD or lymphadenopathy. CARDIOVASCULAR: Regular rate and rhythm without murmurs, gallops, or rubs. RESPIRATORY: Breath sounds equal bilaterally. No accessory muscle use. GASTROINTESTINAL: Abdomen soft, non-tender, nondistended. MUSCULOSKELETAL: No cyanosis, or edema. BACK: Nontender without obvious deformity. No CVA tenderness. A/P Assessment and Plan //Urinary tract infection UA consistent with urinary tract infection Urine culture pending Culture from 07/24/17 showed pansensitive Proteus Rocephin = We will continue treatment for 3 days. //Dizziness/weakness Patient reports she is worse than baseline May be secondary to UTI Physical therapy consulted Continue home meclizine // Hypertension/hyperlipidemia Continue home atorvastatin, metoprolol and lisinopril //Vertigo Meclizine // Hypothyroidism Continue home Synthroid FEN Heart healthy diet Electrolytes: Replete when necessary Heparin Discharge Planning Discharge pending neurology recommendations = We will need to go to rehab. Antibiotics for UTI. Chris Zavaleta MD Oct 04, 2017 16:46
[2017-10-04] MEDS ORDERED: SODIUM CHLOR 0.9% 1000 ML INJ 1,000 ML IV SCH (18:00)
--- NOTE | 2017-10-04 18:02 | MB ---
cc: Johnathan Hampton MD DATE: 10/04/2017 HISTORY OF PRESENT ILLNESS: An 87-year-old right-handed woman with hypertension, hypercholesterolemia, hypothyroidism, some balance problems, vertigo, possibly NPH, according to her son. She has not been seen by neurology here. She was seen by Dr. Naresh Medina, the neurosurgeon, for imbalance, some urinary incontinence. She had moderately severe diffuse hydrocephalus out of proportion to degree of surrounding atrophy, slightly increased from 04/2016. He said possible NPH with a gait disturbance. She did not want to undergo the lumbar drain at that time. She has memory problems according to her son. She came in here for generalized weakness, which happens when she has recurrent UTIs. REVIEW OF SYSTEMS: According to her son, no history of diabetes, renal, hepatic or pulmonary disease, lupus, ulcer, cancer, seizure, stroke. He thought she had some heart problems, but he was not sure what and I do not see any listed in the med sheets. MEDICATIONS: She is on meclizine, Synthroid, lisinopril, metoprolol, atorvastatin, hydrocodone. ALLERGIES: TETANUS TOXOID AND CEFUROXIME. SOCIAL HISTORY: Nonsmoker, drinker, lives with son. FAMILY HISTORY: Son with cancer. Negative for seizure or stroke. PHYSICAL EXAMINATION: VITAL SIGNS: Afebrile, 170/72-180/74, 63, 18. NECK: There were no carotid bruits. HEART: Regular rhythm. I did not detect a murmur. NEUROLOGIC: Pupils were equal. Visual godinez full. Extraocular movements intact without nystagmus. Face symmetric with normal sensation. Tongue was midline. There was no drift. She had normal strength in upper and lower extremities bilaterally. DTRs were trace throughout. Toes downgoing on the left. On the right, it was equivocal to withdrawing. There was no ankle clonus. She had normal tone throughout. Pinprick was intact throughout. She was awake and alert. Speech fluent. She was not aphasic. She did not know the month or the year. She did know where she lived, however. LABORATORY DATA: CBC is normal. Sedimentation rate has been slightly elevated over the years, about 55. UA on this admission, moderate leukocyte esterase, 12 white cells. Coags are normal. Basic metabolic profile essentially unremarkable. Potassium 3.4. LFTs are normal. Albumin is normal. CRP was minimally elevated to 0.97 several years ago. TSH was normal last March. She had a serum protein electrophoresis, which was normal back in 2004. In 2013, she had a normal blood gas. CAT scan of the brain showed the dilated ventricles. Review of the films, the CT is off level somewhat. The ventricles are extremely large including the fourth ventricle. It is unclear if this is just some atrophy versus infarct in the left cerebellum peripherally, probably more of just atrophy focally. In reviewing from 03/2017 film, at that time, she has got atrophy in the cerebellum and significant transependymal flow it looks like back been in March. IMPRESSION: Very possibly she could have normal pressure hydrocephalus. We will see how her gait is. Check some standing blood pressures. She does not really seem to have too much of a urinary tract infection at this time. There is still some transependymal flow seen. We will do an MRI of the brain and check some additional blood work on her. She has dementia certainly. Will have physical therapy ambulate her. I will be following her with you in the hospital, including repeating that elevated sed rate in the past. ADDENDUM: The patient has some history of possible vertigo. We will check a Hallpike maneuver on her while she is here too. We will, however, get her up and out of bed here. MD CAITLYN Hall/MARY , 05:18 PM , 06:01 PM
[2017-10-04] MEDS: ATORVASTATIN 20 MG TAB PO SCH (22:24)
[2017-10-04] MEDS: cefTRIAXone INJ 1,000 MG in SODIUM CHLORIDE 0.9% INJ 100 ML IV SCH ×2 (22:26→23:00)
[2017-10-05 04:03] VITALS: BP 185/86; PULSE 68; RESP 18; TEMP 98; O2SAT 96
[2017-10-05] MEDS: LEVOTHYROXINE SODIUM 100 MCG TAB PO SCH (05:51)
[2017-10-05] MEDS: ACETAMINOPHEN 325 MG TAB PO PRN ×2 (05:56→17:55)
--- NOTE | 2017-10-05 07:37 | HHI.PR ---
Subjective Remarks bpup even with standing Objective Vital Signs Date Time Temp Pulse Resp B/P (MAP) Pulse Ox O2 Delivery O2 Flow Rate FiO2 10/05/17 06:56 15 10/05/17 04:03 98.0 68 18 185/86 (119) 96 10/04/17 19:54 97.9 76 18 187/82 (117) 94 198/90 (126) 188/79 (115) 10/04/17 17:22 155/81 (105) 10/04/17 15:09 170/72 (104) 10/04/17 13:02 157/81 (106) 10/04/17 11:12 98.3 67 18 178/74 (108) 96 10/04/17 08:45 97.6 63 18 168/79 (108) 95 I/O 10/04/17 10/04/17 10/04/17 10/05/17 10/05/17 10/05/17 07:00 15:00 23:00 07:00 15:00 23:00 Intake Total 500 ml 750 ml Balance 500 ml 750 ml Intake Oral 500 ml 750 ml # Voids 1 Result Diagram: 10/04/17 0452 10/04/17 0452 Objective Remarks bp up small steps stm poor Assessment and Plan Assessment and Plan imp gait cw nph if son agrees we should do lumbar drain and see if helps gait she takes small steps but can take larger ones stm poor await mri will check hallpike need bp under control some uti Johnathan Hampton MD Oct 05, 2017 07:37
[2017-10-05] MEDS: METOPROLOL SUCCINATE 50 MG EXTENDED RELEASE TAB PO SCH (07:39)
[2017-10-05] MEDS: HEPARIN SODIUM - SQ 10,000 UNITS/ML VIAL SQ SCH ×2 (07:39→21:44)
[2017-10-05] MEDS: LISINOPRIL 20 MG TAB PO SCH ×2 (07:39→21:43)
[2017-10-05] MEDS: SODIUM CHLORIDE 0.9% FLUSH 10 ML FLUSH IV FLUSH SCH ×2 (07:39→21:44)
[2017-10-05 07:55] LABS: C-REACTIVE PROTEIN LESS THAN 0.29 MG/DL (0.00-0.30); FOLATE 15.1 NG/ML (3.1-17.5); FREE T4 1.02 NG/DL (0.76-1.46)
[2017-10-05 08:27] VITALS: BP_SYST 188; BP_SYST 191; BP_SYST 211; BP_DIAS 74; BP_DIAS 85; BP_DIAS 89; PULSE 65; RESP 18; TEMP 98.1; O2SAT 96
[2017-10-05 10:41] LABS: RHEUMATOID FACTOR SCREEN NEGATIVE (NEGATIVE)
--- NOTE | 2017-10-05 11:51 | RADRPT ---
EXAM DATE/TIME: 10/05/2017 10:26 [facility] COMPARISON: CT BRAIN W/O CONTRAST, October 04, 2017, 12:34. CT BRAIN W/O CONTRAST, March 22, 2017, 22:18. INDICATIONS : CVA. MEDICAL HISTORY : Hypertension. Gastroesophageal reflux disease. Congestive heart failure. SURGICAL HISTORY : Thyroidectomy. Hysterectomy. Cholecystectomy. ENCOUNTER: Initial ACUITY: 2 day PAIN SCORE: 0/10 LOCATION: Head TECHNIQUE: Multiplanar, multisequence MRI of the brain was performed without contrast. FINDINGS: Moderate to severe ventriculomegaly again noted, diffuse and not significantly changed from the prior CTs. There is chronic-appearing flair signal abnormality in the periventricular white matter and atr ophy. There is no restricted diffusion. No evidence of bleed. No mass demonstrated. No midline shift. CONCLUSION: No acute infarct or other acute intracranial abnormality. Chronic ventriculomegaly. Atrophy and chron ic white matter changes. Avila Hammer MD on October 05, 2017 at 11:47 Board Certified Radiologist. This report was verified electronically.
[2017-10-05 12:01] VITALS: BP_SYST 181; BP_SYST 190; BP_SYST 194; BP_DIAS 82; BP_DIAS 84; BP_DIAS 86; PULSE 68; RESP 18; TEMP 97.6; O2SAT 96
[2017-10-05] MEDS ORDERED: NIFEdipine 30 MG SUSTAINED RELEASE TAB PO ONE (15:00)
[2017-10-05 15:54] VITALS: BP_SYST 176; BP_SYST 182; BP_SYST 191; BP_DIAS 84; BP_DIAS 87; BP_DIAS 88; PULSE 71; RESP 18; TEMP 98.2; O2SAT 95
--- NOTE | 2017-10-05 16:03 | HHI.PR ---
Subjective Remarks Patient says she is feeling weak still. Denies any chest pain or shortness of breath. She adamantly does not want to have a PENOLOGY PROFESSOR shunt. Son at bedside agrees. She would like to go to rehab. Objective Vital Signs Date Time Temp Pulse Resp B/P (MAP) Pulse Ox O2 Delivery O2 Flow Rate FiO2 10/05/17 15:54 98.2 71 18 191/84 (119) 95 182/87 (118) 176/88 (117) 10/05/17 12:01 97.6 68 18 190/86 (120) 96 194/82 (119) 181/84 (116) 10/05/17 08:27 98.1 65 18 191/85 (120) 96 188/74 (112) 211/89 (129) 10/05/17 06:56 15 10/05/17 04:03 98.0 68 18 185/86 (119) 96 10/04/17 19:54 97.9 76 18 187/82 (117) 94 198/90 (126) 188/79 (115) 10/04/17 17:22 155/81 (105) I/O 10/04/17 10/04/17 10/04/17 10/05/17 10/05/17 10/05/17 07:00 15:00 23:00 07:00 15:00 23:00 Intake Total 500 ml 750 ml 4000 ml Balance 500 ml 750 ml 4000 ml Intake Oral 500 ml 750 ml IV Total 4000 ml # Voids 1 Result Diagram: 10/04/17 0452 10/04/17 0452 Objective Remarks GENERAL: Patient lying in bed. Appears comfortable. Alert and oriented 3. SKIN: Warm and dry. HEAD: Normocephalic. EYES: No scleral icterus. No injection or drainage. NECK: Supple, trachea midline. No JVD. CARDIOVASCULAR: Regular rate and rhythm without murmurs, gallops, or rubs. RESPIRATORY: Breath sounds equal bilaterally. No accessory muscle use. GASTROINTESTINAL: Abdomen soft, non-tender, nondistended. MUSCULOSKELETAL: No cyanosis, or edema. BACK: Nontender without obvious deformity. No CVA tenderness. A/P Assessment and Plan //Urinary tract infection UA consistent with urinary tract infection Urine culture pending Culture from 07/24/17 showed pansensitive Proteus Rocephin = We will continue treatment for 3 days. //Dizziness/weakness Patient reports she is worse than baseline May be secondary to UTI Physical therapy consulted Continue home meclizine //Suspected normal pressure hydrocephalus. Patient does not want to have PENOLOGY PROFESSOR shunt. We discussed possibility of hospice, palliative care and patient says she will be amenable to this in the future, but would like to try rehab first. Appreciate neurology assistance. //Accelerated hypertension. Start nifedipine. Continue to monitor. // Hypertension/hyperlipidemia Continue home atorvastatin, metoprolol and lisinopril //Vertigo Meclizine // Hypothyroidism Continue home Synthroid FEN Heart healthy diet Electrolytes: Replete when necessary Heparin Discharge Planning Patient does not want to have treatment for NPH. Discharge to rehab Antibiotics for UTI. Chris Zavaleta MD Oct 05, 2017 16:03
[2017-10-05] MEDS ORDERED: NIFE30TA8 PO (16:05)
[2017-10-05] MEDS ORDERED: CIPR250T52 PO (16:05)
[2017-10-05 16:54] VITALS: BP 154/79
[2017-10-05 20:08] VITALS: BP_SYST 149; BP_SYST 159; BP_SYST 175; BP_DIAS 70; BP_DIAS 74; PULSE 76; RESP 18; TEMP 97.9; O2SAT 95
[2017-10-05] MEDS: ATORVASTATIN 20 MG TAB PO SCH (21:43)
[2017-10-05] MEDS: CIPROFLOXACIN 250 MG TAB PO SCH (21:44)
[2017-10-05] MEDS: cefTRIAXone INJ 1,000 MG in SODIUM CHLORIDE 0.9% INJ 100 ML IV SCH (21:44)
[2017-10-06] MEDS: LEVOTHYROXINE SODIUM 100 MCG TAB PO SCH (05:49)
[2017-10-06 08:13] VITALS: BP_SYST 178; BP_SYST 179; BP_SYST 190; BP_DIAS 80; BP_DIAS 81; BP_DIAS 88; PULSE 80; RESP 16; TEMP 97.8; O2SAT 95
[2017-10-06] MEDS ORDERED: NIFE30TA8 PO (08:58)
[2017-10-06] MEDS ORDERED: NIFEdipine 30 MG SUSTAINED RELEASE TAB PO SCH (09:00)
[2017-10-06] MEDS: METOPROLOL SUCCINATE 50 MG EXTENDED RELEASE TAB PO SCH (09:15)
[2017-10-06] MEDS: CIPROFLOXACIN 250 MG TAB PO SCH ×2 (09:15→23:26)
[2017-10-06] MEDS: NIFEdipine 30 MG SUSTAINED RELEASE TAB PO SCH (09:15)
[2017-10-06] MEDS: SODIUM CHLORIDE 0.9% FLUSH 10 ML FLUSH IV FLUSH SCH ×2 (09:15→23:26)
[2017-10-06] MEDS: HEPARIN SODIUM - SQ 10,000 UNITS/ML VIAL SQ SCH ×2 (09:15→23:25)
[2017-10-06] MEDS: LISINOPRIL 20 MG TAB PO SCH ×2 (09:15→23:25)
--- NOTE | 2017-10-06 11:05 | HHI.FF ---
Face to Face Verification Diagnosis: (1) Cerebral ventriculomegaly (2) Weakness Physical Therapy Order: Evaluate and Treat Home Health Nursing Order: Nursing assessment with vital signs Home Health Aide Order: To Assist In: Bathing and personal care Car Hiker Order: To Provide: Long range planning I have seen patient Hanny Mccloud on 10/06/17. My clinical findings support the need for the requested home health care services because: Deconditioned w/ increased weakness Limited ability to care for self Need for psychosocial assistance I certify that my clinical findings support that this patient is homebound because: Unsteady gait/balance Unsafe to leave home unassisted Chris Zavaleta MD Oct 06, 2017 11:05
[2017-10-06 11:09] VITALS: BP 164/71; PULSE 62; RESP 16; TEMP 98.2; O2SAT 96
[2017-10-06] MEDS: ENALAPRILAT 1.25 MG/ML VIAL IV PUSH PRN (11:16)
[2017-10-06] MEDS: ACETAMINOPHEN 325 MG TAB PO PRN ×2 (11:17→17:36)
--- NOTE | 2017-10-06 13:25 | HHI.PR ---
Subjective Remarks Patient continues to feel weak. She says she fell last night. Running call oliver, but could not wait to urinate. He got up and slid to floor. No lightheadedness, just generalized weakness. Denies any injuries. Objective Vital Signs Date Time Temp Pulse Resp B/P (MAP) Pulse Ox O2 Delivery O2 Flow Rate FiO2 10/06/17 11:09 98.2 62 16 164/71 (102) 96 10/06/17 08:13 97.8 80 16 179/81 (113) 95 190/88 (122) 178/80 (112) 10/05/17 20:08 97.9 76 18 175/74 (107) 95 159/74 (102) 149/70 (96) 10/05/17 16:54 154/79 (104) 10/05/17 15:54 98.2 71 18 191/84 (119) 95 182/87 (118) 176/88 (117) I/O 10/05/17 10/05/17 10/05/17 10/06/17 10/06/17 10/06/17 07:00 15:00 23:00 07:00 15:00 23:00 Intake Total 5750 ml Balance 5750 ml Intake Oral 750 ml IV Total 5000 ml # Voids 2 Result Diagram: 10/04/17 04510/04/17 045 Objective Remarks GENERAL: Patient lying in bed. Appears comfortable. Alert and oriented 3. Exam unchanged. SKIN: Warm and dry. HEAD: Normocephalic. EYES: No scleral icterus. No injection or drainage. NECK: Supple, trachea midline. No JVD. CARDIOVASCULAR: Regular rate and rhythm without murmurs, gallops, or rubs. RESPIRATORY: Breath sounds equal bilaterally. No accessory muscle use. GASTROINTESTINAL: Abdomen soft, non-tender, nondistended. MUSCULOSKELETAL: No cyanosis, or edema. BACK: Nontender without obvious deformity. No CVA tenderness. A/P Assessment and Plan //Urinary tract infection UA consistent with urinary tract infection Urine culture pending Culture from 07/24/17 showed pansensitive Proteus Rocephin = We will continue treatment for 3 days. //Dizziness/weakness Patient reports she is worse than baseline May be secondary to UTI Physical therapy consulted Continue home meclizine //Suspected normal pressure hydrocephalus. Patient does not want to have BRACELET FORMER shunt. We discussed possibility of hospice, palliative care and patient says she will be amenable to this in the future, but would like to try rehab first. Appreciate neurology assistance. //Accelerated hypertension. Start nifedipine. Continue to monitor. = 10/06. Systolic blood pressure still up to the 190s. Will increase nifedipine dose. // Hypertension/hyperlipidemia Continue home atorvastatin, metoprolol and lisinopril //Vertigo Meclizine // Hypothyroidism Continue home Synthroid FEN Heart healthy diet Electrolytes: Replete when necessary Heparin Discharge Planning Patient does not want to have treatment for NPH. Discharge to rehab/snf Antibiotics for UTI. Chris Zavaleta MD Oct 06, 2017 13:25
--- NOTE | 2017-10-06 15:40 | PD.CONS ---
Consult Service Palliative Care Consult Requested By Dr. Zavaleta Primary Care Physician Coretta Schroeder MD Reason for Consultation a. To assist with evaluation and management of symptoms including: b. To assist medical decision maker(s) with: better understanding of current medical conditions; weighing benefits/burdens of medical treatment options; making medical treatment decisions. (Hiwot Juares FUENTES) HPI History of Present Illness This 87-year-old female presented to the ED/07/22 with complaints of abdominal pain, constipation 1 week. No relieving or provocative factors. Reports lower rib upper abdominal painful mild to moderate. Reported using suppositories without relief. Denies urinary symptoms. EVAC reports treating with Zofran and normal saline with some relief to pain. She reported nonbloody nonbilious vomiting for 1 hour. She also reports chronic dizzy episodes for which she takes meclizine. * ED workup: Abdomen pelvis CT= right adrenal mass again seen, renal cysts, arthrosclerosis, diverticulosis. UA= moderate leukocyte esterase, 12 WBC rare bacteria. CBC unremarkable WBC 9.4, hemoglobin 12.9, hematocrit 39.1. ED physician notes that her son was adamant to have her admitted for UTI indicating in the past she has had complicated UTI. She apparently had complicated UTI March 2017, and again required treatment for UTI in July through August. She was planned for admission for further evaluation and management of weakness, UTI. Patient was started on ceftriaxone, IV fluid. * CT brain notes dilation of the ventricular system which is somewhat out of proportion to sulci laxity. This could suggest NPH. No acute intracranial hemorrhage no mass or lesion. * Physical therapy assessed: Wheelchair as needed to get around home. Frequent falls. PT notes patient required moderate assist with rolling walker high risk for falling even with walker use with shuffling gait pattern. No history of Parkinson's disease or other cerebrovascular issues. Patient with left-sided leaning, recommended neurology consult. * Neurology consulted: She had previously been seen by Dr. Medina for imbalance and urinary incontinence and is noted to have moderately severe diffuse hydrocephalus out of proportion to degree of surrounding atrophy slightly increased from 04/2016. Possible NPH with a gait disturbance. She did not wants to undergo the lumbar drain at that time. She is reported to have memory problems according to her son.Neuro evaluation notes she does likely have some dementia, may have NPH. MRI pending, additional labs pending ///////// neuro follow-up notes gait consistent with NPH. Patient with some hypertension. Recommends discuss lumbar drain with son to see if improves her gait. MRI pending. * / patient adamant she does not want to have a drain. Son at bedside agrees. She wants to go to rehab. Medical attending notes discussion of hospice versus palliative care. Patient indicates she is amenable to this in the future but wants to try rehab first. Discharge planning for rehab placement. MRI= no acute infarct no other acute intracranial abnormalities. Chronic ventriculomegaly, atrophy and chronic white matter changes. * 10/06 palliative care consulted to assist with clarification of goals of treatment. Patient seen in ED room, son at bedside. She is alert and partially to mostly oriented though forgetful at times, confuses details at times. Pleasant. At times tearful when discussing age, conditions etc. Met with patient and son at length. Discussed with primary nurse. Function/Cognitive Trajectory Wheelchair as needed to get around home. Frequent falls. PT notes patient required moderate assist with rolling walker high risk for falling even with walker use with shuffling gait pattern. No history of Parkinson's disease or other cerebrovascular issues. 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 Generally cognitively sharp though some mild confusion since around March last year. able to make her needs known, some assistance with ADLs in her home. . . (Hiwot Juares) Review of Systems Constitutional: COMPLAINS OF: Dizziness (Chronic), Generalized weakness, DENIES : Fever, Change in appetite, Pain Eyes: DENIES: Vision loss Respiratory: DENIES: Cough, Sputum production, Shortness of breath Cardiovascular: DENIES: Chest pain, Lower Extremity Edema Gastrointestinal: COMPLAINS OF: Abdominal pain, Constipation (Intermittent, chronic), DENIES: Nausea, Vomiting Musculoskeletal: DENIES: Joint pain Integumentary: DENIES: Rash Neurologic: COMPLAINS OF: Poor Balance Psychiatric: COMPLAINS OF: Confusion (Mild person), DENIES: Agitation (Hiwot Juares) Past Family Social History Coded Allergies: tetanus toxoid, adsorbed (Unverified Allergy, Severe, FEVER, 10/03/17) cefuroxime (Unverified Adverse Reaction, Intermediate, UPSET STOMACH, ) Past Medical History Hypertension Hyperlipidemia Vertigo Frequent urinary tract infections NPH--was offered 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 Current Medications Medications (Trade) Dose Ordered Sig/Park Route Start Time Stop Time Status Last Admin (NS Flush) 2 ml UNSCH PRN IV FLUSH 10/03/17 23:00 10/06/17 11:17 (NS Flush) 2 ml BID IV FLUSH 10/04/17 09:00 10/06/17 09:15 (Tylenol) 650 mg Q4H PRN PO 10/03/17 23:00 10/06/17 11:17 (Zofran Inj) 4 mg Q6H PRN IVP 10/03/17 23:00 (Narcan Inj) 0.4 mg UNSCH PRN IV PUSH 10/03/17 23:00 Ceftriaxone Sodium 1000 mg/ Sodium Chloride 100 ml @ 200 mls/hr Q24H IV 10/04/17 23:00 10/05/17 21:44 (Lipitor) 20 mg HS PO 10/04/17 21:00 10/05/17 21:43 (Synthroid) 100 mcg DAILY@0600 PO 10/04/17 06:00 10/06/17 05:49 (Prinivil) 20 mg BID PO 10/04/17 09:00 10/06/17 09:15 (Antivert) 25 mg TID PRN PO 10/04/17 00:15 10/04/17 22:25 (Toprol Xl) 50 mg DAILY PO 10/04/17 09:00 10/06/17 09:15 (Heparin Inj) 5,000 units Q12HR SQ 10/04/17 09:00 4/4/18 09:15 (Vasotec Inj) 1.25 mg Q6H PRN IV PUSH 10/04/17 02:00 10/06/17 11:16 (Cipro) 250 mg Q12HR PO 10/05/17 21:00 10/06/17 09:15 (Procardia Xl) 60 mg DAILY PO 10/06/17 09:00 10/06/17 09:15 Family History Per EMR negative for CAD/DM. No family history NPH Substance Use Tobacco: Non-smoker Alcohol: No alcohol Prescription med abuse: None Illicits: None . Psychosocial History . Supported by 2 adult sons, [place] to help his mother. Other son lives out of state. Spiritual/Cultural Factors Sabianist (Hiwot Juares) Health Care Surrogate: Copy in medical record Date completed: 08/2017 . Health Care Surrogate(s): Johnathan Zheng, son . Ethical and Legal Issues Patient reported to have mild dementia. son Johnathan is designated healthcare surrogate. On exam patient is mildly confused, though with some insight likely she can participate in shared decision making with her designated healthcare surrogate. (Hiwot Juares) Physical Exam Vital Signs Date Time Temp Pulse Resp B/P (MAP) Pulse Ox O2 Delivery O2 Flow Rate FiO2 10/06/17 11:09 98.2 62 16 164/71 (102) 96 10/06/17 08:13 97.8 80 16 179/81 (113) 95 190/88 (122) 178/80 (112) 10/05/17 20:08 97.9 76 18 175/74 (107) 95 159/74 (102) 149/70 (96) 10/05/17 16:54 154/79 (104) 10/05/17 15:54 98.2 71 18 191/84 (119) 95 182/87 (118) 176/88 (117) 10/06/17 10/07/17 18:59 06:59 # Voids 2 Exam CONSTITUTIONAL/GENERAL: This is an adequately nourished patient, in no apparent distress, alert, pleasant TUBES/LINES/DRAINS: Peripheral IV upper extremity SKIN: No jaundice, rashes, or lesions. No wounds seen anteriorly. Skin warm and dry. HEAD: Atraumatic. Normocephalic. EYES: Pupils equal and round and reactive. Extraocular motions intact. No scleral icterus. No injection or drainage. Fundi not examined. ENT: Hearing grossly normal. Nose without bleeding or purulent drainage. Oropharynx with no lesions or exudates. NECK: Trachea midline. Supple, nontender. CARDIOVASCULAR: Regular rate and rhythm without murmur.No JVD. Peripheral pulses symmetric. No peripheral edema. RESPIRATORY/CHEST: Symmetric, unlabored respirations. On room air clear to auscultation. Breath sounds equal bilaterally. GASTROINTESTINAL: Abdomen soft, non-tender, nondistended. No hepato-splenomegaly , or palpable masses. No guarding. Bowel sounds present. GENITOURINARY: Without palpable bladder distension. MUSCULOSKELETAL: Extremities without clubbing, cyanosis, or edema. No joint tenderness or effusion noted. LYMPHATICS: No palpable cervical or supraclavicular adenopathy. NEUROLOGICAL: Awake and alert. Oriented 23, forgetful at times. Confuses details at times. Some limited insight. Cooperative, follows commands. Moves all 4 extremities with generalized weakness PSYCHIATRIC: No obvious anxiety/depression. Tearful at times during conversation, situational, appropriate. No apparent hallucinations or other psychotic thought process. (Hiwot Juares) Diagnostic Tests Laboratory Laboratory Tests Test 10/03/17 17:10 10/03/17 17:16 10/04/17 04:52 10/05/17 06:43 Urine Color YELLOW (YELLW/STRAW) Urine Turbidity CLEAR (CLEAR) Urine pH 7.0 (5.0-8.5) Urine Specific [place] 1.014 (1.002-1.035) Urine Protein TRACE mg/dL (NEG-TRACE) Urine Glucose (UA) NEG mg/dL (NEG) Urine Ketones NEG mg/dL (NEG) Urine Occult Blood NEG (NEG) Urine Nitrite NEG (NEG) Urine Bilirubin NEG (NEG) Urine Urobilinogen LESS THAN 2.0 MG/DL (LESS Urine Leukocyte Esterase MOD (NEG) Urine RBC 1 /hpf (0-3) Urine WBC 12 /hpf (0-5) Urine Squamous Epithelial Cells 1 /hpf (0-5) Urine Transitional Epithelial Cells <1 /hpf (NONE) Urine Bacteria RARE /hpf (NONE) Urine Mucus FEW /lpf (OCC) Microscopic Urinalysis Comment CULTURE INDICATED White Blood Count 9.4 TH/MM3 (4.0-11.0) 9.2 TH/MM3 (4.0-11.0) Red Blood Count 4.16 MIL/MM3 (4.00-5.30) 4.04 MIL/MM3 (4.00-5.30) Hemoglobin 12.9 GM/DL (11.6-15.3) 12.6 GM/DL (11.6-15.3) Hematocrit 39.1 % (35.0-46.0) 37.2 % (35.0-46.0) Mean Corpuscular Volume 94.0 FL (80.0-100.0) 92.1 FL (80.0-100.0) Mean Corpuscular Hemoglobin 31.1 PG (27.0-34.0) 31.3 PG (27.0-34.0) Mean Corpuscular Hemoglobin Concent 33.0 % (32.0-36.0) 34.0 % (32.0-36.0) Red Cell Distribution Width 17.1 % (11.6-17.2) 17.4 % (11.6-17.2) Platelet Count 172 TH/MM3 (150-450) 178 TH/MM3 (150-450) Mean Platelet Volume 10.5 FL (7.0-11.0) 10.3 FL (7.0-11.0) Neutrophils (%) (Auto) 66.6 % (16.0-70.0) 51.8 % (16.0-70.0) Lymphocytes (%) (Auto) 27.0 % (9.0-44.0) 39.4 % (9.0-44.0) Monocytes (%) (Auto) 3.7 % (0.0-8.0) 6.4 % (0.0-8.0) Eosinophils (%) (Auto) 2.3 % (0.0-4.0) 1.7 % (0.0-4.0) Basophils (%) (Auto) 0.4 % (0.0-2.0) 0.7 % (0.0-2.0) Neutrophils # (Auto) 6.2 TH/MM3 (1.8-7.7) 4.8 TH/MM3 (1.8-7.7) Lymphocytes # (Auto) 2.5 TH/MM3 (1.0-4.8) 3.6 TH/MM3 (1.0-4.8) Monocytes # (Auto) 0.3 TH/MM3 (0-0.9) 0.6 TH/MM3 (0-0.9) Eosinophils # (Auto) 0.2 TH/MM3 (0-0.4) 0.2 TH/MM3 (0-0.4) Basophils # (Auto) 0.0 TH/MM3 (0-0.2) 0.1 TH/MM3 (0-0.2) CBC Comment DIFF FINAL DIFF FINAL Differential Comment Prothrombin Time 10.2 SEC (9.8-11.6) Prothromb Time International Ratio 1.0 RATIO Activated Partial Thromboplast Time 23.6 SEC (24.3-30.1) Blood Urea Nitrogen 20 MG/DL (7-18) 14 MG/DL (7-18) Creatinine 0.55 MG/DL (0.50-1.00) 0.60 MG/DL (0.50-1.00) Random Glucose 95 MG/DL (74-106) 112 MG/DL (74-106) Total Protein 7.6 GM/DL (6.4-8.2) Albumin 3.8 GM/DL (3.4-5.0) Calcium Level 8.7 MG/DL (8.5-10.1) 9.0 MG/DL (8.5-10.1) Alkaline Phosphatase 84 U/L (45-117) Aspartate Amino Transf (AST/SGOT) 30 U/L (15-37) Alanine Aminotransferase (ALT/SGPT) 23 U/L (10-53) Total Bilirubin 0.3 MG/DL (0.2-1.0) Sodium Level 141 MEQ/L (136-145) 142 MEQ/L (136-145) Potassium Level 3.7 MEQ/L (3.5-5.1) 3.4 MEQ/L (3.5-5.1) Chloride Level 108 MEQ/L (98-107) 108 MEQ/L (98-107) Carbon Dioxide Level 25.7 MEQ/L (21.0-32.0) 28.1 MEQ/L (21.0-32.0) Anion Gap 7 MEQ/L (5-15) 6 MEQ/L (5-15) Estimat Glomerular Filtration Rate 105 ML/MIN (>89) 95 ML/MIN (>89) Lipase 236 U/L (73-393) Erythrocyte Sedimentation Rate 17 mm/hr (0-30) C-Reactive Protein LESS THAN 0.29 MG/DL Vitamin B12 Level 277 PG/ML (193-986) Folate 15.1 NG/ML (3.1-17.5) Free Thyroxine 1.02 NG/DL (0.76-1.46) Thyroid Stimulating Hormone 3rd Gen 0.654 uIU/ML (0.358-3.740) Rheumatoid Factor Screen NEGATIVE (NEGATIVE) Rheumatoid Factor Titer IU/ML (0.0-14.9) Anti-Nuclear Antibody Screen POS (NEG) Rapid Plasma Reagin NON-REACTIVE (NON-REACTVE) (Hiwot Juares) Result Diagram: 10/04/17 0452 10/04/172 Microbiology Microbiology Date/Time Source Procedure Growth Status 10/03/17 17:10 Urine Clean Catch Urine Culture - Final 50-100,000 CFU/ML MIXED LUSI... Complete Imaging Last Impressions Brain MRI 10/05/17 1717 Signed Impressions: Service Date/Time: Thursday, October 05, 2017 10:26 - CONCLUSION: No acute infarct or other acute intracranial abnormality. Chronic ventriculomegaly. Atrophy and chronic white matter changes. Avila Hammer MD Head CT 10/04/17 0000 Signed Impressions: Service Date/Time: Wednesday, October 04, 2017 12:34 - CONCLUSION: 1. Dilation of the ventricular system which is somewhat out of proportion to the sulci laxity. In the appropriate setting this could suggest NPH. 2. No acute intracranial hemorrhage identified. No mass lesion is present Andrea Ndiaye MD Abdomen/Pelvis CT 10/03/17 1654 Signed Impressions: Service Date/Time: Tuesday, October 03, 2017 18:29 - CONCLUSION: 1. Right adrenal mass again seen. 2. Renal cysts. 3. Atherosclerosis. 4. Diverticulosis. Chance Lobo MD (Hiwot Juares) Patient/Family Conference Family Conference Time (mins): 40 (minutes) Family Conference Location: Bedside Issues Discussed: Met with patient and son at bedside discussion included the following: * Palliative care role, purpose, approach * Additional medical, psychosocial, and spiritual history * Patients general health, functional status, and cognitive changes in the months leading up to the current hospitalization * Patient/family understanding of the current medical problems * Patient/family understanding of prognosis; reviewed that without treatment patient does remain at risk for ongoing balance issues, falls and sequelae of untreated NPH, and that with surgical intervention possibly some of those issues might improve. * Patients goals of care as best understood from advance directives and/or conversations and/or values * Current medical treatment options and benefits/burdens of those options * Review of legal decision makers:patient confirms son Johnathan healthcare surrogate as per advanced directives in the chart. * Review of CODE STATUS-patient and son informed that she has had a long- standing DNR from outpatient, DNR entered at the request * Likely scenarios comparing ongoing aggressive care with a transition to comfort measures only-review of hospice role, philosophy, services provided * Questions answered to the best of my ability * Palliative care contact information provided Patient and son appear to have a good general understanding of conditions, options and prognosis. Patient is forgetful at times. She tells me that she is a "fighter" and she wishes to continue to try to live as long as she may however she is also certain that she would not want CPR. She feels like after rehab last year she did a lot better at home and had safety awareness and felt stronger. She wishes to try to do this again. She understands at some point her weakness will continue despite restorative efforts. We discussed hospice for the time when she decides she no longer wants acute hospitalizations and interventions. At this point she and son indicate for acute issues they would continue to seek hospitalization and treatments if available. Provided them with hospice contact information as well as palliative contact information. Patient complains of chronic intermittent constipation. Additional medication added today, advised her consider senna twice daily scheduled outpatient to assist with bowels. . Discussed with primary nurse. (Hiwot Juares) Assessment and Plan Disease Oriented Problem List: (1) NPH (normal pressure hydrocephalus) (2) Hyperlipidemia (3) Hypothyroidism (4) Vertigo (5) Hypertension (6) UTI (urinary tract infection) (7) Weakness Symptom Scale: (1) Constipation (2) Weakness Pertinent Non-Medical Issues Psychosocial: , supported by 2 adult sons. [place] help her. Other son lives out of state. Spiritual: Sabianist Legal:Patient reported to have mild dementia. May be able to participate some in decision making, but recommend shared decision making with healthcare surrogate son Johnathan is designated healthcare surrogate. On exam patient is mildly confused, though with some insight likely she can participate in shared decision making with her designated healthcare surrogate. Ethical issues impacting care: No ethical issues identified Important Contacts Rajesh Zheng ([place]) [phone] . Prognosis This pt was admitted for constipation, + findings NPH, which is not new for pt. She is refusing surgical interventions, and has since diagnosis. She has had recurrent falls and balance issues. While this in itself may not be terminal, when combined with her age, and other medical issues such as vertigo, frequent UTIs, falls, she does remain at risk for ongoing complications and setbacks which could certainly be life limiting. She would be appropriate for hospice admission if goals were compatible. Today she has expressed desire to pursue aggressive rehabilitation and restorative treatments. . 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 May be able to participate some in decision making, but recommend shared decision making with healthcare surrogate rajesh Mann is designated healthcare surrogate. On exam patient is mildly confused, though with some insight likely she can participate in shared decision making with her designated healthcare surrogate. * Goals: For now goals are aggressive to continue rehabilitation restorative efforts. Aggressive short of surgical intervention patient desires no invasive or surgical measures. She also does not desire CPR. She wishes to pursue rehabilitation, I have provided her with hospice information and education as well as their contact information so in the future when she does not desire restorative measures they can follow up with hospice at that time. * CODE STATUS: DNR * SYMPTOMS: --Constipation-chronic, intermittent. Likely multifactorial less mobile, she indicates "gas "problems all her life. She takes senna occasionally. Recommend outpatient she takes senna twice daily scheduled. She has had some results utilizing fleets enema here this admission. Requests additional intervention today, I ordered Dulcolax as well as senna today. --Weakness-multifactorial--advanced age, several recent hospitalizations/ deconditioning, recurrent falls, underlying NPH, underlying vertigo-PT may assist with some safety/gait issues though this is likely of limited benefit. Might see more improvement with intervention for NPH though patient is not interested in this * Palliative care will continue to follow during hospital course as condition evolves, to assist patient/decision-maker with understanding of medical conditions, weighing benefits/burdens of treatment options, for clarification of goals of treatment. Additionally will assist with any symptoms of palliative concern . (Hiwot Juares) Thank you for the opportunity to participate in the care of Ms. Mccloud. (Hiwot Juares) Attestation To help prompt me to consider important information that might be impacting today's encounter and assessment, information from prior notes written by myself or my colleagues may have been "brought forward" into today's note. My signature on this note, however, is an attestation that I personally performed the exam, history, and/or decision-making noted today, and, unless otherwise indicated, the interactions with patient, family, and staff as well as the review of records all occurred today. I also attest that the listed assessment and stated plan reflect my best clinical judgment today based on the combination of historical information, prior notes, and today's exam/ interactions. When time spent is documented, it refers only to time spent today by the signer, or if indicated, combined time spent today by collaborating physician/nurse practitioner. (Hiwot Juares) Collaborating MD Comments Chart reviewed. Case discussed with palliative care INJECTION MACHINE OPERATOR. Above INJECTION MACHINE OPERATOR note reviewed and I concur. . (Dilshad Tipton MD) Hiwot Juares Oct 06, 2017 15:40 Dilshad Tipton MD Oct 11, 2017 05:44
[2017-10-06 15:54] VITALS: BP 131/62; PULSE 78; RESP 20; TEMP 97.9; O2SAT 95
[2017-10-06] MEDS ORDERED: DOCUSATE SODIUM 50 MG/SENNA 8.6 MG TAB PO ONE (16:45)
[2017-10-06] MEDS ORDERED: BISACODYL 10 MG SUPP RECTAL ONE (16:45)
[2017-10-06 20:44] VITALS: BP 164/73; PULSE 86; RESP 18; TEMP 97.6; O2SAT 100; O2SAT 97
[2017-10-06 23:12] VITALS: BP 180/79; PULSE 78; RESP 16; TEMP 98.1; O2SAT 97
[2017-10-06] MEDS: cefTRIAXone INJ 1,000 MG in SODIUM CHLORIDE 0.9% INJ 100 ML IV SCH (23:25)
[2017-10-06] MEDS: ATORVASTATIN 20 MG TAB PO SCH (23:26)
[2017-10-07] VITALS (9 sets, daily range): BP systolic 121–185; BP diastolic 61–92; PULSE 61–92; RESP 12–20; TEMP 97.8–98.8; O2SAT 92–99
[2017-10-07 06:13] LABS: AUTOMATED NEUTROPHIL # 3.4 TH/MM3 (1.8-7.7); BASOPHIL # 0.1 TH/MM3 (0-0.2); BASOPHIL % 0.7 % (0.0-2.0); EOSINOPHIL # 0.3 TH/MM3 (0-0.4); EOSINOPHIL % 3.3 % (0.0-4.0); HEMATOCRIT 38.7 % (35.0-46.0); LYMPH % 45.2 % (9.0-44.0); LYMPHOCYTE # 3.5 TH/MM3 (1.0-4.8); MEAN CELL VOLUME 92.3 FL (80.0-100.0); MEAN CORPUSCULAR HEMOGLOBIN 30.9 PG (27.0-34.0); MEAN CORPUSCULAR HGB CONC 33.5 % (32.0-36.0); MEAN PLATELET VOLUME 10.4 FL (7.0-11.0); MONO % 7.7 % (0.0-8.0); MONOCYTE # 0.6 TH/MM3 (0-0.9); NEUT % 43.1 % (16.0-70.0); PLATELET COUNT 182 TH/MM3 (150-450); RED BLOOD COUNT 4.19 MIL/MM3 (4.00-5.30); RED CELL DISTRIBUTION WIDTH 17.6 % (11.6-17.2); WHITE BLOOD COUNT 7.8 TH/MM3 (4.0-11.0)
[2017-10-07] MEDS: LEVOTHYROXINE SODIUM 100 MCG TAB PO SCH (06:26)
[2017-10-07 06:30] LABS: ALBUMIN 3.6 GM/DL (3.4-5.0); BICARBONATE 26.4 MEQ/L (21.0-32.0); CALCIUM 9.3 MG/DL (8.5-10.1); CREATININE 0.58 MG/DL (0.50-1.00); MAGNESIUM 2.3 MG/DL (1.5-2.5); PHOSPHORUS 3.4 MG/DL (2.5-4.9)
--- NOTE | 2017-10-07 07:59 | HHI.PR ---
Subjective Remarks bpup even with standing Objective Vital Signs Date Time Temp Pulse Resp B/P (MAP) Pulse Ox O2 Delivery O2 Flow Rate FiO2 10/07/17 03:32 98.0 81 16 163/72 (102) 96 10/06/17 23:12 98.1 78 16 180/79 (112) 97 10/06/17 20:44 97.6 86 18 164/73 (103) 100 10/06/17 15:54 97.9 78 20 131/62 (85) 95 10/06/17 11:09 98.2 62 16 164/71 (102) 96 10/06/17 08:13 97.8 80 16 179/81 (113) 95 190/88 (122) 178/80 (112) I/O 10/06/17 10/06/17 10/06/17 10/07/17 10/07/17 10/07/17 06:59 14:59 22:59 06:59 14:59 22:59 # Voids 2 2 2 # Bowel Movements 1 1 Result Diagram: 10/07/17 0519 10/07/17 0519 Objective Remarks bp up hallpike neg not yr or month knows in hosp Assessment and Plan Assessment and Plan imp gait cw nph if son agrees we should do lumbar drain and see if helps gait she takes small steps but can take larger ones stm poor await mri will check hallpike need bp under control some uti 10/07/17 doing well overall needs bp control hallpike neg i dw her and son and about lumbar drain and shunt they will decide this am Johnathan Hampton MD Oct 07, 2017 07:59
[2017-10-07] MEDS: HEPARIN SODIUM - SQ 10,000 UNITS/ML VIAL SQ SCH (09:00)
[2017-10-07] MEDS: SODIUM CHLORIDE 0.9% FLUSH 10 ML FLUSH IV FLUSH SCH ×2 (09:35→22:35)
[2017-10-07] MEDS: NIFEdipine 30 MG SUSTAINED RELEASE TAB PO SCH (09:35)
[2017-10-07] MEDS: DOCUSATE SODIUM 50 MG/SENNA 8.6 MG TAB PO SCH (09:36)
[2017-10-07] MEDS: LISINOPRIL 20 MG TAB PO SCH ×2 (09:36→22:34)
[2017-10-07] MEDS: CIPROFLOXACIN 250 MG TAB PO SCH ×2 (09:36→23:58)
[2017-10-07] MEDS: METOPROLOL SUCCINATE 50 MG EXTENDED RELEASE TAB PO SCH (09:36)
--- NOTE | 2017-10-07 11:26 | HHI.PR ---
Subjective Remarks Patient says she is feeling all right. Sleeping, wakes up for exam. Denies any chest pain or shortness of breath. Reports headache improved. Objective Vital Signs Date Time Temp Pulse Resp B/P (MAP) Pulse Ox O2 Delivery O2 Flow Rate FiO2 10/07/17 07:57 97.8 77 16 184/81 (115) 97 183/92 (122) 185/91 (122) 10/07/17 03:32 98.0 81 16 163/72 (102) 96 10/06/17 23:12 98.1 78 16 180/79 (112) 97 10/06/17 20:44 97.6 86 18 164/73 (103) 100 10/06/17 15:54 97.9 78 20 131/62 (85) 95 I/O 10/06/17 10/06/17 10/06/17 10/07/17 10/07/17 10/07/17 07:00 15:00 23:00 07:00 15:00 23:00 # Voids 2 2 2 1 # Bowel Movements 1 1 Result Diagram: 10/07/17 0519 10/07/17 0519 Objective Remarks GENERAL: Patient lying in bed. Sleeping, wakes up for exam. Appears comfortable. Alert and oriented 3. Exam again unchanged. SKIN: Warm and dry. HEAD: Normocephalic. EYES: No scleral icterus. No injection or drainage. NECK: Supple, trachea midline. No JVD. CARDIOVASCULAR: Regular rate and rhythm without murmurs, gallops, or rubs. RESPIRATORY: Breath sounds equal bilaterally. No accessory muscle use. GASTROINTESTINAL: Abdomen soft, non-tender, nondistended. MUSCULOSKELETAL: No cyanosis, or edema. BACK: Nontender without obvious deformity. No CVA tenderness. A/P Assessment and Plan //Urinary tract infection UA consistent with urinary tract infection Urine culture pending Culture from 07/24/17 showed pansensitive Proteus Rocephin = We will continue treatment for 3 days. = Discontinue Cipro tomorrow 10/08. //Dizziness/weakness //History of vertigo Patient reports she is worse than baseline May be secondary to UTI Physical therapy consulted Continue home meclizine //Suspected normal pressure hydrocephalus. 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 We discussed possibility of hospice, palliative care and patient says she will be amenable to this in the future, but would like to try rehab first. Appreciate neurology assistance. = As per discussion between neurology, patient and son, neurosurgery will be consultedplan for drain placement. Appreciate assistance.. //Accelerated hypertension. = Continue home metoprolol and lisinopril. = / start nifedipine. Continue to monitor. = 10/06. Systolic blood pressure still up to the 190s. Will increase nifedipine dose. = 10/07. Systolic blood pressure still in the 190s. Increase nifedipine. Start hydralazine. Continue to monitor // hyperlipidemia Continue home atorvastatin // Hypothyroidism Continue home Synthroid FEN Heart healthy diet Electrolytes: Replete when necessary hold Heparin due to planned procedure Discharge Planning Patient to be evaluated for lumbar drain. Neurosurgery following. Patient admitted Chris Zavaleta MD Oct 07, 2017 11:26
[2017-10-07] MEDS: hydrALAZINE HCL 25 MG TAB PO SCH ×3 (11:29→22:33)
[2017-10-07] MEDS ORDERED: MIDAZOLAM HCL 2 MG/2 ML VIAL ONE (12:53)
--- NOTE | 2017-10-07 13:33 | PD.CONS ---
(Everett Brown MD) HPI Consult Requested By Primary Care Physician Coretta Schroeder MD (Everett Brown MD) Service Neurosurgery Consult Requested By Dr. Hampton Reason for Consult Lumbar drain management History of Present Illness Ms. 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 She was previously evaluated by Dr. Medina neurosurgeon in March 2017 after she presented with urinary urgency. She also was suffering from gait instability and memory difficulties. At that time Dr. Medina had discussed with her regarding conservative treatment versus placement of lumbar drain as well as a ventriculoperitoneal shunt placement however according to his notes was adamant and did not wish to undergo any invasive studies or surgery at that time. She presented back to [facility] due to generalized weakness, as well as possible UTI. She is currently now awaiting placement of a lumbar drain ordered by Neurology. She has not had any changes in her symptoms. Neurosurgery was asked for lumbar drain management. (Isabelle Lindsay) Review of Systems ROS Limitations: Altered Mental Status (Isabelle Lindsay) Past Family Social History Allergies: Coded Allergies: tetanus toxoid, adsorbed (Unverified Allergy, Severe, FEVER, 10/03/17) cefuroxime (Unverified Adverse Reaction, Intermediate, UPSET STOMACH, ) Past Medical History per EMR Congestive heart failure Hypertension Dyslipidemia Hypothyroidism Adrenal mass Past Surgical History Hysterectomy Cholecystectomy Thyroidectomy Cataract surgery Spinal surgery Past Surgical History per EMR Hysterectomy Cholecystectomy Thyroidectomy Cataract surgery Spinal surgery Reported Medications per EMR Active Ordered Medications Current Medications Medications (Trade) Dose Ordered Sig/Park Route PRN Reason Start Time Stop Time Status Last Admin Dose Admin Sodium Chloride (NS Flush) 2 ml UNSCH PRN IV FLUSH FLUSH AFTER USING IV ACCESS 10/03/17 23:00 10/06/17 11:17 Sodium Chloride (NS Flush) 2 ml BID IV FLUSH 10/04/17 09:00 10/07/17 09:35 Acetaminophen (Tylenol) 650 mg Q4H PRN PO TEMP > 100.4 10/03/17 23:00 10/06/17 17:36 Ondansetron HCl (Zofran Inj) 4 mg Q6H PRN IVP NAUSEA OR VOMITING 10/03/17 23:00 Naloxone HCl (Narcan Inj) 0.4 mg UNSCH PRN IV PUSH SEE LABEL COMMENTS 10/03/17 23:00 Ceftriaxone Sodium 1000 mg/ Sodium Chloride 100 ml @ 200 mls/hr Q24H IV 10/04/17 23:00 10/06/17 23:25 Atorvastatin Calcium (Lipitor) 20 mg HS PO 10/04/17 21:00 10/06/17 23:26 Levothyroxine Sodium (Synthroid) 100 mcg DAILY@0600 PO 10/04/17 06:00 10/07/17 06:26 Lisinopril (Prinivil) 20 mg BID PO 10/04/17 09:00 10/07/17 09:36 Meclizine HCl (Antivert) 25 mg TID PRN PO VERTIGO 10/04/17 00:15 10/04/17 22:25 Metoprolol Succinate (Toprol Xl) 50 mg DAILY PO 10/04/17 09:00 10/07/17 09:36 Enalaprilat (Vasotec Inj) 1.25 mg Q6H PRN IV PUSH SBP>160, DBP>90 10/04/17 02:00 10/06/17 11:16 Ciprofloxacin (Cipro) 250 mg Q12HR PO 10/05/17 21:00 10/07/17 09:36 Senna/Docusate Sodium (Julia-Colace) 1 tab DAILY PO 10/07/17 09:00 10/07/17 09:36 Nifedipine (Procardia Xl) 90 mg DAILY PO 10/08/17 09:00 Hydralazine HCl (Apresoline) 25 mg Q8HR PO 10/07/17 10:30 10/07/17 11:29 Family History Per EMR: Her son has history of brain cancer Social History lives with son, no tobacco, etoh or illicit drug use (Isabelle Lindsay) Physical Exam Vital Signs Vital Signs Date Time Temp Pulse Resp B/P (MAP) Pulse Ox O2 Delivery O2 Flow Rate FiO2 10/07/17 11:20 97.9 61 12 166/76 (106) 96 10/07/17 07:57 97.8 77 16 184/81 (115) 97 183/92 (122) 185/91 (122) 10/07/17 03:32 98.0 81 16 163/72 (102) 96 10/06/17 23:12 98.1 78 16 180/79 (112) 97 10/06/17 20:44 97.6 86 18 164/73 (103) 100 10/06/17 15:54 97.9 78 20 131/62 (85) 95 Laboratory Laboratory Tests Test 10/07/17 05:19 White Blood Count 7.8 Red Blood Count 4.19 Hemoglobin 13.0 Hematocrit 38.7 Mean Corpuscular Volume 92.3 Mean Corpuscular Hemoglobin 30.9 Mean Corpuscular Hemoglobin Concent 33.5 Red Cell Distribution Width 17.6 Platelet Count 182 Mean Platelet Volume 10.4 Neutrophils (%) (Auto) 43.1 Lymphocytes (%) (Auto) 45.2 Monocytes (%) (Auto) 7.7 Eosinophils (%) (Auto) 3.3 Basophils (%) (Auto) 0.7 Neutrophils # (Auto) 3.4 Lymphocytes # (Auto) 3.5 Monocytes # (Auto) 0.6 Eosinophils # (Auto) 0.3 Basophils # (Auto) 0.1 CBC Comment DIFF FINAL Differential Comment Blood Urea Nitrogen 24 Creatinine 0.58 Random Glucose 93 Albumin 3.6 Calcium Level 9.3 Phosphorus Level 3.4 Magnesium Level 2.3 Sodium Level 141 Potassium Level 3.6 Chloride Level 106 Carbon Dioxide Level 26.4 Anion Gap 9 Estimat Glomerular Filtration Rate 99 Date/Time Source Procedure Growth Status 10/03/17 17:10 Urine Clean Catch Urine Culture - Final 50-100,000 CFU/ML MIXED LUIS... Complete (Everett Brown MD) Result Diagram: 10/07/17 0519 10/07/17 0519 Attending Statement Ms mccloud has symptoms consistent with normal pressure hydrocephalus. The lumbar drain has been placed by an interventional radiologist. Using the patients radiological studies, we have discussed the physiopathology and clinical symptomatology of patients with normal pressure hydrocephalus. These patients usually present with a triad of gait imbalance, memory loss or mild dementia, and urinary incontinence. Without treatment, there is a slow tendency to progression, and in some patients the symptomatology could be improved by drainage of cerebrospinal fluid (CSF). In some cases of suspected normal pressure hydrocephalus, potential improvement with a permanent shunt can be tested by placement of a temporary lumbar drain and daily serial gait assessments. When the patients gait improves after CSF drainage, they may be a candidate for placement of a permanent ventriculoperitoneal shunt. Her drain has been placed. I recommend serial drainage of serous spinal fluid on follow-up assessment by physical therapy and neurologist. I will follow along Pulmonary. Continue aggressive pulmonary toilette, nasotracheal suction, and breathing treatments with nebulizers. Daily PT and OT Renal. Continue to monitor closely urine output, BUN and creatinine Endocrine. Continue to Monitor serial Acu checks and SSI as needed in detail ID continue to monitor for signs of infection Continue Protonix for stress ulcer prophylaxis Continue Brian hose and SCD's for DVT prophylaxis Further recommendations will be provided depending on the patient's clinical evaluation and follow up studies. (Everett Brown MD) Everett Brown MD Oct 07, 2017 13:33 Isabelle Lindsay Oct 07, 2017 14:19
--- NOTE | 2017-10-07 13:46 | PD.RAD ---
Post Procedure Progress Note Pre Procedure Diagnosis: (1) NPH (normal pressure hydrocephalus) Post Procedure Diagnosis: (1) NPH (normal pressure hydrocephalus) Procedure Date: Oct 07, 2017 Supervising Radiologist: Johnathan Arias Proceduralist/Assist: Nabila Quarles RT(R), Mervat Barreto RT(R) Anesthesia: Local Plan of Activity Patient to Unit: Nursing Unit Patient Condition: Good See PACS Report for procedural detail/treatment Spinal Procedure Lumbar Drain L2-L3 Fluid Description: Clear (tip at s1) Johnathan Arias MD Oct 07, 2017 13:46
--- NOTE | 2017-10-07 14:28 | RADRPT ---
EXAM DATE/TIME: 10/07/2017 12:25 [facility] COMPARISON: No previous studies available for comparison. 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 MEDICAL HISTORY : HTN, HLD, Vertigo, UTI, CHF, Adrenal gland tumor, GERD SURGIAL HISTORY : Cholecystectomy, Thyroidectomy, Thoracic surgery ENCOUNTER: Initial ACUITY: 4 - 6 days PAIN SCORE: 0/10 LUMBAR PUNCTURE TIME: 1340 hours FLUORO TIME: 3.9 minutes IMAGE SERIES: 1 LEVEL: Tip of lumbar drain was placed at S1 DEVICE(S): 1.) 5 [place] lumbar drain catheter PROCEDURE : 1. Fluoroscopically guided lumbar drain placement. 2. Conscious sedation with continuous EKG and oximetry monitoring. The risks, benefits and alternatives to the procedure were explained and verbal and written consent w as obtained. The site was prepped in sterile fashion. Full sterile technique was used, including ca p, mask, sterile gloves and gown and a large sterile sheet. Hand hygiene and 2% chlorhexidine and/or betadine/alcohol prep was utilized per protocol for cutaneous antisepsis. The skin and subcutaneous tissues were infiltrated with local anesthetic solution. With fluoroscopic guidance the lumbar thecal sac was punctured with a 14 gauge Touhy needle and a lum bar drain was placed with its tip at the level as described above and the catheter was sutured in aftab ce. CSF was identified returning from the catheter at the termination of the procedure. Conscious sedation was performed with the prescribed dosages and duration as above in the presence of an independent trained radiology nurse to assist in the monitoring of the patient. EKG and oximetry remained stable throughout the procedure. The patient tolerated the procedure well and there were n o complications. The patient was sent to post anesthesia recovery in stable condition. CONCLUSION: Uncomplicated lumbar drain placement as above. Johnathan Arias MD on October 07, 2017 at 14:25 Board Certified Radiologist. This report was verified electronically.
[2017-10-07] MEDS: ACETAMINOPHEN 325 MG TAB PO PRN (19:36)
[2017-10-07] MEDS: ATORVASTATIN 20 MG TAB PO SCH (22:33)
[2017-10-07] MEDS: cefTRIAXone INJ 1,000 MG in SODIUM CHLORIDE 0.9% INJ 100 ML IV SCH (23:08)
[2017-10-08 00:15] VITALS: BP 162/74; PULSE 82; RESP 17; TEMP 97.9; O2SAT 97
[2017-10-08 05:10] VITALS: BP 156/71; PULSE 67; RESP 17; TEMP 98.6; O2SAT 96
[2017-10-08] MEDS: LEVOTHYROXINE SODIUM 100 MCG TAB PO SCH (06:23)
[2017-10-08] MEDS: hydrALAZINE HCL 25 MG TAB PO SCH ×3 (06:23→21:03)
[2017-10-08] MEDS: ACETAMINOPHEN 325 MG TAB PO PRN ×2 (06:23→14:28)
[2017-10-08 08:00] VITALS: BP 150/66; PULSE 69; RESP 18; TEMP 97.6; O2SAT 96
[2017-10-08] MEDS: SODIUM CHLORIDE 0.9% FLUSH 10 ML FLUSH IV FLUSH SCH ×2 (09:00→21:03)
--- NOTE | 2017-10-08 09:03 | HHI.PR ---
Subjective Remarks bp up some a little better Objective Vital Signs Date Time Temp Pulse Resp B/P (MAP) Pulse Ox O2 Delivery O2 Flow Rate FiO2 10/08/17 05:10 98.6 67 17 156/71 (99) 96 10/08/17 00:15 97.9 82 17 162/74 (103) 97 10/07/17 20:45 98.1 77 17 167/76 (106) 99 153/72 (99) 164/73 (103) 10/07/17 17:39 98.8 92 20 121/61 (81) 95 10/07/17 15:10 72 18 130/72 (91) 92 10/07/17 14:40 73 18 152/76 (101) 95 10/07/17 14:10 68 16 181/83 (115) 94 10/07/17 13:55 98.0 72 16 163/85 (111) 96 10/07/17 11:20 97.9 61 12 166/76 (106) 96 I/O 10/07/17 10/07/17 10/07/17 10/08/17 10/08/17 10/08/17 07:00 15:00 23:00 07:00 15:00 23:00 Intake Total 340 ml Output Total 20 ml 110 ml Balance -20 ml 340 ml -110 ml Intake Oral 240 ml IV Total 100 ml Output Drainage Total 20 ml 110 ml # Voids 2 2 1 3 # Bowel Movements 1 Result Diagram: 10/07/17 0510/07/17 0519 Objective Remarks bp up not yr or month knows in hosp still small steps on own drain in can take larger ones when asked Assessment and Plan Assessment and Plan imp gait cw nph if son agrees we should do lumbar drain and see if helps gait she takes small steps but can take larger ones stm poor await mri will check hallpike need bp under control some uti 10/07/17 doing well overall needs bp control hallpike neg i dw her and son and about lumbar drain and shunt they will decide this am -- 10/08/17 drain in not better with gait so far tends to lean back b12 shots i would dc cipro if can as can inc confusion will see if gait improves over next 24 hours Johnathan Hampton MD Oct 08, 2017 09:03
[2017-10-08] MEDS: NIFEdipine 90 MG SUSTAINED RELEASE TAB PO SCH (09:39)
[2017-10-08] MEDS: METOPROLOL SUCCINATE 50 MG EXTENDED RELEASE TAB PO SCH (09:39)
[2017-10-08] MEDS: DOCUSATE SODIUM 50 MG/SENNA 8.6 MG TAB PO SCH ×2 (09:39→21:02)
[2017-10-08] MEDS: LISINOPRIL 20 MG TAB PO SCH ×2 (09:39→21:02)
[2017-10-08] MEDS: CYANOCOBALAMIN 1000 MCG/ML VIAL SQ SCH (09:40)
[2017-10-08 10:55] LABS: ANA PATTERN SPECKLED
--- NOTE | 2017-10-08 11:11 | HHI.PR ---
Subjective Remarks Patient is in bed she does not appear in pain. However she is very anxious and crying at times. He is not depressed. Says this is adjustment that she needs to do with her life after the surgery. No fever or chills. No nausea vomiting diarrhea constipation. Objective Vitals Vital Signs Date Time Temp Pulse Resp B/P (MAP) Pulse Ox O2 Delivery O2 Flow Rate FiO2 10/08/17 08:00 97.6 69 18 150/66 (94) 96 10/08/17 05:10 98.6 67 17 156/71 (99) 96 10/08/17 00:15 97.9 82 17 162/74 (103) 97 10/07/17 20:45 98.1 77 17 167/76 (106) 99 153/72 (99) 164/73 (103) 10/07/17 17:39 98.8 92 20 121/61 (81) 95 10/07/17 15:10 72 18 130/72 (91) 92 10/07/17 14:40 73 18 152/76 (101) 95 10/07/17 14:10 68 16 181/83 (115) 94 10/07/17 13:55 98.0 72 16 163/85 (111) 96 10/07/17 11:20 97.9 61 12 166/76 (106) 96 I/O 10/07/17 10/07/17 10/07/17 10/08/17 10/08/17 10/08/17 07:00 15:00 23:00 07:00 15:00 23:00 Intake Total 340 ml Output Total 20 ml 110 ml Balance -20 ml 340 ml -110 ml Intake Oral 240 ml IV Total 100 ml Output Drainage Total 20 ml 110 ml # Voids 2 2 1 3 # Bowel Movements 1 Result Diagram: 10/07/17 0519 10/07/17 0519 Imaging Last Impressions Lumbar Puncture Fluoroscopy 10/07/17 0000 Signed Impressions: Service Date/Time: October 12:25 - CONCLUSION: Uncomplicated lumbar drain placement as above. Johnathan Arias MD Brain MRI 10/05/17 1717 Signed Impressions: Service Date/Time: Thursday, October 05, 2017 10:26 - CONCLUSION: No acute infarct or other acute intracranial abnormality. Chronic ventriculomegaly. Atrophy and chronic white matter changes. Avila Hammer MD Head CT 10/04/17 0000 Signed Impressions: Service Date/Time: Wednesday, October 04, 2017 12:34 - CONCLUSION: 1. Dilation of the ventricular system which is somewhat out of proportion to the sulci laxity. In the appropriate setting this could suggest NPH. 2. No acute intracranial hemorrhage identified. No mass lesion is present Andrea Ndiaye MD Abdomen/Pelvis CT 10/03/17 1654 Signed Impressions: Service Date/Time: Tuesday, October 03, 2017 18:29 - CONCLUSION: 1. Right adrenal mass again seen. 2. Renal cysts. 3. Atherosclerosis. 4. Diverticulosis. Chance Lobo MD Objective Remarks GENERAL: Patient lying in bed. Sleeping, wakes up for exam. Appears comfortable. Alert and oriented 3. Exam again unchanged. CARDIOVASCULAR: Regular rate and rhythm without murmurs, gallops, or rubs. RESPIRATORY: Breath sounds equal bilaterally. No accessory muscle use. GASTROINTESTINAL: Abdomen soft, non-tender, nondistended. MUSCULOSKELETAL: No cyanosis, or edema. BACK: Nontender without obvious deformity. No CVA tenderness. A/P Assessment and Plan Urinary tract infection UA consistent with urinary tract infection Urine culture pending Culture from 07/24/17 showed pansensitive Proteus Rocephin We will continue treatment for 3 days. Discontinue Cipro tomorrow 10/08. Dizziness/weakness History of vertigo Patient reports she is worse than baseline May be secondary to UTI Physical therapy consulted Continue home meclizine Suspected normal pressure hydrocephalus. 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 We discussed possibility of hospice, palliative care and patient says she will be amenable to this in the future, but would like to try rehab first. Appreciate neurology assistance. As per discussion between neurology, patient and son, neurosurgery will be consultedplan for drain placement. Appreciate assistance.. Accelerated hypertension. Continue home metoprolol and lisinopril. 4/3 start nifedipine. Continue to monitor. 4/4. Systolic blood pressure still up to the 190s. Will increase nifedipine dose. /5. Systolic blood pressure still in the 190s. Increase nifedipine. Start hydralazine. Continue to monitor Hyperlipidemia Continue home atorvastatin Hypothyroidism Continue home Synthroid Anxiety. Ativan as needed FEN Heart healthy diet Electrolytes: Replete when necessary hold Heparin due to planned procedure Discharge Planning Patient to be evaluated for lumbar drain. Neurosurgery following. Patient admitted Cassie Ferris MD Oct 08, 2017 11:11
[2017-10-08 12:00] VITALS: BP 157/70; PULSE 75; RESP 21; TEMP 98.1; O2SAT 97
[2017-10-08] MEDS: CIPROFLOXACIN 250 MG TAB PO SCH ×2 (12:00→21:38)
[2017-10-08 12:08] LABS: METHYLMALONIC ACID 2.12 nmol/mL (<=0.40)
--- NOTE | 2017-10-08 13:53 | HHI.NSPN ---
(Isabelle Lindsay) Note Status Status: Progress Note (Isabelle Lindsay) Interval History Interval History Ms. 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 She was previously evaluated by Dr. Medina neurosurgeon in March 2017 after she presented with urinary urgency. She also was suffering from gait instability and memory difficulties. At that time Dr. Medina had discussed with her regarding conservative treatment versus placement of lumbar drain as well as a ventriculoperitoneal shunt placement however according to his notes was adamant and did not wish to undergo any invasive studies or surgery at that time. She presented back to [facility] due to generalized weakness, as well as possible UTI. She is currently now awaiting placement of a lumbar drain ordered by Neurology. She has not had any changes in her symptoms. Neurosurgery was asked for lumbar drain management. 10/08: pt refused much of examination currently as states she just woke up and not feeling well to be examined, not following my commands. appears confused , oriented to name. lumbar drain clamped. neurology notes this am no imp in gait. awaiting PT eval. (Isabelle Lindsay) Labs, Micro, & Vital Signs Results Date Time Temp Pulse Resp B/P (MAP) Pulse Ox O2 Delivery O2 Flow Rate FiO2 10/08/17 08:00 97.6 69 18 150/66 (94) 96 10/08/17 05:10 98.6 67 17 156/71 (99) 96 10/08/17 00:15 97.9 82 17 162/74 (103) 97 10/07/17 20:45 98.1 77 17 167/76 (106) 99 153/72 (99) 164/73 (103) 10/07/17 17:39 98.8 92 20 121/61 (81) 95 10/07/17 15:10 72 18 130/72 (91) 92 10/07/17 14:40 73 18 152/76 (101) 95 10/07/17 14:10 68 16 181/83 (115) 94 10/07/17 13:55 98.0 72 16 163/85 (111) 96 10/09/17 07:00 Output Total 110 ml Balance -110 ml Constitutional Vital Signs Date Time Temp Pulse Resp B/P (MAP) Pulse Ox O2 Delivery O2 Flow Rate FiO2 10/08/17 08:00 97.6 69 18 150/66 (94) 96 10/08/17 05:10 98.6 67 17 156/71 (99) 96 10/08/17 00:15 97.9 82 17 162/74 (103) 97 10/07/17 20:45 98.1 77 17 167/76 (106) 99 153/72 (99) 164/73 (103) 10/07/17 17:39 98.8 92 20 121/61 (81) 95 10/07/17 15:10 72 18 130/72 (91) 92 10/07/17 14:40 73 18 152/76 (101) 95 10/07/17 14:10 68 16 181/83 (115) 94 10/07/17 13:55 98.0 72 16 163/85 (111) 96 10/09/17 07:00 Output Total 110 ml Balance -110 ml (Isabelle Lindsay) Review of Systems ROS Limitations: Poor Historian Constitutional: DENIES: Fever Cardiovascular: DENIES: Chest pain Neurologic: DENIES: Headache, Paresthesias (Isabelle Lindsay) Physical Exam Gen: elderly woman, in no acute distress in bed HEENT: no gross abnormalities, nonicteric sclera Neuro: alert, confused, oriented to self.Cranial nerve: pupils appears grossly equal, and facial appears grossly symmetric. Musculoskeletal: she is moving all four extremities spontaneously appears to be symmetrical. No swelling. Cerebellar examination cannot assess Resp: breathing comfortably in room air, no wheezing Heart: regular rate rhythm (Isabelle Lindsay) Gen: elderly woman, in no acute distress in bed HEENT: no gross abnormalities, nonicteric sclera Neuro: alert, confused, oriented to self.Cranial nerve: pupils appears grossly equal, and facial appears grossly symmetric. Musculoskeletal: she is moving all four extremities spontaneously appears to be symmetrical. No swelling. Cerebellar examination cannot assess Resp: breathing comfortably in room air, no wheezing Heart: regular rate rhythm (Everett Brown MD) Medications Current Medications Current Medications Medications (Trade) Dose Ordered Sig/Park Route PRN Reason Start Time Stop Time Status Last Admin Dose Admin Sodium Chloride (NS Flush) 2 ml UNSCH PRN IV FLUSH FLUSH AFTER USING IV ACCESS 10/03/17 23:00 10/06/17 11:17 Sodium Chloride (NS Flush) 2 ml BID IV FLUSH 10/04/17 09:00 10/08/17 09:00 Acetaminophen (Tylenol) 650 mg Q4H PRN PO TEMP > 100.4 10/03/17 23:00 10/08/17 06:23 Ondansetron HCl (Zofran Inj) 4 mg Q6H PRN IVP NAUSEA OR VOMITING 10/03/17 23:00 Naloxone HCl (Narcan Inj) 0.4 mg UNSCH PRN IV PUSH SEE LABEL COMMENTS 10/03/17 23:00 Ceftriaxone Sodium 1000 mg/ Sodium Chloride 100 ml @ 200 mls/hr Q24H IV 10/04/17 23:00 10/07/17 23:08 Atorvastatin Calcium (Lipitor) 20 mg HS PO 10/04/17 21:00 10/07/17 22:33 Levothyroxine Sodium (Synthroid) 100 mcg DAILY@0600 PO 10/04/17 06:00 10/08/17 06:23 Lisinopril (Prinivil) 20 mg BID PO 10/04/17 09:00 10/08/17 09:39 Meclizine HCl (Antivert) 25 mg TID PRN PO VERTIGO 10/04/17 00:15 10/04/17 22:25 Metoprolol Succinate (Toprol Xl) 50 mg DAILY PO 10/04/17 09:00 10/08/17 09:39 Enalaprilat (Vasotec Inj) 1.25 mg Q6H PRN IV PUSH SBP>160, DBP>90 10/04/17 02:00 10/06/17 11:16 Ciprofloxacin (Cipro) 250 mg Q12HR PO 10/05/17 21:00 10/08/17 12:00 Senna/Docusate Sodium (Julia-Colace) 1 tab DAILY PO 10/07/17 09:00 10/08/17 09:39 Nifedipine (Procardia Xl) 90 mg DAILY PO 10/08/17 09:00 10/08/17 09:39 Hydralazine HCl (Apresoline) 25 mg Q8HR PO 10/07/17 10:30 10/08/17 06:23 Cyanocobalamin (Vitamin B12 Inj) 1,000 mcg DAILY SQ 10/08/17 09:00 10/11/17 08:59 10/08/17 09:40 (Isabelle Lindsay) Current Medications Current Medications Iohexol (Omnipaque 350 Inj) 94 ml STK-MED ONCE IVCONTRAST Last administered on 10/03/17at 18:30; Start 10/03/17 at 18:30; Stop 10/03/17 at 18:34; Status DC Sodium Biphosphate/ Sodium Phosphate (Fleets Enema (Adult)) 133 ml ONCE ONCE RECTAL Last administered on 10/03/17at 19:33; Start 10/03/17 at 19:00; Stop at 19:01; Status DC Ceftriaxone Sodium 1000 mg/ Sodium Chloride 100 ml @ 200 mls/hr ONCE ONCE IV Last administered on 10/03/17at 20:24; Start 10/03/17 at 20:30; Stop 10/03/17 at 20: 59; Status DC Ondansetron HCl (Zofran Inj) 4 mg ONCE ONCE IV PUSH Last administered on at 20:48; Start 10/03/17 at 20:45; Stop 10/03/17 at 20:46; Status DC Sodium Chloride 500 ml @ 500 mls/hr BOLUS ONCE IV Last administered on at 20:47; Start 10/03/17 at 20:45; Stop 10/03/17 at 21:44; Status DC Sodium Chloride (NS Flush) 2 ml UNSCH PRN IV FLUSH FLUSH AFTER USING IV ACCESS Last administered on 10/06/17 11:17; Start 10/03/17 at 23:00 Sodium Chloride (NS Flush) 2 ml BID IV FLUSH Last administered on 10/11/17at 10: 03; Start 10/04/17 at 09:00 Acetaminophen (Tylenol) 650 mg Q4H PRN PO TEMP > 100.4 Last administered on 10/10 21:56; Start 10/03/17 at 23:00 Ondansetron HCl (Zofran Inj) 4 mg Q6H PRN IVP NAUSEA OR VOMITING Last administered on 4/8/18at 11:29; Start 10/03/17 at 23:00 Naloxone HCl (Narcan Inj) 0.4 mg UNSCH PRN IV PUSH SEE LABEL COMMENTS; Start at 23:00 Ceftriaxone Sodium 1000 mg/ Sodium Chloride 100 ml @ 200 mls/hr Q24H IV Last administered on 10/09/17 22:57; Start 10/04/17 at 23:00; Stop 10/10/17 at 10:27; Status DC Atorvastatin Calcium (Lipitor) 20 mg HS PO Last administered on 10/10/17 21:55 ; Start 10/04/17 at 21:00 Levothyroxine Sodium (Synthroid) 100 mcg DAILY@0600 PO Last administered on 10/11 05:48; Start 10/04/17 at 06:00 Lisinopril (Prinivil) 20 mg BID PO Last administered on 10/09/17 08:21; Start 10/04/17 at 09:00; Stop 10/09/17 at 10:18; Status DC Meclizine HCl (Antivert) 25 mg TID PRN PO VERTIGO Last administered on 08:08; Start 10/04/17 at 00:15 Metoprolol Succinate (Toprol Xl) 50 mg DAILY PO Last administered on 10/11/17 10:02; Start 10/04/17 at 09:00 Heparin Sodium (Porcine) (Heparin Inj) 5,000 units Q12HR SQ Last administered on 10/06/17 23:25; Start 10/04/17 at 09:00; Stop 10/07/17 at 09:45; Status DC Enalaprilat (Vasotec Inj) 1.25 mg Q6H PRN IV PUSH SBP>160, DBP>90 Last administered on 10/06/17 11:16; Start 10/04/17 at 02:00 Sodium Chloride 1,000 ml @ 75 mls/hr [id number] IV Last administered on 10/04/17 17:46; Start 10/04/17 at 18:00; Stop 10/05/17 at 14:57; Status DC Nifedipine (Procardia Xl) 30 mg ONCE ONCE PO Last administered on 10/05/17 15: 22; Start 10/05/17 at 15:00; Stop 10/05/17 at 15:01; Status DC Nifedipine (Procardia Xl) 30 mg DAILY PO ; Start 10/06/17 at 09:00; Stop 10/06/17 at 09:00; Status DC Ciprofloxacin (Cipro) 250 mg Q12HR PO Last administered on 10/09/17at 09:05; Start 10/05/17 at 21:00; Stop 10/09/17 at 10:10; Status DC Nifedipine (Procardia Xl) 60 mg DAILY PO Last administered on 10/07/17at 09:35; Start 10/06/17 at 09:00; Stop 10/07/17 at 10:19; Status DC Senna/Docusate Sodium (Julia-Colace) 1 tab ONCE ONCE PO Last administered on 10/06/17at 17:36; Start 10/06/17 at 16:45; Stop 10/06/17 at 16:46; Status DC Senna/Docusate Sodium (Julia-Colace) 1 tab DAILY PO Last administered on at 09:39; Start 10/07/17 at 09:00; Stop 10/08/17 at 15:14; Status DC Bisacodyl (Dulcolax Supp) 10 mg ONCE ONCE RECTAL Last administered on at 17:36; Start 10/06/17 at 16:45; Stop 10/06/17 at 16:46; Status DC Nifedipine (Procardia Xl) 90 mg DAILY PO Last administered on 10/11/17at 10:02; Start 10/08/17 at 09:00 Hydralazine HCl (Apresoline) 25 mg Q8HR PO Last administered on 10/11/17at 05:48 ; Start 10/07/17 at 10:30 Fentanyl Citrate (fentaNYL INJ) 100 mcg STK-MED ONCE .ROUTE ; Start 10/07/17 at 12:53; Stop 10/07/17 at 12:54; Status DC Midazolam HCl (Versed Inj) 2 mg STK-MED ONCE .ROUTE ; Start 10/07/17 at 12:53; Stop 10/07/17 at 12:54; Status DC Cyanocobalamin (Vitamin B12 Inj) 1,000 mcg DAILY SQ Last administered on at 08:08; Start 10/08/17 at 09:00; Stop 10/11/17 at 08:59; Status DC Bisacodyl (Dulcolax Supp) 10 mg DAILY PRN RECTAL CONSTIPATION Last administered on 10/10/17at 02:49; Start 10/08/17 at 16:30 Senna/Docusate Sodium (Julia-Colace) 1 tab BID PO Last administered on 10/11/17at 10:02; Start 10/08/17 at 21:00 Simethicone (Mylicon Chew) 160 mg Q4H PRN PO GAS RETENTION; Start 10/08/17 at 17 :45 Simethicone (Mylicon Chew) 80 mg ONCE ONCE CHEW Last administered on 10/08/17at 21:02; Start 10/08/17 at 19:15; Stop 10/08/17 at 19:19; Status DC Simethicone (Mylicon Chew) 80 mg PCHS PRN CHEW gas; Start 10/08/17 at 19:15 Lisinopril (Prinivil) 20 mg ONCE ONCE PO Last administered on 10/09/17at 10:43; Start 10/09/17 at 10:30; Stop 10/09/17 at 10:31; Status DC Lisinopril (Prinivil) 40 mg DAILY PO Last administered on 10/11/17at 10:03; Start 10/10/17 at 09:00 Magnesium Hydroxide (Milk Of Magnesia Liq) 30 ml ONCE ONCE PO Last administered on 10/10/17at 13:51; Start 10/10/17 at 12:00; Stop 10/10/17 at 12:01; Status DC Morphine Sulfate (Morphine Inj) 1 mg ONCE ONCE IV PUSH ; Start 10/10/17 at 12:30 ; Stop 10/10/17 at 12:57; Status DC Methylnaltrexone [place] (Relistor Inj) 12 mg ONCE ONCE SQ Last administered on 10/10/17at 17:03; Start 10/10/17 at 15:00; Stop 10/10/17 at 15:01; Status DC Diatrizoate Meglum/ Diatrizoate Sod ( Gastroview Liq) 18 ml ONCE ONCE PO Last administered on 10/10/17at 16:05; Start 10/10/17 at 14:45; Stop 10/10/17 at 14: 46; Status DC Iohexol (Omnipaque 350 Inj) 75 ml STK-MED ONCE IVCONTRAST Last administered on 10/10/17at 18:27; Start 10/10/17 at 18:27; Stop 10/10/17 at 18:28; Status DC (Everett Brown MD) Medical Decision Making MDM Remarks 87 y/o female suspected NPH, s/p placement of lumbar drain (Isabelle Lindsay) Plan Plan Remarks cont CSF draining per lumbar drain today PT- reassess gait Neurology following (Isabelle Lindsay) Attending Statement Continue neuPulmonary.. Continue aggressive pulmonary toilette, nasotracheal suction, and breathing treatments with nebulizers. Renal. monitor closely urine output, BUN and creatinine Endocrine. Monitor serial Acu checks and SSI as needed in detail ID monitor for signs of infection Protonix for stress ulcer prophylaxis Brian hose and SCD's for DVT prophylaxis. ro checks. So far no significant improvement on the gait (Everett Brown MD) Isabelle Lindsay Oct 08, 2017 13:53 Everett Brown MD Oct 11, 2017 13:28
--- NOTE | 2017-10-08 15:11 | HHI.HCPN ---
Reason for visit a. To assist with evaluation and management of symptoms including: b. To assist medical decision maker(s) with: better understanding of current medical conditions; weighing benefits/burdens of medical treatment options; making medical treatment decisions. (Hiwot Juares) Subjective/Interval History Pt seen to follow up on comfort, goals. Pt, son elected to proceed w lumbar drain, was placed by IR /5, draining. 110 output. no change in gait or orientation , PT consultation pending. Has 2 BM yesterday. NO new labs or imaging. Neurosurgery, neurology following, monitoring for next 24 hr. Pt seen in room, son present. She is alert, partially oriented to self, son, hospital, and that she has a drain in her back. She complains of low back pain she relates to the drain. She does not know if it is helping her she feels like "maybe a little." She indicates that she still does not want to undergo major surgery in her brain. She is generally cooperative though at times upset when talking about surgery and that she does not want to be made to have any surgery. Advise/discussed with her and son that neuro wants to monitor effectiveness for the next 24 hours, PT consultation pending and they may make further recommendations tomorrow. She indicates she just wants to go home. Reports appetite good, she likes the food here. Feeling okay other than the back pain and she reports chronic dyspnea with activity. She also reports intermittent gas pains in the abdomen. She reports having 2 small bowel movements yesterday but she feels like she should have more. Abdominal exam benign aside from tenderness with palpation. She reports generally having good relief at home with use of Gas-X [id number]. Of note per my original history she reported lifelong troubles with gas. . (Hiwot Juares) Advance Directives Health Care Surrogate: Copy in medical record (Hiwot Juares) Advance Directive Specifics Date completed: 08/2017 . Health Care Surrogate(s): Johnathan Zheng, son . (Hiwot Juares) Objective Vital Signs Date Time Temp Pulse Resp B/P (MAP) Pulse Ox O2 Delivery O2 Flow Rate FiO2 10/08/17 08:00 97.6 69 18 150/66 (94) 96 10/08/17 05:10 98.6 67 17 156/71 (99) 96 10/08/17 00:15 97.9 82 17 162/74 (103) 97 10/07/17 20:45 98.1 77 17 167/76 (106) 99 153/72 (99) 164/73 (103) 10/07/17 17:39 98.8 92 20 121/61 (81) 95 10/07/17 15:10 72 18 130/72 (91) 92 Intake & Output 10/08/17 10/08/17 06:59 18:59 Intake Total 340 ml Output Total 110 ml Balance 340 ml -110 ml Intake Oral 240 ml IV Total 100 ml Output Drainage Total 110 ml # Voids 3 Physical Exam CONSTITUTIONAL/GENERAL: This is an adequately nourished patient, in no apparent distress, alert, pleasant TUBES/LINES/DRAINS: Peripheral IV upper extremity SKIN: No jaundice, rashes, or lesions. No wounds seen anteriorly. Skin warm and dry. CARDIOVASCULAR: Regular rate and rhythm without murmur.No JVD. Peripheral pulses symmetric. No peripheral edema. RESPIRATORY/CHEST: Symmetric, unlabored respirations. On room air clear to auscultation. Breath sounds equal bilaterally. GASTROINTESTINAL: Abdomen soft, mildly-tender, nondistended. No hepato- splenomegaly, or palpable masses. Bowel sounds normoactive. GENITOURINARY: Without palpable bladder distension. MUSCULOSKELETAL: Extremities without clubbing, cyanosis, or edema. No joint tenderness or effusion noted. NEUROLOGICAL: Awake and alert. Oriented 2-3, forgetful at times. Confuses details at times. Some limited insight. Cooperative, follows commands. Moves all 4 extremities with generalized weakness PSYCHIATRIC: No obvious anxiety/depression. (Hiwot Juares) Diagnostic Tests Laboratory Laboratory Tests Test 10/07/17 05:19 White Blood Count 7.8 TH/MM3 (4.0-11.0) Red Blood Count 4.19 MIL/MM3 (4.00-5.30) Hemoglobin 13.0 GM/DL (11.6-15.3) Hematocrit 38.7 % (35.0-46.0) Mean Corpuscular Volume 92.3 FL (80.0-100.0) Mean Corpuscular Hemoglobin 30.9 PG (27.0-34.0) Mean Corpuscular Hemoglobin Concent 33.5 % (32.0-36.0) Red Cell Distribution Width 17.6 % (11.6-17.2) Platelet Count 182 TH/MM3 (150-450) Mean Platelet Volume 10.4 FL (7.0-11.0) Neutrophils (%) (Auto) 43.1 % (16.0-70.0) Lymphocytes (%) (Auto) 45.2 % (9.0-44.0) Monocytes (%) (Auto) 7.7 % (0.0-8.0) Eosinophils (%) (Auto) 3.3 % (0.0-4.0) Basophils (%) (Auto) 0.7 % (0.0-2.0) Neutrophils # (Auto) 3.4 TH/MM3 (1.8-7.7) Lymphocytes # (Auto) 3.5 TH/MM3 (1.0-4.8) Monocytes # (Auto) 0.6 TH/MM3 (0-0.9) Eosinophils # (Auto) 0.3 TH/MM3 (0-0.4) Basophils # (Auto) 0.1 TH/MM3 (0-0.2) CBC Comment DIFF FINAL Differential Comment Blood Urea Nitrogen 24 MG/DL (7-18) Creatinine 0.58 MG/DL (0.50-1.00) Random Glucose 93 MG/DL (74-106) Albumin 3.6 GM/DL (3.4-5.0) Calcium Level 9.3 MG/DL (8.5-10.1) Phosphorus Level 3.4 MG/DL (2.5-4.9) Magnesium Level 2.3 MG/DL (1.5-2.5) Sodium Level 141 MEQ/L (136-145) Potassium Level 3.6 MEQ/L (3.5-5.1) Chloride Level 106 MEQ/L (98-107) Carbon Dioxide Level 26.4 MEQ/L (21.0-32.0) Anion Gap 9 MEQ/L (5-15) Estimat Glomerular Filtration Rate 99 ML/MIN (>89) (Hiwot Juares) Result Diagram: 10/07/1719 10/07/1719 Microbiology Microbiology Date/Time Source Procedure Growth Status 10/03/17 17:10 Urine Clean Catch Urine Culture - Final 50-100,000 CFU/ML MIXED LUIS... Complete (Hiwot Juares) Assessment and Plan Disease Oriented Problem List: (1) NPH (normal pressure hydrocephalus) (2) Hyperlipidemia (3) Hypothyroidism (4) Vertigo (5) Hypertension (6) UTI (urinary tract infection) (7) Weakness Symptom Scale: (1) Constipation (2) Weakness Pertinent Non-Medical Issues Psychosocial: , supported by 2 adult sons. One son has moved from [place] to [place] to help her. Other son lives out of state. 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 May be able to participate some in decision making, but recommend shared decision making with healthcare surrogate rajesh Mann is designated healthcare surrogate. On exam patient is mildly confused, though with some insight likely she can participate in shared decision making with her designated healthcare surrogate. Ethical issues impacting care: No ethical issues identified Important Contacts Rajesh Zheng ([place]) [phone] . Prognosis This pt was admitted for constipation, + findings NPH, which is not new for pt. She is refusing surgical interventions, and has since diagnosis. She has had recurrent falls and balance issues. While this in itself may not be terminal, when combined with her age, and other medical issues such as vertigo, frequent UTIs, falls, she does remain at risk for ongoing complications and setbacks which could certainly be life limiting. She would be appropriate for hospice admission if goals were compatible. Today she has expressed desire to pursue aggressive rehabilitation and restorative treatments. . 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 May be able to participate some in decision making, but recommend shared decision making with healthcare surrogate rajesh Mann is designated healthcare surrogate. On exam patient is mildly confused, though with some insight likely she can participate in shared decision making with her designated healthcare surrogate. * Goals: Patient had previously indicated that she did not wish to have lumbar drain or longer-term drain for NPH. She did end up agreeing to proceed with drain placement, now in place being followed by neurology and neurosurgery. She and son are still not certain if they would proceed with surgery for long- term drain; they will await effectiveness and recommendations from neuro tomorrow. Ultimately the patient wants to get back home to her most recent functional and cognitive status. * CODE STATUS: DNR * SYMPTOMS: --Constipation-chronic, intermittent. Likely multifactorial less mobile, she indicates "gas "problems all her life. She takes senna occasionally. Recommend outpatient she takes senna twice daily scheduled. She has had some results utilizing fleets enema here this admission. Requests additional intervention upon initial consultation, I ordered Dulcolax as well as senna -- she had 2 small bowel movements following this. She feels like she should be going more. She continues to report "gas pains ". Consider adding prn simethicone p.o.. Dulcolax suppository prn daily added. Increased senna to BID --Weakness-multifactorial--advanced age, several recent hospitalizations/ deconditioning, recurrent falls, underlying NPH, underlying vertigo-PT may assist with some safety/gait issues though this is likely of limited benefit. Lumbar drain has been placed, PT reevaluation pending. Neuro following, no improvement in gait as of yet, will continue to follow. * Palliative care will continue to follow during hospital course as condition evolves, to assist patient/decision-maker with understanding of medical conditions, weighing benefits/burdens of treatment options, for clarification of goals of treatment. Additionally will assist with any symptoms of palliative concern . (Hiwot Juares) Attestation To help prompt me to consider important information that might be impacting today's encounter and assessment, information from prior notes written by myself or my colleagues may have been "brought forward" into today's note. My signature on this note, however, is an attestation that I personally performed the exam, history, and/or decision-making noted today, and, unless otherwise indicated, the interactions with patient, family, and staff as well as the review of records all occurred today. I also attest that the listed assessment and stated plan reflect my best clinical judgment today based on the combination of historical information, prior notes, and today's exam/ interactions. When time spent is documented, it refers only to time spent today by the signer, or if indicated, combined time spent today by collaborating physician/nurse practitioner. (Hiwot Juares) Collaborating MD Comments Chart reviewed. Case discussed with palliative care SODA TESTER. Above SODA TESTER note reviewed and I concur. . (Dilshad Tipton MD) Hiwot Juares Oct 08, 2017 15:10 Dilshad Tipton MD Oct 11, 2017 05:54
[2017-10-08] MEDS ORDERED: BISACODYL 10 MG SUPP RECTAL PRN (16:30)
[2017-10-08] MEDS ORDERED: SIMETHICONE 80 MG CHEWABLE TAB PO PRN (17:45)
[2017-10-08] MEDS ORDERED: SIMETHICONE 80 MG CHEWABLE TAB CHEW ONE (19:15)
[2017-10-08] MEDS ORDERED: SIMETHICONE 80 MG CHEWABLE TAB CHEW PRN (19:15)
[2017-10-08 21:00] VITALS: BP 159/71; PULSE 88; RESP 18; TEMP 97.5; O2SAT 96
[2017-10-08] MEDS: ATORVASTATIN 20 MG TAB PO SCH (21:01)
[2017-10-08] MEDS: cefTRIAXone INJ 1,000 MG in SODIUM CHLORIDE 0.9% INJ 100 ML IV SCH (23:11)
[2017-10-08 23:39] VITALS: BP 127/88; PULSE 77; RESP 18; TEMP 97.6; O2SAT 98
[2017-10-09] MEDS: ACETAMINOPHEN 325 MG TAB PO PRN ×3 (03:38→21:03)
[2017-10-09 04:16] VITALS: BP 155/70; PULSE 84; RESP 18; TEMP 97.5; O2SAT 96
[2017-10-09] MEDS: hydrALAZINE HCL 25 MG TAB PO SCH ×3 (06:01→21:03)
[2017-10-09] MEDS: LEVOTHYROXINE SODIUM 100 MCG TAB PO SCH (06:01)
[2017-10-09 08:00] VITALS: BP 166/71; PULSE 78; RESP 18; TEMP 97.2; O2SAT 97
[2017-10-09] MEDS: DOCUSATE SODIUM 50 MG/SENNA 8.6 MG TAB PO SCH ×2 (08:21→21:03)
[2017-10-09] MEDS: METOPROLOL SUCCINATE 50 MG EXTENDED RELEASE TAB PO SCH (08:21)
[2017-10-09] MEDS: LISINOPRIL 20 MG TAB PO SCH (08:21)
[2017-10-09] MEDS: CYANOCOBALAMIN 1000 MCG/ML VIAL SQ SCH (08:22)
[2017-10-09] MEDS: SODIUM CHLORIDE 0.9% FLUSH 10 ML FLUSH IV FLUSH SCH ×2 (08:22→21:02)
[2017-10-09] MEDS: NIFEdipine 90 MG SUSTAINED RELEASE TAB PO SCH (08:22)
[2017-10-09] MEDS: CIPROFLOXACIN 250 MG TAB PO SCH (09:05)
--- NOTE | 2017-10-09 10:18 | HHI.FPPN ---
Subjective Remarks Patient seen and examined this morning. Vital stable although blood pressure has been intermittently elevated. Son is at bedside. Reports since drain placed patient seems more confused. He states she had a bad night with some lower back pain. He would like to speak with neuro in terms of if the drain be continued or not. Currently patient is resting comfortably in bed. Objective Vitals Vital Signs Date Time Temp Pulse Resp B/P (MAP) Pulse Ox O2 Delivery O2 Flow Rate FiO2 10/09/17 08:00 97.2 78 18 166/71 (102) 97 10/09/17 04:16 97.5 84 18 155/70 (98) 96 10/08/17 23:39 97.6 77 18 127/88 (101) 98 10/08/17 21:00 97.5 88 18 159/71 (100) 96 10/08/17 12:00 98.1 75 21 157/70 (99) 97 I/O 10/08/17 10/08/17 10/08/17 10/09/17 10/09/17 10/09/17 07:00 15:00 23:00 07:00 15:00 23:00 Intake Total 340 ml Output Total 110 ml 100 ml Balance 340 ml -110 ml -100 ml Intake Oral 240 ml IV Total 100 ml Output Drainage Total 110 ml 100 ml # Voids 3 1 2 Result Diagram: 10/07/17 0519 10/07/17 0519 Imaging Last Impressions Lumbar Puncture Fluoroscopy 10/07/17 0000 Signed Impressions: Service Date/Time: October 12:25 - CONCLUSION: Uncomplicated lumbar drain placement as above. Johnathan Arias MD Brain MRI 10/05/17 1717 Signed Impressions: Service Date/Time: Thursday, October 05, 2017 10:26 - CONCLUSION: No acute infarct or other acute intracranial abnormality. Chronic ventriculomegaly. Atrophy and chronic white matter changes. Avila Hammer MD Head CT 10/04/17 0000 Signed Impressions: Service Date/Time: Wednesday, October 04, 2017 12:34 - CONCLUSION: 1. Dilation of the ventricular system which is somewhat out of proportion to the sulci laxity. In the appropriate setting this could suggest NPH. 2. No acute intracranial hemorrhage identified. No mass lesion is present Andrea Ndiaye MD Abdomen/Pelvis CT 10/03/17 1654 Signed Impressions: Service Date/Time: Tuesday, October 03, 2017 18:29 - CONCLUSION: 1. Right adrenal mass again seen. 2. Renal cysts. 3. Atherosclerosis. 4. Diverticulosis. Chance Lobo MD Objective Remarks GENERAL: WN, WD elderly female laying comfortably in bed in NAD. SKIN: Warm and dry. HEENT: Pupils equal and round. MMM. NECK: Supple no tender LAD or JVD. HEART: RRR no m/r/g. LUNGS: CTAB without wheezes or crackles. ABDOMEN: Soft, NT, ND. EXTREMITIES: No LE edema or calf tenderness. NEURO: Sleeping but arousable. A/P Assessment and Plan In summary this is an 87-year-old female patient with a history of normal pressure hydrocephalus. She was initially evaluated by Dr. Medina in March 2017. At that time she did not wish to undergo any invasive measures at that time. She presented back to [facility] during this hospitalization for generalized weakness and UTI. She has been seen and evaluated by neuro and neurosurgery. She refuses a MEDICAL CHIEF TECHNICIAN shunt but did have a lumbar drain placed. Palliative care was consulted, she expressed to them desire to pursue aggressive rehabilitation of restorative treatments. UTI - Recurrent UTIs - Patient has been on Rocephin 10/04-10/08 - Started on cipro 10/05-10/09, will d/c this today - UTI should be cleared after the above abx, repeat UA ordered - UC shows mixed bacteria Normal pressure hydrocephalus - Patient refuses MEDICAL CHIEF TECHNICIAN shunt - Neurosurgery following: Continue CSF draining per lumbar drain - Neuro: await MRI, will check hallpike, further reccs pending Hypertension - Hydralazine 25 mg Po q8 - lisinopril 40 mg PO daily - Metoprolol 50 mg - Procardia 90 mg daily - enalapril 1.25 mg prn Hyperlipidemia - Continue statin Hypothyroidism - Continue Synthroid Anxiety - Ativan when necessary DVT proph - heparin on hold for procedure Discharge Planning DC pending clearance from neuro PT recommends SNF Problem List: (1) Constipation ICD Codes: K59.00 - Constipation, unspecified (2) Urinary tract infection ICD Codes: N39.0 - Urinary tract infection Status: Acute (3) NPH (normal pressure hydrocephalus) ICD Codes: G91.2 - (Idiopathic) normal pressure hydrocephalus Problem Qualifiers (1) Urinary tract infection: Qualified Codes: N30.00 - Acute cystitis without hematuria Heavenly Dumont MD Oct 09, 2017 10:18
[2017-10-09] MEDS ORDERED: LISINOPRIL 20 MG TAB PO ONE (10:30)
--- NOTE | 2017-10-09 11:42 | HHI.PR ---
Subjective Remarks bp up some a little better Objective Vital Signs Date Time Temp Pulse Resp B/P (MAP) Pulse Ox O2 Delivery O2 Flow Rate FiO2 10/09/17 08:00 97.2 78 18 166/71 (102) 97 10/09/17 04:16 97.5 84 18 155/70 (98) 96 10/08/17 23:39 97.6 77 18 127/88 (101) 98 10/08/17 21:00 97.5 88 18 159/71 (100) 96 10/08/17 12:00 98.1 75 21 157/70 (99) 97 I/O 10/08/17 10/08/17 10/08/17 10/09/17 10/09/17 10/09/17 07:00 15:00 23:00 07:00 15:00 23:00 Intake Total 340 ml Output Total 110 ml 100 ml Balance 340 ml -110 ml -100 ml Intake Oral 240 ml IV Total 100 ml Output Drainage Total 110 ml 100 ml # Voids 3 1 2 Result Diagram: 10/07/17 0519 10/07/17 0519 Objective Remarks still small steps on own drain in\ i do not see any improvement can take larger ones when asked Assessment and Plan Assessment and Plan imp gait cw nph if son agrees we should do lumbar drain and see if helps gait she takes small steps but can take larger ones stm poor await mri will check hallpike need bp under control some uti 10/07/17 doing well overall needs bp control hallpike neg i dw her and son and about lumbar drain and shunt they will decide this am -- 10/08/17 drain in not better with gait so far tends to lean back b12 shots i would dc cipro if can as can inc confusion will see if gait improves over next 24 hours 10/09/17 no major change I will dw PT but eboni ba drain and dc home Johnathan Hampton MD Oct 09, 2017 11:42
[2017-10-09 12:00] VITALS: BP 118/57; PULSE 16; RESP 18; TEMP 97.6; O2SAT 96
--- NOTE | 2017-10-09 13:41 | HHI.NSPN ---
History Chief Complaint: uncomfortable laying in bed. Interval History 10/09/17: Pts son at bedside and pt state they do not want the lumbar spinal drain any more. They state they don't want to wait for PT. They state the drain hasn't helped her and they would not want any surgery. regulatory product manager called Dr. Hampton and he is okay with us removing lumbar spinal drain. Pts son was adamant about removing the lumbar spinal drain. Review of Systems General: Negative for: fever, chills, insomnia Respiratory: Negative for: shortness of breath, cough, sputum Cardiovascular: Negative for: chest pain Gastrointestinal: Negative for: nausea, vomitting, diarrhea, constipation Exam Results Vital Signs Date Time Temp Pulse Resp B/P (MAP) Pulse Ox O2 Delivery O2 Flow Rate FiO2 10/09/17 12:00 97.6 16 118/57 (77) 96 Intake and Output 10/09/17 10/09/17 10/10/17 08:00 16:00 00:00 Output Total 100 ml Balance -100 ml Physical Examination General: Pt resting in bed complaining of generalized low back discomfort from being in bed. Eyes: Pupils equal. Sclera anicteric. Resp: CTA bilaterally Heart: NSR no murmurs Abd: Soft positive bs Skin: No cyanosis or erythema Muscle: Moves all 4 extremities well. Neuro: Pt in bed with lumbar spinal drain in place draining well. She follows commands well. Speech is clear. Lab, Micro, Other Results Last Impressions Lumbar Puncture Fluoroscopy 10/07/17 0000 Signed Impressions: Service Date/Time: October 12:25 - CONCLUSION: Uncomplicated lumbar drain placement as above. Johnathan Arias MD Brain MRI 10/05/17 8697 Signed Impressions: Service Date/Time: Thursday, October 05, 2017 10:26 - CONCLUSION: No acute infarct or other acute intracranial abnormality. Chronic ventriculomegaly. Atrophy and chronic white matter changes. Avila Hammer MD Head CT 10/04/17 0000 Signed Impressions: Service Date/Time: Jesus, October 04, 2017 12:34 - CONCLUSION: 1. Dilation of the ventricular system which is somewhat out of proportion to the sulci laxity. In the appropriate setting this could suggest NPH. 2. No acute intracranial hemorrhage identified. No mass lesion is present Andrea Ndiaye MD Abdomen/Pelvis CT 10/03/17 5996 Signed Impressions: Service Date/Time: Tuesday, October 03, 2017 18:29 - CONCLUSION: 1. Right adrenal mass again seen. 2. Renal cysts. 3. Atherosclerosis. 4. Diverticulosis. Chance Lobo MD Medical Decision Making Impression and Plan A: 87 y/o female suspected NPH, s/p placement of lumbar drain Plan Plan Plan Remarks Discontinue lumbar spinal drain lay flat for 6 hours. Arias Ramos Oct 09, 2017 1:41 pm
[2017-10-09 16:00] VITALS: BP 114/53; PULSE 83; RESP 18; TEMP 98.4; O2SAT 96
[2017-10-09 20:00] VITALS: BP 128/69; PULSE 79; RESP 18; TEMP 97.6; O2SAT 95
[2017-10-09] MEDS: ATORVASTATIN 20 MG TAB PO SCH (21:03)
[2017-10-09] MEDS: cefTRIAXone INJ 1,000 MG in SODIUM CHLORIDE 0.9% INJ 100 ML IV SCH (22:57)
[2017-10-10] VITALS (10 sets, daily range): BP systolic 119–149; BP diastolic 56–78; PULSE 65–85; RESP 16–20; TEMP 97.3–98.6; O2SAT 94–99
[2017-10-10] MEDS: ONDANSETRON HCL 4 MG/2 ML VIAL IVP PRN ×2 (02:49→11:29)
[2017-10-10] MEDS: ACETAMINOPHEN 325 MG TAB PO PRN ×2 (02:49→21:56)
[2017-10-10] MEDS: LEVOTHYROXINE SODIUM 100 MCG TAB PO SCH (05:54)
[2017-10-10] MEDS: hydrALAZINE HCL 25 MG TAB PO SCH ×3 (05:54→21:55)
[2017-10-10] MEDS: DOCUSATE SODIUM 50 MG/SENNA 8.6 MG TAB PO SCH ×2 (08:08→21:55)
[2017-10-10] MEDS: MECLIZINE HCL 25 MG TAB PO PRN (08:08)
[2017-10-10] MEDS: CYANOCOBALAMIN 1000 MCG/ML VIAL SQ SCH (08:08)
[2017-10-10] MEDS: NIFEdipine 90 MG SUSTAINED RELEASE TAB PO SCH (08:08)
[2017-10-10] MEDS: METOPROLOL SUCCINATE 50 MG EXTENDED RELEASE TAB PO SCH (08:09)
[2017-10-10] MEDS: LISINOPRIL 20 MG TAB PO SCH (08:09)
--- NOTE | 2017-10-10 08:59 | RADRPT ---
EXAM DATE/TIME: 10/10/2017 08:45 [facility] COMPARISON: No previous studies available for comparison. INDICATIONS : Left hip pain post fall. MEDICAL HISTORY : Cardiovascular disease. Gastroesophageal reflux disease. Hypertension.CVA. SURGICAL HISTORY : Hysterectomy. Thyroidectomy. ENCOUNTER: Initial ACUITY: 1 day PAIN SCORE: 7/10 LOCATION: Left hip. FINDINGS: Examination of the left hip was performed with AP Pelvis. The primary and secondary trabecular patte rn of the femoral neck is intact. The hip joint is of normal width without significant sclerosis or bony hypertrophy. The acetabulum is grossly intact. CONCLUSION: No acute disease. No evidence of fracture. Carmel Yen MD on October 10, 2017 at 8:55 Board Certified Radiologist. This report was verified electronically.
--- NOTE | 2017-10-10 10:25 | HHI.PR ---
Subjective Remarks Patient seen and examined this am. BP much better controlled. Reports she fell yesterday trying to get up from the toilet. Having significant abdominal pain. Reports this is chronic, but has worsened recently. Points to left LQ quadrant but states it travels to the right. Has had recurrent constipation during hospitalization. Reports she passed hard stools this am, abdominal pain worsened at that time. Son and nurse report when pain comes sporadically it brings her to tears. This is what initially brought her in to the hospital last week. Objective Vital Signs Date Time Temp Pulse Resp B/P (MAP) Pulse Ox O2 Delivery O2 Flow Rate FiO2 10/10/17 08:00 97.3 83 16 149/67 (94) 95 10/10/17 06:57 97.3 73 18 132/60 (84) 96 10/10/17 05:57 98.6 78 16 134/62 (86) 97 10/10/17 04:57 97.8 72 18 132/60 (84) 96 10/10/17 03:57 97.5 65 18 121/59 (79) 95 10/10/17 03:00 97.8 67 18 138/68 (91) 99 10/10/17 00:00 98.4 85 20 121/78 (92) 98 10/09/17 20:00 97.6 79 18 128/69 (88) 95 10/09/17 16:00 98.4 83 18 114/53 (73) 96 10/09/17 12:00 97.6 16 18 118/57 (77) 96 I/O 10/09/17 10/09/17 10/09/17 10/10/17 10/10/17 10/10/17 07:00 15:00 23:00 07:00 15:00 23:00 Intake Total 720 ml Output Total 100 ml Balance -100 ml 720 ml Intake Oral 720 ml Drainage Total 100 ml # Voids 2 3 # Bowel Movements 1 Result Diagram: 10/07/17 0519 10/07/17 0519 Imaging Last Impressions Hip and Pelvis X-Ray 10/10/17 0000 Signed Impressions: Service Date/Time: Tuesday, October 10, 2017 08:45 - CONCLUSION: No acute disease. No evidence of fracture. Carmel Yen MD Lumbar Puncture Fluoroscopy 10/07/17 0000 Signed Impressions: Service Date/Time: October 12:25 - CONCLUSION: Uncomplicated lumbar drain placement as above. Johnathan Arias MD Brain MRI 10/05/17 1717 Signed Impressions: Service Date/Time: Thursday, October 05, 2017 10:26 - CONCLUSION: No acute infarct or other acute intracranial abnormality. Chronic ventriculomegaly. Atrophy and chronic white matter changes. Avila Hammer MD Head CT 10/04/17 0000 Signed Impressions: Service Date/Time: Wednesday, October 04, 2017 12:34 - CONCLUSION: 1. Dilation of the ventricular system which is somewhat out of proportion to the sulci laxity. In the appropriate setting this could suggest NPH. 2. No acute intracranial hemorrhage identified. No mass lesion is present Andrea Ndiaye MD Abdomen/Pelvis CT 10/03/17 1654 Signed Impressions: Service Date/Time: Tuesday, October 03, 2017 18:29 - CONCLUSION: 1. Right adrenal mass again seen. 2. Renal cysts. 3. Atherosclerosis. 4. Diverticulosis. Chance Lobo MD Objective Remarks GENERAL: WN, WD elderly female appears uncomfortable. SKIN: Warm and dry. HEENT: Pupils equal and round. MMM. NECK: Supple no tender LAD or JVD. HEART: RRR no m/r/g. LUNGS: CTAB without wheezes or crackles. ABDOMEN: LLQ tenderness to palpation EXTREMITIES: No LE edema or calf tenderness. NEURO: Awake and alert, feels dizzy A/P Problem List: (1) Weakness ICD Code: R53.1 - Weakness Status: Acute (2) NPH (normal pressure hydrocephalus) ICD Code: G91.2 - (Idiopathic) normal pressure hydrocephalus (3) Urinary tract infection ICD Code: N39.0 - Urinary tract infection Status: Acute (4) Hypertension ICD Code: I10 - Essential (primary) hypertension Status: Chronic Assessment and Plan In summary this is an 87-year-old female patient with a history of normal pressure hydrocephalus. She was initially evaluated by Dr. Medina in March 2017. At that time she did not wish to undergo any invasive measures at that time. She presented back to [place] during this hospitalization for generalized weakness and UTI. She has been seen and evaluated by neuro and neurosurgery. She refuses a EXPERIENCE DESIGN DIRECTOR shunt but did have a lumbar drain placed. Palliative care was consulted, she expressed to them desire to pursue aggressive rehabilitation of restorative treatments. Lumbar drain was placed by neurosurgery. Son felt that this was not helping. Drain was removed on 10/09. On initial presentation to the ER the patient CC was abdominal pain. It seems like the abdominal pain became less significant as workup was pursued for the NPH. Her biggest complaint/concern curerntly is her abdominal pain. UTI - Recurrent UTIs - completed course of rocephin and cipro - UC shows mixed bacteria Normal pressure hydrocephalus - Patient refuses EXPERIENCE DESIGN DIRECTOR shunt - Neurosurgery following: lumbar drain removed 10/09 - Neuro: november d/c home Hypertension - Hydralazine 25 mg Po q8 - lisinopril 40 mg PO daily - Metoprolol 50 mg - Procardia 90 mg daily - enalapril 1.25 mg prn Abdominal pain-- appears chronic but acutely worsened. Constipation worsening diverticulosis?. Cipro was recently used to treat UTI, so this should've helped if this was related to diverticulitis. - CT scan on admission shows diverticulosis - will give bowel rest--> NPO for now - bowel regemin to prevent constipation (this has been a recurrent issue for patient) pericolace BID, prisca of mag x 1 - morphine 1 g IV x 1 see if this helps - Gastro consulted for further reccs Hyperlipidemia - Continue statin Hypothyroidism - Continue Synthroid Anxiety - Ativan when necessary DVT proph - heparin on hold for procedure Discharge Planning Cleared from Neuro PT recommends SNF GI workup pending Problem Qualifiers (1) Urinary tract infection: Qualified Codes: N30.00 - Acute cystitis without hematuria Heavenly Dumont MD Oct 10, 2017 10:25
--- NOTE | 2017-10-10 10:32 | HHI.NSPN ---
History Chief Complaint: uncomfortable laying in bed. Interval History 10/09/17: Pts son at bedside and pt state they do not want the lumbar spinal drain any more. They state they don't want to wait for PT. They state the drain hasn't helped her and they would not want any surgery. ceramic sprayer called Dr. Hampton and he is okay with us removing lumbar spinal drain. Pts son was adamant about removing the lumbar spinal drain. 10/10/17: Pts son at bedside stats she has been oob since drain was removed. No reports of drainage. She fell last night when she tried to go the bathroom by herself. She states she was having abdominal pain from constipation. She states she has since had a bm. She had dizziness when she got up and nausea. She denies hitting her head. She currently denies any pain in hips or legs. Review of Systems General: Negative for: fever, chills, insomnia Respiratory: Negative for: shortness of breath, cough, sputum Cardiovascular: Negative for: chest pain Gastrointestinal: Negative for: nausea, vomitting, diarrhea, constipation Exam Results Vital Signs Date Time Temp Pulse Resp B/P (MAP) Pulse Ox O2 Delivery O2 Flow Rate FiO2 10/10/17 08:00 97.3 83 16 149/67 (94) 95 Physical Examination General: Pt resting in bed confused but pleasant. Anxious about getting the abdominal cramps again. Eyes: Pupils equal. Sclera anicteric. Resp: CTA bilaterally Heart: NSR no murmurs Abd: Soft positive bs Skin: No cyanosis or erythema Muscle: Moves all 4 extremities well. Neuro: Confused but pleasant. She follows commands well. Speech is clear. Lab, Micro, Other Results Last Impressions Hip and Pelvis X-Ray 10/10/17 0000 Signed Impressions: Service Date/Time: Tuesday, October 10, 2017 08:45 - CONCLUSION: No acute disease. No evidence of fracture. Carmel Yen MD Lumbar Puncture Fluoroscopy 10/07/17 0000 Signed Impressions: Service Date/Time: October 12:25 - CONCLUSION: Uncomplicated lumbar drain placement as above. Johnathan Arias MD Brain MRI 10/05/17 1717 Signed Impressions: Service Date/Time: Thursday, October 05, 2017 10:26 - CONCLUSION: No acute infarct or other acute intracranial abnormality. Chronic ventriculomegaly. Atrophy and chronic white matter changes. Avila Hammer MD Head CT 10/04/17 0000 Signed Impressions: Service Date/Time: Wednesday, October 04, 2017 12:34 - CONCLUSION: 1. Dilation of the ventricular system which is somewhat out of proportion to the sulci laxity. In the appropriate setting this could suggest NPH. 2. No acute intracranial hemorrhage identified. No mass lesion is present Andrea Ndiaye MD Abdomen/Pelvis CT 10/03/17 1654 Signed Impressions: Service Date/Time: Tuesday, October 03, 2017 18:29 - CONCLUSION: 1. Right adrenal mass again seen. 2. Renal cysts. 3. Atherosclerosis. 4. Diverticulosis. Chance Lobo MD Medical Decision Making Impression and Plan A: 87 y/o female suspected NPH, s/p placement of lumbar drain. Pt and son requested drain removal as they felt it was not helping her. Plan Plan Plan Remarks Pt has been oob with no drainage. She is being followed by Neurology and is admitted to medicine. She can follow up with Dr. Brown if they feels she got improvement in her symptoms although as of now they feels she has not. Arias Ramos Oct 10, 2017 10:32 am
--- NOTE | 2017-10-10 11:17 | HHI.PR ---
Subjective Remarks shalom out Objective Vital Signs Date Time Temp Pulse Resp B/P (MAP) Pulse Ox O2 Delivery O2 Flow Rate FiO2 10/10/17 08:00 97.3 83 16 149/67 (94) 95 10/10/17 06:57 97.3 73 18 132/60 (84) 96 10/10/17 05:57 98.6 78 16 134/62 (86) 97 10/10/17 04:57 97.8 72 18 132/60 (84) 96 10/10/17 03:57 97.5 65 18 121/59 (79) 95 10/10/17 03:00 97.8 67 18 138/68 (91) 99 10/10/17 00:00 98.4 85 20 121/78 (92) 98 10/09/17 20:00 97.6 79 18 128/69 (88) 95 10/09/17 16:00 98.4 83 18 114/53 (73) 96 10/09/17 12:00 97.6 16 18 118/57 (77) 96 I/O 10/09/17 10/09/17 10/09/17 10/10/17 10/10/17 10/10/17 07:00 15:00 23:00 07:00 15:00 23:00 Intake Total 720 ml Output Total 100 ml Balance -100 ml 720 ml Intake Oral 720 ml Drainage Total 100 ml # Voids 2 3 # Bowel Movements 1 Result Diagram: 10/07/1751810/07/17 0519 Objective Remarks in bed co abd pain sounds some chronic minimal tender llq Assessment and Plan Assessment and Plan imp gait cw nph if son agrees we should do lumbar drain and see if helps gait she takes small steps but can take larger ones stm poor await mri will check hallpike need bp under control some uti 10/07/17 doing well overall needs bp control hallpike neg i dw her and son and about lumbar drain and shunt they will decide this am -- 10/08/17 drain in not better with gait so far tends to lean back b12 shots i would dc cipro if can as can inc confusion will see if gait improves over next 24 hours 10/09/17 no major change I will dw PT but eboni dc drain and dc home 10/10/17 drain failed to help med team on abd pain will sign off fu office for sinemet trial and dementia Johnathan Ibarra MD Oct 10, 2017 11:17
[2017-10-10] MEDS ORDERED: MAGNESIUM HYDROXIDE SUSP 30 ML CUP PO ONE (12:00)
[2017-10-10] MEDS ORDERED: MORPHINE SULFATE 2 MG/ML SYRINGE IV PUSH ONE (12:30)
[2017-10-10] MEDS: SODIUM CHLORIDE 0.9% FLUSH 10 ML FLUSH IV FLUSH SCH ×2 (13:51→21:55)
--- NOTE | 2017-10-10 14:15 | PD.CONS ---
HPI History of Present Illness This is a 87 year old female who was admitted on 10/03/17 with symptoms of UTI, dizziness and weakness. Patient has been aggressively treated for her symptoms which include neurosurgery consult lumbar spinal drain which is now been removed. Son is at her bedside and currently lives with his mom to care for her and feels that she is not getting any better. He notes acute on chronic constipation and continues to struggle with diffuse abdominal pain associated with constipation worse over the past 2 weeks. Patient is resting in the bed eyes closed offering minimal conversations except to the point that she is tired of feeling bad. She is a poor historian, son is giving most of her history. He does note EGD done back in 2016. Colonoscopies in the past but it appears that it's been years and unknown timing. Patient does require heel pain management at home usually takes 1-2 hydrocodone 5 mg tablets daily. Son states that she has taken stool softeners, and all different laxatives multiple times but still continues to have abdominal pain. Patient states appetite is good most of the time and she is able to drink plenty of by mouth fluids without any nausea or vomiting. Patient does speak up and state that she has increased burping and upper gas and bloating at times. She denies any dark tarry stools, and abdominal pain appears to be worse in left lower quadrant and right lower quadrant on exam. According to CT scan patient has history of diverticulosis. Patient denies any dysphasia no nausea no vomiting now but has had bouts of nausea and vomiting related to the constipation and abdominal pain since March 2017, itches approximately 6-7 months. 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 OUTPATIENT FACILITY PHYSICAL THERAPIST shunt in 03/2017 which she declined Gas with bloating Past Surgical History Cholecystectomy (Peyton Myers) Coded Allergies: tetanus toxoid, adsorbed (Unverified Allergy, Severe, FEVER, 10/03/17) cefuroxime (Unverified Adverse Reaction, Intermediate, UPSET STOMACH, ) Medications Administered Medications Medications (Trade) Dose Ordered Sig/Park Route PRN Reason Start Time Stop Time Status Last Admin Dose Admin Sodium Chloride (NS Flush) 2 ml UNSCH PRN IV FLUSH FLUSH AFTER USING IV ACCESS 4/1/18 23:00 10/06/17 11:17 Sodium Chloride (NS Flush) 2 ml BID IV FLUSH 10/04/17 09:00 10/10/17 13:51 Acetaminophen (Tylenol) 650 mg Q4H PRN PO TEMP > 100.4 10/03/17 23:00 10/10/17 02:49 Ondansetron HCl (Zofran Inj) 4 mg Q6H PRN IVP NAUSEA OR VOMITING 10/03/17 23:00 10/10/17 11:29 Atorvastatin Calcium (Lipitor) 20 mg HS PO 10/04/17 21:00 10/09/17 21:03 Levothyroxine Sodium (Synthroid) 100 mcg DAILY@0600 PO 10/04/17 06:00 10/10/17 05:54 Meclizine HCl (Antivert) 25 mg TID PRN PO VERTIGO 10/04/17 00:15 10/10/17 08:08 Metoprolol Succinate (Toprol Xl) 50 mg DAILY PO 10/04/17 09:00 10/10/17 08:09 Enalaprilat (Vasotec Inj) 1.25 mg Q6H PRN IV PUSH SBP>160, DBP>90 10/04/17 02:00 10/06/17 11:16 Nifedipine (Procardia Xl) 90 mg DAILY PO 10/08/17 09:00 10/10/17 08:08 Hydralazine HCl (Apresoline) 25 mg Q8HR PO 10/07/17 10:30 10/10/17 13:51 Cyanocobalamin (Vitamin B12 Inj) 1,000 mcg DAILY SQ 10/08/17 09:00 10/11/17 08:59 10/10/17 08:08 Bisacodyl (Dulcolax Supp) 10 mg DAILY PRN RECTAL CONSTIPATION 10/08/17 16:30 10/10/17 02:49 Senna/Docusate Sodium (Julia-Colace) 1 tab BID PO 10/08/17 21:00 10/10/17 08:08 Lisinopril (Prinivil) 40 mg DAILY PO 10/10/17 09:00 10/10/17 08:09 Family History Per EMR negative for CAD/DM. No family history NPH No known colon cancer Social History Denies alcohol, tobacco and illicit drugs Patient smoked in her younger years but has been quit 50 years. 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 (Peyton MyersChema DILL) Review of Systems Constitutional: COMPLAINS OF: Fatigue Gastrointestinal: COMPLAINS OF: Abdominal pain, Constipation (Peyton MyersChema DILL) GI Exam Vitals I&O Vital Signs Date Time Temp Pulse Resp B/P (MAP) Pulse Ox O2 Delivery O2 Flow Rate FiO2 10/10/17 12:00 97.6 65 16 119/56 (77) 95 10/10/17 08:00 97.3 83 16 149/67 (94) 95 10/10/17 06:57 97.3 73 18 132/60 (84) 96 10/10/17 05:57 98.6 78 16 134/62 (86) 97 10/10/17 04:57 97.8 72 18 132/60 (84) 96 10/10/17 03:57 97.5 65 18 121/59 (79) 95 10/10/17 03:00 97.8 67 18 138/68 (91) 99 10/10/17 00:00 98.4 85 20 121/78 (92) 98 10/09/17 20:00 97.6 79 18 128/69 (88) 95 10/09/17 16:00 98.4 83 18 114/53 (73) 96 I/O 10/09/17 10/09/17 10/09/17 10/10/17 10/10/17 10/10/17 07:00 15:00 23:00 07:00 15:00 23:00 Intake Total 720 ml Output Total 100 ml Balance -100 ml 720 ml Intake Oral 720 ml Drainage Total 100 ml # Voids 2 3 # Bowel Movements 1 Imaging Last Impressions Hip and Pelvis X-Ray 10/10/17 0000 Signed Impressions: Service Date/Time: Tuesday, October 10, 2017 08:45 - CONCLUSION: No acute disease. No evidence of fracture. Carmel Yen MD Lumbar Puncture Fluoroscopy 10/07/17 0000 Signed Impressions: Service Date/Time: October 12:25 - CONCLUSION: Uncomplicated lumbar drain placement as above. Johnathan Arias MD Brain MRI 10/05/17 1727 Signed Impressions: Service Date/Time: Thursday, October 05, 2017 10:26 - CONCLUSION: No acute infarct or other acute intracranial abnormality. Chronic ventriculomegaly. Atrophy and chronic white matter changes. Avila Hammer MD Head CT 10/04/17 0000 Signed Impressions: Service Date/Time: Wednesday, October 04, 2017 12:34 - CONCLUSION: 1. Dilation of the ventricular system which is somewhat out of proportion to the sulci laxity. In the appropriate setting this could suggest NPH. 2. No acute intracranial hemorrhage identified. No mass lesion is present Andrea Ndiaye MD Abdomen/Pelvis CT 10/03/17 1654 Signed Impressions: Service Date/Time: Tuesday, October 03, 2017 18:29 - CONCLUSION: 1. Right adrenal mass again seen. 2. Renal cysts. 3. Atherosclerosis. 4. Diverticulosis. Chance Lobo MD Laboratory Date/Time Source Procedure Growth Status 10/03/17 17:10 Urine Clean Catch Urine Culture - Final 50-100,000 CFU/ML MIXED LUIS... Complete Physical Examination HEENT: normocephalic; atraumatic; frail NECK: Neck is supple, thin CHEST: Chest diminished breath sounds with no audible rhonchi or wheezing CARDIAC: Regular rate and rhythm ABDOMEN: Soft, nondistended, left and right lower quadrant tenderness to light palpation; no hepatosplenomegaly; bowel sounds are present in all four quadrants. EXTREMITIES: No lower extremity edema. SKIN: Pale; no rash; no jaundice. DRAWER IN PLAIN LOOM: Drowsy, eyes closed, with strong but does occasionally join into conversation (Peyton Myers) Assessment and Plan Assessment: (1) Weakness ICD Codes: R53.1 - Weakness Status: Acute (2) Constipation ICD Codes: K59.00 - Constipation, unspecified Plan Left lower quadrant and right lower quadrant with some other diffuse abdominal pain seems to be related to acute on chronic constipation. Patient has tried multiple [id number] medications which includes laxatives and stool softeners but has had a hard time keeping this constipation under control. Patient also has generalized weakness and fatigue worse over the past [address] of the abdomen that was done on 10/03/17 showed right renal mass seen again atherosclerosis, renal cyst, and diverticulosis. Son states last EGD / upper scope was done back in 2016 unknown last colonoscopy/. She is a poor historian but thinks that she may have had some polyps in the past. Rarely patient is drowsy, appears to be withdrawn from conversation but does appear to be listening to conversation. Son is given most of her history Plan Diet trial clear liquids today and encourage by mouth fluids Relistor subcutaneous 1 Soapsuds enemas 2. One ordered for this p.m. and one again in the a.m. Zofran Pepcid twice a day Monitor labs with special attention to hemoglobin Supportive care CT of abdomen with and without contrast for comparison and her continued abdominal pain. BUN 24, creatinine 0.58. Colonoscopy, TBA when patient's stronger. Possible Wednesday. (Peyton Myers) Physician Comments Seen and examined with FUENTES, Chronic abdominal pain worse with constipation. Bowel regimen ordered. Repeat CT with contrast. ? colonoscopy next week if pt. agrees. Discussed with son at the bedside. Thank you (Anitha Travis MD) Peyton Myers Oct 10, 2017 14:15 Anitha Travis MD Oct 10, 2017 14:24
[2017-10-10] MEDS ORDERED: DIATRIZOATE MEGLUM/DIATRIZOATE SOD 9 ML CUP PO ONE (14:45)
[2017-10-10] MEDS ORDERED: METHYLNALTREXONE BROMIDE 12 MG/0.6 ML VIAL SQ ONE (15:00)
[2017-10-10 15:07] LABS: HEMATOCRIT 37.8 % (35.0-46.0); HEMOGLOBIN 12.6 GM/DL (11.6-15.3); MEAN CELL VOLUME 92.9 FL (80.0-100.0); MEAN CORPUSCULAR HEMOGLOBIN 30.9 PG (27.0-34.0); MEAN CORPUSCULAR HGB CONC 33.3 % (32.0-36.0); MEAN PLATELET VOLUME 10.6 FL (7.0-11.0); PLATELET COUNT 217 TH/MM3 (150-450); RED BLOOD COUNT 4.06 MIL/MM3 (4.00-5.30); WHITE BLOOD COUNT 12.9 TH/MM3 (4.0-11.0)
[2017-10-10] MEDS ORDERED: IOHEXOL 350 MG/ML 10 ML VIAL (for RAD DIAG) IVCONTRAST ONE (18:27)
--- NOTE | 2017-10-10 18:43 | RADRPT ---
EXAM DATE/TIME: 10/10/2017 18:24 [facility] COMPARISON: CT ABDOMEN & PELVIS W/O CONTRAST, July 24, 2017, 15:22. CT ABDOMEN & PELVIS W CONTRAST, October 03, 2017, 18:29. INDICATIONS : Constipation and nausea. IV CONTRAST: 75 cc Omnipaque 350 (iohexol) IV ORAL CONTRAST: Prescribed oral contrast ingested. RADIATION DOSE: 9.27 CTDIvol (mGy) MEDICAL HISTORY : Hypertension. SURGICAL HISTORY : Hysterectomy. ENCOUNTER: Initial ACUITY: 1 day PAIN SCALE: 4/10 LOCATION: abdomen TECHNIQUE: Volumetric scanning of the abdomen and pelvis was performed. Using automated exposure control and ad justment of the mA and/or kV according to patient size, radiation dose was kept as low as reasonably achievable to obtain optimal diagnostic quality images. DICOM format image data is available electro nically for review and comparison. FINDINGS: LOWER LUNGS: Mild bronchiectasis and scarring left base again seen. LIVER: Homogeneous density without lesion. There is no dilation of the biliary tree. Previous cholecystecto my. SPLEEN: Normal size without lesion. PANCREAS: Within normal limits. KIDNEYS: Bilateral renal cysts are again noted. No stones or hydronephrosis or hydroureter. ADRENAL GLANDS: 3.3 cm heterogeneously enhancing mass of the right adrenal gland again noted and not significantly ch anged in size. VASCULAR: There is no aortic aneurysm. BOWEL/MESENTERY: Normal amount of stool in the colon. Questionable mild wall thickening and induration of the sigmoid colon and rectum. No abscess or free fluid. No free air. Apparent pill fragment in the cecum. ABDOMINAL WALL: Within normal limits. RETROPERITONEUM: There is no lymphadenopathy. BLADDER: No wall thickening or mass. REPRODUCTIVE: Previous hysterectomy. No free fluid. INGUINAL: There is no lymphadenopathy or hernia. MUSCULOSKELETAL: No acute bony abnormality demonstrated. CONCLUSION: 1. Suspected mild proctocolitis, presumably infectious or inflammatory. No high-grade inflammatory ch anges, abscess or free air. Normal amount of stool in the colon. No obstruction. 2. Right adrenal mass and bilateral renal cysts are unchanged. Avila Hammer MD on October 10, 2017 at 18:34 Board Certified Radiologist. This report was verified electronically.
[2017-10-10] MEDS: ATORVASTATIN 20 MG TAB PO SCH (21:55)
[2017-10-11] VITALS: BP 125/84; PULSE 84; RESP 18; TEMP 97; O2SAT 98
[2017-10-11 04:00] VITALS: BP 154/69; PULSE 95; RESP 18; TEMP 97.3; O2SAT 97
[2017-10-11] MEDS: hydrALAZINE HCL 25 MG TAB PO SCH (05:48)
[2017-10-11] MEDS: LEVOTHYROXINE SODIUM 100 MCG TAB PO SCH (05:48)
[2017-10-11 08:08] VITALS: BP 159/72; PULSE 91; RESP 18; TEMP 97.4; O2SAT 96
[2017-10-11] MEDS: METOPROLOL SUCCINATE 50 MG EXTENDED RELEASE TAB PO SCH (10:02)
[2017-10-11] MEDS: NIFEdipine 90 MG SUSTAINED RELEASE TAB PO SCH (10:02)
[2017-10-11] MEDS: DOCUSATE SODIUM 50 MG/SENNA 8.6 MG TAB PO SCH (10:02)
[2017-10-11] MEDS: LISINOPRIL 20 MG TAB PO SCH (10:03)
[2017-10-11] MEDS: SODIUM CHLORIDE 0.9% FLUSH 10 ML FLUSH IV FLUSH SCH (10:03)
--- NOTE | 2017-10-11 11:30 | HHI.NSPN ---
(Isabelle Lindsay) Note Status Status: Progress Note (Isabelle Lindsay) Interval History Interval History Ms. 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 She was previously evaluated by Dr. Medina neurosurgeon in March 2017 after she presented with urinary urgency. She also was suffering from gait instability and memory difficulties. At that time Dr. Medina had discussed with her regarding conservative treatment versus placement of lumbar drain as well as a ventriculoperitoneal shunt placement however according to his notes was adamant and did not wish to undergo any invasive studies or surgery at that time. She presented back to [place] due to generalized weakness, as well as possible UTI. She is currently now awaiting placement of a lumbar drain ordered by Neurology. She has not had any changes in her symptoms. Neurosurgery was asked for lumbar drain management. 10/08: pt refused much of examination currently as states she just woke up and not feeling well to be examined, not following my commands. appears confused , oriented to name. lumbar drain clamped. neurology notes this am no imp in gait. awaiting PT eval. 10/11: lumbar drain dc'ed over the weekend. no improvement overall with drain. patient and son does not want surgical intervention. (Isabelle Lindsay) Labs, Micro, & Vital Signs Results Date Time Temp Pulse Resp B/P (MAP) Pulse Ox O2 Delivery O2 Flow Rate FiO2 10/11/17 08:08 97.4 91 18 159/72 (101) 96 10/11/17 04:00 97.3 95 18 154/69 (97) 97 10/11/17 00:00 97.0 84 18 125/84 (98) 98 10/10/17 20:00 98.0 70 18 121/60 (80) 94 10/10/17 16:00 98.0 77 16 141/62 (88) 94 10/10/17 12:00 97.6 65 16 119/56 (77) 95 Constitutional Vital Signs Date Time Temp Pulse Resp B/P (MAP) Pulse Ox O2 Delivery O2 Flow Rate FiO2 10/11/17 08:08 97.4 91 18 159/72 (101) 96 10/11/17 04:00 97.3 95 18 154/69 (97) 97 10/11/17 00:00 97.0 84 18 125/84 (98) 98 10/10/17 20:00 98.0 70 18 121/60 (80) 94 10/10/17 16:00 98.0 77 16 141/62 (88) 94 10/10/17 12:00 97.6 65 16 119/56 (77) 95 (Isabelle Lindsay) Review of Systems Neurologic: COMPLAINS OF: Abnormal gait Psychiatric: COMPLAINS OF: Confusion (Isabelle Lindsay) Physical Exam Gen: elderly woman, in no acute distress in bed HEENT: no gross abnormalities, nonicteric sclera Neuro: alert, confused, oriented to self. Cranial nerve: pupils appears grossly equal, and facial appears grossly symmetric. Musculoskeletal: she is moving all four extremities spontaneously appears to be symmetrical. No swelling. Cerebellar examination cannot assess Resp: breathing comfortably in room air, no wheezing Heart: regular rate rhythm (Isabelle Lindsay) elderly woman, in no acute distress in bed HEENT: no gross abnormalities, nonicteric sclera Neuro: alert, confused, oriented to self. Cranial nerve: pupils appears grossly equal, and facial appears grossly symmetric. Musculoskeletal: she is moving all four extremities spontaneously appears to be symmetrical. No swelling. Cerebellar examination cannot assess Resp: breathing comfortably in room air, no wheezing Heart: regular rate rhythm Skin. arm and dry (Everett Brown MD) Medications Current Medications Current Medications Medications (Trade) Dose Ordered Sig/Park Route PRN Reason Start Time Stop Time Status Last Admin Dose Admin Sodium Chloride (NS Flush) 2 ml UNSCH PRN IV FLUSH FLUSH AFTER USING IV ACCESS 10/03/17 23:00 10/06/17 11:17 Sodium Chloride (NS Flush) 2 ml BID IV FLUSH 10/04/17 09:00 10/11/17 10:03 Acetaminophen (Tylenol) 650 mg Q4H PRN PO TEMP > 100.4 10/03/17 23:00 10/10/17 21:56 Ondansetron HCl (Zofran Inj) 4 mg Q6H PRN IVP NAUSEA OR VOMITING 10/03/17 23:00 10/10/17 11:29 Naloxone HCl (Narcan Inj) 0.4 mg UNSCH PRN IV PUSH SEE LABEL COMMENTS 10/03/17 23:00 Atorvastatin Calcium (Lipitor) 20 mg HS PO 10/04/17 21:00 10/10/17 21:55 Levothyroxine Sodium (Synthroid) 100 mcg DAILY@0600 PO 10/04/17 06:00 10/11/17 05:48 Meclizine HCl (Antivert) 25 mg TID PRN PO VERTIGO 10/04/17 00:15 10/10/17 08:08 Metoprolol Succinate (Toprol Xl) 50 mg DAILY PO 10/04/17 09:00 10/11/17 10:02 Enalaprilat (Vasotec Inj) 1.25 mg Q6H PRN IV PUSH SBP>160, DBP>90 10/04/17 02:00 10/06/17 11:16 Nifedipine (Procardia Xl) 90 mg DAILY PO 10/08/17 09:00 10/11/17 10:02 Hydralazine HCl (Apresoline) 25 mg Q8HR PO 10/07/17 10:30 10/11/17 05:48 Bisacodyl (Dulcolax Supp) 10 mg DAILY PRN RECTAL CONSTIPATION 10/08/17 16:30 10/10/17 02:49 Senna/Docusate Sodium (Julia-Colace) 1 tab BID PO 10/08/17 21:00 10/11/17 10:02 Simethicone (Mylicon Chew) 160 mg Q4H PRN PO GAS RETENTION 10/08/17 17:45 Simethicone (Mylicon Chew) 80 mg PCHS PRN CHEW gas 10/08/17 19:15 Lisinopril (Prinivil) 40 mg DAILY PO 10/10/17 09:00 10/11/17 10:03 (Isabelle Lindsay) Current Medications Current Medications Iohexol (Omnipaque 350 Inj) 94 ml STK-MED ONCE IVCONTRAST Last administered on 10/03/17at 18:30; Start 10/03/17 at 18:30; Stop 10/03/17 at 18:34; Status DC Sodium Biphosphate/ Sodium Phosphate (Fleets Enema (Adult)) 133 ml ONCE ONCE RECTAL Last administered on 10/03/17 19:33; Start 10/03/17 at 19:00; Stop at 19:01; Status DC Ceftriaxone Sodium 1000 mg/ Sodium Chloride 100 ml @ 200 mls/hr ONCE ONCE IV Last administered on 10/03/17 20:24; Start 10/03/17 at 20:30; Stop 10/03/17 at 20: 59; Status DC Ondansetron HCl (Zofran Inj) 4 mg ONCE ONCE IV PUSH Last administered on 20:48; Start 10/03/17 at 20:45; Stop 10/03/17 at 20:46; Status DC Sodium Chloride 500 ml @ 500 mls/hr BOLUS ONCE IV Last administered on 20:47; Start 10/03/17 at 20:45; Stop 10/03/17 at 21:44; Status DC Sodium Chloride (NS Flush) 2 ml UNSCH PRN IV FLUSH FLUSH AFTER USING IV ACCESS Last administered on 10/06/17 11:17; Start 10/03/17 at 23:00 Sodium Chloride (NS Flush) 2 ml BID IV FLUSH Last administered on 10/11/17 10: 03; Start 10/04/17 at 09:00 Acetaminophen (Tylenol) 650 mg Q4H PRN PO TEMP > 100.4 Last administered on 10/10 21:56; Start 10/03/17 at 23:00 Ondansetron HCl (Zofran Inj) 4 mg Q6H PRN IVP NAUSEA OR VOMITING Last administered on 10/10/17 11:29; Start 10/03/17 at 23:00 Naloxone HCl (Narcan Inj) 0.4 mg UNSCH PRN IV PUSH SEE LABEL COMMENTS; Start at 23:00 Ceftriaxone Sodium 1000 mg/ Sodium Chloride 100 ml @ 200 mls/hr Q24H IV Last administered on 10/09/17 22:57; Start 10/04/17 at 23:00; Stop 10/10/17 at 10:27; Status DC Atorvastatin Calcium (Lipitor) 20 mg HS PO Last administered on 10/10/17 21:55 ; Start 10/04/17 at 21:00 Levothyroxine Sodium (Synthroid) 100 mcg DAILY@0600 PO Last administered on 10/11 05:48; Start 10/04/17 at 06:00 Lisinopril (Prinivil) 20 mg BID PO Last administered on 10/09/17 08:21; Start 10/04/17 at 09:00; Stop 10/09/17 at 10:18; Status DC Meclizine HCl (Antivert) 25 mg TID PRN PO VERTIGO Last administered on 08:08; Start 10/04/17 at 00:15 Metoprolol Succinate (Toprol Xl) 50 mg DAILY PO Last administered on 10/11/17 10:02; Start 10/04/17 at 09:00 Heparin Sodium (Porcine) (Heparin Inj) 5,000 units Q12HR SQ Last administered on 10/06/17 23:25; Start 10/04/17 at 09:00; Stop 10/07/17 at 09:45; Status DC Enalaprilat (Vasotec Inj) 1.25 mg Q6H PRN IV PUSH SBP>160, DBP>90 Last administered on 10/06/17at 11:16; Start 10/04/17 at 02:00 Sodium Chloride 1,000 ml @ 75 mls/hr [id number] IV Last administered on 10/04/17at 17:46; Start 10/04/17 at 18:00; Stop 10/05/17 at 14:57; Status DC Nifedipine (Procardia Xl) 30 mg ONCE ONCE PO Last administered on 10/05/17 15: 22; Start 10/05/17 at 15:00; Stop 10/05/17 at 15:01; Status DC Nifedipine (Procardia Xl) 30 mg DAILY PO ; Start 10/06/17 at 09:00; Stop 10/06/17 at 09:00; Status DC Ciprofloxacin (Cipro) 250 mg Q12HR PO Last administered on 10/09/17at 09:05; Start 10/05/17 at 21:00; Stop 10/09/17 at 10:10; Status DC Nifedipine (Procardia Xl) 60 mg DAILY PO Last administered on 10/07/17at 09:35; Start 10/06/17 at 09:00; Stop 10/07/17 at 10:19; Status DC Senna/Docusate Sodium (Julia-Colace) 1 tab ONCE ONCE PO Last administered on 17:36; Start 10/06/17 at 16:45; Stop 10/06/17 at 16:46; Status DC Senna/Docusate Sodium (Julia-Colace) 1 tab DAILY PO Last administered on 09:39; Start 10/07/17 at 09:00; Stop 10/08/17 at 15:14; Status DC Bisacodyl (Dulcolax Supp) 10 mg ONCE ONCE RECTAL Last administered on 17:36; Start 10/06/17 at 16:45; Stop 10/06/17 at 16:46; Status DC Nifedipine (Procardia Xl) 90 mg DAILY PO Last administered on 10/11/17 10:02; Start 10/08/17 at 09:00 Hydralazine HCl (Apresoline) 25 mg Q8HR PO Last administered on 10/11/17 05:48 ; Start 10/07/17 at 10:30 Fentanyl Citrate (fentaNYL INJ) 100 mcg STK-MED ONCE .ROUTE ; Start 10/07/17 at 12:53; Stop 10/07/17 at 12:54; Status DC Midazolam HCl (Versed Inj) 2 mg STK-MED ONCE .ROUTE ; Start 10/07/17 at 12:53; Stop 10/07/17 at 12:54; Status DC Cyanocobalamin (Vitamin B12 Inj) 1,000 mcg DAILY SQ Last administered on 08:08; Start 10/08/17 at 09:00; Stop 10/11/17 at 08:59; Status DC Bisacodyl (Dulcolax Supp) 10 mg DAILY PRN RECTAL CONSTIPATION Last administered on 10/10/17 02:49; Start 10/08/17 at 16:30 Senna/Docusate Sodium (Julia-Colace) 1 tab BID PO Last administered on 10/11/17 10:02; Start 10/08/17 at 21:00 Simethicone (Mylicon Chew) 160 mg Q4H PRN PO GAS RETENTION; Start 10/08/17 at 17 :45 Simethicone (Mylicon Chew) 80 mg ONCE ONCE CHEW Last administered on 4/6/18at 21:02; Start 10/08/17 at 19:15; Stop 10/08/17 at 19:19; Status DC Simethicone (Mylicon Chew) 80 mg PCHS PRN CHEW gas; Start 10/08/17 at 19:15 Lisinopril (Prinivil) 20 mg ONCE ONCE PO Last administered on 10/09/17at 10:43; Start 10/09/17 at 10:30; Stop 10/09/17 at 10:31; Status DC Lisinopril (Prinivil) 40 mg DAILY PO Last administered on 10/11/17at 10:03; Start 10/10/17 at 09:00 Magnesium Hydroxide (Milk Of Magnesia Liq) 30 ml ONCE ONCE PO Last administered on 10/10/17at 13:51; Start 10/10/17 at 12:00; Stop 10/10/17 at 12:01; Status DC Morphine Sulfate (Morphine Inj) 1 mg ONCE ONCE IV PUSH ; Start 10/10/17 at 12:30 ; Stop 10/10/17 at 12:57; Status DC Methylnaltrexone [place] (Relistor Inj) 12 mg ONCE ONCE SQ Last administered on 10/10/17at 17:03; Start 10/10/17 at 15:00; Stop 10/10/17 at 15:01; Status DC Diatrizoate Meglum/ Diatrizoate Sod ( Gastroview Liq) 18 ml ONCE ONCE PO Last administered on 10/10/17at 16:05; Start 10/10/17 at 14:45; Stop 10/10/17 at 14: 46; Status DC Iohexol (Omnipaque 350 Inj) 75 ml STK-MED ONCE IVCONTRAST Last administered on 10/10/17at 18:27; Start 10/10/17 at 18:27; Stop 10/10/17 at 18:28; Status DC (Everett Brown MD) Medical Decision Making MDM Remarks 87 y/o female suspected NPH, s/p placement of lumbar drain, no improvement in gait, symptoms. lumbar drain dc'ed. (Isabelle Lindsay) Plan Plan Remarks do not recommend placement of permanent shunt cont medical management cont therapy dw son and patient will sign off, call prn (Isabelle Lindsay) Attending Statement No significant improvement on the gait Continue neuro checks Continue aggressive pulmonary toilette, nasotracheal suction, and breathing treatments with nebulizers. Renal. monitor closely urine output, BUN and creatinine Endocrine. Monitor serial Acu checks and SSI as needed in detail ID monitor for signs of infection Protonix for stress ulcer prophylaxis Brian hose and SCD's for DVT prophylaxis. Can Discontinue lumbar drain if OK with Dr Champagne The exam, history, and the medical decision-making described in the above note were completed with the assistance of the mid-level provider. I reviewed and agree with the findings presented. I attest that I had a [id number] encounter with the patient on the same day, and personally performed and documented my assessment and findings in the medical record. (Everett Brown MD) Isabelle Lindsay Oct 11, 2017 11:30 Everett Brown MD Oct 11, 2017 14:19
--- NOTE | 2017-10-11 12:14 | HHI.PR ---
Subjective Remarks Follow up Suspected NPH 10/11/17-patient seen and examined in the presence of her son; she reports improvement of abdominal pain; however patient still with some gait instability.she does not want anymore workup for abdominal pain including colonoscopy.states she would like to be discharged home. Son, states he would take care of his mom Objective Vitals Vital Signs Date Time Temp Pulse Resp B/P (MAP) Pulse Ox O2 Delivery O2 Flow Rate FiO2 10/11/17 08:08 97.4 91 18 159/72 (101) 96 10/11/17 04:00 97.3 95 18 154/69 (97) 97 10/11/17 00:00 97.0 84 18 125/84 (98) 98 10/10/17 20:00 98.0 70 18 121/60 (80) 94 10/10/17 16:00 98.0 77 16 141/62 (88) 94 I/O 10/10/17 10/10/17 10/10/17 10/11/17 10/11/17 10/11/17 07:00 15:00 23:00 07:00 15:00 23:00 # Voids 3 # Bowel Movements 1 2 Result Diagram: 10/10/17 1425 10/07/17 0519 Imaging Last Impressions Hip and Pelvis X-Ray 10/10/17 0000 Signed Impressions: Service Date/Time: Tuesday, October 10, 2017 08:45 - CONCLUSION: No acute disease. No evidence of fracture. Carmel Yen MD Abdomen/Pelvis CT 10/10/17 0000 Signed Impressions: Service Date/Time: Tuesday, October 10, 2017 18:24 - CONCLUSION: 1. Suspected mild proctocolitis, presumably infectious or inflammatory. No high-grade inflammatory changes, abscess or free air. Normal amount of stool in the colon. No obstruction. 2. Right adrenal mass and bilateral renal cysts are unchanged. Avila Hammer MD Lumbar Puncture Fluoroscopy 10/07/17 0000 Signed Impressions: Service Date/Time: October 12:25 - CONCLUSION: Uncomplicated lumbar drain placement as above. Johnathan Arias MD Brain MRI 10/05/17 [id number] Signed Impressions: Service Date/Time: Thursday, October 05, 2017 10:26 - CONCLUSION: No acute infarct or other acute intracranial abnormality. Chronic ventriculomegaly. Atrophy and chronic white matter changes. Avila Hammer MD Head CT 10/04/17 0000 Signed Impressions: Service Date/Time: Wednesday, October 04, 2017 12:34 - CONCLUSION: 1. Dilation of the ventricular system which is somewhat out of proportion to the sulci laxity. In the appropriate setting this could suggest NPH. 2. No acute intracranial hemorrhage identified. No mass lesion is present Andrea Ndiaye MD Objective Remarks GENERAL: NAD SKIN: Warm and dry. HEAD: Normocephalic. EYES: No scleral icterus. No injection or drainage. NECK: Supple, trachea midline. No JVD or lymphadenopathy. CARDIOVASCULAR: Regular rate and rhythm without murmurs, gallops, or rubs. RESPIRATORY: Breath sounds equal bilaterally. No accessory muscle use. GASTROINTESTINAL: Abdomen soft, non-tender, nondistended. MUSCULOSKELETAL: No cyanosis, or edema. BACK: Nontender without obvious deformity. No CVA tenderness. A/P Problem List: (1) NPH (normal pressure hydrocephalus) ICD Code: G91.2 - (Idiopathic) normal pressure hydrocephalus (2) Urinary tract infection ICD Code: N39.0 - Urinary tract infection Status: Acute (3) Cerebral ventriculomegaly ICD Code: G93.89 - Other specified disorders of brain Assessment and Plan 87 years old female with Suspected NPH s/p placement of lumbar drain, no improvement in gait, symptoms. lumbar drain dc 'ed. At this point, Neurosurgery do not recommend placement of permanent shunt; and advised to continue medical management Parkinsonism? -Neurology advised patient to follow up outpatient with Neuro for Sinemet trial UTI - Recurrent UTIs - completed course of Rocephin and Cipro - UC shows mixed bacteria Hypertension - Hydralazine 25 mg Po q8 - lisinopril 40 mg PO daily - Metoprolol 50 mg - Procardia 90 mg daily - enalapril 1.25 mg prn Abdominal pain/Constipation-- Now resolved - CT scan on admission shows diverticulosis - Gastro input appreciated -s/p Relistor subcutaneous 1 and Soapsuds enemas 2. -Patient declined Colonoscopy Hyperlipidemia - Continue statin Hypothyroidism - Continue Synthroid Anxiety - Ativan when necessary DVT proph - heparin Problem Qualifiers (1) Urinary tract infection: Qualified Codes: N30.00 - Acute cystitis without hematuria Arias Zepeda MD Oct 11, 2017 12:14
--- NOTE | 2017-10-11 12:28 | HHI.DS ---
Discharge Summary Admission Date Oct 07, 2017 at 10:21 Discharge Date: Oct 11, 2017 Admitting Diagnosis complicated UTI, weakness (1) NPH (normal pressure hydrocephalus) ICD Code: G91.2 - (Idiopathic) normal pressure hydrocephalus (2) Urinary tract infection ICD Code: N39.0 - Urinary tract infection Status: Acute (3) Cerebral ventriculomegaly ICD Code: G93.89 - Other specified disorders of brain Procedures None Brief History - From Admission 87-year-old female with a past medical history significant for hypertension, hyperlipidemia, vertigo and frequent urinary tract infections presents the emergency department for evaluation of increasingly worsening dizziness and weakness. The patient reports she is dizzy at baseline for which she takes meclizine and has frequent falls secondary to this however today her symptoms acutely worsened. She also states that she has been treated with antibiotics once in July, twice in August and continues to have increasing urinary frequency and UTI symptoms. She states that her UTIs worsen her dizziness and weakness symptoms. The patient denies any shortness of breath or chest pain. No nausea/vomiting/diarrhea. No burning with urination. No lateralizing signs/ symptoms. No abdominal pain. CBC/BMP: 10/10/17 1425 10/07/17 0519 Significant Findings Laboratory Tests Test 10/10/17 14:25 White Blood Count 12.9 TH/MM3 (4.0-11.0) Red Cell Distribution Width 18.0 % (11.6-17.2) Imaging Last Impressions Hip and Pelvis X-Ray 10/10/17 0000 Signed Impressions: Service Date/Time: Tuesday, October 10, 2017 08:45 - CONCLUSION: No acute disease. No evidence of fracture. Carmel Yen MD Abdomen/Pelvis CT 10/10/17 0000 Signed Impressions: Service Date/Time: Tuesday, October 10, 2017 18:24 - CONCLUSION: 1. Suspected mild proctocolitis, presumably infectious or inflammatory. No high-grade inflammatory changes, abscess or free air. Normal amount of stool in the colon. No obstruction. 2. Right adrenal mass and bilateral renal cysts are unchanged. Avila Hammer MD Lumbar Puncture Fluoroscopy 10/07/17 0000 Signed Impressions: Service Date/Time: October 12:25 - CONCLUSION: Uncomplicated lumbar drain placement as above. Johnathan Arias MD Brain MRI 10/05/17 1717 Signed Impressions: Service Date/Time: Thursday, October 05, 2017 10:26 - CONCLUSION: No acute infarct or other acute intracranial abnormality. Chronic ventriculomegaly. Atrophy and chronic white matter changes. Avila Hammer MD Head CT 10/04/17 0000 Signed Impressions: Service Date/Time: Wednesday, October 04, 2017 12:34 - CONCLUSION: 1. Dilation of the ventricular system which is somewhat out of proportion to the sulci laxity. In the appropriate setting this could suggest NPH. 2. No acute intracranial hemorrhage identified. No mass lesion is present Andrea Ndiaye MD PE at Discharge GENERAL: NAD SKIN: Warm and dry. HEAD: Normocephalic. EYES: No scleral icterus. No injection or drainage. NECK: Supple, trachea midline. No JVD or lymphadenopathy. CARDIOVASCULAR: Regular rate and rhythm without murmurs, gallops, or rubs. RESPIRATORY: Breath sounds equal bilaterally. No accessory muscle use. GASTROINTESTINAL: Abdomen soft, non-tender, nondistended. MUSCULOSKELETAL: No cyanosis, or edema. BACK: Nontender without obvious deformity. No CVA tenderness. Hospital Course While in the hospital, patient was treated for; Suspected NPH s/p placement of lumbar drain, however patient had no significant improvement in gait, symptoms. lumbar drain dc'ed. At this point, Neurosurgery did not recommend placement of permanent shunt; and advised to continue medical management Physical therapy was consulted Parkinsonism? --Neurology advised patient to follow up outpatient with Neuro for Sinemet trial UTI - Recurrent UTIs - completed course of Rocephin and Cipro - UC shows mixed bacteria Hypertension - Treated with home antihypertensive medications Abdominal pain/Constipation-- Now resolved - CT scan on admission shows diverticulosis - Gastro input appreciated -s/p Relistor subcutaneous 1 and Soapsuds enemas 2. -Patient declined Colonoscopy Hyperlipidemia - Treated with statin Hypothyroidism - Treated with Synthroid Anxiety - Ativan when necessary DVT proph - heparin Pt Condition on Discharge: Good Discharge Disposition: Discharge to SNF Discharge Time: > 30 minutes Discharge Instructions DIET: Follow Instructions for: Heart Healthy Diet Activities you can perform: Regular-No Restrictions Other Activity Instructions: Up with assistance Follow up Referrals: Neurology - 1 Week with Johnathan Hampton MD PCP Follow-up - 1 Week with Coretta Schroeder MD New Medications: Nifedipine ER 24 HR (Nifedipine ER 24 HR) 30 Mg Tab 60 MG PO DAILY for Blood Pressure Management for 30 Days, #60 TAB Continued Medications: Atorvastatin (Atorvastatin) 20 Mg Tab 20 MG PO HS for Cholesterol Management, #30 TAB 0 Refills Levothyroxine (Synthroid) 100 Mcg Tab 100 MCG PO DAILY@0600, #30 TAB Lisinopril (Lisinopril) 20 Mg Tab 20 MG PO BID, #60 TAB Meclizine (Meclizine) 25 Mg Tab 25 MG PO TID PRN for VERTIGO, #90 TAB 3 Refills Metoprolol Succinate ER 24 HR (Metoprolol Succinate ER 24 HR) 50 Mg Tab 50 MG PO DAILY, #30 TAB 0 Refills Discontinued Medications: Hydrocodone-Acetaminophen (Hydrocodone-Acetaminophen) 5-325 mg Tab 1 TAB PO Q6H PRN for PAIN, TAB 0 Refills Arias Zepeda MD Oct 11, 2017 12:28
[2017-10-11 12:37] VITALS: BP 142/61; PULSE 71; RESP 18; TEMP 97.2; O2SAT 98
--- NOTE | 2017-10-11 13:49 | HHI.FF ---
Face to Face Verification Diagnosis: (1) Cerebral ventriculomegaly (2) Impaired mobility and activities of daily living (3) NPH (normal pressure hydrocephalus) (4) UTI (urinary tract infection) Physical Therapy Order: Evaluate and Treat Home Health Nursing Order: Signs/symptoms of disease process I have seen patient Hanny Mccloud on 10/11/17. My clinical findings support the need for the requested home health care services because: Ltd mobility - disease progression Deconditioned w/ increased weakness I certify that my clinical findings support that this patient is homebound because: Unsteady gait/balance Unsafe to leave home unassisted Arias Zepeda MD Oct 11, 2017 13:49
== END 2017-10-11 16:37 | disposition home health service (06) | DRG 57 ==
LOC: NEPC 16:38 → NEDA 22:11 → NEPFCDU 23:28 → OBSVTOIN 10-07 10:21 → N05B 10-07 12:23 → N05A 10-07 16:15
PROVIDERS: ADMIT Hospitalist; ATTEND Hospitalist
PROC: 009U3ZZ Drainage of Spinal Canal, Percutaneous Approach (ICD-10-PCS; principal; 2017-10-07)
PROC: B01BZZZ Fluoroscopy of Spinal Cord (ICD-10-PCS; 2017-10-07)
DX: G91.2 (Idiopathic) normal pressure hydrocephalus (principal); I11.0 Hypertensive heart disease with heart failure; I50.9 Heart failure, unspecified; F03.90 Unspecified dementia, unspecified severity, without behavioral disturbance, psychotic disturbance, mood disturbance, and anxiety; G20 Parkinson's disease; N39.0 Urinary tract infection, site not specified; G93.89 Other specified disorders of brain; K59.00 Constipation, unspecified; R42 Dizziness and giddiness; E78.5 Hyperlipidemia, unspecified; R53.1 Weakness; E27.9 Disorder of adrenal gland, unspecified; E03.9 Hypothyroidism, unspecified; F41.9 Anxiety disorder, unspecified; K21.9 Gastro-esophageal reflux disease without esophagitis; R29.6 Repeated falls; Z66 Do not resuscitate; M19.90 Unspecified osteoarthritis, unspecified site; Z79.899 Other long term (current) drug therapy; Z87.440 Personal history of urinary (tract) infections
CPT/HCPCS: 63741; 70450; 70551; 73502; 74177; 77003; 80048; 80053; 80069; 81001; 82607; 82746; 83690; 83735; 83921; 84425; 84439; 84443; 85025; 85027; 85610; 85652; 85730; 86038; 86039; 86140; 86430; 86592; 87086; 93005; 96361; 96365; 96372; 96375; 96376; C1755; G0378; G8987-GP; G8988-GP; J0696; J1644; J2212; J2250; J2405; J3010; J3420; J7030; J7040; Q9963; Q9967

== ENCOUNTER 2017-12-11 11:51 | Emergency (ER) | payer MEDICARE, BC ==
[~2017-12-11] VITALS: Ht 157.5 cm; Wt 56.6 kg
[~2017-12-11 11:51] MED LIST changes: -AUGM875T3 PO; -CIPR-9 PO; +NIFE30TA8 PO; -NIFE60TA8 PO; -TEMA7.5C9 PO
[2017-12-11 11:53] VITALS: BP 197/118; PULSE 88; RESP 20; TEMP 97.7; O2SAT 97
[2017-12-11] MEDS ORDERED: BACT800T5 PO (12:17)
[2017-12-11 12:20] VITALS: BP 144/63; PULSE 73; RESP 18; O2SAT 95
--- NOTE | 2017-12-11 12:25 | PD ---
HPI Chief Complaint: Complaint Time Seen by Provider: 12:07 Travel History International Travel<30 days: No Contact w/Intl Traveler<30days: No Traveled to known affect area: No History of Present Illness HPI The patient was seen and examined in the presence of the nurse. This patient is concerned about having an allergic reaction. She saw her physician 2 days ago and was diagnosed with UTI. She started on Bactrim 2 days ago. She developed yesterday a blister on the roof of her mouth. It has popped. It hurts her a bit. No other new lesions since starting the medication. No hives or itching or wheezing or shortness of breath. She did mention a red circular patch on her thigh but that preceded the antibiotic prescription. She also complains of some generalized weakness and has lightheadedness and dizziness. She does take meclizine and this is not a new problem but she is concerned about it so we will evaluate. No alleviating factors. No exacerbating factors. 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) Cardiovascular Problems: Yes High Cholesterol: Yes Chemotherapy: No Chest Pain: No Congestive Heart Failure: Yes COPD: No Cerebrovascular Accident: No Diabetes: No Diminished Hearing: No Endocrine: Yes (thyroid removed) Gastrointestinal Disorders: Yes (Has adrenal gland tumor) GERD: Yes Glaucoma: No Genitourinary: Yes (INCONTINENT) Headaches: No Hepatitis: No Hiatal Hernia: No Heparin Induced Thrombocytopen: No Hypertension: Yes Immune Disorder: Yes Implanted Vascular Access Dvce: No Kidney Stones: No Medical other: Yes (back/neck problems,arthritis,lupus,reflux) Musculoskeletal: Yes Neurologic: Yes Psychiatric: Yes Reproductive: Yes Respiratory: Yes Migraines: No Radiation Therapy: No Renal Failure: No Seizures: No Sickle Cell Disease: No Sleep Apnea: Yes (wear sleep right nasal strips) Thyroid Disease: Yes (THYROIDECTOMY) Ulcer: No Influenza Vaccination: Yes PNEUMOCCOCAL Vaccine (Year): 1 ?: Not Menopausal: Yes : 2 Para: 2 Past Surgical History Abdominal Surgery: Yes ([facility] age 40 ) AICD: No Arteriovenous Shunt: No Cholecystectomy: Yes (2016 per son) Ear Surgery: No Endocrine Surgery: Yes (complete thyroidectomy) Eye Surgery: Yes ("DOCTOR PLUGGED UP EYE DUCTS") Gynecologic Surgery: Yes (hysterectomy right breast benign tumor removed) Hysterectomy: Yes Insulin Pump: No Joint Replacement: No Oral Surgery: No Pacemaker: No Other Surgery: Yes Social History Alcohol Use: No Tobacco Use: No (QUIT 1996 ) Substance Use: No Allergies-Medications (Allergen,Severity, Reaction): Coded Allergies: tetanus toxoid, adsorbed (Unverified Allergy, Severe, FEVER, 12/11/17) cefuroxime (Unverified Adverse Reaction, Intermediate, UPSET STOMACH, ) Reported Meds & Prescriptions Reported Meds & Active Scripts Active Magic Mouthwash Adult Liq (Multi-Ingredient Mouthwash/Gargle) 120 Ml Susp 5 Ml SWISH-SWAL ACHS Each 5mL contains: Nystatin 200,000units, Diphenhydramine 4.25mg, Viscous Lidocaine 10mg, Valadez syrup 0.8 mL Macrobid (Nitrofurantoin Monohydrate Macrocrystals) 100 Mg Capsule 100 Mg PO BID Nifedipine ER 24 HR (Nifedipine) 30 Mg Tab 60 Mg PO DAILY 30 Days Meclizine (Meclizine HCl) 25 Mg Tab 25 Mg PO TID PRN Synthroid (Levothyroxine Sodium) 100 Mcg Tab 100 Mcg PO DAILY@0600 Lisinopril 20 Mg Tab 20 Mg PO BID Metoprolol Succinate ER 24 HR (Metoprolol Succinate) 50 Mg Tab 50 Mg PO DAILY Atorvastatin (Atorvastatin Calcium) 20 Mg Tab 20 Mg PO HS Commode 3-in-1 (Device) 1 Mis Mis Ea .ROUTE DIRECTED Wheelchair (Device) 1 Mis Mis Ea .ROUTE DIRECTED Reported Bactrim DS (Sulfamethoxazole-Trimethoprim) 800-160 Mg Tab 1 Tab PO BID Review of Systems General / Constitutional: No: Fever Eyes: No: Visual changes HENT: Positive: Vertigo, Lightheadedness, No: Headaches Cardiovascular: No: Chest Pain or Discomfort Respiratory: No: Shortness of Breath Gastrointestinal: No: Abdominal Pain Genitourinary: No: Dysuria Musculoskeletal: Positive: Weakness, No: Pain Skin: No Rash Neurologic: Positive: Weakness, Dizziness Psychiatric: No: Depression Endocrine: No: Polydipsia Hematologic/Lymphatic: No: Easy Bruising Physical Exam Narrative GENERAL: Well-nourished, well-developed patient in no apparent distress. SKIN: Focused skin assessment reveals no rash and nodules. Skin is Warm and dry. Red circular patch in the thigh that is macular erythema. No induration or tenderness. HEAD: Atraumatic. Normocephalic. EYES: Pupils equal and round. No scleral icterus. No injection or drainage. ENT: No nasal bleeding or discharge. Mucous membranes pink and moist. Patient has a blister on the roof the mouth. It is about 1 cm diameter. There is no erythematous base. There is no other lesions or swelling. NECK: Trachea midline. No JVD. CARDIOVASCULAR: Regular rate and rhythm. No murmur appreciated. RESPIRATORY: No accessory muscle use. Clear to auscultation. Breath sounds equal bilaterally. GASTROINTESTINAL: Abdomen soft, non-tender, nondistended. Hepatic and splenic margins not palpable. MUSCULOSKELETAL: No obvious deformities. No clubbing. No cyanosis. No edema. NEUROLOGICAL: Awake and alert. No obvious cranial nerve deficits. Motor grossly within normal limits. Normal speech. PSYCHIATRIC: Appropriate mood and affect; insight and judgment normal. Data Data Last Documented VS Vital Signs Date Time Temp Pulse Resp B/P (MAP) Pulse Ox O2 Delivery O2 Flow Rate FiO2 12/11/17 12:20 73 18 144/63 (90) 95 Room Air 12/11/17 11:53 97.7 Orders Orders Complete Blood Count With Diff (12/11/17 12:19) Comprehensive Metabolic Panel (12/11/17 12:19) Thyroid Stimulating Hormone (12/11/17 12:19) Iv Access Insert/Monitor (12/11/17 12:19) Hydromorphone Pf Inj (Dilaudid Pf Inj) (12/11/17 12:30) Labs Laboratory Tests Test 12/11/17 12:30 White Blood Count 7.1 TH/MM3 Red Blood Count 4.06 MIL/MM3 Hemoglobin 12.8 GM/DL Hematocrit 38.6 % Mean Corpuscular Volume 95.1 FL Mean Corpuscular Hemoglobin 31.5 PG Mean Corpuscular Hemoglobin Concent 33.1 % Red Cell Distribution Width 17.0 % Platelet Count 209 TH/MM3 Mean Platelet Volume 9.6 FL Neutrophils (%) (Auto) 52.7 % Lymphocytes (%) (Auto) 35.2 % Monocytes (%) (Auto) 8.0 % Eosinophils (%) (Auto) 2.6 % Basophils (%) (Auto) 1.5 % Neutrophils # (Auto) 3.7 TH/MM3 Lymphocytes # (Auto) 2.5 TH/MM3 Monocytes # (Auto) 0.6 TH/MM3 Eosinophils # (Auto) 0.2 TH/MM3 Basophils # (Auto) 0.1 TH/MM3 CBC Comment DIFF FINAL Differential Comment Blood Urea Nitrogen 23 MG/DL Creatinine 0.82 MG/DL Random Glucose 112 MG/DL Total Protein 8.2 GM/DL Albumin 4.1 GM/DL Calcium Level 8.8 MG/DL Alkaline Phosphatase 78 U/L Aspartate Amino Transf (AST/SGOT) 19 U/L Alanine Aminotransferase (ALT/SGPT) 20 U/L Total Bilirubin 0.4 MG/DL Sodium Level 141 MEQ/L Potassium Level 3.7 MEQ/L Chloride Level 109 MEQ/L Carbon Dioxide Level 23.8 MEQ/L Anion Gap 8 MEQ/L Estimat Glomerular Filtration Rate 66 ML/MIN Thyroid Stimulating Hormone 3rd Gen 0.186 uIU/ML MDM Medical Decision Making Medical Screen Exam Complete: Yes Emergency Medical Condition: Yes Medical Record Reviewed: Yes Differential Diagnosis Allergic reaction, Arturo Jose syndrome, electrolyte abnormality Narrative Course I have reviewed the patient's electronic medical record. Patient's had multiple urine studies done here before. Last culture grew Proteus sensitive to all antibiotics IV placed and labs sent CBC and CMP and TSH are all normal She is going to stop the Bactrim. I am substituting with a course of Macrobid I do not believe she has Hale-Jose syndrome. She is one isolated blister in her mouth and no other findings. Diagnosis Primary Impression: Medication side effect Additional Impressions: Blister (nonthermal) of oral cavity, initial encounter Generalized weakness Lightheadedness Additional Instructions: The patient was advised to follow up with their physician and return if they worsen. Med/Other Pt SpecificInfo: Prescription(s) given Scripts Bpmfloru-Ckewuxenstliyvg-Jnasbfgyw Liq (Magic Mouthwash Adult Liq) 120 Ml Susp 5 ML SWISH-SWAL ACHS for Mouth sores, #120 ML 0 Refills Each 5mL contains: Nystatin 200,000units, Diphenhydramine 4.25mg, Viscous Lidocaine 10mg, Valadez syrup 0.8 mL Prov: Johnnie Alvarez MD 12/11/17 Nitrofurantoin Monohydrate Macrocrystals (Macrobid) 100 Mg Capsule 100 MG PO BID for Infection, #10 CAP 0 Refills Prov: Johnnie Alvarez MD 12/11/17 Disposition: 01 DISCHARGE HOME Condition: Stable Johnnie Alvarez MD Dec 11, 2017 12:25
[2017-12-11] MEDS ORDERED: HYDROmorphone HCL PF 2 MG/ML VIAL IVP ONE (12:30)
[2017-12-11 12:34] LABS: AUTOMATED NEUTROPHIL # 3.7 TH/MM3 (1.8-7.7); BASOPHIL # 0.1 TH/MM3 (0-0.2); BASOPHIL % 1.5 % (0.0-2.0); EOSINOPHIL # 0.2 TH/MM3 (0-0.4); EOSINOPHIL % 2.6 % (0.0-4.0); HEMATOCRIT 38.6 % (35.0-46.0); HEMOGLOBIN 12.8 GM/DL (11.6-15.3); LYMPH % 35.2 % (9.0-44.0); LYMPHOCYTE # 2.5 TH/MM3 (1.0-4.8); MEAN CELL VOLUME 95.1 FL (80.0-100.0); MEAN CORPUSCULAR HEMOGLOBIN 31.5 PG (27.0-34.0); MEAN CORPUSCULAR HGB CONC 33.1 % (32.0-36.0); MEAN PLATELET VOLUME 9.6 FL (7.0-11.0); MONOCYTE # 0.6 TH/MM3 (0-0.9); NEUT % 52.7 % (16.0-70.0); PLATELET COUNT 209 TH/MM3 (150-450); RED BLOOD COUNT 4.06 MIL/MM3 (4.00-5.30); WHITE BLOOD COUNT 7.1 TH/MM3 (4.0-11.0)
[2017-12-11 12:42] LABS: CHLORIDE 109 MEQ/L (98-107); SODIUM (NA) 141 MEQ/L (136-145)
[2017-12-11 12:45] LABS: ALBUMIN 4.1 GM/DL (3.4-5.0); BICARBONATE 23.8 MEQ/L (21.0-32.0); CALCIUM 8.8 MG/DL (8.5-10.1); GLUCOSE,RANDOM 112 MG/DL (74-106)
[2017-12-11 12:46] LABS: BLOOD UREA NITROGEN 23 MG/DL (7-18)
[2017-12-11 12:48] LABS: ALT (GPT) 20 U/L (10-53)
[2017-12-11 12:49] LABS: AST (GOT) 19 U/L (15-37); CREATININE 0.82 MG/DL (0.50-1.00); GLOMERULAR FILTRATION RATE 66 ML/MIN (>89)
[2017-12-11 12:50] LABS: TOTAL BILIRUBIN ADULT 0.4 MG/DL (0.2-1.0); TOTAL PROTEIN 8.2 GM/DL (6.4-8.2)
[2017-12-11 12:51] LABS: ALKALINE PHOSPHATASE 78 U/L (45-117)
[2017-12-11] MEDS ORDERED: MAGICADU2 SWISH-SWAL (13:34)
[2017-12-11] MEDS ORDERED: MACR100C2 PO (13:34)
== END 2017-12-11 14:13 | disposition home or self-care (01) ==
LOC: PHED 11:51
DX: S00.522A Blister (nonthermal) of oral cavity, initial encounter (principal); R42 Dizziness and giddiness; R53.1 Weakness; T37.0X5A Adverse effect of sulfonamides, initial encounter; N39.0 Urinary tract infection, site not specified; M19.90 Unspecified osteoarthritis, unspecified site; M35.9 Systemic involvement of connective tissue, unspecified; F41.9 Anxiety disorder, unspecified; F32.9 Major depressive disorder, single episode, unspecified; E78.00 Pure hypercholesterolemia, unspecified; I11.0 Hypertensive heart disease with heart failure; I50.9 Heart failure, unspecified; K21.9 Gastro-esophageal reflux disease without esophagitis; M32.9 Systemic lupus erythematosus, unspecified; E07.9 Disorder of thyroid, unspecified; Z87.891 Personal history of nicotine dependence
CPT/HCPCS: 80053; 84443; 85025; 99283

== ENCOUNTER 2018-01-08 15:20 | Inpatient (IN) ==
[2018-01-08] MEDS ORDERED: Sodium Chlor 0.9% Inj 500 ML IV.SIG ONE (15:52)
--- NOTE | 2018-01-08 15:58 | ED ---
HPI General Chief Complaint: Abdominal Pain Stated Complaint: N/V/D Time Seen by Provider: 01/08/18 15:35 History of Present Illness HPI narrative: The patient was seen and examined in the presence of the nurse. This patient was seen here yesterday and diagnosed with UTI. They were prescribed an antibiotic. She took the first dose and within an hour she developed abdominal pain and cramping and started vomiting. She is vomited multiple times. Duration of symptoms is 3 hours. No alleviating factors. No exacerbating factors. She denies fever. She felt fine this morning when she woke up. No diarrhea or bleeding. Related Data Home Medications Medication Instructions Recorded Confirmed amoxicillin 500 mg PO 3XW 01/07/18 01/08/18 atorvastatin 20 mg PO DAILY 01/07/18 01/08/18 levothyroxine 100 mcg PO DAILY 01/07/18 01/08/18 lisinopril 20 mg PO BID 01/07/18 01/08/18 meclizine 25 mg PO TID 01/07/18 01/08/18 metoprolol succinate 50 mg PO DAILY 01/07/18 01/08/18 nifedipine 20 mg PO BID 01/07/18 01/08/18 Previous Rx's Medication Instructions Recorded nitrofurantoin monohyd/m-cryst 100 mg PO BID 10 Days #20 cap 01/07/18 [Macrobid] Allergies Allergy/AdvReac Type Severity Reaction Status Date / Time tetanus toxoid, adsorbed Allergy Severe FEVER Verified 01/08/18 18:16 cefuroxime AdvReac Intermediate UPSET Verified 01/08/18 18:16 STOMACH Review of Systems Except as stated in HPI: all other systems reviewed are negative [facility] Social History Social History Substance History: No History of Abuse Second Hand Smoke Exposure: No Smoking Status: Former smoker Tobacco Type: Cigarettes How Often Do You Have a Drink Containing Alcohol: Never Recent Travel in [facility] within the Last 8 Weeks: No Recent Out of Country Travel within the Last 8 Weeks: No Exam Narrative Exam Narrative: GENERAL: Anxious elderly well-developed patient with nausea and retching and abdominal cramps . SKIN: Focused skin assessment reveals no rash and nodules. Skin is Warm and dry. HEAD: Atraumatic. Normocephalic. EYES: Pupils equal and round. No scleral icterus. No injection or drainage. ENT: No nasal bleeding or discharge. Mucous membranes pink and moist. NECK: Trachea midline. No JVD. CARDIOVASCULAR: Regular rate and rhythm. No murmur appreciated. RESPIRATORY: No accessory muscle use. Clear to auscultation. Breath sounds equal bilaterally. GASTROINTESTINAL: Abdomen soft, non-tender, nondistended. Hepatic and splenic margins not palpable. MUSCULOSKELETAL: No obvious deformities. No clubbing. No cyanosis. No edema. NEUROLOGICAL: Awake and alert. No obvious cranial nerve deficits. Motor grossly within normal limits. Normal speech. PSYCHIATRIC: Appropriate mood and affect; insight and judgment normal. Course Initial Documented Vital Signs Temperature 98.4 F 01/08/18 15:45 Pulse Rate 92 H 01/08/18 15:45 Respiratory Rate 20 01/08/18 15:45 Blood Pressure 234/92 H 01/08/18 15:45 Pulse Oximetry 94 L 01/08/18 15:45 Last Documented Vital Signs Temperature 97.5 F L 01/09/18 04:00 Pulse Rate 80 01/09/18 04:00 Respiratory Rate 26 H 01/09/18 04:00 Blood Pressure 135/59 L 01/09/18 04:00 Pulse Oximetry 98 01/09/18 04:00 Medical Decision Making MDM Narrative Medical decision making narrative: IV placed and labs sent. I gave her some normal saline and a dose of IV Zofran CT of abdomen and pelvis I was not convinced on initial presentation this is a medication reaction. It seems very atypical for that. Differential Diagnosis Differential Diagnosis: Obstruction, colitis, ileus, medication side effect Medical Records Medical records reviewed: Yes I reviewed the patient's medical records. I reviewed her workup from yesterday Received sign out from previous team to follow up CT a/p. 87yo F with HTN and diagnosed with UTI yesterday here with c/o abdominal pain, nausea and vomiting today. Labs reviewed, no leukocytosis. H/H normal. CMP reviewed, elevated AST at 573. ALT elevated 458. CXR showed cardiomegaly with minimal basilar atelectasis and scarring in the lungs. CT a/p showed new consolidation in left lung base which may represent a small pneumonia. Pt said she is sob but she is always sob. Denies any new cough. Not convince she has pneumonia. Cholecystectomy without biliary ductal dilatation is stable. 3.1cm right adrenal mass stable. No bowel obstruction, free air or free fluid. Pt given zofran x2 doses and still nauseous. Vomited once in the ED. Will give reglan. Pt given pain medication but pain is returning. Pain is mainly epigastric. BP improved to 194/88. With elevated LFTs, epigastric abdominal pain with persistent nausea, will admit for observation and GI consult. Discussed with Dr. Kennedy and accepted to her service. Lab Data Result diagrams: 01/09/18 05:40 01/09/18 05:40 Lab Results 01/08/18 01/08/18 01/09/18 Range/Units 15:50 15:50 05:40 CBC w Diff Slide review pending Auto diff final WBC 7.1 19.2 H D (4.0-11.0) th/mm3 RBC 4.47 3.71 L (4.00-5.30) mil/mm3 Hgb 13.9 D 11.8 D (11.6-15.3) gm/dL Hct 42.6 34.7 L (35.0-46.0) % MCV 95.4 93.4 (80.0-100.0) fL MCH 31.0 31.6 (27.0-34.0) pg MCHC 32.5 33.9 (32.0-36.0) % RDW 16.1 16.8 (11.6-17.2) % Plt Count 214 169 (150-450) th/mm3 MPV 10.4 9.7 (7.0-11.0) fL Neut % (Auto) 57.3 85.1 H (16.0-70.0) % Lymph % (Auto) 35.8 10.7 (9.0-44.0) % Hart % (Auto) 4.7 4.0 (0.0-8.0) % Eos % (Auto) 1.3 0.1 (0.0-4.0) % Baso % (Auto) 0.9 0.1 (0.0-2.0) % Neut # (Auto) 4.1 16.3 H (1.8-7.7) th/mm3 Lymph # (Auto) 2.5 2.1 (1.0-4.8) th/mm3 Hart # (Auto) 0.3 0.8 (0.0-0.9) th/mm3 Eos # (Auto) 0.1 0.0 (0.0-0.4) th/mm3 Baso # (Auto) 0.1 0.0 (0.0-0.2) th/mm3 WBC Differential . . Diff Scan Auto diff confirmed Differential Comment . . Platelet Estimate Normal (Normal) Platelet Morphology Normal (Normal) Sodium 143 (136-145) meq/L Potassium 3.5 (3.5-5.1) meq/L Chloride 108 H (98-107) meq/L Carbon Dioxide 24.4 (21.0-32.0) meq/L Anion Gap 11 (5-15) meq/L BUN 16 (7-18) mg/dL Creatinine 0.69 (0.50-1.00) mg/dL Estimated GFR 81 L (>89) mL/min Random Glucose 122 H (74-106) mg/dL Calcium 9.1 (8.5-10.1) mg/dL Total Bilirubin 0.3 (0.2-1.0) mg/dL AST 573 H (15-37) U/L ALT 458 H (10-53) U/L Alkaline Phosphatase 161 H (45-117) U/L Total Protein 8.3 H D (6.4-8.2) g/dL Albumin 4.0 (3.4-5.0) g/dL Lipase 192 (73-393) U/L 01/09/18 Range/Units 05:40 CBC w Diff WBC (4.0-11.0) th/mm3 RBC (4.00-5.30) mil/mm3 Hgb (11.6-15.3) gm/dL Hct (35.0-46.0) % MCV (80.0-100.0) fL MCH (27.0-34.0) pg MCHC (32.0-36.0) % RDW (11.6-17.2) % Plt Count (150-450) th/mm3 MPV (7.0-11.0) fL Neut % (Auto) (16.0-70.0) % Lymph % (Auto) (9.0-44.0) % Hart % (Auto) (0.0-8.0) % Eos % (Auto) (0.0-4.0) % Baso % (Auto) (0.0-2.0) % Neut # (Auto) (1.8-7.7) th/mm3 Lymph # (Auto) (1.0-4.8) th/mm3 Hart # (Auto) (0.0-0.9) th/mm3 Eos # (Auto) (0.0-0.4) th/mm3 Baso # (Auto) (0.0-0.2) th/mm3 WBC Differential Diff Scan Differential Comment Platelet Estimate (Normal) Platelet Morphology (Normal) Sodium 144 (136-145) meq/L Potassium 3.1 L (3.5-5.1) meq/L Chloride 107 (98-107) meq/L Carbon Dioxide 24.2 (21.0-32.0) meq/L Anion Gap 13 (5-15) meq/L BUN 12 (7-18) mg/dL Creatinine 0.90 (0.50-1.00) mg/dL Estimated GFR 59 L (>89) mL/min Random Glucose 180 H (74-106) mg/dL Calcium 8.8 (8.5-10.1) mg/dL Total Bilirubin 0.7 (0.2-1.0) mg/dL AST 1714 H (15-37) U/L ALT 1420 H (10-53) U/L Alkaline Phosphatase 286 H (45-117) U/L Total Protein 7.5 D (6.4-8.2) g/dL Albumin 3.5 (3.4-5.0) g/dL Lipase (73-393) U/L Imaging Data Radiologist's impression: ITS Impressions Chest X-Ray 01/08/18 16:37 CONCLUSION: Cardiomegaly with minimal basilar atelectasis and scarring in the lungs. Abdomen/Pelvis CT 01/08/18 18:05 CONCLUSION: 1. Compared with October there is some new consolidation in the left lung base which may represent a small pneumonia. 2. Cholecystectomy without biliary ductal dilatation is stable. 3. 3.1 cm right adrenal mass is stable over the last year. Renal cysts are stable. 4. No bowel obstruction, free air or free fluid. Discharge Plan Discharge Disposition Patient Disposition: 30 Still Patient Discharge Details Discharge Problem: Abdominal pain Physicians Team ED Provider: Bre Hays Primary Care Provider: Coretta Schroeder Attending Provider: Nathaniel Sandoval Other Providers: Marilyn Galvez Discharge Interventions Interventions: ED Discharge Assessment Last Done: 01/08/18 22:21 Vital Signs Last Done: 01/08/18 19:49 Status ED Status: Left Department Discharge Information Discharge Date/Time: 01/08/18 22:26
[2018-01-08 16:34] LABS: Baso # (Auto) 0.1 th/mm3 (0.0-0.2); Baso % (Auto) 0.9 % (0.0-2.0); Eos # (Auto) 0.1 th/mm3 (0.0-0.4); Eos % (Auto) 1.3 % (0.0-4.0); Hematocrit 42.6 % (35.0-46.0); Hemoglobin 13.9 gm/dL (11.6-15.3); Lymph # (Auto) 2.5 th/mm3 (1.0-4.8); Lymph % (Auto) 35.8 % (9.0-44.0); Mean Corpuscular HGB Conc 32.5 % (32.0-36.0); Mean Corpuscular Volume 95.4 fL (80.0-100.0); Mean Platelet Volume 10.4 fL (7.0-11.0); Mono # (Auto) 0.3 th/mm3 (0.0-0.9); Mono % (Auto) 4.7 % (0.0-8.0); Neut # (Auto) 4.1 th/mm3 (1.8-7.7); Neut % (Auto) 57.3 % (16.0-70.0); Platelet Count 214 th/mm3 (150-450); Red Blood Count 4.47 mil/mm3 (4.00-5.30); Red Cell Distribution Width 16.1 % (11.6-17.2); White Blood Count 7.1 th/mm3 (4.0-11.0)
[2018-01-08] MEDS ORDERED: Labetalol HCl Inj 100 MG/20 ML Vial IV.PUSH ONE ×2 (16:37→18:24)
[2018-01-08] MEDS ORDERED: Morphine Inj 4 MG/ML Vial IV.PUSH ONE (16:37)
[2018-01-08 16:47] LABS: Chloride 108 meq/L (98-107); Potassium 3.5 meq/L (3.5-5.1); Sodium 143 meq/L (136-145)
[2018-01-08 16:50] LABS: Calcium 9.1 mg/dL (8.5-10.1)
[2018-01-08 16:51] LABS: Anion Gap 11 meq/L (5-15); Blood Urea Nitrogen 16 mg/dL (7-18); Carbon Dioxide 24.4 meq/L (21.0-32.0); Glucose,Random 122 mg/dL (74-106); Lipase 192 U/L (73-393)
[2018-01-08 16:58] LABS: Alanine Aminotransferase 458 U/L (10-53); Alkaline Phosphatase 161 U/L (45-117); Aspartate Aminotransferase 573 U/L (15-37); Glomerular Filtration Rate 81 mL/min (>89); Total Protein 8.3 g/dL (6.4-8.2)
[2018-01-08 17:03] LABS: Platelet Estimate Normal (Normal); Platelet Morphology Normal (Normal)
--- NOTE | 2018-01-08 17:19 | XR ---
EXAM DATE: 01/08/2018 4:55 PM EDT AGE/SEX: 87 years / Female INDICATIONS: Short of breath. CLINICAL DATA: This is the patient's initial encounter. Patient reports that signs and symptoms have been present for 1 day and indicates a pain score of 0/10. MEDICAL/SURGICAL HISTORY: Hypertension. Hysterectomy. COMPARISON: [facility] – [place], CHEST SINGLE AP, 03/29/2017. . FINDINGS: Mild cardiomegaly. Tortuous and atherosclerotic aorta. Minimal basilar atelectasis or scarring in the lungs. No effusion. No pneumothorax. No dense consolidation. CONCLUSION: Cardiomegaly with minimal basilar atelectasis and scarring in the lungs. Electronically signed by: Stan Page MD 01/08/2018 5:17 PM EDT
--- NOTE | 2018-01-08 18:55 | CT ---
EXAM DATE: 01/08/2018 6:42 PM EDT AGE/SEX: 87 years / Female INDICATIONS: Abdominal pain with nausea, vomiting and diarrhea. CLINICAL DATA: This is the patient's initial encounter. Patient reports that signs and symptoms have been present for 2 days and indicates a pain score of 5/10. MEDICAL/SURGICAL HISTORY: Hypertension. Hysterectomy. ORAL CONTRAST: No oral contrast ingested. RADIATION DOSE: 6.19 CTDI (mGy) COMPARISON: [facility] [place]BDOM[place] & PELVIS W CONTRAST, 10/10/2017. . TECHNIQUE: Multiple contiguous axial images were obtained through the abdomen and pelvis following b olus infusion of 85 ml Omnipaque 350 (iohexol) nonionic water-soluble contrast as a single exam dos e. No oral contrast ingested. Using automated exposure control and adjustment of the mA and/or kV ac cording to patient size, radiation dose was kept as low as reasonably achievable to obtain optimal di agnostic quality images. DICOM format image data is available electronically for review and comparis on. FINDINGS: There is subsegmental consolidation left lung base and some mild fibrotic changes. Heart size is enla rged. There is mild intra and extra hepatic biliary ductal dilatation similar to October 2017, status post ch olecystectomy. There is a 3.1 cm right adrenal mass, stable since October 2017 and September 2016. Renal cy sts are stable. No bowel obstruction. No free air or free fluid. No acute bony abnormalities. No pelv ic masses or free fluid. Stable anterolisthesis at the lumbosacral junction. Mild scoliosis. CONCLUSION: 1. Compared with October there is some new consolidation in the left lung base which may represent a s mall pneumonia. 2. Cholecystectomy without biliary ductal dilatation is stable. 3. 3.1 cm right adrenal mass is stable over the last year. Renal cysts are stable. 4. No bowel obstruction, free air or free fluid. Electronically signed by: Stan Page MD 01/08/2018 6:54 PM EDT
[2018-01-08] MEDS ORDERED: Morphine Sulfate Inj 2 MG/ML Vial IV.PUSH ONE (19:41)
[2018-01-08] MEDS ORDERED: Morphine Sulfate Inj 2 MG/ML Vial IV.PUSH PRN (20:00)
[2018-01-08] MEDS ORDERED: Bisacodyl 10 MG Supp RECTAL PRN (20:01)
[2018-01-08] MEDS: Sod Chloride 0.9% Inj 1,000 ML IV.CONT SCH (20:24)
[2018-01-08] MEDS: Heparin - SQ 10,000 UNITS/ML Vial SQ SCH (20:26)
[2018-01-08] MEDS: Senna/Docusate Sodium 8.6/50 MG Tablet PO SCH (21:11)
[2018-01-09 06:05] LABS: Baso % (Auto) 0.1 % (0.0-2.0); Eos % (Auto) 0.1 % (0.0-4.0); Hematocrit 34.7 % (35.0-46.0); Hemoglobin 11.8 gm/dL (11.6-15.3); Lymph # (Auto) 2.1 th/mm3 (1.0-4.8); Lymph % (Auto) 10.7 % (9.0-44.0); Mean Corpuscular HGB Conc 33.9 % (32.0-36.0); Mean Corpuscular Hemoglobin 31.6 pg (27.0-34.0); Mean Corpuscular Volume 93.4 fL (80.0-100.0); Mean Platelet Volume 9.7 fL (7.0-11.0); Mono # (Auto) 0.8 th/mm3 (0.0-0.9); Neut # (Auto) 16.3 th/mm3 (1.8-7.7); Neut % (Auto) 85.1 % (16.0-70.0); Platelet Count 169 th/mm3 (150-450); Red Blood Count 3.71 mil/mm3 (4.00-5.30); Red Cell Distribution Width 16.8 % (11.6-17.2); White Blood Count 19.2 th/mm3 (4.0-11.0)
[2018-01-09 06:17] LABS: Chloride 107 meq/L (98-107); Potassium 3.1 meq/L (3.5-5.1); Sodium 144 meq/L (136-145)
[2018-01-09 06:21] LABS: Albumin 3.5 g/dL (3.4-5.0); Anion Gap 13 meq/L (5-15); Blood Urea Nitrogen 12 mg/dL (7-18); Calcium 8.8 mg/dL (8.5-10.1); Carbon Dioxide 24.2 meq/L (21.0-32.0); Glucose,Random 180 mg/dL (74-106)
[2018-01-09 06:24] LABS: Glomerular Filtration Rate 59 mL/min (>89)
[2018-01-09 06:26] LABS: Total Protein 7.5 g/dL (6.4-8.2)
[2018-01-09 06:27] LABS: Alkaline Phosphatase 286 U/L (45-117)
[2018-01-09 06:52] LABS: Alanine Aminotransferase 1420 U/L (10-53); Aspartate Aminotransferase 1714 U/L (15-37)
[2018-01-09] MEDS: Senna/Docusate Sodium 8.6/50 MG Tablet PO SCH ×2 (08:22→22:12)
[2018-01-09] MEDS: Heparin - SQ 10,000 UNITS/ML Vial SQ SCH ×3 (08:22→22:12)
--- NOTE | 2018-01-09 08:55 | P.HPIM ---
History of Present Illness Primary Care Physician: Coretta Schroeder MD Chief Complaint: abdominal pain History of Present Illness: patient is a 87 y/o female with history of hypertension, hypothyroidism, dyslipidemia who was presented to ER with abdominal pain. she was seen in ER two days ago and was discharged with Macrobid for UTI. she says that she took the antibiotics and then suddenly started to have severe abdominal pain. pain is more or less periumbilical and was associated with nausea and vomiting.she's not sure how many pills she took although she says that ' she completed the course'. - Diagnosis (1) Elevated LFTs (2) Hypertension (3) Dyslipidemia (4) Hypothyroidism Inpatient Certification: I certify that the inpatient services were ordered in accordance with Medicare regulations governing the order. This includes certification that hospital inpatient services are reasonable and necessary and in the case of services not specified as inpatient-only under 42 CFR 419.22(n), that they are appropriately provided as inpatient services in accordance to with the 2-midnight benchmark under 43 CFR 412.3(e) Estimated Total Length of Stay (Days): 2 Plans for Post Hospital Care: Not yet determined Review of Systems All other systems reviewed negative except as stated in HPI PMFSH - History History Provided By: Patient - Medical History Medical History: Medical History (Last Reviewed 01/08/18 @ 16:10 by Coco Valdovinos) H/O thyroidectomy H/O: hysterectomy Hyperlipidemia Hypertension Hypothyroid Urinary tract infection - Surgical History Surgical History: Surgical History (Last Reviewed 01/08/18 @ 16:10 by Coco Valdovinos) Hx of cholecystectomy - Tobacco History Second Hand Smoke Exposure: No Tobacco Use In Past 30 Days: No Smoking Status: Former smoker Tobacco Type: Cigarettes - Alcohol History How Often Do You Have a Drink Containing Alcohol: Never - Substance Use History Substance History: No History of Abuse - Travel History Recent Travel in the [place] Within the Last 8 Weeks: No Recent Travel Out of the Country Within the Last 8 Weeks: No - Immunization History Tetanus Immunization: <5 Years Hx Influenza Vaccine This Season: Yes Medications and Allergies Active Medications: Active Medications Al Hydroxide/Mg Hydroxide (Milk Of Magnitalo Liq) 30 ml PO Q12H PRN PRN Reason: Mild Constipation Bisacodyl (Dulcolax Supp) 10 mg RECTAL DAILY PRN PRN Reason: SEVERE CONSITIPATION Clonidine HCl (Catapres) 0.1 mg PO Q6H PRN PRN Reason: SBP>160, DBP>90 Last Admin: 01/08/18 20:28 Dose: 0.1 mg Heparin Sodium (Porcine) (Heparin Inj) 5,000 units SQ Q12H [facility] Last Admin: 01/09/18 08:22 Dose: 5,000 units Sodium Chloride (Ns Inj) 1,000 mls @ 70 mls/hr IV.CONT .[id number] [facility] Last Infusion: 01/08/18 22:14 Dose: 70 mls/hr Lactulose (Lactulose Liq) 30 ml PO DAILY PRN PRN Reason: SEVERE CONSITIPATION Levothyroxine Sodium (Synthroid) 100 mcg PO DAILY [facility] Lisinopril (Prinivil) 20 mg PO BID [facility] Metoclopramide HCl (Reglan Inj) 5 mg IV.PUSH Q6HR PRN; Protocol PRN Reason: NAUSEA OR VOMITING Metoprolol Succinate (Toprol Xl) 50 mg PO DAILY [facility] Morphine Sulfate (Morphine Inj) 2 mg IV.PUSH Q3H PRN PRN Reason: pain 6-10 Last Admin: 01/08/18 20:04 Dose: 2 mg Ondansetron HCl (Zofran Inj) 4 mg IV.PUSH Q6H PRN PRN Reason: NAUSEA OR VOMITING Potassium Chloride (K-Dur) 20 meq PO ONCE ONE Stop: 01/09/18 13:01 Potassium Chloride (Klor-Con 10) 30 meq PO ONCE ONE Stop: 01/09/18 08:45 Senna/Docusate Sodium (Julia-Colace) 1 tab PO BID [facility] Last Admin: 01/09/18 08:22 Dose: 1 tab Sennosides (Senokot) 17.2 mg PO Q12H PRN PRN Reason: Moderate Constipation Sodium Chloride (Ns Flush) 2 ml IV.FLUSH PRN PRN PRN Reason: FLUSH AFTER USING IV ACCESS Allergies Allergy/AdvReac Type Severity Reaction Status Date / Time tetanus toxoid, adsorbed Allergy Severe FEVER Verified 01/08/18 18:16 cefuroxime AdvReac Intermediate UPSET Verified 01/08/18 18:16 STOMACH Home Medications Medication Instructions Recorded Confirmed Type amoxicillin 500 mg PO 3XW 01/07/18 01/08/18 History atorvastatin 20 mg PO DAILY 01/07/18 01/08/18 History levothyroxine 100 mcg PO DAILY 01/07/18 01/08/18 History lisinopril 20 mg PO BID 01/07/18 01/08/18 History meclizine 25 mg PO TID 01/07/18 01/08/18 History metoprolol succinate 50 mg PO DAILY 01/07/18 01/08/18 History nifedipine 20 mg PO BID 01/07/18 01/08/18 History Exam Vital signs: Vital Signs 01/08/18 15:45 01/08/18 16:16 01/08/18 17:00 Temperature 98.4 F Pulse Rate 92 H 118 H Respiratory Rate 20 16 Blood Pressure 234/92 H 223/100 H Pulse Oximetry 94 L 94 L 93 L 01/08/18 17:08 01/08/18 17:57 01/08/18 18:30 Temperature Pulse Rate 113 H 102 H Respiratory Rate 16 20 Blood Pressure 214/103 H Pulse Oximetry 94 L 01/08/18 19:49 01/08/18 20:31 01/08/18 20:46 Temperature 99 F Pulse Rate 110 H 18 L 105 H Respiratory Rate 20 20 20 Blood Pressure 194/85 H 184/92 H 176/75 H Pulse Oximetry 95 94 L 01/08/18 21:31 01/08/18 21:43 01/09/18 00:00 Temperature 98.3 F Pulse Rate 102 H 91 H Respiratory Rate 20 20 23 Blood Pressure 164/68 H 151/66 H Pulse Oximetry 97 01/09/18 04:00 Temperature 97.5 F L Pulse Rate 80 Respiratory Rate 26 H Blood Pressure 135/59 L Pulse Oximetry 98 Intake & Output 01/08/18 01/09/18 01/09/18 18:59 06:59 18:59 Intake Total 500 / 500 900 / 900 Output Total 250 / 250 Balance 500 / 500 650 / 650 Weight 54.9 kg 54.4 kg Intake: IV 500 / 500 900 / 900 NS Inj 1,000 ML @ 70 mls/hr IV. 900 / 900 CONT .[id number] EMILY Rx#: [id number] NS Inj 500 ML @ Wide Open IV. 500 / 500 SIG BOLUS ONE Rx#:[id number] Output: Urine 250 / 250 Other: Date of Last Bowel Movement 01/08/18 01/08/18 - Constitutional mild distress - Routine HEENT Exam Eye: Present: PERRL - Routine Neck Exam Present: supple, full ROM - Routine Respiratory Exam Present: CTA bilaterally - Routine Cardiovascular Exam Present: RRR - Routine Abdominal Exam Present: soft - Routine Extremities Exam Comments: no pedal edema. - Routine Neurological Exam Present: alert (oriented to person, partly to place and time.) Results - Labs CBC & Chem 7: 01/09/18 05:40 01/09/18 05:40 Labs: Short CBC 01/08/18 01/09/18 Range/Units 15:50 05:40 WBC 7.1 19.2 H D (4.0-11.0) th/mm3 Hgb 13.9 D 11.8 D (11.6-15.3) gm/dL Hct 42.6 34.7 L (35.0-46.0) % Plt Count 214 169 (150-450) th/mm3 BMP 01/08/18 01/09/18 15:50 05:40 Sodium 143 144 Potassium 3.5 3.1 L Chloride 108 H 107 Carbon Dioxide 24.4 24.2 BUN 16 12 Creatinine 0.69 0.90 Calcium 9.1 8.8 Liver Function 01/08/18 01/09/18 Range/Units 15:50 05:40 Total Bilirubin 0.3 0.7 (0.2-1.0) mg/dL AST 573 H 1714 H (15-37) U/L ALT 458 H 1420 H (10-53) U/L Alkaline Phosphatase 161 H 286 H (45-117) U/L Albumin 4.0 3.5 (3.4-5.0) g/dL - Imaging Impressions Chest X-Ray 01/08/18 16:37 CONCLUSION: Cardiomegaly with minimal basilar atelectasis and scarring in the lungs. Abdomen/Pelvis CT 01/08/18 18:05 CONCLUSION: 1. Compared with October there is some new consolidation in the left lung base which may represent a small pneumonia. 2. Cholecystectomy without biliary ductal dilatation is stable. 3. 3.1 cm right adrenal mass is stable over the last year. Renal cysts are stable. 4. No bowel obstruction, free air or free fluid. Caprini VTE Risk Assessment Caprini VTE Risk Assessment: Moderate/High Risk (score >= 2) Caprini Risk Assessment Model: Point Value = 1 Point Value = 2 Point Value = 3 Point Value = 5 Age 41-60 Minor surgery BMI > 25 kg/m2 Swollen legs Varicose veins or History of unexplained or recurrent spontaneous Oral contraceptives or hormone replacement Sepsis (< 1 month) Serious lung disease, including pneumonia (< 1 month) Abnormal pulmonary function Acute myocardial infarction Congestive heart failure (< 1 month) History of inflammatory bowel disease Medical patient at bed rest Age 61-74 Arthroscopic surgery Major open surgery (> 45 min) Laparoscopic surgery (> 45 min) Malignancy Confined to bed (> 72 hours) Immobilizing plaster cast Central venous access Age >= 75 History of VTE Family history of VTE Factor V Leiden Prothrombin [id number] Lupus anticoagulant Anticardiolipin antibodies Elevated serum homocysteine Heparin-induced thrombocytopenia Other congenital or acquired thrombophilia Stroke (< 1 month) Elective arthroplasty Hip, pelvis, or leg fracture Acute spinal cord injury (< 1 month) Prophylaxis Regimen: Total Risk Factor Score Risk Level Prophylaxis Regimen 0-1 Low Early ambulation 2 Moderate Order ONE of the following: *Sequential Compression Device (SCD) *Heparin 5000 units SQ BID 3-4 Higher Order ONE of the following medications: *Heparin 5000 units SQ TID *Enoxaparin/Lovenox 40 mg SQ daily (WT < 150 kg, CrCl > 30 mL/min) *Enoxaparin/Lovenox 30 mg SQ daily (WT < 150 kg, CrCl > 10-29 mL/min) *Enoxaparin/Lovenox 30 mg SQ BID (WT < 150 kg, CrCl > 30 mL/min) AND/OR *Sequential Compression Device (SCD) 5 or more Highest Order ONE of the following medications: *Heparin 5000 units SQ TID (Preferred with Epidurals) *Enoxaparin/Lovenox 40 mg SQ daily (WT < 150 kg, CrCl > 30 mL/min) *Enoxaparin/Lovenox 30 mg SQ daily (WT < 150 kg, CrCl > 10-29 mL/min) *Enoxaparin/Lovenox 30 mg SQ BID (WT < 150 kg, CrCl > 30 mL/min) AND *Sequential Compression Device (SCD) Assessment and Plan - Assessment (1) Elevated LFTs Code(s): R94.5 - Abnormal results of liver function studies Status: Acute Plan: patient was started on Nitrofurantoin just two days ago. hepatitis panel pending- will check liver US and tylenol level along with PT/INR - monitor LFT's closely- GI consulted. (2) Hypertension Code(s): I10 - Essential (primary) hypertension Status: Chronic Plan: continue lisinopril and metoprolol-hold Nifedipine. (3) Dyslipidemia Code(s): E78.5 - Hyperlipidemia, unspecified Status: Chronic Plan: hold statin due to elevated LFT's. (4) Hypothyroidism Code(s): E03.9 - Hypothyroidism, unspecified Status: Chronic Plan: resume home meds. - Plan Discussed Condition With: the patient. Discharge Planning: pending clinical course. H&P: Quality - VTE Deep Vein Thrombosis/Pulmonary Embolism Present on Admission: No (2) Hypertension Qualifiers: Hypertension type: essential hypertension Qualified Code(s): I10 - Essential (primary) hypertension
[2018-01-09 09:06] LABS: INR 1.1 Ratio; Prothrombin Time 11.2 sec (9.8-11.6)
--- NOTE | 2018-01-09 10:18 | US ---
EXAM DATE: 01/09/2018 10:03 AM EDT AGE/SEX: 87 years / Female INDICATIONS: Nausea and abdominal pain. Elevated LFT's. CLINICAL DATA: This is the patient's initial encounter. Patient reports that signs and symptoms have been present for 1 day and indicates a pain score of 5/10. MEDICAL/SURGICAL HISTORY: . Cholecystectomy. COMPARISON: [facility], CT ABDOMEN & PELVIS W CONTRAST, 01/08/2018. . MEASUREMENTS: Liver:__ 20.2 cm. Common Bile Duct:__ 7mm. Right Kidney:__ cm. FINDINGS: Liver: Normal echotexture without focal lesion or ductal dilatation. Portal Vein: Hepatopedal flow seen in portal vein. Common Duct: No intraluminal mass or stone visualized. Gallbladder: Surgically absent. Pancreas: The visualized portions are within normal limits Right Kidney: No mass or hydronephrosis. 3 simple cysts measures 54 x 38 x 37 mm, 29 x 27 x 25 mm an d 16 x 16 x 15 mm. Other: None. CONCLUSION: 1. Status post cholecystectomy. 2. Multiple right-sided renal cysts. 3. Liver slightly enlarged otherwise appears unremarkable. Electronically signed by: Arias Montaño MD 01/09/2018 10:17 AM EDT
[2018-01-09] MEDS: Lisinopril 20 MG Tablet PO SCH ×2 (10:53→22:12)
[2018-01-09] MEDS: Levothyroxine 100 MCG Tablet PO SCH (10:54)
[2018-01-09] MEDS: Sod Chloride 0.9% Inj 1,000 ML IV.CONT SCH (13:53)
[2018-01-09 14:02] LABS: Hepatitis A IgM Antibody Nonreactive (Nonreactive); Hepatitits B Surface Antigen Nonreactive (Nonreactive)
[2018-01-09 16:56] LABS: Hepatitits B Surface Antigen Nonreactive (Nonreactive)
[2018-01-09] MEDS ORDERED: Sincalide Inj 5 MCG Vial IV.PUSH ONE (17:21)
[2018-01-09 17:27] LABS: Hepatitis A IgM Antibody Nonreactive (Nonreactive)
--- NOTE | 2018-01-09 17:32 | MR ---
EXAM DATE: 01/09/2018 5:13 PM EDT AGE/SEX: 87 years / Female INDICATIONS: Abdominal pain. Recurrent UTI's. CLINICAL DATA: This is the patient's initial encounter. Patient reports that signs and symptoms have been present for 1 day and indicates a pain score of 2/10. MEDICAL/SURGICAL HISTORY: Hypertension. Cholecystectomy. Hysterectomy. Thyroidectomy. COMPARISON: No prior exams available for comparison. TECHNIQUE: Multiplanar, multisequence images of the abdomen were obtained without contrast including dedicated cholangiographic images. FINDINGS: There is bibasal airspace disease, left greater than right with trace pleural fluid. Heart size enlar ged. There is cholecystectomy with mild biliary ductal dilatation to 11 mm. No evidence for choledocholith iasis. Pancreatic duct has normal caliber. Numerous bilateral renal cysts are present. There is a 3 cm right adrenal mass not significantly villafana ged since CT exam from September 2016. No significant free fluid. No bowel dilatation identified. CONCLUSION: 1. Bibasilar airspace disease with trace pleural fluid. 2. Previous cholecystectomy with mild biliary ductal dilatation. No choledocholithiasis. Pancreatic duct normal caliber. 3. Numerous bilateral renal cysts. Electronically signed by: Stan Page MD 01/09/2018 5:31 PM EDT
--- NOTE | 2018-01-09 17:37 | NM ---
EXAM DATE: 01/09/2018 5:08 PM EDT AGE/SEX: 87 years / Female INDICATIONS: Abdomen pain. CLINICAL DATA: This is the patient's initial encounter. Patient reports that signs and symptoms have been present for 1 day and indicates a pain score of 0/10. MEDICAL/SURGICAL HISTORY: Hypertension. Cholecystectomy. Thyroidectomy. Hysterectomy. COMPARISON: No prior exams available for comparison. DOSE: 4.2 mCi Tc-99m mebrofenin i.v. Medication: 1.08 mcg Cholecystokinin IV No symptomatic response Cholecystokinin was administered by slow infusion over 8 minutes beginning at 47 minutes. TECHNIQUE: Following the intravenous administration of radiotracer, dynamic sequential images were pe rformed with continuous acquisition. Time-activity curves were generated. FINDINGS: Hepatic Kinetics: There is prompt uptake of radiotracer in the liver. No focal defects are seen. Ther e is normal rate of washout from the hepatic parenchyma. Biliary Clearance: Activity is first seen in the extrahepatic biliary system at 20 minutes. There is normal excretion into the small bowel. Gallbladder: Activity is first seen in the gallbladder at minutes. Post-CCK: After CCK administration, there is no significant change in activity in the common duct. No symptomatic response after cholecystokinin infusion. Biliary-Enteric Reflux: None observed. CONCLUSION: 1. Previous cholecystectomy. Normal uptake and excretion by the liver. No biliary ductal obstruction Electronically signed by: Stan Page MD 01/09/2018 5:35 PM EDT
--- NOTE | 2018-01-09 17:55 | P.CONGI ---
History of Present Illness Consult date: 01/09/18 Consult reason: Abdominal pain, elevated LFTs Chief complaint: elevated LFT's, intractable nausea and abdominal History of Present Illness: This is a 87-year-old female who was admitted to the hospital on 01/08/2018 with uncontrolled abdominal pain. Patient states that the pain is upper mid abdomen and over to the right side but radiates all the way across the upper mid abdomen. Onset of symptoms have been as far back as March 2017 according to patient and her son Johnathan who is in the room patient states that her abdominal pain has waxed and waned and she has been evaluated as recently as 2 days before this admission in the emergency room she was treated for UTI and was sent back home with antibiotics Macrobid. Today patient has transaminitis with normal bilirubin 0.7, AST 1714 ALT 1420. Patient's ammonia level is 12, alkaline phosphatase 286, lipase 192. Patient states normal BM this a.m. with formed brown stool but has noted some different colors in her stool over the past few months. Patient is a fair to poor historian and is giving random information about her symptoms. Patient does appear to be weak and fatigued, has noted some recent nausea and vomiting over the past few days but none at present. Patient currently denies any nausea and vomiting and is attempting to trial a liquid diet.. Abdomen pelvis CT showed cholecystectomy without biliary ductal dilatation. MRCP done today on 01/09/2018 mild biliary ductal dilatation no cholelithiasis pancreatic duct normal caliber, bilateral numerous renal cysts , bibasilar airspace disease with a trace of pleural fluid. Liver ultrasound performed today shows liver slightly enlarged otherwise appears unremarkable. Nuclear medicine bile acid absorption test shows normal uptake and excretion by the liver no biliary ductal obstruction previous cholecystectomy. <Peyton Myers - Last Filed: 01/09/18 18:02> Review of Systems All other systems reviewed negative except as stated in HPI <Peyton Myers - Last Filed: 01/09/18 18:02> PMFSH - History History Provided By: Patient - Medical History Medical History: Medical History (Last Reviewed 01/08/18 @ 16:10 by Coco Valdovinos) H/O thyroidectomy H/O: hysterectomy Hyperlipidemia Hypertension Hypothyroid Urinary tract infection - Surgical History Surgical History: Surgical History (Last Reviewed 01/08/18 @ 16:10 by Coco Valdovinos) Hx of cholecystectomy - Tobacco History Second Hand Smoke Exposure: No Tobacco Use In Past 30 Days: No Smoking Status: Former smoker Tobacco Type: Cigarettes - Alcohol History How Often Do You Have a Drink Containing Alcohol: Never - Substance Use History Substance History: No History of Abuse - Travel History Recent Travel in the [place] Within the Last 8 Weeks: No Recent Travel Out of the Country Within the Last 8 Weeks: No - Immunization History Tetanus Immunization: <5 Years Hx Influenza Vaccine This Season: Yes <Peyton Myers - Last Filed: 01/09/18 18:02> - Medical History Medical History: Medical History (Last Reviewed 01/08/18 @ 16:10 by Coco Valdovinos) H/O thyroidectomy H/O: hysterectomy Hyperlipidemia Hypertension Hypothyroid Urinary tract infection - Surgical History Surgical History: Surgical History (Last Reviewed 01/08/18 @ 16:10 by Coco Valdovinos) Hx of cholecystectomy <Marilyn Galvez - Last Filed: 01/09/18 21:45> Medications and Allergies Active Medications: Active Medications Al Hydroxide/Mg Hydroxide (Milk Of Magnesia Liq) 30 ml PO Q12H PRN PRN Reason: Mild Constipation Bisacodyl (Dulcolax Supp) 10 mg RECTAL DAILY PRN PRN Reason: SEVERE CONSITIPATION Clonidine HCl (Catapres) 0.1 mg PO Q6H PRN PRN Reason: SBP>160, DBP>90 Last Admin: 01/08/18 20:28 Dose: 0.1 mg Heparin Sodium (Porcine) (Heparin Inj) 5,000 units SQ Q12H [facility] Last Admin: 01/09/18 08:22 Dose: 5,000 units Sodium Chloride (Ns Inj) 1,000 mls @ 70 mls/hr IV.CONT .[id number] [facility] Last Admin: 01/09/18 13:53 Dose: 70 mls/hr Lactulose (Lactulose Liq) 30 ml PO DAILY PRN PRN Reason: SEVERE CONSITIPATION Levothyroxine Sodium (Synthroid) 100 mcg PO DAILY@0600 [facility] Last Admin: 01/09/18 10:54 Dose: 100 mcg Lisinopril (Prinivil) 20 mg PO BID [facility] Last Admin: 01/09/18 10:53 Dose: 20 mg Metoclopramide HCl (Reglan Inj) 5 mg IV.PUSH Q6HR PRN; Protocol PRN Reason: NAUSEA OR VOMITING Metoprolol Succinate (Toprol Xl) 50 mg PO DAILY [facility] Last Admin: 01/09/18 10:53 Dose: 50 mg Morphine Sulfate (Morphine Inj) 2 mg IV.PUSH Q3H PRN PRN Reason: pain 6-10 Last Admin: 01/08/18 20:04 Dose: 2 mg Ondansetron HCl (Zofran Inj) 4 mg IV.PUSH Q6H PRN PRN Reason: NAUSEA OR VOMITING Senna/Docusate Sodium (Julia-Colace) 1 tab PO BID [facility] Last Admin: 01/09/18 08:22 Dose: 1 tab Sennosides (Senokot) 17.2 mg PO Q12H PRN PRN Reason: Moderate Constipation Sodium Chloride (Ns Flush) 2 ml IV.FLUSH PRN PRN PRN Reason: FLUSH AFTER USING IV ACCESS <Peyton Myers - Last Filed: 01/09/18 18:02> Active Medications: Active Medications Al Hydroxide/Mg Hydroxide (Milk Of Magnesia Liq) 30 ml PO Q12H PRN PRN Reason: Mild Constipation Bisacodyl (Dulcolax Supp) 10 mg RECTAL DAILY PRN PRN Reason: SEVERE CONSITIPATION Clonidine HCl (Catapres) 0.1 mg PO Q6H PRN PRN Reason: SBP>160, DBP>90 Last Admin: 01/08/18 20:28 Dose: 0.1 mg Heparin Sodium (Porcine) (Heparin Inj) 5,000 units SQ Q12H [facility] Last Admin: 01/09/18 08:22 Dose: 5,000 units Sodium Chloride (Ns Inj) 1,000 mls @ 70 mls/hr IV.CONT .[id number] [facility] Last Admin: 01/09/18 13:53 Dose: 70 mls/hr Lactulose (Lactulose Liq) 30 ml PO DAILY PRN PRN Reason: SEVERE CONSITIPATION Levothyroxine Sodium (Synthroid) 100 mcg PO DAILY@0600 [facility] Last Admin: 01/09/18 10:54 Dose: 100 mcg Lisinopril (Prinivil) 20 mg PO BID [facility] Last Admin: 01/09/18 10:53 Dose: 20 mg Metoclopramide HCl (Reglan Inj) 5 mg IV.PUSH Q6HR PRN; Protocol PRN Reason: NAUSEA OR VOMITING Metoprolol Succinate (Toprol Xl) 50 mg PO DAILY [facility] Last Admin: 01/09/18 10:53 Dose: 50 mg Morphine Sulfate (Morphine Inj) 2 mg IV.PUSH Q3H PRN PRN Reason: pain 6-10 Last Admin: 01/08/18 20:04 Dose: 2 mg Ondansetron HCl (Zofran Inj) 4 mg IV.PUSH Q6H PRN PRN Reason: NAUSEA OR VOMITING Senna/Docusate Sodium (Julia-Colace) 1 tab PO BID [facility] Last Admin: 01/09/18 08:22 Dose: 1 tab Sennosides (Senokot) 17.2 mg PO Q12H PRN PRN Reason: Moderate Constipation Sodium Chloride (Ns Flush) 2 ml IV.FLUSH PRN PRN PRN Reason: FLUSH AFTER USING IV ACCESS <Marilyn Galvez - Last Filed: 01/09/18 21:45> Allergies Allergy/AdvReac Type Severity Reaction Status Date / Time tetanus toxoid, adsorbed Allergy Severe FEVER Verified 01/08/18 18:16 cefuroxime AdvReac Intermediate UPSET Verified 01/08/18 18:16 STOMACH Home Medications Medication Instructions Recorded Confirmed Type amoxicillin 500 mg PO 3XW 01/07/18 01/08/18 History atorvastatin 20 mg PO DAILY 01/07/18 01/08/18 History levothyroxine 100 mcg PO DAILY 01/07/18 01/08/18 History lisinopril 20 mg PO BID 01/07/18 01/08/18 History meclizine 25 mg PO TID 01/07/18 01/08/18 History metoprolol succinate 50 mg PO DAILY 01/07/18 01/08/18 History nifedipine 20 mg PO BID 01/07/18 01/08/18 History Exam Vital signs: Vital Signs 01/08/18 17:57 01/08/18 18:30 01/08/18 19:49 Temperature Pulse Rate 113 H 102 H 110 H Respiratory Rate 20 20 Blood Pressure 214/103 H 194/85 H Pulse Oximetry 94 L 95 01/08/18 20:31 01/08/18 20:46 01/08/18 21:31 Temperature 99 F Pulse Rate 18 L 105 H 102 H Respiratory Rate 20 20 20 Blood Pressure 184/92 H 176/75 H 164/68 H Pulse Oximetry 94 L 01/08/18 21:43 01/09/18 00:00 01/09/18 04:00 Temperature 98.3 F 97.5 F L Pulse Rate 91 H 80 Respiratory Rate 20 23 26 H Blood Pressure 151/66 H 135/59 L Pulse Oximetry 97 98 01/09/18 08:00 01/09/18 12:00 Temperature 97.8 F 98.7 F Pulse Rate 84 87 Respiratory Rate 18 18 Blood Pressure 147/60 H 143/64 H Pulse Oximetry Intake & Output 01/08/18 01/09/18 01/09/18 18:59 06:59 18:59 Intake Total 500 / 500 900 / 900 100 / 100 Output Total 250 / 250 Balance 500 / 500 650 / 650 100 / 100 Weight 54.9 kg 54.4 kg Intake: IV 500 / 500 900 / 900 100 / 100 NS Inj 1,000 ML @ 70 mls/hr IV. 900 / 900 100 / 100 CONT .[id number] [facility] Rx#: [id number] NS Inj 500 ML @ Wide Open IV. 500 / 500 SIG BOLUS ONE Rx#:[id number] Output: Urine 250 / 250 Other: Date of Last Bowel Movement 01/08/18 01/08/18 - Constitutional mild distress - Routine HEENT Exam Head: Present: normocephalic, atraumatic ENT: Present: mucous membranes dry - Routine Neck Exam Present: supple (10) - Routine Respiratory Exam Present: decreased breath sounds (Even, unlabored at rest) - Routine Cardiovascular Exam Present: S1, S2 - Routine Abdominal Exam Present: soft, normoactive bowel sounds (Very soft bowel sounds, round, mid and right upper quadrant abdominal pain which radiates across the whole upper abdomen) - Routine Skin Exam Present: intact - Routine Neurological Exam Present: alert (Awake answering simple questions, poor historian) <Peyton Myers - Last Filed: 01/09/18 18:02> Vital signs: Vital Signs 01/09/18 00:00 01/09/18 04:00 01/09/18 08:00 Temperature 98.3 F 97.5 F L 97.8 F Pulse Rate 91 H 80 84 Respiratory Rate 23 26 H 18 Blood Pressure 151/66 H 135/59 L 147/60 H Pulse Oximetry 97 98 01/09/18 12:00 01/09/18 20:00 Temperature 98.7 F 98.0 F Pulse Rate 87 81 Respiratory Rate 18 18 Blood Pressure 143/64 H 152/68 H Pulse Oximetry 94 L Intake & Output 01/09/18 01/09/18 01/10/18 06:59 18:59 06:59 Intake Total 900 / 900 100 / 100 Output Total 250 / 250 Balance 650 / 650 100 / 100 Weight 54.4 kg Intake: IV 900 / 900 100 / 100 NS Inj 1,000 ML @ 70 mls/hr IV. 900 / 900 100 / 100 CONT .[id number] [facility] Rx#: [id number] Output: Urine 250 / 250 Other: Date of Last Bowel Movement 01/08/18 <Marilyn Galvez - Last Filed: 01/09/18 21:45> Results - Labs CBC & Chem 7: 01/09/18 05:40 01/09/18 05:40 Labs: Laboratory Results - last 24 hr 01/09/18 01/09/18 01/09/18 05:40 05:40 05:40 CBC w Diff Auto diff final WBC 19.2 H D RBC 3.71 L Hgb 11.8 D Hct 34.7 L MCV 93.4 MCH 31.6 MCHC 33.9 RDW 16.8 Plt Count 169 MPV 9.7 Neut % (Auto) 85.1 H Lymph % (Auto) 10.7 Cobb % (Auto) 4.0 Eos % (Auto) 0.1 Baso % (Auto) 0.1 Neut # (Auto) 16.3 H Lymph # (Auto) 2.1 Cobb # (Auto) 0.8 Eos # (Auto) 0.0 Baso # (Auto) 0.0 WBC Differential . Differential Comment . PT INR Sodium 144 Potassium 3.1 L Chloride 107 Carbon Dioxide 24.2 Anion Gap 13 BUN 12 Creatinine 0.90 Estimated GFR 59 L Random Glucose 180 H Calcium 8.8 Iron Total Bilirubin 0.7 AST 1714 H ALT 1420 H Alkaline Phosphatase 286 H Ammonia Total Protein 7.5 D Albumin 3.5 Acetaminophen Hepatitis A IgM Ab Nonreactive Hep Bs Antigen Nonreactive Hep B Core IgM Ab Nonreactive Hep C IgG Ab Nonreactive 01/09/18 01/09/18 01/09/18 05:40 05:40 05:40 CBC w Diff WBC RBC Hgb Hct MCV MCH MCHC RDW Plt Count MPV Neut % (Auto) Lymph % (Auto) Cobb % (Auto) Eos % (Auto) Baso % (Auto) Neut # (Auto) Lymph # (Auto) Cobb # (Auto) Eos # (Auto) Baso # (Auto) WBC Differential Differential Comment PT 11.2 INR 1.1 Sodium Potassium Chloride Carbon Dioxide Anion Gap BUN Creatinine Estimated GFR Random Glucose Calcium Iron 27 L Total Bilirubin AST ALT Alkaline Phosphatase Ammonia Total Protein Albumin Acetaminophen Less than 2.0 L Hepatitis A IgM Ab Hep Bs Antigen Hep B Core IgM Ab Hep C IgG Ab 01/09/18 01/09/18 09:30 12:20 CBC w Diff WBC RBC Hgb Hct MCV MCH MCHC RDW Plt Count MPV Neut % (Auto) Lymph % (Auto) Cobb % (Auto) Eos % (Auto) Baso % (Auto) Neut # (Auto) Lymph # (Auto) Cobb # (Auto) Eos # (Auto) Baso # (Auto) WBC Differential Differential Comment PT INR Sodium Potassium Chloride Carbon Dioxide Anion Gap BUN Creatinine Estimated GFR Random Glucose Calcium Iron Total Bilirubin AST ALT Alkaline Phosphatase Ammonia 12 Total Protein Albumin Acetaminophen Hepatitis A IgM Ab Nonreactive Hep Bs Antigen Nonreactive Hep B Core IgM Ab Nonreactive Hep C IgG Ab Nonreactive - Imaging Impressions Abdomen/Pelvis CT 01/08/18 18:05 CONCLUSION: 1. Compared with October there is some new consolidation in the left lung base which may represent a small pneumonia. 2. Cholecystectomy without biliary ductal dilatation is stable. 3. 3.1 cm right adrenal mass is stable over the last year. Renal cysts are stable. 4. No bowel obstruction, free air or free fluid. Cholangiopancreatography MRI 01/09/18 00:00 CONCLUSION: 1. Bibasilar airspace disease with trace pleural fluid. 2. Previous cholecystectomy with mild biliary ductal dilatation. No choledocholithiasis. Pancreatic duct normal caliber. 3. Numerous bilateral renal cysts. Liver Ultrasound 01/09/18 00:00 CONCLUSION: 1. Status post cholecystectomy. 2. Multiple right-sided renal cysts. 3. Liver slightly enlarged otherwise appears unremarkable. Bile Acid Absorption NM 01/09/18 14:29 CONCLUSION: 1. Previous cholecystectomy. Normal uptake and excretion by the liver. No biliary ductal obstruction <Peyton Myers - Last Filed: 01/09/18 18:02> - Labs CBC & Chem 7: 01/09/18 05:40 01/09/18 05:40 Labs: Laboratory Results - last 24 hr 01/09/18 01/09/18 01/09/18 05:40 05:40 05:40 CBC w Diff Auto diff final WBC 19.2 H D RBC 3.71 L Hgb 11.8 D Hct 34.7 L MCV 93.4 MCH 31.6 MCHC 33.9 RDW 16.8 Plt Count 169 MPV 9.7 Neut % (Auto) 85.1 H Lymph % (Auto) 10.7 Cobb % (Auto) 4.0 Eos % (Auto) 0.1 Baso % (Auto) 0.1 Neut # (Auto) 16.3 H Lymph # (Auto) 2.1 Cobb # (Auto) 0.8 Eos # (Auto) 0.0 Baso # (Auto) 0.0 WBC Differential . Differential Comment . PT INR Sodium 144 Potassium 3.1 L Chloride 107 Carbon Dioxide 24.2 Anion Gap 13 BUN 12 Creatinine 0.90 Estimated GFR 59 L Random Glucose 180 H Calcium 8.8 Iron Total Bilirubin 0.7 AST 1714 H ALT 1420 H Alkaline Phosphatase 286 H Ammonia Total Protein 7.5 D Albumin 3.5 Acetaminophen Hepatitis A IgM Ab Nonreactive Hep Bs Antigen Nonreactive Hep B Core IgM Ab Nonreactive Hep C IgG Ab Nonreactive 01/09/18 01/09/18 01/09/18 05:40 05:40 05:40 CBC w Diff WBC RBC Hgb Hct MCV MCH MCHC RDW Plt Count MPV Neut % (Auto) Lymph % (Auto) Cobb % (Auto) Eos % (Auto) Baso % (Auto) Neut # (Auto) Lymph # (Auto) Cobb # (Auto) Eos # (Auto) Baso # (Auto) WBC Differential Differential Comment PT 11.2 INR 1.1 Sodium Potassium Chloride Carbon Dioxide Anion Gap BUN Creatinine Estimated GFR Random Glucose Calcium Iron 27 L Total Bilirubin AST ALT Alkaline Phosphatase Ammonia Total Protein Albumin Acetaminophen Less than 2.0 L Hepatitis A IgM Ab Hep Bs Antigen Hep B Core IgM Ab Hep C IgG Ab 01/09/18 01/09/18 09:30 12:20 CBC w Diff WBC RBC Hgb Hct MCV MCH MCHC RDW Plt Count MPV Neut % (Auto) Lymph % (Auto) Cobb % (Auto) Eos % (Auto) Baso % (Auto) Neut # (Auto) Lymph # (Auto) Cobb # (Auto) Eos # (Auto) Baso # (Auto) WBC Differential Differential Comment PT INR Sodium Potassium Chloride Carbon Dioxide Anion Gap BUN Creatinine Estimated GFR Random Glucose Calcium Iron Total Bilirubin AST ALT Alkaline Phosphatase Ammonia 12 Total Protein Albumin Acetaminophen Hepatitis A IgM Ab Nonreactive Hep Bs Antigen Nonreactive Hep B Core IgM Ab Nonreactive Hep C IgG Ab Nonreactive - Imaging Impressions Cholangiopancreatography MRI 01/09/18 00:00 CONCLUSION: 1. Bibasilar airspace disease with trace pleural fluid. 2. Previous cholecystectomy with mild biliary ductal dilatation. No choledocholithiasis. Pancreatic duct normal caliber. 3. Numerous bilateral renal cysts. Liver Ultrasound 01/09/18 00:00 CONCLUSION: 1. Status post cholecystectomy. 2. Multiple right-sided renal cysts. 3. Liver slightly enlarged otherwise appears unremarkable. Bile Acid Absorption NM 01/09/18 14:29 CONCLUSION: 1. Previous cholecystectomy. Normal uptake and excretion by the liver. No biliary ductal obstruction <Marilyn Galvez - Last Filed: 01/09/18 21:45> Assessment and Plan (1) Transaminitis Status: Acute Code(s): R74.0 - Nonspecific elevation of levels of transaminase and lactic acid dehydrogenase [LDH] (2) Abdominal pain Status: Acute Code(s): R10.9 - Unspecified abdominal pain (3) Elevated LFTs Status: Acute Code(s): R94.5 - Abnormal results of liver function studies - Plan Transaminitis substantial elevation to AST 1714, ALT 1420 with normal bilirubin this could represent obstruction, inflammation. Note patient is status post cholecystectomy with MRCP showing mild ductal dilatation but no cholelithiasis pancreatic duct normal caliber. May consider ERCP dependent on patient's lab results and symptoms. We will continue to evaluate History of recent UTI treated with Macrobid Abdominal pain right sided and mid upper region. Son states pain has been going on since this past March but continues to wax and wane and got unbearable over the past 24 hours. Anemia without obvious bleeding current hemoglobin 11.8 which is probably chronic Patient had normal brown formed stool today this a.m.. Patient is status post cholecystectomy. Since MRCP did show some mild ductal dilatation plan is to do ERCP in the morning. Explained to patient and her son. Increase life stressors. Patient has been very worried about her son and all of his chronic medical problems. Supportive care given Test this admission includes abdominal CT which showed no ductal dilatation 3.1 cm adrenal mass stable over the past year and no bowel obstruction. MRCP showed bibasilar airspace disease with trace of pleural fluid and previous cholecystectomy with mild biliary ductal dilatation numerous bilateral renal cyst no cholelithiasis pancreatic duct normal caliber. Liver ultrasound shows slightly enlarged liver otherwise appears unremarkable Bile acid absorption test from nuclear medicine shows previous cholecystectomy normal uptake and excretion by the liver without biliary ductal obstruction Plan Diet clear liquids this p.m.= increase to soft heart healthy diet in a.m. Anti-emetics Bowel regimen meds Liver workup labs See C. difficile stool-pending IV hydration Monitor labs with special attention to LFTs Further recommendations to follow Patient was seen per myself and Dr. Galvez, this note was written on her behalf <Peyton Myers - Last Filed: 01/09/18 18:02> (1) Transaminitis Status: Acute Code(s): R74.0 - Nonspecific elevation of levels of transaminase and lactic acid dehydrogenase [LDH] (2) Abdominal pain Status: Acute Code(s): R10.9 - Unspecified abdominal pain (3) Elevated LFTs Status: Acute Code(s): R94.5 - Abnormal results of liver function studies - Attending Attestation seen, examined agree with above no indication for ERCP at this time most likely lfts elevation secondary medication-we will monitor closely, if worsening we will reevaluate need for ercp/liver biopsy <Marilyn Galvez - Last Filed: 01/09/18 21:45> <Peyton Myers - Last Filed: 01/09/18 18:02> (2) Abdominal pain Qualifiers: Abdominal location: epigastric Qualified Code(s): R10.13 - Epigastric pain <Marilyn Galvez - Last Filed: 01/09/18 21:45> (2) Abdominal pain Qualifiers: Abdominal location: epigastric Qualified Code(s): R10.13 - Epigastric pain
[2018-01-10] MEDS: Levothyroxine 100 MCG Tablet PO SCH (06:00)
[2018-01-10] MEDS: Sod Chloride 0.9% Inj 1,000 ML IV.CONT SCH ×2 (06:03→18:15)
[2018-01-10] MEDS: Lisinopril 20 MG Tablet PO SCH ×2 (08:25→21:38)
[2018-01-10] MEDS: Heparin - SQ 10,000 UNITS/ML Vial SQ SCH ×2 (08:26→21:38)
[2018-01-10] MEDS: Senna/Docusate Sodium 8.6/50 MG Tablet PO SCH ×2 (08:26→21:38)
[2018-01-10 11:11] LABS: Hemoglobin 10.5 gm/dL (11.6-15.3); Mean Corpuscular HGB Conc 32.9 % (32.0-36.0); Mean Corpuscular Hemoglobin 31.2 pg (27.0-34.0); Mean Platelet Volume 9.9 fL (7.0-11.0); Platelet Count 153 th/mm3 (150-450); Red Blood Count 3.37 mil/mm3 (4.00-5.30); Red Cell Distribution Width 17.4 % (11.6-17.2); White Blood Count 12.8 th/mm3 (4.0-11.0)
[2018-01-10 11:27] LABS: Alanine Aminotransferase 635 U/L (10-53); Albumin 3.1 g/dL (3.4-5.0); Anion Gap 8 meq/L (5-15); Aspartate Aminotransferase 371 U/L (15-37); Blood Urea Nitrogen 13 mg/dL (7-18); Calcium 8.5 mg/dL (8.5-10.1); Carbon Dioxide 24.4 meq/L (21.0-32.0); Chloride 112 meq/L (98-107); Glomerular Filtration Rate Greater Than 89 mL/min (>89); Glucose,Random 82 mg/dL (74-106); Potassium 3.5 meq/L (3.5-5.1); Sodium 144 meq/L (136-145)
[2018-01-10 11:29] LABS: Alkaline Phosphatase 188 U/L (45-117); Total Protein 6.7 g/dL (6.4-8.2)
[2018-01-10] MEDS ORDERED: MethylPREDNISolone Sod Succinate Inj 125 MG/2 ML Vial IV.PUSH ONE (11:30)
[2018-01-10] MEDS ORDERED: Loratadine 10 MG Tablet PO ONE (11:30)
--- NOTE | 2018-01-10 11:37 | P.PNGI ---
Subjective Interval history: Pt resting in bed. Multiple complaints today. Complaining of dry mouth and generalized body aches. Denies any nausea, vomiting, abdominal pain. States BM today and yesterday. <DedrickasterEvon - Last Filed: 01/10/18 11:32> Physical Exam Vital signs: Vital Signs 01/09/18 12:00 01/09/18 20:00 01/10/18 00:00 Temperature 98.7 F 98.0 F 97.9 F Pulse Rate 87 81 79 Respiratory Rate 18 18 18 Blood Pressure 143/64 H 152/68 H 158/72 H Pulse Oximetry 94 L 98 01/10/18 04:00 Temperature 98.0 F Pulse Rate 78 Respiratory Rate 18 Blood Pressure 160/69 H Pulse Oximetry 95 Intake & Output 01/09/18 01/10/18 01/10/18 18:59 06:59 18:59 Intake Total 100 / 100 1000 / 1000 Balance 100 / 100 1000 / 1000 Weight 57.3 kg Intake: IV 100 / 100 1000 / 1000 NS Inj 1,000 ML @ 70 mls/hr IV. 100 / 100 1000 / 1000 CONT .[id number] [facility] Rx#: [id number] Other: # Voids 4 Date of Last Bowel Movement 01/09/18 01/09/18 - Constitutional no acute distress - Routine HEENT Exam Head: Present: normocephalic, atraumatic - Routine Respiratory Exam Absent: accessory muscle use - Routine Abdominal Exam Present: soft, normoactive bowel sounds. Absent: tenderness, distended, rebound , guarding - Routine Skin Exam Present: dry, warm - Routine Neurological Exam Present: alert, oriented X3 <AmenaEvon - Last Filed: 01/10/18 11:32> Vital signs: Vital Signs 01/09/18 20:00 01/10/18 00:00 01/10/18 04:00 Temperature 98.0 F 97.9 F 98.0 F Pulse Rate 81 79 78 Respiratory Rate 18 18 18 Blood Pressure 152/68 H 158/72 H 160/69 H Pulse Oximetry 94 L 98 95 01/10/18 08:00 01/10/18 12:00 01/10/18 16:00 Temperature 97.8 F 97.7 F 98.3 F Pulse Rate 80 91 H 78 Respiratory Rate 17 18 22 Blood Pressure 194/86 H 142/68 H 208/91 H Pulse Oximetry 94 L 95 96 Intake & Output 01/10/18 01/10/18 01/11/18 06:59 18:59 06:59 Intake Total 1000 / 1000 1000 / 1000 Balance 1000 / 1000 1000 / 1000 Weight 57.3 kg Intake: IV 1000 / 1000 1000 / 1000 NS Inj 1,000 ML @ 70 mls/hr IV. 1000 / 1000 1000 / 1000 CONT .[id number] [facility] Rx#: [id number] Other: # Voids 4 6 Date of Last Bowel Movement 01/09/18 01/09/18 # Bowel Movements 0 <Fabio Maagna A - Last Filed: 01/10/18 19:14> Results - Labs CBC & Chem 7: 01/10/18 10:47 01/10/18 10:47 Laboratory Results - last 24 hr 01/09/18 01/09/18 01/09/18 05:40 05:40 12:20 WBC RBC Hgb Hct MCV MCH MCHC RDW Plt Count MPV Sodium Potassium Chloride Carbon Dioxide Anion Gap BUN Creatinine Estimated GFR Random Glucose Calcium Iron 27 L Total Bilirubin AST ALT Alkaline Phosphatase Total Protein Albumin Hepatitis A IgM Ab Nonreactive Nonreactive Hep Bs Antigen Nonreactive Nonreactive Hep B Core IgM Ab Nonreactive Nonreactive Hep C IgG Ab Nonreactive Nonreactive 01/10/18 01/10/18 10:47 10:47 WBC 12.8 H RBC 3.37 L Hgb 10.5 L Hct 32.0 L MCV 95.0 MCH 31.2 MCHC 32.9 RDW 17.4 H Plt Count 153 MPV 9.9 Sodium 144 Potassium 3.5 Chloride 112 H Carbon Dioxide 24.4 Anion Gap 8 BUN 13 Creatinine 0.53 Estimated GFR Greater than 89 Random Glucose 82 Calcium 8.5 Iron Total Bilirubin 0.5 AST 371 H ALT 635 H Alkaline Phosphatase 188 H Total Protein 6.7 D Albumin 3.1 L Hepatitis A IgM Ab Hep Bs Antigen Hep B Core IgM Ab Hep C IgG Ab - Imaging Impressions Cholangiopancreatography MRI 01/09/18 00:00 CONCLUSION: 1. Bibasilar airspace disease with trace pleural fluid. 2. Previous cholecystectomy with mild biliary ductal dilatation. No choledocholithiasis. Pancreatic duct normal caliber. 3. Numerous bilateral renal cysts. Bile Acid Absorption NM 01/09/18 14:29 CONCLUSION: 1. Previous cholecystectomy. Normal uptake and excretion by the liver. No biliary ductal obstruction <Evon Beckwith - Last Filed: 01/10/18 11:32> - Labs CBC & Chem 7: 01/10/18 10:47 01/10/18 10:47 Laboratory Results - last 24 hr 01/09/18 01/10/18 01/10/18 12:20 10:47 10:47 WBC 12.8 H RBC 3.37 L Hgb 10.5 L Hct 32.0 L MCV 95.0 MCH 31.2 MCHC 32.9 RDW 17.4 H Plt Count 153 MPV 9.9 Sodium 144 Potassium 3.5 Chloride 112 H Carbon Dioxide 24.4 Anion Gap 8 BUN 13 Creatinine 0.53 Estimated GFR Greater than 89 Random Glucose 82 Calcium 8.5 Total Bilirubin 0.5 AST 371 H ALT 635 H Alkaline Phosphatase 188 H Total Protein 6.7 D Albumin 3.1 L SHELL Screen Pos H <Fabio Magana - Last Filed: 01/10/18 19:14> Assessment and Plan (1) Transaminitis Status: Acute Code(s): R74.0 - Nonspecific elevation of levels of transaminase and lactic acid dehydrogenase [LDH] (2) Abdominal pain Status: Acute Code(s): R10.9 - Unspecified abdominal pain (3) Elevated LFTs Status: Acute Code(s): R94.5 - Abnormal results of liver function studies - Plan Assessment: - Elevated LFTs- highest on 01/09- AST-1714 ALT-1420 T bili-0.7 Alk phos-286 Denies history of liver issues, denies ETOH. Of note, recently on Macrobid for UTI MRCP (01/09) Previous cholecystectomy with mild biliary ductal dilatation. No choledocholithiasis. Pancreatic duct normal caliber. HIDA (01/09) Previous cholecystectomy. Normal uptake and excretion by the liver. No biliary ductal obstruction Liver US (01/09) Status post cholecystectomy. Liver slightly enlarged otherwise appears unremarkable. (01/10) LFTs trending down significantly today. Pt reports no nausea, vomiting, abdominal pain at present. Will continue to monitor LFTs, no indication for ERCP at this time. ? reaction to Macrobid. Plan TONE Monitor LFTs Avoid hepatotoxins Further recommendations based on clinical course Patient has been seen and examined by myself and Dr. Magana and this note is written on his behalf <Evon Beckwith - Last Filed: 01/10/18 11:32> (1) Transaminitis Status: Acute Code(s): R74.0 - Nonspecific elevation of levels of transaminase and lactic acid dehydrogenase [LDH] (2) Abdominal pain Status: Acute Code(s): R10.9 - Unspecified abdominal pain (3) Elevated LFTs Status: Acute Code(s): R94.5 - Abnormal results of liver function studies - Attending Attestation As above, follow LFT's and avoid hepatotoxic meds . work up pending for CLD. <Fabio Magana - Last Filed: 01/10/18 19:14> <Evon Beckwith - Last Filed: 01/10/18 11:32> (2) Abdominal pain Qualifiers: Abdominal location: epigastric Qualified Code(s): R10.13 - Epigastric pain <Fabio Magana - Last Filed: 01/10/18 19:14> (2) Abdominal pain Qualifiers: Abdominal location: epigastric Qualified Code(s): R10.13 - Epigastric pain
--- NOTE | 2018-01-10 12:46 | P.PNIM ---
Subjective Interval history: Patient still remains weak. Her rash has improved. She continues to have sores in her mouth. Transaminitis has worsened. Physical Exam Vital signs: Vital Signs 01/09/18 20:00 01/10/18 00:00 01/10/18 04:00 Temperature 98.0 F 97.9 F 98.0 F Pulse Rate 81 79 78 Respiratory Rate 18 18 18 Blood Pressure 152/68 H 158/72 H 160/69 H Pulse Oximetry 94 L 98 95 Intake & Output 01/09/18 01/10/18 01/10/18 18:59 06:59 18:59 Intake Total 100 / 100 1000 / 1000 Balance 100 / 100 1000 / 1000 Weight 57.3 kg Intake: IV 100 / 100 1000 / 1000 NS Inj 1,000 ML @ 70 mls/hr IV. 100 / 100 1000 / 1000 CONT .[id number] [facility] Rx#: [id number] Other: # Voids 4 Date of Last Bowel Movement 01/09/18 01/09/18 Narrative: GENERAL: NAD, A&Ox3 HEAD: Normocephalic. Dry mouth with some blisters. NECK: Supple, trachea midline. No lymphadenopathy. EYES: No scleral icterus. No injection or drainage. CARDIOVASCULAR: Regular rate and rhythm without murmurs, gallops, or rubs. RESPIRATORY: Breath sounds equal bilaterally. No accessory muscle use. GASTROINTESTINAL: Abdomen soft, non-tender, nondistended. MUSCULOSKELETAL: No cyanosis, or edema. SKIN: Warm and dry. NEURO: No focal neurological deficits. Results - Labs CBC & Chem 7: 01/10/18 10:47 01/10/18 10:47 Laboratory Results - last 24 hr 01/09/18 01/09/18 01/09/18 05:40 05:40 12:20 WBC RBC Hgb Hct MCV MCH MCHC RDW Plt Count MPV Sodium Potassium Chloride Carbon Dioxide Anion Gap BUN Creatinine Estimated GFR Random Glucose Calcium Iron 27 L Total Bilirubin AST ALT Alkaline Phosphatase Total Protein Albumin Hepatitis A IgM Ab Nonreactive Nonreactive Hep Bs Antigen Nonreactive Nonreactive Hep B Core IgM Ab Nonreactive Nonreactive Hep C IgG Ab Nonreactive Nonreactive 01/10/18 01/10/18 10:47 10:47 WBC 12.8 H RBC 3.37 L Hgb 10.5 L Hct 32.0 L MCV 95.0 MCH 31.2 MCHC 32.9 RDW 17.4 H Plt Count 153 MPV 9.9 Sodium 144 Potassium 3.5 Chloride 112 H Carbon Dioxide 24.4 Anion Gap 8 BUN 13 Creatinine 0.53 Estimated GFR Greater than 89 Random Glucose 82 Calcium 8.5 Iron Total Bilirubin 0.5 AST 371 H ALT 635 H Alkaline Phosphatase 188 H Total Protein 6.7 D Albumin 3.1 L Hepatitis A IgM Ab Hep Bs Antigen Hep B Core IgM Ab Hep C IgG Ab - Imaging Impressions Cholangiopancreatography MRI 01/09/18 00:00 CONCLUSION: 1. Bibasilar airspace disease with trace pleural fluid. 2. Previous cholecystectomy with mild biliary ductal dilatation. No choledocholithiasis. Pancreatic duct normal caliber. 3. Numerous bilateral renal cysts. Bile Acid Absorption NM 01/09/18 14:29 CONCLUSION: 1. Previous cholecystectomy. Normal uptake and excretion by the liver. No biliary ductal obstruction Assessment and Plan - Assessment (1) Elevated LFTs Code(s): R94.5 - Abnormal results of liver function studies Status: Acute Plan: patient was started on Nitrofurantoin just two days ago. hepatitis panel pending- will check liver US and tylenol level along with PT/INR - monitor LFT's closely- GI consulted. (2) Hypertension Code(s): I10 - Essential (primary) hypertension Status: Chronic Plan: continue lisinopril and metoprolol-hold Nifedipine. (3) Dyslipidemia Code(s): E78.5 - Hyperlipidemia, unspecified Status: Chronic Plan: hold statin due to elevated LFT's. (4) Hypothyroidism Code(s): E03.9 - Hypothyroidism, unspecified Status: Chronic Plan: resume home meds. - Plan 87-year-old female admitted secondary to reaction to nitrofurantoin Nitrofurantoin reaction Mild to moderate anaphylaxis Reactive hepatitis Start antihistamines Start steroid Follow LFTs Follow clinically for improvement Therapy Hypertension Continue baseline treatment Follow blood pressures Adjust treatments as needed Hyperlipidemia Continue present treatment Follow as an outpatient Hypothyroidism Continue baseline treatments and follows an outpatient DVT prophylaxis SCDs Discharge planning Once reaction is controlled patient will be stable for discharge home, not yet stable for this (2) Hypertension Qualifiers: Hypertension type: essential hypertension Qualified Code(s): I10 - Essential (primary) hypertension
[2018-01-10 14:21] LABS: Anti-Nuclear Antibody Screen Pos (Neg)
[2018-01-10] MEDS: Loratadine 10 MG Tablet PO SCH (21:38)
[2018-01-10] MEDS: MethylPREDNISolone Sod Succinate Inj 40 MG/ML Vial IV.PUSH SCH (21:39)
[2018-01-10 22:29] LABS: Bilirubin,Urine Negative (Negative); Clarity,Urine Clear (Clear); Color,Urine Straw (Yellw/Straw); Glucose,Urine (UA) Negative (Negative); Leukocyte Esterase,Urine Negative (Negative); Mucus,Urine Few /lpf (Occasional); Nitrite,Urine Negative (Negative); Specific Gravity,Urine 1.009 (1.002-1.035); Squamous Epithelial Cell,Urine <1 /hpf (0-5)
[2018-01-11] MEDS: Levothyroxine 100 MCG Tablet PO SCH (06:27)
[2018-01-11] MEDS: Sod Chloride 0.9% Inj 1,000 ML IV.CONT SCH (06:28)
[2018-01-11] MEDS: Senna/Docusate Sodium 8.6/50 MG Tablet PO SCH ×2 (08:25→20:40)
[2018-01-11] MEDS: MethylPREDNISolone Sod Succinate Inj 40 MG/ML Vial IV.PUSH SCH (08:25)
[2018-01-11] MEDS: Heparin - SQ 10,000 UNITS/ML Vial SQ SCH ×2 (08:26→20:40)
[2018-01-11] MEDS: Lisinopril 20 MG Tablet PO SCH ×2 (08:27→20:40)
[2018-01-11] MEDS ORDERED: Naphazoline 0.012% Opth Drops 15 ML Bottle EACH EYE PRN (10:25)
--- NOTE | 2018-01-11 10:27 | P.PNIM ---
Subjective Interval history: Patient complains of worsening of her right eye. She also feels that she cannot eat well due to her blisters in her mouth. Hepatitis show signs of improvement. Tachycardia and hypertensive urgency are present. This may be part of the reaction of this could be related to steroids. Physical Exam Vital signs: Vital Signs 01/10/18 12:00 01/10/18 16:00 01/10/18 20:00 Temperature 97.7 F 98.3 F 97.7 F Pulse Rate 91 H 78 73 Respiratory Rate 18 22 22 Blood Pressure 142/68 H 208/91 H 197/89 H Pulse Oximetry 95 96 94 L 01/11/18 00:00 01/11/18 02:57 01/11/18 04:00 Temperature 97.3 F L 97.8 F Pulse Rate 63 82 71 Respiratory Rate 20 18 Blood Pressure 191/83 H 210/98 H 185/84 H Pulse Oximetry 93 L 92 L 01/11/18 05:38 01/11/18 08:00 Temperature 97.5 F L Pulse Rate 71 62 Respiratory Rate 18 Blood Pressure 180/86 H 180/90 H Pulse Oximetry 98 Intake & Output 01/10/18 01/11/18 01/11/18 18:59 06:59 18:59 Intake Total 1000 / 1000 240 / 240 Balance 1000 / 1000 240 / 240 Weight 57.3 kg Intake: IV 1000 / 1000 NS Inj 1,000 ML @ 70 mls/hr IV. 1000 / 1000 CONT .[id number] [facility] Rx#: [id number] Oral 240 / 240 Other: # Voids 6 3 Date of Last Bowel Movement 01/09/18 01/09/18 01/10/18 # Bowel Movements 0 Narrative: GENERAL: NAD, A&Ox3 HEAD: Normocephalic. NECK: Supple, trachea midline. No lymphadenopathy. EYES: No scleral icterus. No injection or drainage. CARDIOVASCULAR: Regular rate and rhythm without murmurs, gallops, or rubs. RESPIRATORY: Breath sounds equal bilaterally. No accessory muscle use. GASTROINTESTINAL: Abdomen soft, non-tender, nondistended. MUSCULOSKELETAL: No cyanosis, or edema. SKIN: Warm and dry. NEURO: No focal neurological deficits. Results - Labs CBC & Chem 7: 01/10/18 10:47 01/10/18 10:47 Laboratory Results - last 24 hr 07/02/1901/10/18 01/10/18 12:20 10:47 10:47 WBC 12.8 H RBC 3.37 L Hgb 10.5 L Hct 32.0 L MCV 95.0 MCH 31.2 MCHC 32.9 RDW 17.4 H Plt Count 153 MPV 9.9 Sodium 144 Potassium 3.5 Chloride 112 H Carbon Dioxide 24.4 Anion Gap 8 BUN 13 Creatinine 0.53 Estimated GFR Greater than 89 Random Glucose 82 Calcium 8.5 Total Bilirubin 0.5 AST 371 H ALT 635 H Alkaline Phosphatase 188 H Total Protein 6.7 D Albumin 3.1 L Urine Color Urine Clarity Urine pH Ur Specific [place] Urine Protein Urine Glucose (UA) Urine Ketones Urine Occult Blood Urine Nitrate Urine Bilirubin Urine Urobilinogen Ur Leukocyte Esterase Urine RBC Urine WBC Ur Squamous Epith Cells Urine Mucus Micro UA Comment Urine Culture Comments SHELL Screen Pos H 01/10/18 17:45 WBC RBC Hgb Hct MCV MCH MCHC RDW Plt Count MPV Sodium Potassium Chloride Carbon Dioxide Anion Gap BUN Creatinine Estimated GFR Random Glucose Calcium Total Bilirubin AST ALT Alkaline Phosphatase Total Protein Albumin Urine Color Straw Urine Clarity Clear Urine pH 6.0 Ur Specific [place] 1.009 Urine Protein Negative Urine Glucose (UA) Negative Urine Ketones Negative Urine Occult Blood Small H Urine Nitrate Negative Urine Bilirubin Negative Urine Urobilinogen Less than 2 Ur Leukocyte Esterase Negative Urine RBC 1 Urine WBC 2 Ur Squamous Epith Cells <1 Urine Mucus Few H Micro UA Comment Culture not ind Urine Culture Comments Culture not ind SHELL Screen Assessment and Plan - Assessment (1) Elevated LFTs Code(s): R94.5 - Abnormal results of liver function studies Status: Acute Plan: patient was started on Nitrofurantoin just two days ago. hepatitis panel pending- will check liver US and tylenol level along with PT/INR - monitor LFT's closely- GI consulted. (2) Hypertension Code(s): I10 - Essential (primary) hypertension Status: Chronic Plan: continue lisinopril and metoprolol-hold Nifedipine. (3) Dyslipidemia Code(s): E78.5 - Hyperlipidemia, unspecified Status: Chronic Plan: hold statin due to elevated LFT's. (4) Hypothyroidism Code(s): E03.9 - Hypothyroidism, unspecified Status: Chronic Plan: resume home meds. - Plan 87-year-old female admitted secondary to reaction to nitrofurantoin Hepatitis is improving. Patient shows worsening of right eye, mouth, heart rate , and blood pressures. Not yet stable for discharge home. Nitrofurantoin reaction Mild to moderate anaphylaxis Reactive hepatitis Continue antihistamines Continue steroid Follow LFTs Follow clinically for improvement Therapy Hypertensive urgency on hypertension Continue baseline treatment Follow blood pressures Adjust treatments as needed Start clonidine on as as-needed basis Hyperlipidemia Continue present treatment Follow as an outpatient Hypothyroidism Continue baseline treatments and follows an outpatient DVT prophylaxis SCDs Discharge planning Once reaction is controlled patient will be stable for discharge home, not yet stable for this (2) Hypertension Qualifiers: Hypertension type: essential hypertension Qualified Code(s): I10 - Essential (primary) hypertension
[2018-01-11 10:58] LABS: Baso % (Auto) 0.1 % (0.0-2.0); Hematocrit 34.9 % (35.0-46.0); Hemoglobin 11.3 gm/dL (11.6-15.3); Lymph # (Auto) 2.8 th/mm3 (1.0-4.8); Lymph % (Auto) 20.3 % (9.0-44.0); Mean Corpuscular HGB Conc 32.5 % (32.0-36.0); Mean Corpuscular Hemoglobin 30.9 pg (27.0-34.0); Mean Corpuscular Volume 95.3 fL (80.0-100.0); Mean Platelet Volume 10.5 fL (7.0-11.0); Mono # (Auto) 0.3 th/mm3 (0.0-0.9); Mono % (Auto) 2.3 % (0.0-8.0); Neut # (Auto) 10.6 th/mm3 (1.8-7.7); Neut % (Auto) 77.3 % (16.0-70.0); Platelet Count 189 th/mm3 (150-450); Red Blood Count 3.66 mil/mm3 (4.00-5.30); Red Cell Distribution Width 16.8 % (11.6-17.2); White Blood Count 13.7 th/mm3 (4.0-11.0)
[2018-01-11 11:26] LABS: Alanine Aminotransferase 478 U/L (10-53); Albumin 3.4 g/dL (3.4-5.0); Anion Gap 9 meq/L (5-15); Aspartate Aminotransferase 138 U/L (15-37); Blood Urea Nitrogen 14 mg/dL (7-18); C-Reactive Protein 5.52 mg/dL (0.00-0.30); Calcium 8.8 mg/dL (8.5-10.1); Carbon Dioxide 25.7 meq/L (21.0-32.0); Chloride 106 meq/L (98-107); Glomerular Filtration Rate Greater Than 89 mL/min (>89); Glucose,Random 181 mg/dL (74-106); Potassium 3.8 meq/L (3.5-5.1); Sodium 141 meq/L (136-145)
[2018-01-11 11:27] LABS: Alkaline Phosphatase 177 U/L (45-117); Total Protein 7.3 g/dL (6.4-8.2)
[2018-01-11] MEDS ORDERED: Hypromellose 0.3% Opth Gel 10 GM Bottle EACH EYE PRN (14:00)
--- NOTE | 2018-01-11 18:07 | P.PNGI ---
Subjective Interval history: Sitting up in the chair appears weakened and repeats herself frequently States some abdominal discomfort to light palpation on left upper quadrant of the known Chief complaint right eye soreness and edema IV hydration continues Current hemoglobin 11.3 <Peyton Myers - Last Filed: 01/11/18 18:03> Physical Exam Vital signs: Vital Signs 01/10/18 20:00 01/11/18 00:00 01/11/18 02:57 Temperature 97.7 F 97.3 F L Pulse Rate 73 63 82 Respiratory Rate 22 20 Blood Pressure 197/89 H 191/83 H 210/98 H Pulse Oximetry 94 L 93 L 01/11/18 04:00 01/11/18 05:38 01/11/18 08:00 Temperature 97.8 F 97.5 F L Pulse Rate 71 71 62 Respiratory Rate 18 18 Blood Pressure 185/84 H 180/86 H 180/90 H Pulse Oximetry 92 L 98 01/11/18 12:00 01/11/18 12:57 01/11/18 16:00 Temperature 97.5 F L 97.2 F L Pulse Rate 65 68 Respiratory Rate 15 18 Blood Pressure 195/83 H 189/80 H 192/85 H Pulse Oximetry 95 97 Intake & Output 01/10/18 01/11/18 01/11/18 18:59 06:59 18:59 Intake Total 1000 / 1000 240 / 240 Balance 1000 / 1000 240 / 240 Weight 57.3 kg Intake: IV 1000 / 1000 NS Inj 1,000 ML @ 70 mls/hr IV. 1000 / 1000 CONT [facility][id number] [facility] Rx#: [id number] Oral 240 / 240 Other: # Voids 6 3 Date of Last Bowel Movement 01/09/18 01/09/18 01/10/18 # Bowel Movements 0 - Constitutional mild distress - Routine HEENT Exam Eye: Present: conjunctivae pink (Right eye), periorbital tenderness ENT: Present: mucous membranes dry - Routine Neck Exam Present: supple - Routine Cardiovascular Exam Present: RRR - Routine Abdominal Exam Present: soft (Left upper quadrant discomfort waxes and wanes) - Routine Skin Exam Present: intact - Routine Neurological Exam Present: alert (Awake but conversation rambles) - Routine Psychiatric Exam Present: anxious <Peyton Myers - Last Filed: 01/11/18 18:03> Vital signs: Vital Signs 01/11/18 08:00 01/11/18 12:00 01/11/18 12:57 Temperature 97.5 F L 97.5 F L Pulse Rate 62 65 Respiratory Rate 18 15 Blood Pressure 180/90 H 195/83 H 189/80 H Pulse Oximetry 98 95 01/11/18 16:00 01/11/18 20:00 01/11/18 23:35 Temperature 97.2 F L 97.4 F L Pulse Rate 68 66 85 Respiratory Rate 18 18 Blood Pressure 192/85 H 197/83 H 194/82 H Pulse Oximetry 97 97 01/12/18 00:00 01/12/18 01:45 01/12/18 06:10 Temperature 97.4 F L Pulse Rate 64 Respiratory Rate 18 18 Blood Pressure 137/84 186/78 H Pulse Oximetry 97 Intake & Output 01/11/18 01/11/18 01/12/18 06:59 18:59 06:59 Intake Total 240 / 240 Balance 240 / 240 Weight 57.3 kg Intake: Oral 240 / 240 Other: # Voids 3 10 Date of Last Bowel Movement 01/09/18 01/10/18 01/11/18 <Fabio Magana - Last Filed: 01/12/18 06:43> Results - Labs CBC & Chem 7: 01/11/18 09:49 01/11/18 09:49 Laboratory Results - last 24 hr 01/10/18 01/11/18 01/11/18 17:45 09:49 09:49 WBC 13.7 H RBC 3.66 L Hgb 11.3 L Hct 34.9 L MCV 95.3 MCH 30.9 MCHC 32.5 RDW 16.8 Plt Count 189 MPV 10.5 Neut % (Auto) 77.3 H Lymph % (Auto) 20.3 [place] % (Auto) 2.3 Eos % (Auto) 0.0 Baso % (Auto) 0.1 Neut # (Auto) 10.6 H Lymph # (Auto) 2.8 [place] # (Auto) 0.3 Eos # (Auto) 0.0 Baso # (Auto) 0.0 WBC Differential . Differential Comment Auto diff final Sodium 141 Potassium 3.8 Chloride 106 Carbon Dioxide 25.7 Anion Gap 9 BUN 14 Creatinine 0.52 Estimated GFR Greater than 89 Random Glucose 181 H Calcium 8.8 Total Bilirubin 0.4 AST 138 H ALT 478 H Alkaline Phosphatase 177 H C-Reactive Protein 5.52 H Total Protein 7.3 D Albumin 3.4 Urine Color Straw Urine Clarity Clear Urine pH 6.0 Ur Specific [place] 1.009 Urine Protein Negative Urine Glucose (UA) Negative Urine Ketones Negative Urine Occult Blood Small H Urine Nitrate Negative Urine Bilirubin Negative Urine Urobilinogen Less than 2 Ur Leukocyte Esterase Negative Urine RBC 1 Urine WBC 2 Ur Squamous Epith Cells <1 Urine Mucus Few H Micro UA Comment Culture not ind Urine Culture Comments Culture not ind Rheumatoid Factor Scrn Negative Rheumatoid Factor Titer Not Reportable <Peyton Myers - Last Filed: 01/11/18 18:03> - Labs CBC & Chem 7: 01/11/18 09:49 01/11/18 09:49 Laboratory Results - last 24 hr 01/09/18 01/11/18 01/11/18 05:40 09:49 09:49 WBC 13.7 H RBC 3.66 L Hgb 11.3 L Hct 34.9 L MCV 95.3 MCH 30.9 MCHC 32.5 RDW 16.8 Plt Count 189 MPV 10.5 Neut % (Auto) 77.3 H Lymph % (Auto) 20.3 [place] % (Auto) 2.3 Eos % (Auto) 0.0 Baso % (Auto) 0.1 Neut # (Auto) 10.6 H Lymph # (Auto) 2.8 [place] # (Auto) 0.3 Eos # (Auto) 0.0 Baso # (Auto) 0.0 WBC Differential . Differential Comment Auto diff final Sodium 141 Potassium 3.8 Chloride 106 Carbon Dioxide 25.7 Anion Gap 9 BUN 14 Creatinine 0.52 Estimated GFR Greater than 89 Random Glucose 181 H Calcium 8.8 Total Bilirubin 0.4 AST 138 H ALT 478 H Alkaline Phosphatase 177 H C-Reactive Protein 5.52 H Total Protein 7.3 D Albumin 3.4 [id number] 161 Rheumatoid Factor Scrn Negative Rheumatoid Factor Titer Not Reportable <Fabio Magana - Last Filed: 01/12/18 06:43> Assessment and Plan (1) Transaminitis Status: Acute Code(s): R74.0 - Nonspecific elevation of levels of transaminase and lactic acid dehydrogenase [LDH] (2) Abdominal pain Status: Acute Code(s): R10.9 - Unspecified abdominal pain (3) Elevated LFTs Status: Acute Code(s): R94.5 - Abnormal results of liver function studies - Plan Assessment: - Elevated LFTs- highest on 01/09- AST-1714 ALT-1420 T bili-0.7 Alk phos-286 Denies history of liver issues, denies ETOH. Of note, recently on Macrobid for UTI MRCP (01/09) Previous cholecystectomy with mild biliary ductal dilatation. No choledocholithiasis. Pancreatic duct normal caliber. HIDA (01/09) Previous cholecystectomy. Normal uptake and excretion by the liver. No biliary ductal obstruction Liver US (01/09) Status post cholecystectomy. Liver slightly enlarged otherwise appears unremarkable. (01/10) LFTs trending down significantly today. Pt reports no nausea, vomiting, abdominal pain at present. Will continue to monitor LFTs, no indication for ERCP at this time. ? reaction to Macrobid. 01/11/2018 patient still complains of some left upper quadrant discomfort off and on worse with palpation. Patient rambles with her conversation but chief complaint at this time is her right eye which does appear edematous. No current nausea or vomiting. No obvious bleeding current hemoglobin 11.3. No planned procedures at this time from a GI standpoint Plan Diet as tolerated, encouraged hydration Encouraged patient to be up in chair and to increase her activity as possible Monitor LFTs and hemoglobin Avoid hepatotoxins Supportive care Patient has been seen and examined by myself and Dr. Magana and this note is written on his behalf <Peyton Myers - Last Filed: 01/11/18 18:03> (1) Transaminitis Status: Acute Code(s): R74.0 - Nonspecific elevation of levels of transaminase and lactic acid dehydrogenase [LDH] (2) Abdominal pain Status: Acute Code(s): R10.9 - Unspecified abdominal pain (3) Elevated LFTs Status: Acute Code(s): R94.5 - Abnormal results of liver function studies - Attending Attestation Agree with above assessment and plan. <Fabio Magana - Last Filed: 01/12/18 06:43> <Peyton Myers M - Last Filed: 01/11/18 18:03> (2) Abdominal pain Qualifiers: Abdominal location: epigastric Qualified Code(s): R10.13 - Epigastric pain <Fabio Magana A - Last Filed: 01/12/18 06:43> (2) Abdominal pain Qualifiers: Abdominal location: epigastric Qualified Code(s): R10.13 - Epigastric pain
[2018-01-11] MEDS: Loratadine 10 MG Tablet PO SCH (20:41)
[2018-01-11 21:24] LABS: Alpha 1 Antitrypsin 161 mg/dL (100 - 190)
[2018-01-12] MEDS: Levothyroxine 100 MCG Tablet PO SCH (06:14)
[2018-01-12] MEDS ORDERED: predniSONE 10 MG Tablet PO SCH (09:00)
[2018-01-12] MEDS: Heparin - SQ 10,000 UNITS/ML Vial SQ SCH ×2 (10:03→21:12)
[2018-01-12] MEDS: Lisinopril 20 MG Tablet PO SCH ×2 (10:03→21:11)
[2018-01-12] MEDS: Senna/Docusate Sodium 8.6/50 MG Tablet PO SCH ×2 (10:03→21:11)
--- NOTE | 2018-01-12 10:55 | P.PNIM ---
Subjective Interval history: Patient complains of abdominal pain. Some nausea. She says the pain kept her up all night. Etiology for the pain is likely related to medication reaction. She also has hypertensive urgency which is not yet controlled. Physical Exam Vital signs: Vital Signs 01/11/18 12:00 01/11/18 12:57 01/11/18 16:00 Temperature 97.5 F L 97.2 F L Pulse Rate 65 68 Respiratory Rate 15 18 Blood Pressure 195/83 H 189/80 H 192/85 H Pulse Oximetry 95 97 01/11/18 20:00 01/11/18 23:35 01/12/18 00:00 Temperature 97.4 F L 97.4 F L Pulse Rate 66 85 64 Respiratory Rate 18 18 Blood Pressure 197/83 H 194/82 H 137/84 Pulse Oximetry 97 97 01/12/18 01:45 01/12/18 06:10 01/12/18 08:00 Temperature 97.2 F L Pulse Rate 62 Respiratory Rate 18 18 Blood Pressure 186/78 H 200/91 H Pulse Oximetry 95 Intake & Output 01/11/18 01/12/18 01/12/18 18:59 06:59 18:59 Other: # Voids 10 2 Date of Last Bowel Movement 01/10/18 01/11/18 Narrative: GENERAL: NAD, A&Ox3 HEAD: Normocephalic. NECK: Supple, trachea midline. No lymphadenopathy. EYES: No scleral icterus. No injection or drainage. CARDIOVASCULAR: Regular rate and rhythm without murmurs, gallops, or rubs. RESPIRATORY: Breath sounds equal bilaterally. No accessory muscle use. GASTROINTESTINAL: Abdomen soft, non-tender, nondistended. MUSCULOSKELETAL: No cyanosis, or edema. SKIN: Warm and dry. NEURO: No focal neurological deficits. Results - Labs CBC & Chem 7: 01/11/18 09:49 01/11/18 09:49 Laboratory Results - last 24 hr 01/09/18 01/11/18 01/11/18 05:40 09:49 09:49 WBC 13.7 H RBC 3.66 L Hgb 11.3 L Hct 34.9 L MCV 95.3 MCH 30.9 MCHC 32.5 RDW 16.8 Plt Count 189 MPV 10.5 Neut % (Auto) 77.3 H Lymph % (Auto) 20.3 [place] % (Auto) 2.3 Eos % (Auto) 0.0 Baso % (Auto) 0.1 Neut # (Auto) 10.6 H Lymph # (Auto) 2.8 [place] # (Auto) 0.3 Eos # (Auto) 0.0 Baso # (Auto) 0.0 WBC Differential . Differential Comment Auto diff final Sodium 141 Potassium 3.8 Chloride 106 Carbon Dioxide 25.7 Anion Gap 9 BUN 14 Creatinine 0.52 Estimated GFR Greater than 89 Random Glucose 181 H Calcium 8.8 Total Bilirubin 0.4 AST 138 H ALT 478 H Alkaline Phosphatase 177 H C-Reactive Protein 5.52 H Total Protein 7.3 D Albumin 3.4 Rnfoi-[id number]-Dvccqtjxhem 161 Rheumatoid Factor Scrn Negative Rheumatoid Factor Titer Not Reportable Assessment and Plan - Assessment (1) Elevated LFTs Code(s): R94.5 - Abnormal results of liver function studies Status: Acute Plan: patient was started on Nitrofurantoin just two days ago. hepatitis panel pending- will check liver US and tylenol level along with PT/INR - monitor LFT's closely- GI consulted. (2) Hypertension Code(s): I10 - Essential (primary) hypertension Status: Chronic Plan: continue lisinopril and metoprolol-hold Nifedipine. (3) Dyslipidemia Code(s): E78.5 - Hyperlipidemia, unspecified Status: Chronic Plan: hold statin due to elevated LFT's. (4) Hypothyroidism Code(s): E03.9 - Hypothyroidism, unspecified Status: Chronic Plan: resume home meds. - Plan 87-year-old female admitted secondary to reaction to nitrofurantoin Hepatitis improving. Patient still complains of pain and dyspepsia. Potential discharge home tomorrow if further improvement occurs. Nitrofurantoin reaction Mild to moderate anaphylaxis Reactive hepatitis Continue antihistamines Continue steroid Follow LFTs Follow clinically for improvement Therapy Hypertensive urgency on hypertension Continue baseline treatment Follow blood pressures Adjust treatments as needed Start clonidine on as as-needed basis Hyperlipidemia Continue present treatment Follow as an outpatient Hypothyroidism Continue baseline treatments and follows an outpatient DVT prophylaxis SCDs Discharge planning Once reaction is controlled patient will be stable for discharge home, not yet stable for this (2) Hypertension Qualifiers: Hypertension type: essential hypertension Qualified Code(s): I10 - Essential (primary) hypertension
[2018-01-12] MEDS ORDERED: HYDROmorphone PF Inj 1 MG/ML Ampul IV.PUSH PRN (11:00)
[2018-01-12 11:31] LABS: Anti-Nuclear Antibody Pattern Speckled
[2018-01-12] MEDS ORDERED: Benzocaine/Menthol 15 MG/3.6 MG SF Lozenge BUCCAL PRN (15:00)
--- NOTE | 2018-01-12 17:59 | P.PNGI ---
Subjective Interval history: Patient is more alert today sitting up in the chair but states she still feels bad and that she has chronic generalized abdominal pain all the time No BM in at least 3 days Still complains of generalized aches and pains and states she feels nobody listens to her Supportive care <Peyton Myers - Last Filed: 01/12/18 17:53> Physical Exam Vital signs: Vital Signs 01/11/18 20:00 01/11/18 23:35 01/12/18 00:00 Temperature 97.4 F L 97.4 F L Pulse Rate 66 85 64 Respiratory Rate 18 18 Blood Pressure 197/83 H 194/82 H 137/84 Pulse Oximetry 97 97 01/12/18 01:45 01/12/18 06:10 01/12/18 08:00 Temperature 97.2 F L Pulse Rate 62 Respiratory Rate 18 18 Blood Pressure 186/78 H 200/91 H Pulse Oximetry 95 01/12/18 12:00 01/12/18 16:00 Temperature 97.7 F 97.4 F L Pulse Rate 60 60 Respiratory Rate 18 18 Blood Pressure 203/88 H 197/84 H Pulse Oximetry 96 96 Intake & Output 01/11/18 01/12/18 01/12/18 18:59 06:59 18:59 Other: # Voids 10 2 Date of Last Bowel Movement 01/10/18 01/11/18 - Constitutional moderate distress, morbidly obese - Routine HEENT Exam Head: Present: normocephalic, atraumatic ENT: Present: mucous membranes moist - Routine Neck Exam Present: supple - Routine Respiratory Exam Present: decreased breath sounds (But unlabored) - Routine Cardiovascular Exam Present: RRR - Routine Abdominal Exam Present: distended (Mild generalized distended positive bowel sounds, bloating) - Routine Skin Exam Present: intact - Detailed Neurological Exam: Coma Scale Eye Opening: Spontaneous - Routine Psychiatric Exam Present: anxious, agitated (Easily appears chronic) <Peyton Myers - Last Filed: 01/12/18 17:53> Vital signs: Vital Signs 01/11/18 23:35 01/12/18 00:00 01/12/18 01:45 Temperature 97.4 F L Pulse Rate 85 64 Respiratory Rate 18 18 Blood Pressure 194/82 H 137/84 Pulse Oximetry 97 01/12/18 06:10 01/12/18 08:00 01/12/18 12:00 Temperature 97.2 F L 97.7 F Pulse Rate 62 60 Respiratory Rate 18 18 Blood Pressure 186/78 H 200/91 H 203/88 H Pulse Oximetry 95 96 01/12/18 16:00 Temperature 97.4 F L Pulse Rate 60 Respiratory Rate 18 Blood Pressure 197/84 H Pulse Oximetry 96 Intake & Output 01/12/18 01/12/18 01/13/18 06:59 18:59 06:59 Intake Total 210 / 210 Balance 210 / 210 Intake: Oral 210 / 210 Other: # Voids 2 2 Date of Last Bowel Movement 01/11/18 <Fabio Magana - Last Filed: 01/12/18 21:22> Results - Labs CBC & Chem 7: 01/11/18 09:49 01/11/18 09:49 Laboratory Results - last 24 hr 01/09/18 01/09/18 05:40 12:20 [id number] 161 SHELL Titer 1:80 H SHELL Pattern Speckled H SHELL Interpretation Endomysial Ab Titer ND Endomysial IgA Ab ND Tiss Transglutamin IgA Less than 1 <Peyton Myers - Last Filed: 01/12/18 17:53> - Labs CBC & Chem 7: 01/11/18 09:49 01/11/18 09:49 Laboratory Results - last 24 hr 01/09/18 01/09/18 05:40 12:20 [id number] 161 SHELL Titer 1:80 H SHELL Pattern Speckled H SHELL Interpretation Endomysial Ab Titer ND Endomysial IgA Ab ND Tiss Transglutamin IgA Less than 1 <Fabio Magana - Last Filed: 01/12/18 21:22> Assessment and Plan (1) Transaminitis Status: Acute Code(s): R74.0 - Nonspecific elevation of levels of transaminase and lactic acid dehydrogenase [LDH] (2) Abdominal pain Status: Acute Code(s): R10.9 - Unspecified abdominal pain (3) Elevated LFTs Status: Acute Code(s): R94.5 - Abnormal results of liver function studies - Plan Assessment: - Elevated LFTs- highest on 01/09- AST-1714 ALT-1420 T bili-0.7 Alk phos-286 Denies history of liver issues, denies ETOH. Of note, recently on Macrobid for UTI MRCP (01/09) Previous cholecystectomy with mild biliary ductal dilatation. No choledocholithiasis. Pancreatic duct normal caliber. HIDA (01/09) Previous cholecystectomy. Normal uptake and excretion by the liver. No biliary ductal obstruction Liver US (01/09) Status post cholecystectomy. Liver slightly enlarged otherwise appears unremarkable. (01/10) LFTs trending down significantly today. Pt reports no nausea, vomiting, abdominal pain at present. Will continue to monitor LFTs, no indication for ERCP at this time. ? reaction to Macrobid. 01/11/2018 patient still complains of some left upper quadrant discomfort off and on worse with palpation. Patient rambles with her conversation but chief complaint at this time is her right eye which does appear edematous. No current nausea or vomiting. No obvious bleeding current hemoglobin 11.3. No planned procedures at this time from a GI standpoint 01/12/2018 patient continues to complain of generalized abdominal pain and bloating which could be related to some constipation there is been no bowel movement noted for the last 3-4 days. Patient complains of generalized abdominal chronic pain which seems to wax and wane. Needs MiraLAX daily and hydration. No new lab work today. No obvious bleeding. Ultrasound of the abdomen ordered to evaluate gas, bloating, and abdominal pain Plan Diet as tolerated, encouraged hydration Encouraged patient to be up in chair and to increase her activity as possible Monitor LFTs and hemoglobin, recheck in a.m. Ultrasound of the abdomen in a.m. MiraLAX daily Avoid hepatotoxins Supportive care Patient has been seen and examined by myself and Dr. Magana and this note is written on his behalf <Peyton Myers - Last Filed: 01/12/18 17:53> (1) Transaminitis Status: Acute Code(s): R74.0 - Nonspecific elevation of levels of transaminase and lactic acid dehydrogenase [LDH] (2) Abdominal pain Status: Acute Code(s): R10.9 - Unspecified abdominal pain (3) Elevated LFTs Status: Acute Code(s): R94.5 - Abnormal results of liver function studies - Attending Attestation Plan as above, will follow up with you. <Fabio Magana - Last Filed: 01/12/18 21:22> <Peyton Myers M - Last Filed: 01/12/18 17:53> (2) Abdominal pain Qualifiers: Abdominal location: epigastric Qualified Code(s): R10.13 - Epigastric pain <Fabio Magana A - Last Filed: 01/12/18 21:22> (2) Abdominal pain Qualifiers: Abdominal location: epigastric Qualified Code(s): R10.13 - Epigastric pain
[2018-01-12] MEDS: Loratadine 10 MG Tablet PO SCH (21:11)
[2018-01-13 03:50] LABS: IgA Serum 222 mg/dL (81-463); Tissue Transglutaminase Ab IgG ND U/mL (())
[2018-01-13] MEDS ORDERED: Haloperidol Inj 5 MG/ML Ampul IV.PUSH ONE (04:18)
[2018-01-13 06:37] LABS: Baso % (Auto) 0.2 % (0.0-2.0); Eos # (Auto) 0.3 th/mm3 (0.0-0.4); Eos % (Auto) 2.7 % (0.0-4.0); Hematocrit 34.9 % (35.0-46.0); Hemoglobin 11.4 gm/dL (11.6-15.3); Lymph # (Auto) 5.7 th/mm3 (1.0-4.8); Lymph % (Auto) 43.7 % (9.0-44.0); Mean Corpuscular HGB Conc 32.7 % (32.0-36.0); Mean Corpuscular Volume 94.8 fL (80.0-100.0); Mean Platelet Volume 9.9 fL (7.0-11.0); Mono # (Auto) 1.1 th/mm3 (0.0-0.9); Mono % (Auto) 8.2 % (0.0-8.0); Neut # (Auto) 5.9 th/mm3 (1.8-7.7); Neut % (Auto) 45.2 % (16.0-70.0); Platelet Count 209 th/mm3 (150-450); Red Blood Count 3.69 mil/mm3 (4.00-5.30); Red Cell Distribution Width 17.4 % (11.6-17.2)
[2018-01-13] MEDS: Levothyroxine 100 MCG Tablet PO SCH (06:46)
[2018-01-13 07:06] LABS: Alanine Aminotransferase 250 U/L (10-53); Albumin 3.2 g/dL (3.4-5.0); Alkaline Phosphatase 133 U/L (45-117); Anion Gap 10 meq/L (5-15); Aspartate Aminotransferase 38 U/L (15-37); Blood Urea Nitrogen 17 mg/dL (7-18); Calcium 8.7 mg/dL (8.5-10.1); Carbon Dioxide 24.9 meq/L (21.0-32.0); Chloride 107 meq/L (98-107); Glomerular Filtration Rate Greater Than 89 mL/min (>89); Glucose,Random 74 mg/dL (74-106); Potassium 3.4 meq/L (3.5-5.1); Sodium 142 meq/L (136-145); Total Protein 6.7 g/dL (6.4-8.2)
[2018-01-13] MEDS ORDERED: HYDROmorphone PF Inj 2 MG/ML Vial IV.PUSH PRN (08:45)
[2018-01-13] MEDS: Heparin - SQ 10,000 UNITS/ML Vial SQ SCH ×2 (09:43→20:01)
[2018-01-13] MEDS: Senna/Docusate Sodium 8.6/50 MG Tablet PO SCH ×2 (09:43→20:01)
[2018-01-13] MEDS: Lisinopril 20 MG Tablet PO SCH ×2 (09:43→20:01)
[2018-01-13] MEDS: Polyethylene Glycol 3350 17 GM Packet PO SCH (09:44)
[2018-01-13 10:14] LABS: Eosinophils 6 % (0-4); Lymphocytes 48 % (9-44); Monocytes 13 % (0-8)
[2018-01-13 10:16] LABS: Platelet Estimate Normal (Normal); Platelet Morphology Normal (Normal)
--- NOTE | 2018-01-13 10:57 | P.PNIM ---
Subjective Interval history: Patient was seen yesterday she developed abdominal pain. She also has bloating. Ultrasound has been ordered to evaluate this, by GI. Her blood pressures have worsened. Overnight she has been transferred to the ICU for nicardipine drip. Physical Exam Vital signs: Vital Signs 01/12/18 12:00 01/12/18 16:00 01/12/18 20:00 Temperature 97.7 F 97.4 F L 98.2 F Pulse Rate 60 60 64 Respiratory Rate 18 18 18 Blood Pressure 203/88 H 197/84 H 187/82 H Pulse Oximetry 96 96 97 01/13/18 00:00 01/13/18 01:45 01/13/18 03:49 Temperature 98.6 F Pulse Rate Respiratory Rate 18 Blood Pressure 178/87 H 210/122 H 187/87 H Pulse Oximetry 98 01/13/18 04:03 01/13/18 04:27 01/13/18 05:28 Temperature 97.5 F L Pulse Rate 88 Respiratory Rate 18 Blood Pressure 193/97 H 110/66 206/81 H Pulse Oximetry 96 01/13/18 10:46 01/13/18 10:47 Temperature 98 F Pulse Rate 61 Respiratory Rate 17 Blood Pressure 195/86 H Pulse Oximetry 91 L Intake & Output 01/12/18 01/13/18 01/13/18 18:59 06:59 18:59 Intake Total 210 / 210 Balance 210 / 210 Weight 57 kg Intake: Oral 210 / 210 Other: # Voids 2 3 Date of Last Bowel Movement 01/11/18 01/13/18 Weight On Admission 57 kg Narrative: GENERAL: NAD, A&Ox3 HEAD: Normocephalic. NECK: Supple, trachea midline. No lymphadenopathy. EYES: No scleral icterus. No injection or drainage. CARDIOVASCULAR: Regular rate and rhythm without murmurs, gallops, or rubs. RESPIRATORY: Breath sounds equal bilaterally. No accessory muscle use. GASTROINTESTINAL: Abdomen soft, non-tender, nondistended. MUSCULOSKELETAL: No cyanosis, or edema. SKIN: Warm and dry. NEURO: No focal neurological deficits. Results - Labs CBC & Chem 7: 01/13/18 05:55 01/13/18 05:55 Laboratory Results - last 24 hr 01/09/18 01/09/18 01/13/18 05:40 12:20 05:55 WBC 13.0 H RBC 3.69 L Hgb 11.4 L Hct 34.9 L MCV 94.8 MCH 31.0 MCHC 32.7 RDW 17.4 H Plt Count 209 MPV 9.9 Prelim Diff (Auto) Slide review pending Neut % (Auto) 45.2 Lymph % (Auto) 43.7 [place] % (Auto) 8.2 H Eos % (Auto) 2.7 Baso % (Auto) 0.2 Neut # (Auto) 5.9 Lymph # (Auto) 5.7 H Gem # (Auto) 1.1 H Eos # (Auto) 0.3 Baso # (Auto) 0.0 WBC Differential Manual diff final Seg Neuts % (Manual) 33 Lymphocytes % (Manual) 48 H Monocytes % (Manual) 13 H Eosinophils % (Manual) 6 H Abs Neuts (Manual) 4.3 Differential Comment . Platelet Estimate Normal Platelet Morphology Normal Sodium Potassium Chloride Carbon Dioxide Anion Gap BUN Creatinine Estimated GFR Random Glucose Calcium Total Bilirubin AST ALT Alkaline Phosphatase Total Protein Albumin Nasal Screen MRSA (PCR) IgA 222 SHELL Titer 1:80 H SHELL Pattern Speckled H SEHLL Interpretation Endomysial Ab Titer ND Endomysial IgA Ab ND Tiss Transglutamin IgG ND Tiss Transglutamin IgA Less than 1 01/13/18 01/13/18 05:55 06:10 WBC RBC Hgb Hct MCV MCH MCHC RDW Plt Count MPV Prelim Diff (Auto) Neut % (Auto) Lymph % (Auto) Gem % (Auto) Eos % (Auto) Baso % (Auto) Neut # (Auto) Lymph # (Auto) Gem # (Auto) Eos # (Auto) Baso # (Auto) WBC Differential Seg Neuts % (Manual) Lymphocytes % (Manual) Monocytes % (Manual) Eosinophils % (Manual) Abs Neuts (Manual) Differential Comment Platelet Estimate Platelet Morphology Sodium 142 Potassium 3.4 L Chloride 107 Carbon Dioxide 24.9 Anion Gap 10 BUN 17 Creatinine 0.46 L Estimated GFR Greater than 89 Random Glucose 74 D Calcium 8.7 Total Bilirubin 0.3 AST 38 H ALT 250 H Alkaline Phosphatase 133 H Total Protein 6.7 D Albumin 3.2 L Nasal Screen MRSA (PCR) Not detected IgA SHELL Titer SHELL Pattern SHELL Interpretation Endomysial Ab Titer Endomysial IgA Ab Tiss Transglutamin IgG Tiss Transglutamin IgA Assessment and Plan - Assessment (1) Elevated LFTs Code(s): R94.5 - Abnormal results of liver function studies Status: Acute Plan: patient was started on Nitrofurantoin just two days ago. hepatitis panel pending- will check liver US and tylenol level along with PT/INR - monitor LFT's closely- GI consulted. (2) Hypertension Code(s): I10 - Essential (primary) hypertension Status: Chronic Plan: continue lisinopril and metoprolol-hold Nifedipine. (3) Dyslipidemia Code(s): E78.5 - Hyperlipidemia, unspecified Status: Chronic Plan: hold statin due to elevated LFT's. (4) Hypothyroidism Code(s): E03.9 - Hypothyroidism, unspecified Status: Chronic Plan: resume home meds. - Plan 87-year-old female admitted secondary to reaction to nitrofurantoin Ultrasound of abdomen pending in regards to abdominal pain and bloating. Patient is in ICU at this point to receive a nicardipine drip for hypertensive urgency. Hepatitis continues to improve. Patient still complains of pain and dyspepsia. Potential discharge home tomorrow if further improvement occurs. Nitrofurantoin reaction Mild to moderate anaphylaxis Reactive hepatitis Continue antihistamines Continue steroid Follow LFTs Follow clinically for improvement Therapy Hypertensive urgency on hypertension Continue baseline treatment Follow blood pressures Adjust treatments as needed Continue clonidine. Nicardipine IV drip in ICU. Hyperlipidemia Continue present treatment Follow as an outpatient Hypothyroidism Continue baseline treatments and follows an outpatient DVT prophylaxis SCDs Discharge planning Once reaction is controlled patient will be stable for discharge home, not yet stable for this (2) Hypertension Qualifiers: Hypertension type: essential hypertension Qualified Code(s): I10 - Essential (primary) hypertension
--- NOTE | 2018-01-13 11:03 | US ---
EXAM DATE: 01/13/2018 10:56 AM EDT AGE/SEX: 87 years / Female INDICATIONS: Abdominal pain. Elevated LFT's. CLINICAL DATA: This is the patient's initial encounter. Patient reports that signs and symptoms have been present for 2 days and indicates a pain score of Nonresponsive. MEDICAL/SURGICAL HISTORY: Hypertension. Hypothyroidism. Hyperlipidemia. Urinary tract infectio n. Renal cysts. Tonsillectomy. Hysterectomy. Cholecystectomy. COMPARISON: [facility], US ABDOMEN LIVER, 01/09/2018. . MEASUREMENTS: Liver:__ 16.7 cm. Common Bile Duct:___ 9mm. Right Kidney:___11.5 x 5.6 x 4.6 cm. Left Kidney:___10.7 x 4.3 x 4.2 cm. Spleen:___8.9 cm. FINDINGS: Liver: Normal echotexture without focal lesion or ductal dilatation. Portal Vein: Hepatopedal flow seen in portal vein. Common Duct: No intraluminal mass or stone visualized. Gallbladder: Surgically absent. Pancreas: Not well visualized. Right Kidney: 2 dominant cyst are identified in the right kidney. There is a 5.3 cm cyst in the uppe r pole and a 2.9 cm cyst in the lower pole. There is no evidence of hydronephrosis or suspicious pattie l masses. Left Kidney: A dominant cyst is identified in the midpole measuring 2.2 cm. There is no evidence of hydronephrosis or suspicious renal masses. Ascites: None Pleural Effusion: Right Spleen: No focal lesion. Aorta: Non aneurysmal. IVC: Within normal limits Other: None. CONCLUSION: 1. Status post cholecystectomy. 2. Bilateral renal cysts. 3. Otherwise normal evaluation without evidence of acute process. Electronically signed by: Vince Guillermo MD 01/13/2018 11:01 AM EDT
--- NOTE | 2018-01-13 13:47 | P.PNGI ---
Subjective Interval history: Pt does not awaken during my exam. Per RN pt just received medication for pain and is now drowsy, she was very anxious prior to receiving medication per nurse report. <Evon Beckwith - Last Filed: 01/13/18 13:40> Physical Exam Vital signs: Vital Signs 01/12/18 16:00 01/12/18 20:00 01/13/18 00:00 Temperature 97.4 F L 98.2 F 98.6 F Pulse Rate 60 64 Respiratory Rate 18 18 18 Blood Pressure 197/84 H 187/82 H 178/87 H Pulse Oximetry 96 97 98 01/13/18 01:45 01/13/18 03:49 01/13/18 04:03 Temperature Pulse Rate Respiratory Rate Blood Pressure 210/122 H 187/87 H 193/97 H Pulse Oximetry 01/13/18 04:27 01/13/18 05:28 01/13/18 10:46 Temperature 97.5 F L Pulse Rate 88 61 Respiratory Rate 18 17 Blood Pressure 110/66 206/81 H Pulse Oximetry 96 91 L 01/13/18 10:47 01/13/18 12:00 Temperature 98 F 98 F Pulse Rate 62 Respiratory Rate 16 Blood Pressure 195/86 H 132/63 Pulse Oximetry Intake & Output 01/12/18 01/13/18 01/13/18 18:59 06:59 18:59 Intake Total 210 / 210 Balance 210 / 210 Weight 57 kg Intake: Oral 210 / 210 Other: # Voids 2 3 Date of Last Bowel Movement 01/11/18 01/13/18 Weight On Admission 57 kg - Routine HEENT Exam Head: Present: normocephalic, atraumatic - Routine Respiratory Exam Absent: accessory muscle use - Routine Abdominal Exam Present: soft, normoactive bowel sounds. Absent: distended, rebound, guarding, firm - Routine Neurological Exam lethargic <Evon Beckwith - Last Filed: 01/13/18 13:40> Vital signs: Vital Signs 01/13/18 00:00 01/13/18 01:45 01/13/18 03:49 Temperature 98.6 F Pulse Rate Respiratory Rate 18 Blood Pressure 178/87 H 210/122 H 187/87 H Pulse Oximetry 98 01/13/18 04:03 01/13/18 04:27 01/13/18 05:28 Temperature 97.5 F L Pulse Rate 88 Respiratory Rate 18 Blood Pressure 193/97 H 110/66 206/81 H Pulse Oximetry 96 01/13/18 10:46 01/13/18 10:47 01/13/18 12:00 Temperature 98 F 98 F Pulse Rate 61 62 Respiratory Rate 17 16 Blood Pressure 195/86 H 132/63 Pulse Oximetry 91 L 01/13/18 19:33 Temperature Pulse Rate Respiratory Rate Blood Pressure Pulse Oximetry 95 Intake & Output 01/13/18 01/13/18 01/14/18 06:59 18:59 06:59 Weight 57 kg Other: # Voids 3 Date of Last Bowel Movement 01/11/18 01/13/18 Weight On Admission 57 kg <Fabio Magana - Last Filed: 01/13/18 20:23> Results - Labs CBC & Chem 7: 01/13/18 05:55 01/13/18 05:55 Laboratory Results - last 24 hr 01/09/18 01/13/18 01/13/18 05:40 05:55 05:55 WBC 13.0 H RBC 3.69 L Hgb 11.4 L Hct 34.9 L MCV 94.8 MCH 31.0 MCHC 32.7 RDW 17.4 H Plt Count 209 MPV 9.9 Prelim Diff (Auto) Slide review pending Neut % (Auto) 45.2 Lymph % (Auto) 43.7 [place] % (Auto) 8.2 H Eos % (Auto) 2.7 Baso % (Auto) 0.2 Neut # (Auto) 5.9 Lymph # (Auto) 5.7 H [place] # (Auto) 1.1 H Eos # (Auto) 0.3 Baso # (Auto) 0.0 WBC Differential Manual diff final Seg Neuts % (Manual) 33 Lymphocytes % (Manual) 48 H Monocytes % (Manual) 13 H Eosinophils % (Manual) 6 H Abs Neuts (Manual) 4.3 Differential Comment . Platelet Estimate Normal Platelet Morphology Normal Sodium 142 Potassium 3.4 L Chloride 107 Carbon Dioxide 24.9 Anion Gap 10 BUN 17 Creatinine 0.46 L Estimated GFR Greater than 89 Random Glucose 74 D Calcium 8.7 Total Bilirubin 0.3 AST 38 H ALT 250 H Alkaline Phosphatase 133 H Total Protein 6.7 D Albumin 3.2 L Nasal Screen MRSA (PCR) IgA 222 Endomysial Ab Titer ND Endomysial IgA Ab ND Tiss Transglutamin IgG ND Tiss Transglutamin IgA Less than 1 01/13/18 06:10 WBC RBC Hgb Hct MCV MCH MCHC RDW Plt Count MPV Prelim Diff (Auto) Neut % (Auto) Lymph % (Auto) [place] % (Auto) Eos % (Auto) Baso % (Auto) Neut # (Auto) Lymph # (Auto) [place] # (Auto) Eos # (Auto) Baso # (Auto) WBC Differential Seg Neuts % (Manual) Lymphocytes % (Manual) Monocytes % (Manual) Eosinophils % (Manual) Abs Neuts (Manual) Differential Comment Platelet Estimate Platelet Morphology Sodium Potassium Chloride Carbon Dioxide Anion Gap BUN Creatinine Estimated GFR Random Glucose Calcium Total Bilirubin AST ALT Alkaline Phosphatase Total Protein Albumin Nasal Screen MRSA (PCR) Not detected IgA Endomysial Ab Titer Endomysial IgA Ab Tiss Transglutamin IgG Tiss Transglutamin IgA - Imaging Impressions Abdomen Ultrasound 01/13/18 08:00 CONCLUSION: 1. Status post cholecystectomy. 2. Bilateral renal cysts. 3. Otherwise normal evaluation without evidence of acute process. <Evon Beckwith - Last Filed: 01/13/18 13:40> - Labs CBC & Chem 7: 01/13/18 05:55 01/13/18 05:55 Laboratory Results - last 24 hr 01/09/18 01/13/18 01/13/18 05:40 05:55 05:55 WBC 13.0 H RBC 3.69 L Hgb 11.4 L Hct 34.9 L MCV 94.8 MCH 31.0 MCHC 32.7 RDW 17.4 H Plt Count 209 MPV 9.9 Prelim Diff (Auto) Slide review pending Neut % (Auto) 45.2 Lymph % (Auto) 43.7 [place] % (Auto) 8.2 H Eos % (Auto) 2.7 Baso % (Auto) 0.2 Neut # (Auto) 5.9 Lymph # (Auto) 5.7 H [place] # (Auto) 1.1 H Eos # (Auto) 0.3 Baso # (Auto) 0.0 WBC Differential Manual diff final Seg Neuts % (Manual) 33 Lymphocytes % (Manual) 48 H Monocytes % (Manual) 13 H Eosinophils % (Manual) 6 H Abs Neuts (Manual) 4.3 Differential Comment . Platelet Estimate Normal Platelet Morphology Normal Sodium 142 Potassium 3.4 L Chloride 107 Carbon Dioxide 24.9 Anion Gap 10 BUN 17 Creatinine 0.46 L Estimated GFR Greater than 89 Random Glucose 74 D Calcium 8.7 Ferritin Total Bilirubin 0.3 AST 38 H ALT 250 H Alkaline Phosphatase 133 H Total Protein 6.7 D Albumin 3.2 L Ceruloplasmin 28 Urine Color Urine Clarity Urine pH Ur Specific [place] Urine Protein Urine Glucose (UA) Urine Ketones Urine Occult Blood Urine Nitrate Urine Bilirubin Urine Urobilinogen Ur Leukocyte Esterase Urine RBC Urine WBC Urine Mucus Nasal Screen MRSA (PCR) IgA 222 Mitochondria M2 IgG Ab Less than 20.0 Tiss Transglutamin IgG ND Celiac Disease Interp 01/13/18 01/13/18 01/13/18 06:10 15:00 15:35 WBC RBC Hgb Hct MCV MCH MCHC RDW Plt Count MPV Prelim Diff (Auto) Neut % (Auto) Lymph % (Auto) [place] % (Auto) Eos % (Auto) Baso % (Auto) Neut # (Auto) Lymph # (Auto) [place] # (Auto) Eos # (Auto) Baso # (Auto) WBC Differential Seg Neuts % (Manual) Lymphocytes % (Manual) Monocytes % (Manual) Eosinophils % (Manual) Abs Neuts (Manual) Differential Comment Platelet Estimate Platelet Morphology Sodium Potassium Chloride Carbon Dioxide Anion Gap BUN Creatinine Estimated GFR Random Glucose Calcium Ferritin 71 Total Bilirubin AST ALT Alkaline Phosphatase Total Protein Albumin Ceruloplasmin Urine Color Straw Urine Clarity Clear Urine pH 8.0 Ur Specific [place] 1.009 Urine Protein Negative Urine Glucose (UA) Negative Urine Ketones Negative Urine Occult Blood Negative Urine Nitrate Negative Urine Bilirubin Negative Urine Urobilinogen Less than 2 Ur Leukocyte Esterase Negative Urine RBC Less than 1 Urine WBC Less than 1 Urine Mucus Few H Nasal Screen MRSA (PCR) Not detected IgA Mitochondria M2 IgG Ab Tiss Transglutamin IgG Celiac Disease Interp - Imaging Impressions Abdomen Ultrasound 01/13/18 08:00 CONCLUSION: 1. Status post cholecystectomy. 2. Bilateral renal cysts. 3. Otherwise normal evaluation without evidence of acute process. <Fabio Magana - Last Filed: 01/13/18 20:23> Assessment and Plan (1) Transaminitis Status: Acute Code(s): R74.0 - Nonspecific elevation of levels of transaminase and lactic acid dehydrogenase [LDH] (2) Abdominal pain Status: Acute Code(s): R10.9 - Unspecified abdominal pain (3) Elevated LFTs Status: Acute Code(s): R94.5 - Abnormal results of liver function studies - Plan Assessment: - Elevated LFTs- highest on 01/09- AST-1714 ALT-1420 T bili-0.7 Alk phos-286 Denies history of liver issues, denies ETOH. Of note, recently on Macrobid for UTI, ? medication reaction MRCP (01/09) Previous cholecystectomy with mild biliary ductal dilatation. No choledocholithiasis. Pancreatic duct normal caliber. HIDA (01/09) Previous cholecystectomy. Normal uptake and excretion by the liver. No biliary ductal obstruction Liver US (01/09) Status post cholecystectomy. Liver slightly enlarged otherwise appears unremarkable. Liver Work up: Hepatitis panel negative. Celiac panel negative. SHELL positive, nonspecific, low titer. AAT-161 Iron-27 Ammonia-12 (01/10) LFTs trending down significantly today. Pt reports no nausea, vomiting, abdominal pain at present. Will continue to monitor LFTs, no indication for ERCP at this time. ? reaction to Macrobid. (01/13) Pt lethargic, does not awaken during my exam. Per RN pt received pain medication prior to my exam and is drowsy from this, nurse reports pt was very anxious prior to receiving medication. LFTs continue to trend down. Liver work up still pending. According to chart from yesterday, pt was complaining of abdominal bloating. US done to evaluate with no acute process. Pt transferred to ICU for hypertension and Cardene gtt. Plan ASMA pending Ceruloplasmin pending Ferritin pending Further recommendations based on clinical course Patient has been seen and examined by myself and Dr. Magana and this note is written on his behalf <Evon Beckwith - Last Filed: 01/13/18 13:40> (1) Transaminitis Status: Acute Code(s): R74.0 - Nonspecific elevation of levels of transaminase and lactic acid dehydrogenase [LDH] (2) Abdominal pain Status: Acute Code(s): R10.9 - Unspecified abdominal pain (3) Elevated LFTs Status: Acute Code(s): R94.5 - Abnormal results of liver function studies - Attending Attestation Features suggestive autoimmune hepatitis , positive SHELL and the rest of AI markers pending. Will add gamma globulin level. Further recommendations to follow. <Fabio Magana - Last Filed: 01/13/18 20:23> <Evon Beckwith - Last Filed: 01/13/18 13:40> (2) Abdominal pain Qualifiers: Abdominal location: epigastric Qualified Code(s): R10.13 - Epigastric pain <Fabio Magana - Last Filed: 01/13/18 20:23> (2) Abdominal pain Qualifiers: Abdominal location: epigastric Qualified Code(s): R10.13 - Epigastric pain
[2018-01-13] MEDS: niCARdipine Inj 25 MG in Sodium Chlor 0.9% Inj 240 ML IV.CONT PRN (15:15)
[2018-01-13 17:54] LABS: Bilirubin,Urine Negative (Negative); Clarity,Urine Clear (Clear); Color,Urine Straw (Yellw/Straw); Glucose,Urine (UA) Negative (Negative); Leukocyte Esterase,Urine Negative (Negative); Mucus,Urine Few /lpf (Occasional); Nitrite,Urine Negative (Negative); Specific Gravity,Urine 1.009 (1.002-1.035)
[2018-01-13 19:52] LABS: Ceruloplasmin 28 mg/dL (18-53)
[2018-01-13] MEDS: Loratadine 10 MG Tablet PO SCH (20:01)
[2018-01-14] MEDS: niCARdipine Inj 25 MG in Sodium Chlor 0.9% Inj 240 ML IV.CONT PRN ×2 (00:15→05:24)
[2018-01-14] MEDS ORDERED: Chlorhexidine Gluconate 2% 1 Pack (2 Cloths) TOPICAL PRN (04:00)
[2018-01-14] MEDS: Chlorhexidine Gluconate 2% 1 Pack (2 Cloths) TOPICAL SCH (05:23)
[2018-01-14] MEDS: Levothyroxine 100 MCG Tablet PO SCH (05:23)
[2018-01-14 06:09] LABS: Baso % (Auto) 0.3 % (0.0-2.0); Eos # (Auto) 0.3 th/mm3 (0.0-0.4); Eos % (Auto) 2.3 % (0.0-4.0); Hematocrit 37.2 % (35.0-46.0); Hemoglobin 12.1 gm/dL (11.6-15.3); Lymph # (Auto) 3.7 th/mm3 (1.0-4.8); Lymph % (Auto) 28.1 % (9.0-44.0); Mean Corpuscular HGB Conc 32.5 % (32.0-36.0); Mean Corpuscular Hemoglobin 30.8 pg (27.0-34.0); Mean Corpuscular Volume 94.8 fL (80.0-100.0); Mono # (Auto) 0.9 th/mm3 (0.0-0.9); Mono % (Auto) 7.2 % (0.0-8.0); Neut # (Auto) 8.1 th/mm3 (1.8-7.7); Neut % (Auto) 62.1 % (16.0-70.0); Platelet Count 210 th/mm3 (150-450); Red Blood Count 3.93 mil/mm3 (4.00-5.30); Red Cell Distribution Width 17.4 % (11.6-17.2); White Blood Count 13.1 th/mm3 (4.0-11.0)
[2018-01-14 06:27] LABS: Alanine Aminotransferase 485 U/L (10-53); Albumin 3.2 g/dL (3.4-5.0); Anion Gap 9 meq/L (5-15); Aspartate Aminotransferase 353 U/L (15-37); Blood Urea Nitrogen 15 mg/dL (7-18); Calcium 8.5 mg/dL (8.5-10.1); Carbon Dioxide 27.4 meq/L (21.0-32.0); Chloride 105 meq/L (98-107); Glomerular Filtration Rate Greater Than 89 mL/min (>89); Glucose,Random 85 mg/dL (74-106); Potassium 3.4 meq/L (3.5-5.1); Sodium 141 meq/L (136-145)
[2018-01-14 06:29] LABS: Alkaline Phosphatase 269 U/L (45-117); Total Protein 6.8 g/dL (6.4-8.2)
[2018-01-14] MEDS: Heparin - SQ 10,000 UNITS/ML Vial SQ SCH ×2 (08:00→19:43)
[2018-01-14 09:41] LABS: Platelet Estimate Normal (Normal); Platelet Morphology Normal (Normal)
[2018-01-14] MEDS ORDERED: amLODIPine 10 MG Tablet PO ONE (09:46)
[2018-01-14] MEDS: Lisinopril 20 MG Tablet PO SCH ×2 (09:50→21:28)
[2018-01-14] MEDS: Senna/Docusate Sodium 8.6/50 MG Tablet PO SCH ×2 (09:50→21:28)
--- NOTE | 2018-01-14 10:27 | P.PNIM ---
Subjective Interval history: Blood pressures are improved today. I wean from her nicardipine drip will be attempted. Amlodipine is started as a substitute. Patient says she is feeling better though she still has sores in her mouth. LFTs have increased compared to previous day but this could be related to cessation of steroids. Physical Exam Vital signs: Vital Signs 01/13/18 10:46 01/13/18 10:47 01/13/18 12:00 Temperature 98 F 98 F Pulse Rate 61 62 Respiratory Rate 17 16 Blood Pressure 195/86 H 132/63 Pulse Oximetry 91 L 01/13/18 19:33 01/13/18 20:00 01/14/18 00:00 Temperature 97.9 F 98 F Pulse Rate 61 63 Respiratory Rate 15 35 H Blood Pressure 125/59 L 125/58 L Pulse Oximetry 95 94 L 96 01/14/18 04:00 01/14/18 08:00 Temperature 98 F 98.1 F Pulse Rate 63 69 Respiratory Rate 17 18 Blood Pressure 127/61 134/63 Pulse Oximetry 97 97 Intake & Output 01/13/18 01/14/18 01/14/18 18:59 06:59 18:59 Intake Total 620 / 620 Balance 620 / 620 Weight 57 kg 55.5 kg Intake: IV 500 / 500 Cardene Inj 25 MG In NS Inj 240 500 / 500 ML @ 5 MG/HR 50 mls/hr IV.CONT TITRATE PRN Rx#:[id number] Oral 120 / 120 Other: Date of Last Bowel Movement 01/13/18 01/13/18 01/13/18 # Bowel Movements 0 Weight On Admission 57 kg Narrative: GENERAL: NAD, A&Ox3 HEAD: Normocephalic. NECK: Supple, trachea midline. No lymphadenopathy. EYES: No scleral icterus. No injection or drainage. CARDIOVASCULAR: Regular rate and rhythm without murmurs, gallops, or rubs. RESPIRATORY: Breath sounds equal bilaterally. No accessory muscle use. GASTROINTESTINAL: Abdomen soft, non-tender, nondistended. MUSCULOSKELETAL: No cyanosis, or edema. SKIN: Warm and dry. NEURO: No focal neurological deficits. - Urinary Catheter Management Indwelling Urethral Catheter Cath placed during this visit: yes Reason for continuing: Acute urinary retention Insertion date: 01/13/18 Insertion time: 17:21 Results - Labs CBC & Chem 7: 01/14/18 04:29 01/14/18 04:29 Laboratory Results - last 24 hr 01/09/18 01/13/18 01/13/18 05:40 15:00 15:35 WBC RBC Hgb Hct MCV MCH MCHC RDW Plt Count MPV Prelim Diff (Auto) Neut % (Auto) Lymph % (Auto) [place] % (Auto) Eos % (Auto) Baso % (Auto) Neut # (Auto) Lymph # (Auto) [place] # (Auto) Eos # (Auto) Baso # (Auto) WBC Differential Diff Scan Differential Comment Platelet Estimate Platelet Morphology Sodium Potassium Chloride Carbon Dioxide Anion Gap BUN Creatinine Estimated GFR Random Glucose Calcium Ferritin 71 Total Bilirubin AST ALT Alkaline Phosphatase Total Protein Albumin Ceruloplasmin 28 Urine Color Straw Urine Clarity Clear Urine pH 8.0 Ur Specific [place] 1.009 Urine Protein Negative Urine Glucose (UA) Negative Urine Ketones Negative Urine Occult Blood Negative Urine Nitrate Negative Urine Bilirubin Negative Urine Urobilinogen Less than 2 Ur Leukocyte Esterase Negative Urine RBC Less than 1 Urine WBC Less than 1 Urine Mucus Few H Mitochondria M2 IgG Ab Less than 20.0 Celiac Disease Interp 01/14/18 01/14/18 04:29 04:29 WBC 13.1 H RBC 3.93 L Hgb 12.1 Hct 37.2 MCV 94.8 MCH 30.8 MCHC 32.5 RDW 17.4 H Plt Count 210 MPV 10.0 Prelim Diff (Auto) Slide review pending Neut % (Auto) 62.1 Lymph % (Auto) 28.1 [place] % (Auto) 7.2 Eos % (Auto) 2.3 Baso % (Auto) 0.3 Neut # (Auto) 8.1 H Lymph # (Auto) 3.7 [place] # (Auto) 0.9 Eos # (Auto) 0.3 Baso # (Auto) 0.0 WBC Differential . Diff Scan Auto diff confirmed Differential Comment . Platelet Estimate Normal Platelet Morphology Normal Sodium 141 Potassium 3.4 L Chloride 105 Carbon Dioxide 27.4 Anion Gap 9 BUN 15 Creatinine 0.45 L Estimated GFR Greater than 89 Random Glucose 85 Calcium 8.5 Ferritin Total Bilirubin 0.4 AST 353 H ALT 485 H Alkaline Phosphatase 269 H Total Protein 6.8 Albumin 3.2 L Ceruloplasmin Urine Color Urine Clarity Urine pH Ur Specific [place] Urine Protein Urine Glucose (UA) Urine Ketones Urine Occult Blood Urine Nitrate Urine Bilirubin Urine Urobilinogen Ur Leukocyte Esterase Urine RBC Urine WBC Urine Mucus Mitochondria M2 IgG Ab Celiac Disease Interp - Imaging Impressions Abdomen Ultrasound 01/13/18 08:00 CONCLUSION: 1. Status post cholecystectomy. 2. Bilateral renal cysts. 3. Otherwise normal evaluation without evidence of acute process. Assessment and Plan - Assessment (1) Elevated LFTs Code(s): R94.5 - Abnormal results of liver function studies Status: Acute Plan: patient was started on Nitrofurantoin just two days ago. hepatitis panel pending- will check liver US and tylenol level along with PT/INR - monitor LFT's closely- GI consulted. (2) Hypertension Code(s): I10 - Essential (primary) hypertension Status: Chronic Plan: continue lisinopril and metoprolol-hold Nifedipine. (3) Dyslipidemia Code(s): E78.5 - Hyperlipidemia, unspecified Status: Chronic Plan: hold statin due to elevated LFT's. (4) Hypothyroidism Code(s): E03.9 - Hypothyroidism, unspecified Status: Chronic Plan: resume home meds. - Plan 87-year-old female admitted secondary to reaction to nitrofurantoin Abdominal pain has improved. Liver function tests have increased. This may be residual inflammation from previous reaction. Peak LFTs have been around 1400 currently are around 300 today. If inflammatory markers remain relatively stable she could be considered for discharge home tomorrow despite the elevation. Ultrasound shows no acute abnormalities of concern. Nitrofurantoin reaction Mild to moderate anaphylaxis Reactive hepatitis Continue antihistamines Follow LFTs Follow clinically for improvement Therapy Hypertensive urgency on hypertension Continue baseline treatment Follow blood pressures Adjust treatments as needed Continue clonidine. Nicardipine IV drip in ICU. Hyperlipidemia Continue present treatment Follow as an outpatient Hypothyroidism Continue baseline treatments and follows an outpatient DVT prophylaxis SCDs Discharge planning Once reaction is controlled patient will be stable for discharge home, not yet stable for this (2) Hypertension Qualifiers: Hypertension type: essential hypertension Qualified Code(s): I10 - Essential (primary) hypertension
[2018-01-14] MEDS: Polyethylene Glycol 3350 17 GM Packet PO SCH (10:45)
--- NOTE | 2018-01-14 12:55 | P.PNGI ---
Subjective Interval history: Currently resting in the intensive care setting awake answering simple questions son is at her bedside Currently patient states more comfortable today without any dull aching in her right upper quadrant abdomen. Denies any nausea or vomiting Patient states no bowel movement, timing unknown but possibly 4-5 days <Peyton Myers - Last Filed: 01/14/18 13:00> Physical Exam Vital signs: Vital Signs 01/13/18 19:33 01/13/18 20:00 01/14/18 00:00 Temperature 97.9 F 98 F Pulse Rate 61 63 Respiratory Rate 15 35 H Blood Pressure 125/59 L 125/58 L Pulse Oximetry 95 94 L 96 01/14/18 04:00 01/14/18 08:00 01/14/18 12:00 Temperature 98 F 98.1 F 98.4 F Pulse Rate 63 69 63 Respiratory Rate 17 18 18 Blood Pressure 127/61 134/63 158/69 H Pulse Oximetry 97 97 97 Intake & Output 01/13/18 01/14/18 01/14/18 18:59 06:59 18:59 Intake Total 620 / 620 Balance 620 / 620 Weight 57 kg 55.5 kg Intake: IV 500 / 500 Cardene Inj 25 MG In NS Inj 240 500 / 500 ML @ 5 MG/HR 50 mls/hr IV.CONT TITRATE PRN Rx#:[id number] Oral 120 / 120 Other: Date of Last Bowel Movement 01/13/18 01/13/18 01/13/18 # Bowel Movements 0 Weight On Admission 57 kg - Constitutional no acute distress, chronically ill appearing (Obese) - Routine HEENT Exam Head: Present: normocephalic, atraumatic ENT: Present: mucous membranes dry (Pale,) - Routine Neck Exam Present: supple (Obese) - Routine Cardiovascular Exam Present: S1, S2 - Routine Abdominal Exam Present: soft (Round, obese, bowel sounds soft, no obvious tenderness) - Routine Skin Exam Present: intact - Routine Neurological Exam Present: alert (Awake, answer simple questions) - Urinary Catheter Management Indwelling Urethral Catheter Cath placed during this visit: yes Reason for continuing: Acute urinary retention Insertion date: 01/13/18 Insertion time: 17:21 <Peyton Myers - Last Filed: 01/14/18 13:00> Vital signs: Vital Signs 01/13/18 19:33 01/13/18 20:00 01/14/18 00:00 Temperature 97.9 F 98 F Pulse Rate 61 63 Respiratory Rate 15 35 H Blood Pressure 125/59 L 125/58 L Pulse Oximetry 95 94 L 96 01/14/18 04:00 01/14/18 08:00 01/14/18 12:00 Temperature 98 F 98.1 F 98.4 F Pulse Rate 63 69 63 Respiratory Rate 17 18 18 Blood Pressure 127/61 134/63 158/69 H Pulse Oximetry 97 97 97 Intake & Output 01/13/18 01/14/18 01/14/18 18:59 06:59 18:59 Intake Total 620 / 620 Balance 620 / 620 Weight 57 kg 55.5 kg Intake: IV 500 / 500 Cardene Inj 25 MG In NS Inj 240 500 / 500 ML @ 5 MG/HR 50 mls/hr IV.CONT TITRATE PRN Rx#:[id number] Oral 120 / 120 Other: Date of Last Bowel Movement 01/13/18 01/13/18 01/13/18 # Bowel Movements 0 Weight On Admission 57 kg - Urinary Catheter Management Indwelling Urethral Catheter Cath placed during this visit: no <Fabio Magana - Last Filed: 01/14/18 13:29> Results - Labs CBC & Chem 7: 01/14/18 04:29 01/14/18 04:29 Laboratory Results - last 24 hr 01/09/18 01/13/18 01/13/18 05:40 15:00 15:35 WBC RBC Hgb Hct MCV MCH MCHC RDW Plt Count MPV Prelim Diff (Auto) Neut % (Auto) Lymph % (Auto) [place] % (Auto) Eos % (Auto) Baso % (Auto) Neut # (Auto) Lymph # (Auto) [place] # (Auto) Eos # (Auto) Baso # (Auto) WBC Differential Diff Scan Differential Comment Platelet Estimate Platelet Morphology Sodium Potassium Chloride Carbon Dioxide Anion Gap BUN Creatinine Estimated GFR Random Glucose Calcium Ferritin 71 Total Bilirubin AST ALT Alkaline Phosphatase Total Protein Albumin Ceruloplasmin 28 Urine Color Straw Urine Clarity Clear Urine pH 8.0 Ur Specific [place] 1.009 Urine Protein Negative Urine Glucose (UA) Negative Urine Ketones Negative Urine Occult Blood Negative Urine Nitrate Negative Urine Bilirubin Negative Urine Urobilinogen Less than 2 Ur Leukocyte Esterase Negative Urine RBC Less than 1 Urine WBC Less than 1 Urine Mucus Few H Mitochondria M2 IgG Ab Less than 20.0 Celiac Disease Interp 01/14/18 01/14/18 04:29 04:29 WBC 13.1 H RBC 3.93 L Hgb 12.1 Hct 37.2 MCV 94.8 MCH 30.8 MCHC 32.5 RDW 17.4 H Plt Count 210 MPV 10.0 Prelim Diff (Auto) Slide review pending Neut % (Auto) 62.1 Lymph % (Auto) 28.1 [place] % (Auto) 7.2 Eos % (Auto) 2.3 Baso % (Auto) 0.3 Neut # (Auto) 8.1 H Lymph # (Auto) 3.7 [place] # (Auto) 0.9 Eos # (Auto) 0.3 Baso # (Auto) 0.0 WBC Differential . Diff Scan Auto diff confirmed Differential Comment . Platelet Estimate Normal Platelet Morphology Normal Sodium 141 Potassium 3.4 L Chloride 105 Carbon Dioxide 27.4 Anion Gap 9 BUN 15 Creatinine 0.45 L Estimated GFR Greater than 89 Random Glucose 85 Calcium 8.5 Ferritin Total Bilirubin 0.4 AST 353 H ALT 485 H Alkaline Phosphatase 269 H Total Protein 6.8 Albumin 3.2 L Ceruloplasmin Urine Color Urine Clarity Urine pH Ur Specific [place] Urine Protein Urine Glucose (UA) Urine Ketones Urine Occult Blood Urine Nitrate Urine Bilirubin Urine Urobilinogen Ur Leukocyte Esterase Urine RBC Urine WBC Urine Mucus Mitochondria M2 IgG Ab Celiac Disease Interp <Peyton Myers - Last Filed: 01/14/18 13:00> - Labs CBC & Chem 7: 01/14/18 04:29 01/14/18 04:29 Laboratory Results - last 24 hr 01/09/18 01/13/18 01/13/18 05:40 15:00 15:35 WBC RBC Hgb Hct MCV MCH MCHC RDW Plt Count MPV Prelim Diff (Auto) Neut % (Auto) Lymph % (Auto) [place] % (Auto) Eos % (Auto) Baso % (Auto) Neut # (Auto) Lymph # (Auto) [place] # (Auto) Eos # (Auto) Baso # (Auto) WBC Differential Diff Scan Differential Comment Platelet Estimate Platelet Morphology Sodium Potassium Chloride Carbon Dioxide Anion Gap BUN Creatinine Estimated GFR Random Glucose Calcium Ferritin 71 Total Bilirubin AST ALT Alkaline Phosphatase Total Protein Albumin Ceruloplasmin 28 Urine Color Straw Urine Clarity Clear Urine pH 8.0 Ur Specific [place] 1.009 Urine Protein Negative Urine Glucose (UA) Negative Urine Ketones Negative Urine Occult Blood Negative Urine Nitrate Negative Urine Bilirubin Negative Urine Urobilinogen Less than 2 Ur Leukocyte Esterase Negative Urine RBC Less than 1 Urine WBC Less than 1 Urine Mucus Few H Mitochondria M2 IgG Ab Less than 20.0 Celiac Disease Interp 01/14/18 01/14/18 04:29 04:29 WBC 13.1 H RBC 3.93 L Hgb 12.1 Hct 37.2 MCV 94.8 MCH 30.8 MCHC 32.5 RDW 17.4 H Plt Count 210 MPV 10.0 Prelim Diff (Auto) Slide review pending Neut % (Auto) 62.1 Lymph % (Auto) 28.1 [place] % (Auto) 7.2 Eos % (Auto) 2.3 Baso % (Auto) 0.3 Neut # (Auto) 8.1 H Lymph # (Auto) 3.7 [place] # (Auto) 0.9 Eos # (Auto) 0.3 Baso # (Auto) 0.0 WBC Differential . Diff Scan Auto diff confirmed Differential Comment . Platelet Estimate Normal Platelet Morphology Normal Sodium 141 Potassium 3.4 L Chloride 105 Carbon Dioxide 27.4 Anion Gap 9 BUN 15 Creatinine 0.45 L Estimated GFR Greater than 89 Random Glucose 85 Calcium 8.5 Ferritin Total Bilirubin 0.4 AST 353 H ALT 485 H Alkaline Phosphatase 269 H Total Protein 6.8 Albumin 3.2 L Ceruloplasmin Urine Color Urine Clarity Urine pH Ur Specific [place] Urine Protein Urine Glucose (UA) Urine Ketones Urine Occult Blood Urine Nitrate Urine Bilirubin Urine Urobilinogen Ur Leukocyte Esterase Urine RBC Urine WBC Urine Mucus Mitochondria M2 IgG Ab Celiac Disease Interp <Fabio Magana A - Last Filed: 01/14/18 13:29> Assessment and Plan (1) Transaminitis Status: Acute Code(s): R74.0 - Nonspecific elevation of levels of transaminase and lactic acid dehydrogenase [LDH] (2) Abdominal pain Status: Acute Code(s): R10.9 - Unspecified abdominal pain (3) Elevated LFTs Status: Acute Code(s): R94.5 - Abnormal results of liver function studies - Plan Assessment: - Elevated LFTs- highest on 01/09- AST-1714 ALT-1420 T bili-0.7 Alk phos-286 Denies history of liver issues, denies ETOH. Of note, recently on Macrobid for UTI, ? medication reaction MRCP (01/09) Previous cholecystectomy with mild biliary ductal dilatation. No choledocholithiasis. Pancreatic duct normal caliber. HIDA (01/09) Previous cholecystectomy. Normal uptake and excretion by the liver. No biliary ductal obstruction Liver US (01/09) Status post cholecystectomy. Liver slightly enlarged otherwise appears unremarkable. Liver Work up: Hepatitis panel negative. Celiac panel negative. SHELL positive, nonspecific, low titer. AAT-161 Iron-27 Ammonia-12 (01/10) LFTs trending down significantly today. Pt reports no nausea, vomiting, abdominal pain at present. Will continue to monitor LFTs, no indication for ERCP at this time. ? reaction to Macrobid. (01/13) Pt lethargic, does not awaken during my exam. Per RN pt received pain medication prior to my exam and is drowsy from this, nurse reports pt was very anxious prior to receiving medication. LFTs continue to trend down. Liver work up still pending. According to chart from yesterday, pt was complaining of abdominal bloating. US done to evaluate with no acute process. Pt transferred to ICU for hypertension and Cardene gtt. 01/14/2018, patient is awake resting in the intensive care setting able to answer simple questions. Patient states abdominal pain and dull ache has had gradual improvement in minimal amount over the last 2 days. Patient denies any current nausea or vomiting. Positive SHELL noted, other workup pending. Added lab for gammaglobulins. 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 supportive care and reassured patient Plan Diet as tolerated per attending Mag citrate 1 today, if no response will add Relistor Anti-medics Monitor labs Supportive care Further recommendations based on clinical course Patient has been seen and examined by myself and Dr. Magana and this note is written on his behalf <Peyton Myers - Last Filed: 01/14/18 13:00> (1) Transaminitis Status: Acute Code(s): R74.0 - Nonspecific elevation of levels of transaminase and lactic acid dehydrogenase [LDH] (2) Abdominal pain Status: Acute Code(s): R10.9 - Unspecified abdominal pain (3) Elevated LFTs Status: Acute Code(s): R94.5 - Abnormal results of liver function studies - Attending Attestation Seen with denton Todd as above. Work up for [facility] pending. Will follow up with you. <Fabio Magana - Last Filed: 01/14/18 13:29> <Peyton Myers - Last Filed: 01/14/18 13:00> (2) Abdominal pain Qualifiers: Abdominal location: epigastric Qualified Code(s): R10.13 - Epigastric pain <Fabio Magana A - Last Filed: 01/14/18 13:29> (2) Abdominal pain Qualifiers: Abdominal location: epigastric Qualified Code(s): R10.13 - Epigastric pain
[2018-01-14] MEDS ORDERED: Magnesium Citrate Liq 300 ML Bottle PO ONE (13:37)
[2018-01-14 14:42] LABS: Immunoglobulin A 223 mg/dL (96-532); Immunoglobulin G 1010 mg/dL (650-1610)
[2018-01-14 14:53] LABS: Immunoglobulin M 64 mg/dL (39-238)
[2018-01-14] MEDS ORDERED: Methylnaltrexone Inj 12 MG/0.6 ML Vial SQ ONE (19:00)
[2018-01-14] MEDS: Loratadine 10 MG Tablet PO SCH (21:28)
[2018-01-15 01:10] LABS: Bacteria,Urine Rare /hpf; Bilirubin,Urine Negative (Negative); Clarity,Urine Cloudy (Clear); Color,Urine Yellow (Yellw/Straw); Glucose,Urine (UA) Negative (Negative); Leukocyte Esterase,Urine Large (Negative); Mucus,Urine Few /lpf (Occasional); Nitrite,Urine Negative (Negative); Renal Epithelial Cells,Urine 9 /hpf; Specific Gravity,Urine 1.011 (1.002-1.035); Squamous Epithelial Cell,Urine 4 /hpf (0-5)
[2018-01-15] MEDS: Chlorhexidine Gluconate 2% 1 Pack (2 Cloths) TOPICAL SCH (04:30)
[2018-01-15] MEDS: Levothyroxine 100 MCG Tablet PO SCH (06:15)
[2018-01-15 07:20] LABS: Baso % (Auto) 0.2 % (0.0-2.0); Eos # (Auto) 0.2 th/mm3 (0.0-0.4); Eos % (Auto) 1.5 % (0.0-4.0); Hematocrit 36.5 % (35.0-46.0); Lymph # (Auto) 3.7 th/mm3 (1.0-4.8); Mean Corpuscular HGB Conc 32.9 % (32.0-36.0); Mean Corpuscular Hemoglobin 30.9 pg (27.0-34.0); Mean Corpuscular Volume 94.1 fL (80.0-100.0); Mean Platelet Volume 10.3 fL (7.0-11.0); Mono # (Auto) 1.2 th/mm3 (0.0-0.9); Mono % (Auto) 9.8 % (0.0-8.0); Neut # (Auto) 7.6 th/mm3 (1.8-7.7); Neut % (Auto) 59.5 % (16.0-70.0); Platelet Count 242 th/mm3 (150-450); Red Blood Count 3.87 mil/mm3 (4.00-5.30); Red Cell Distribution Width 16.8 % (11.6-17.2); White Blood Count 12.7 th/mm3 (4.0-11.0)
[2018-01-15 07:50] LABS: Alanine Aminotransferase 268 U/L (10-53); Anion Gap 11 meq/L (5-15); Aspartate Aminotransferase 75 U/L (15-37); Blood Urea Nitrogen 15 mg/dL (7-18); Calcium 8.5 mg/dL (8.5-10.1); Carbon Dioxide 25.1 meq/L (21.0-32.0); Chloride 105 meq/L (98-107); Glomerular Filtration Rate Greater Than 89 mL/min (>89); Glucose,Random 90 mg/dL (74-106); Potassium 3.9 meq/L (3.5-5.1); Sodium 141 meq/L (136-145)
[2018-01-15 07:53] LABS: Alkaline Phosphatase 204 U/L (45-117); Total Protein 6.4 g/dL (6.4-8.2)
[2018-01-15] MEDS: Heparin - SQ 10,000 UNITS/ML Vial SQ SCH ×2 (09:23→21:18)
[2018-01-15] MEDS: Lisinopril 20 MG Tablet PO SCH ×2 (09:24→21:18)
[2018-01-15] MEDS: Senna/Docusate Sodium 8.6/50 MG Tablet PO SCH ×2 (09:24→21:18)
[2018-01-15] MEDS: amLODIPine 10 MG Tablet PO SCH (09:24)
[2018-01-15] MEDS: Polyethylene Glycol 3350 17 GM Packet PO SCH (09:25)
[2018-01-15] MEDS: hydrALAZINE 25 MG Tablet PO SCH ×3 (10:04→17:20)
--- NOTE | 2018-01-15 10:48 | P.PN ---
Subjective Interval history: Follow-up hypertensive urgency/transaminitis January 15, 2018-patient seen and examined, no acute event overnight. Complains of dry mouth. Also complains of chest pain right after breakfast, more likely due to heartburn. Afebrile. Case discussed with patient's son Physical Exam Vital signs: Vital Signs 01/14/18 12:00 01/14/18 16:00 01/14/18 20:00 Temperature 98.4 F 98.4 F 98.3 F Pulse Rate 63 76 81 Respiratory Rate 18 18 18 Blood Pressure 158/69 H 155/67 H 168/72 H Pulse Oximetry 97 97 94 L 01/14/18 21:10 01/14/18 23:46 01/15/18 00:00 Temperature 98.3 F Pulse Rate 80 73 71 Respiratory Rate 18 Blood Pressure 161/72 H Pulse Oximetry 92 L 01/15/18 04:00 01/15/18 08:00 Temperature 98.1 F 98.2 F Pulse Rate 87 65 Respiratory Rate 18 18 Blood Pressure 181/75 H 160/69 H Pulse Oximetry 95 96 Intake & Output 01/14/18 01/15/18 01/15/18 18:59 06:59 18:59 Intake Total 120 / 120 200 / 200 Output Total 1000 / 1000 200 / 200 Balance -880 / -880 0 / 0 Weight 54.1 kg Intake: Oral 120 / 120 200 / 200 Output: Urine 1000 / 1000 200 / 200 Other: Date of Last Bowel Movement 01/13/18 01/13/18 # Bowel Movements 0 0 Narrative: GENERAL: NAD HEAD: Normocephalic. NECK: Supple, trachea midline. No lymphadenopathy. EYES: No scleral icterus. No injection or drainage. CARDIOVASCULAR: Regular rate and rhythm without murmurs, gallops, or rubs. RESPIRATORY: Breath sounds equal bilaterally. No accessory muscle use. GASTROINTESTINAL: Abdomen soft, non-tender, nondistended. MUSCULOSKELETAL: No cyanosis, or edema. SKIN: Warm and dry. NEURO: No focal neurological deficits. - Urinary Catheter Management Indwelling Urethral Catheter Cath placed during this visit: yes, but has since been removed by the nurse Reason for continuing: Decision to DC catheter Insertion date: 01/13/18 Insertion time: 17:21 Removal date: 01/15/18 Removal time: 05:00 Results - Labs CBC & Chem 7: 01/15/18 06:30 01/15/18 06:30 Laboratory Results - last 24 hr 01/14/18 01/14/18 01/15/18 14:09 23:30 06:30 WBC 12.7 H RBC 3.87 L Hgb 12.0 Hct 36.5 MCV 94.1 MCH 30.9 MCHC 32.9 RDW 16.8 Plt Count 242 MPV 10.3 Neut % (Auto) 59.5 Lymph % (Auto) 29.0 [place] % (Auto) 9.8 H Eos % (Auto) 1.5 Baso % (Auto) 0.2 Neut # (Auto) 7.6 Lymph # (Auto) 3.7 [place] # (Auto) 1.2 H Eos # (Auto) 0.2 Baso # (Auto) 0.0 WBC Differential . Differential Comment Auto diff final Sodium Potassium Chloride Carbon Dioxide Anion Gap BUN Creatinine Estimated GFR Random Glucose Calcium Total Bilirubin AST ALT Alkaline Phosphatase Total Protein Albumin Urine Color Yellow Urine Clarity Cloudy H Urine pH 6.0 Ur Specific [place] 1.011 Urine Protein Negative Urine Glucose (UA) Negative Urine Ketones Negative Urine Occult Blood Small H Urine Nitrate Negative Urine Bilirubin Negative Urine Urobilinogen Less than 2 Ur Leukocyte Esterase Large H Urine RBC 1 Urine WBC Ur Squamous Epith Cells 4 Ur Renal Epithelial Cell 9 Urine Bacteria Rare H Urine Mucus Few H Micro UA Comment Culture indicated Urine Culture Comments Culture indicated IgG 1010 IgA 223 IgM 64 01/15/18 06:30 WBC RBC Hgb Hct MCV MCH MCHC RDW Plt Count MPV Neut % (Auto) Lymph % (Auto) [place] % (Auto) Eos % (Auto) Baso % (Auto) Neut # (Auto) Lymph # (Auto) [place] # (Auto) Eos # (Auto) Baso # (Auto) WBC Differential Differential Comment Sodium 141 Potassium 3.9 Chloride 105 Carbon Dioxide 25.1 Anion Gap 11 BUN 15 Creatinine 0.46 L Estimated GFR Greater than 89 Random Glucose 90 Calcium 8.5 Total Bilirubin 0.3 AST 75 H ALT 268 H Alkaline Phosphatase 204 H Total Protein 6.4 Albumin 3.0 L Urine Color Urine Clarity Urine pH Ur Specific [place] Urine Protein Urine Glucose (UA) Urine Ketones Urine Occult Blood Urine Nitrate Urine Bilirubin Urine Urobilinogen Ur Leukocyte Esterase Urine RBC Urine WBC Ur Squamous Epith Cells Ur Renal Epithelial Cell Urine Bacteria Urine Mucus Micro UA Comment Urine Culture Comments IgG IgA IgM Assessment and Plan - Assessment (1) Elevated LFTs Code(s): R94.5 - Abnormal results of liver function studies Status: Acute Plan: patient was started on Nitrofurantoin just two days ago. hepatitis panel pending- will check liver US and tylenol level along with PT/INR - monitor LFT's closely- GI consulted. (2) Hypertension Code(s): I10 - Essential (primary) hypertension Status: Chronic Plan: continue lisinopril and metoprolol-hold Nifedipine. (3) Dyslipidemia Code(s): E78.5 - Hyperlipidemia, unspecified Status: Chronic Plan: hold statin due to elevated LFT's. (4) Hypothyroidism Code(s): E03.9 - Hypothyroidism, unspecified Status: Chronic Plan: resume home meds. - Plan 87-year-old female with Nitrofurantoin reaction Mild to moderate anaphylaxis-resolved Reactive hepatitis Continue antihistamines Status post treatment with steroid Monitor LFTs Appreciate input from GI Leukocytosis Likely secondary to steroid Hypertensive urgency on hypertension Continue baseline treatment including Norvasc 10 mg and lisinopril 20 mg twice daily Add hydralazine 25 mg 3 times daily daily January 15, 2018 Hyperlipidemia Hold statin secondary to elevated LFTs Hypothyroidism Continue baseline treatments and follows an outpatient Hypothyroidism Continue Synthroid Dyspepsia Start Maalox every 6 as needed DVT prophylaxis SCDs (2) Hypertension Qualifiers: Hypertension type: essential hypertension Qualified Code(s): I10 - Essential (primary) hypertension
[2018-01-15] MEDS: Aluminum/Magnesium/Simethacone Susp 30 ML UDC PO PRN (10:49)
[2018-01-15 13:22] LABS: Smooth Muscle Total Auto Abs Negative (Negative)
--- NOTE | 2018-01-15 13:47 | P.PNGI ---
Subjective Interval history: Pt reports she is feeling fine now. Had some upper abdominal pain this morning which has since resolved. Denies nausea, vomiting. No BM in two days. <Evon Beckwith - Last Filed: 01/15/18 13:48> Physical Exam Vital signs: Vital Signs 01/14/18 16:00 01/14/18 20:00 01/14/18 21:10 Temperature 98.4 F 98.3 F Pulse Rate 76 81 80 Respiratory Rate 18 18 Blood Pressure 155/67 H 168/72 H Pulse Oximetry 97 94 L 01/14/18 23:46 01/15/18 00:00 01/15/18 04:00 Temperature 98.3 F 98.1 F Pulse Rate 73 71 87 Respiratory Rate 18 18 Blood Pressure 161/72 H 181/75 H Pulse Oximetry 92 L 95 01/15/18 08:00 Temperature 98.2 F Pulse Rate 65 Respiratory Rate 18 Blood Pressure 160/69 H Pulse Oximetry 96 Intake & Output 01/14/18 01/15/18 01/15/18 18:59 06:59 18:59 Intake Total 120 / 120 200 / 200 Output Total 1000 / 1000 200 / 200 Balance -880 / -880 0 / 0 Weight 54.1 kg Intake: Oral 120 / 120 200 / 200 Output: Urine 1000 / 1000 200 / 200 Other: Date of Last Bowel Movement 01/13/18 01/13/18 # Bowel Movements 0 0 - Constitutional no acute distress - Routine HEENT Exam Head: Present: normocephalic, atraumatic - Routine Abdominal Exam Present: soft, normoactive bowel sounds. Absent: tenderness, distended, rebound , guarding, firm - Routine Skin Exam Present: dry, warm - Routine Neurological Exam Present: alert, oriented X3 - Urinary Catheter Management Indwelling Urethral Catheter Cath placed during this visit: yes, but has since been removed by the nurse Reason for continuing: Decision to DC catheter Insertion date: 01/13/18 Insertion time: 17:21 Removal date: 01/15/18 Removal time: 05:00 <Evon Beckwith - Last Filed: 01/15/18 13:48> Vital signs: Vital Signs 01/14/18 21:10 01/14/18 23:46 01/15/18 00:00 Temperature 98.3 F Pulse Rate 80 73 71 Respiratory Rate 18 Blood Pressure 161/72 H Pulse Oximetry 92 L 01/15/18 04:00 01/15/18 08:00 01/15/18 12:00 Temperature 98.1 F 98.2 F 98.1 F Pulse Rate 87 65 63 Respiratory Rate 18 18 18 Blood Pressure 181/75 H 160/69 H 155/66 H Pulse Oximetry 95 96 96 01/15/18 16:00 Temperature 97.8 F Pulse Rate 71 Respiratory Rate 18 Blood Pressure 166/74 H Pulse Oximetry 96 Intake & Output 01/15/18 01/15/18 01/16/18 06:59 18:59 06:59 Intake Total 200 / 200 600 / 600 Output Total 200 / 200 Balance 0 / 0 600 / 600 Intake: Oral 200 / 200 600 / 600 Output: Urine 200 / 200 Other: # Voids 3 Date of Last Bowel Movement 01/13/18 # Bowel Movements 0 0 - Urinary Catheter Management Indwelling Urethral Catheter Cath placed during this visit: no <Fabio Magana - Last Filed: 01/15/18 21:10> Results - Labs CBC & Chem 7: 01/15/18 06:30 01/15/18 06:30 Laboratory Results - last 24 hr 01/13/18 01/14/18 01/14/18 15:35 14:09 23:30 WBC RBC Hgb Hct MCV MCH MCHC RDW Plt Count MPV Neut % (Auto) Lymph % (Auto) [place] % (Auto) Eos % (Auto) Baso % (Auto) Neut # (Auto) Lymph # (Auto) [place] # (Auto) Eos # (Auto) Baso # (Auto) WBC Differential Differential Comment Sodium Potassium Chloride Carbon Dioxide Anion Gap BUN Creatinine Estimated GFR Random Glucose Calcium Total Bilirubin AST ALT Alkaline Phosphatase Total Protein Albumin Urine Color Yellow Urine Clarity Cloudy H Urine pH 6.0 Ur Specific [employer] 1.011 Urine Protein Negative Urine Glucose (UA) Negative Urine Ketones Negative Urine Occult Blood Small H Urine Nitrate Negative Urine Bilirubin Negative Urine Urobilinogen Less than 2 Ur Leukocyte Esterase Large H Urine RBC 1 Urine WBC Ur Squamous Epith Cells 4 Ur Renal Epithelial Cell 9 Urine Bacteria Rare H Urine Mucus Few H Micro UA Comment Culture indicated Urine Culture Comments Culture indicated IgG 1010 IgA 223 IgM 64 Anti-Smooth Muscle Ab Negative 01/15/18 01/15/18 06:30 06:30 WBC 12.7 H RBC 3.87 L Hgb 12.0 Hct 36.5 MCV 94.1 MCH 30.9 MCHC 32.9 RDW 16.8 Plt Count 242 MPV 10.3 Neut % (Auto) 59.5 Lymph % (Auto) 29.0 [place] % (Auto) 9.8 H Eos % (Auto) 1.5 Baso % (Auto) 0.2 Neut # (Auto) 7.6 Lymph # (Auto) 3.7 [place] # (Auto) 1.2 H Eos # (Auto) 0.2 Baso # (Auto) 0.0 WBC Differential . Differential Comment Auto diff final Sodium 141 Potassium 3.9 Chloride 105 Carbon Dioxide 25.1 Anion Gap 11 BUN 15 Creatinine 0.46 L Estimated GFR Greater than 89 Random Glucose 90 Calcium 8.5 Total Bilirubin 0.3 AST 75 H ALT 268 H Alkaline Phosphatase 204 H Total Protein 6.4 Albumin 3.0 L Urine Color Urine Clarity Urine pH Ur Specific [employer] Urine Protein Urine Glucose (UA) Urine Ketones Urine Occult Blood Urine Nitrate Urine Bilirubin Urine Urobilinogen Ur Leukocyte Esterase Urine RBC Urine WBC Ur Squamous Epith Cells Ur Renal Epithelial Cell Urine Bacteria Urine Mucus Micro UA Comment Urine Culture Comments IgG IgA IgM Anti-Smooth Muscle Ab Microbiology 01/14/18 23:30 Clean Catch Urine Urine Culture - Preliminary gram negative rods <Evon Beckwith - Last Filed: 01/15/18 13:48> - Labs CBC & Chem 7: 01/15/18 06:30 01/15/18 06:30 Laboratory Results - last 24 hr 01/13/18 01/14/18 01/15/18 15:35 23:30 06:30 WBC 12.7 H RBC 3.87 L Hgb 12.0 Hct 36.5 MCV 94.1 MCH 30.9 MCHC 32.9 RDW 16.8 Plt Count 242 MPV 10.3 Neut % (Auto) 59.5 Lymph % (Auto) 29.0 [place] % (Auto) 9.8 H Eos % (Auto) 1.5 Baso % (Auto) 0.2 Neut # (Auto) 7.6 Lymph # (Auto) 3.7 [place] # (Auto) 1.2 H Eos # (Auto) 0.2 Baso # (Auto) 0.0 WBC Differential . Differential Comment Auto diff final Sodium Potassium Chloride Carbon Dioxide Anion Gap BUN Creatinine Estimated GFR Random Glucose Calcium Total Bilirubin AST ALT Alkaline Phosphatase Total Protein Albumin Urine Color Yellow Urine Clarity Cloudy H Urine pH 6.0 Ur Specific [employer] 1.011 Urine Protein Negative Urine Glucose (UA) Negative Urine Ketones Negative Urine Occult Blood Small H Urine Nitrate Negative Urine Bilirubin Negative Urine Urobilinogen Less than 2 Ur Leukocyte Esterase Large H Urine RBC 1 Urine WBC Ur Squamous Epith Cells 4 Ur Renal Epithelial Cell 9 Urine Bacteria Rare H Urine Mucus Few H Micro UA Comment Culture indicated Urine Culture Comments Culture indicated Anti-Smooth Muscle Ab Negative 01/15/18 06:30 WBC RBC Hgb Hct MCV MCH MCHC RDW Plt Count MPV Neut % (Auto) Lymph % (Auto) [place] % (Auto) Eos % (Auto) Baso % (Auto) Neut # (Auto) Lymph # (Auto) [place] # (Auto) Eos # (Auto) Baso # (Auto) WBC Differential Differential Comment Sodium 141 Potassium 3.9 Chloride 105 Carbon Dioxide 25.1 Anion Gap 11 BUN 15 Creatinine 0.46 L Estimated GFR Greater than 89 Random Glucose 90 Calcium 8.5 Total Bilirubin 0.3 AST 75 H ALT 268 H Alkaline Phosphatase 204 H Total Protein 6.4 Albumin 3.0 L Urine Color Urine Clarity Urine pH Ur Specific [employer] Urine Protein Urine Glucose (UA) Urine Ketones Urine Occult Blood Urine Nitrate Urine Bilirubin Urine Urobilinogen Ur Leukocyte Esterase Urine RBC Urine WBC Ur Squamous Epith Cells Ur Renal Epithelial Cell Urine Bacteria Urine Mucus Micro UA Comment Urine Culture Comments Anti-Smooth Muscle Ab Microbiology 01/14/18 23:30 Clean Catch Urine Urine Culture - Preliminary gram negative rods - Imaging Impressions Abdomen X-Ray 01/15/18 00:00 CONCLUSION: Constipation <Fabio Magana A - Last Filed: 01/15/18 21:10> Assessment and Plan (1) Transaminitis Status: Acute Code(s): R74.0 - Nonspecific elevation of levels of transaminase and lactic acid dehydrogenase [LDH] (2) Abdominal pain Status: Acute Code(s): R10.9 - Unspecified abdominal pain (3) Elevated LFTs Status: Acute Code(s): R94.5 - Abnormal results of liver function studies - Plan Assessment: - Elevated LFTs- highest on 01/09- AST-1714 ALT-1420 T bili-0.7 Alk phos-286 Denies history of liver issues, denies ETOH. Of note, recently on Macrobid for UTI, ? medication reaction MRCP (01/09) Previous cholecystectomy with mild biliary ductal dilatation. No choledocholithiasis. Pancreatic duct normal caliber. HIDA (01/09) Previous cholecystectomy. Normal uptake and excretion by the liver. No biliary ductal obstruction Liver US (01/09) Status post cholecystectomy. Liver slightly enlarged otherwise appears unremarkable. Liver Work up: Hepatitis panel negative. Celiac panel negative. SHELL positive, nonspecific, low titer. AMA negative. ASMA pending Ceruloplasmin pending AAT-161 Iron-27 Ammonia-12 (01/10) LFTs trending down significantly today. Pt reports no nausea, vomiting, abdominal pain at present. Will continue to monitor LFTs, no indication for ERCP at this time. ? reaction to Macrobid. (01/13) Pt lethargic, does not awaken during my exam. Per RN pt received pain medication prior to my exam and is drowsy from this, nurse reports pt was very anxious prior to receiving medication. LFTs continue to trend down. Liver work up still pending. According to chart from yesterday, pt was complaining of abdominal bloating. US done to evaluate with no acute process. Pt transferred to ICU for hypertension and Cardene gtt. 01/14/2018, patient is awake resting in the intensive care setting able to answer simple questions. Patient states abdominal pain and dull ache has had gradual improvement in minimal amount over the last 2 days. Patient denies any current nausea or vomiting. Positive SHELL noted, other workup pending. Added lab for gammaglobulins. 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 supportive care and reassured patient (01/15) Pt down graded from ICU, now on medical floor. Had some upper abdominal pain this morning, now resolved. States no BM in 2 days. S/P Mag Citrate and Relistor yesterday. Plan KUB Ceruloplasmin and ASMA pending Gammaglobulins pending Further recommendations based on clinical course Patient has been seen and examined by myself and Dr. Magana and this note is written on his behalf <Evon Beckwith - Last Filed: 01/15/18 13:48> (1) Transaminitis Status: Acute Code(s): R74.0 - Nonspecific elevation of levels of transaminase and lactic acid dehydrogenase [LDH] (2) Abdominal pain Status: Acute Code(s): R10.9 - Unspecified abdominal pain (3) Elevated LFTs Status: Acute Code(s): R94.5 - Abnormal results of liver function studies - Attending Attestation work up for CLD pending, will follow up with you for further recommendations . <Fabio Magana - Last Filed: 01/15/18 21:10> <Evon Beckwith - Last Filed: 01/15/18 13:48> (2) Abdominal pain Qualifiers: Abdominal location: epigastric Qualified Code(s): R10.13 - Epigastric pain <Fabio Magana - Last Filed: 01/15/18 21:10> (2) Abdominal pain Qualifiers: Abdominal location: epigastric Qualified Code(s): R10.13 - Epigastric pain
--- NOTE | 2018-01-15 15:34 | XR ---
EXAM DATE: 01/15/2018 3:29 PM EDT AGE/SEX: 87 years / Female INDICATIONS: Constipation. CLINICAL DATA: This is the patient's subsequent encounter. Patient reports that signs and symptoms h ave been present for 3 days and indicates a pain score of 4/10. MEDICAL/SURGICAL HISTORY: . Hypertension. Hypothyroidism. Hyperlipidemia. Urinary tract infect ion. Renal cysts. . Tonsillectomy. Hysterectomy. Cholecystectomy. COMPARISON: [facility] – [place], ABDOMEN KUB ONLY, 04/12/2017. . FINDINGS: The abdominal bowel gas pattern is normal. No abnormal masses, calcifications, or organomegaly is s een. The osseous structures are unremarkable. Mild scoliotic deformity is present. There is multilev el degenerative change throughout the spine. There is a moderate amount of fecal material throughout the colon. CONCLUSION: Constipation Electronically signed by: Johnathan Arias MD 01/15/2018 3:33 PM EDT
[2018-01-15] MEDS: Loratadine 10 MG Tablet PO SCH (21:18)
[2018-01-16] MEDS: Chlorhexidine Gluconate 2% 1 Pack (2 Cloths) TOPICAL SCH (04:37)
[2018-01-16] MEDS: Levothyroxine 100 MCG Tablet PO SCH (05:32)
[2018-01-16 07:05] LABS: Baso # (Auto) 0.1 th/mm3 (0.0-0.2); Baso % (Auto) 0.4 % (0.0-2.0); Eos # (Auto) 0.3 th/mm3 (0.0-0.4); Hematocrit 37.2 % (35.0-46.0); Lymph # (Auto) 4.4 th/mm3 (1.0-4.8); Lymph % (Auto) 31.4 % (9.0-44.0); Mean Corpuscular HGB Conc 32.4 % (32.0-36.0); Mean Corpuscular Hemoglobin 30.7 pg (27.0-34.0); Mean Corpuscular Volume 94.6 fL (80.0-100.0); Mean Platelet Volume 9.9 fL (7.0-11.0); Mono # (Auto) 1.3 th/mm3 (0.0-0.9); Mono % (Auto) 9.1 % (0.0-8.0); Neut % (Auto) 57.1 % (16.0-70.0); Platelet Count 251 th/mm3 (150-450); Red Blood Count 3.93 mil/mm3 (4.00-5.30); Red Cell Distribution Width 17.1 % (11.6-17.2)
[2018-01-16 07:26] LABS: Albumin 3.3 g/dL (3.4-5.0); Anion Gap 9 meq/L (5-15); Aspartate Aminotransferase 38 U/L (15-37); Blood Urea Nitrogen 15 mg/dL (7-18); Calcium 9.2 mg/dL (8.5-10.1); Carbon Dioxide 27.8 meq/L (21.0-32.0); Chloride 102 meq/L (98-107); Glomerular Filtration Rate Greater Than 89 mL/min (>89); Glucose,Random 82 mg/dL (74-106); Potassium 3.7 meq/L (3.5-5.1); Sodium 139 meq/L (136-145)
[2018-01-16 07:28] LABS: Alanine Aminotransferase 202 U/L (10-53)
[2018-01-16 07:30] LABS: Alkaline Phosphatase 180 U/L (45-117); Total Protein 7.2 g/dL (6.4-8.2)
[2018-01-16] MEDS: hydrALAZINE 25 MG Tablet PO SCH ×3 (09:06→17:41)
[2018-01-16] MEDS: Lisinopril 20 MG Tablet PO SCH ×2 (09:06→20:32)
[2018-01-16] MEDS: amLODIPine 10 MG Tablet PO SCH (09:06)
[2018-01-16] MEDS: Senna/Docusate Sodium 8.6/50 MG Tablet PO SCH ×2 (09:06→20:32)
[2018-01-16] MEDS: Heparin - SQ 10,000 UNITS/ML Vial SQ SCH ×2 (09:07→20:33)
[2018-01-16] MEDS: Polyethylene Glycol 3350 17 GM Packet PO SCH (09:07)
--- NOTE | 2018-01-16 10:26 | P.PN ---
Subjective Interval history: Follow-up hypertensive urgency/transaminitis January 15, 2018-patient seen and examined, no acute event overnight. Complains of dry mouth. Also complains of chest pain right after breakfast, more likely due to heartburn. Afebrile. Case discussed with patient's son January 16, 2018-patient seen and examined, states her chest pain improved. Complaining of constipation. States she still has dry mouth. Physical Exam Vital signs: Vital Signs 01/15/18 12:00 01/15/18 16:00 01/15/18 20:00 Temperature 98.1 F 97.8 F 98.1 F Pulse Rate 63 71 72 Respiratory Rate 18 18 18 Blood Pressure 155/66 H 166/74 H 158/70 H Pulse Oximetry 96 96 95 01/15/18 23:41 01/16/18 00:00 01/16/18 03:45 Temperature 98.0 F Pulse Rate 70 80 78 Respiratory Rate 18 Blood Pressure 148/78 H Pulse Oximetry 95 01/16/18 04:30 01/16/18 08:00 Temperature 98.5 F Pulse Rate 72 69 Respiratory Rate 20 20 Blood Pressure 177/75 H Pulse Oximetry 96 96 Intake & Output 01/15/18 01/16/18 01/16/18 18:59 06:59 18:59 Intake Total 600 / 600 240 / 240 Output Total 600 / 600 Balance 600 / 600 -360 / -360 Weight 53.9 kg Intake: Oral 600 / 600 240 / 240 Output: Urine 600 / 600 Other: # Voids 3 Date of Last Bowel Movement 01/13/18 01/13/18 # Bowel Movements 0 0 Narrative: GENERAL: NAD HEAD: Normocephalic. NECK: Supple, trachea midline. No lymphadenopathy. EYES: No scleral icterus. No injection or drainage. CARDIOVASCULAR: Regular rate and rhythm without murmurs, gallops, or rubs. RESPIRATORY: Breath sounds equal bilaterally. No accessory muscle use. GASTROINTESTINAL: Abdomen soft, non-tender, nondistended. MUSCULOSKELETAL: No cyanosis, or edema. SKIN: Warm and dry. NEURO: No focal neurological deficits. - Urinary Catheter Management Indwelling Urethral Catheter Cath placed during this visit: yes, but has since been removed by the nurse Reason for continuing: Decision to DC catheter Insertion date: 01/13/18 Insertion time: 17:21 Removal date: 01/15/18 Removal time: 05:00 Results - Labs CBC & Chem 7: 01/16/18 06:13 01/16/18 06:10 Laboratory Results - last 24 hr 01/13/18 01/14/18 01/16/18 15:35 23:30 06:10 WBC RBC Hgb Hct MCV MCH MCHC RDW Plt Count MPV Neut % (Auto) Lymph % (Auto) [place] % (Auto) Eos % (Auto) Baso % (Auto) Neut # (Auto) Lymph # (Auto) [place] # (Auto) Eos # (Auto) Baso # (Auto) WBC Differential Differential Comment Sodium 139 Potassium 3.7 Chloride 102 Carbon Dioxide 27.8 Anion Gap 9 BUN 15 Creatinine 0.50 Estimated GFR Greater than 89 Random Glucose 82 Calcium 9.2 Total Bilirubin 0.4 AST 38 H ALT 202 H Alkaline Phosphatase 180 H Total Protein 7.2 D Albumin 3.3 L Urine Color Yellow Urine Clarity Cloudy H Urine pH 6.0 Ur Specific [place] 1.011 Urine Protein Negative Urine Glucose (UA) Negative Urine Ketones Negative Urine Occult Blood Small H Urine Nitrate Negative Urine Bilirubin Negative Urine Urobilinogen Less than 2 Ur Leukocyte Esterase Large H Urine RBC 1 Urine WBC Ur Squamous Epith Cells 4 Ur Renal Epithelial Cell 9 Urine Bacteria Rare H Urine Mucus Few H Micro UA Comment Culture indicated Urine Culture Comments Culture indicated Anti-Smooth Muscle Ab Negative 01/16/18 06:13 WBC 14.0 H RBC 3.93 L Hgb 12.0 Hct 37.2 MCV 94.6 MCH 30.7 MCHC 32.4 RDW 17.1 Plt Count 251 MPV 9.9 Neut % (Auto) 57.1 Lymph % (Auto) 31.4 [place] % (Auto) 9.1 H Eos % (Auto) 2.0 Baso % (Auto) 0.4 Neut # (Auto) 8.0 H Lymph # (Auto) 4.4 [place] # (Auto) 1.3 H Eos # (Auto) 0.3 Baso # (Auto) 0.1 WBC Differential . Differential Comment Auto diff final Sodium Potassium Chloride Carbon Dioxide Anion Gap BUN Creatinine Estimated GFR Random Glucose Calcium Total Bilirubin AST ALT Alkaline Phosphatase Total Protein Albumin Urine Color Urine Clarity Urine pH Ur Specific [place] Urine Protein Urine Glucose (UA) Urine Ketones Urine Occult Blood Urine Nitrate Urine Bilirubin Urine Urobilinogen Ur Leukocyte Esterase Urine RBC Urine WBC Ur Squamous Epith Cells Ur Renal Epithelial Cell Urine Bacteria Urine Mucus Micro UA Comment Urine Culture Comments Anti-Smooth Muscle Ab Microbiology 01/14/18 23:30 Clean Catch Urine Urine Culture - Preliminary gram negative rods - Imaging Impressions Abdomen X-Ray 01/15/18 00:00 CONCLUSION: Constipation Assessment and Plan - Assessment (1) Elevated LFTs Code(s): R94.5 - Abnormal results of liver function studies Status: Acute Plan: patient was started on Nitrofurantoin just two days ago. hepatitis panel pending- will check liver US and tylenol level along with PT/INR - monitor LFT's closely- GI consulted. (2) Hypertension Code(s): I10 - Essential (primary) hypertension Status: Chronic Plan: continue lisinopril and metoprolol-hold Nifedipine. (3) Dyslipidemia Code(s): E78.5 - Hyperlipidemia, unspecified Status: Chronic Plan: hold statin due to elevated LFT's. (4) Hypothyroidism Code(s): E03.9 - Hypothyroidism, unspecified Status: Chronic Plan: resume home meds. (5) Constipation Code(s): K59.00 - Constipation, unspecified Status: Acute (6) Constipation Code(s): K59.00 - Constipation, unspecified Status: Acute (7) Constipation due to opioid therapy Code(s): K59.03 - Drug induced constipation; T40.2X5A - Adverse effect of other opioids, initial encounter Status: Acute - Plan 87-year-old female with Nitrofurantoin reaction Mild to moderate anaphylaxis-resolved Reactive hepatitis Status post treatment with steroid LFTs trending down, continue to monitor Appreciate input from GI Leukocytosis Likely secondary to steroid Hypertensive urgency on hypertension Continue baseline treatment including Norvasc 10 mg and lisinopril 20 mg twice daily Continue hydralazine 25 mg 3 times daily daily January 15, 2018 Hyperlipidemia Hold statin secondary to elevated LFTs Hypothyroidism Continue baseline treatments and follows an outpatient Hypothyroidism Continue Synthroid Dyspepsia Continue Maalox every 6 as needed Constipation due to opioid therapy Add Relistor January 16, 2018 and continue current stool softener Urinary tract infection Start Bactrim DS twice daily January 16, 2018 pending urine culture DVT prophylaxis SCDs (2) Hypertension Qualifiers: Hypertension type: essential hypertension Qualified Code(s): I10 - Essential (primary) hypertension
[2018-01-16] MEDS ORDERED: Methylnaltrexone Inj 12 MG/0.6 ML Vial SQ ONE (10:45)
--- NOTE | 2018-01-16 13:30 | P.PNGI ---
Subjective Interval history: Pt resting in bed. No GI complaints today. Reports she is eating well. <Evon Beckwith - Last Filed: 01/16/18 13:28> Physical Exam Vital signs: Vital Signs 01/15/18 16:00 01/15/18 20:00 01/15/18 23:41 Temperature 97.8 F 98.1 F Pulse Rate 71 72 70 Respiratory Rate 18 18 Blood Pressure 166/74 H 158/70 H Pulse Oximetry 96 95 01/16/18 00:00 01/16/18 03:45 01/16/18 04:30 Temperature 98.0 F 98.5 F Pulse Rate 80 78 72 Respiratory Rate 18 20 Blood Pressure 148/78 H 177/75 H Pulse Oximetry 95 96 01/16/18 08:00 01/16/18 12:00 Temperature 97.8 F Pulse Rate 75 77 Respiratory Rate 18 Blood Pressure 119/56 L Pulse Oximetry 93 L 93 L Intake & Output 01/15/18 01/16/18 01/16/18 18:59 06:59 18:59 Intake Total 600 / 600 240 / 240 Output Total 600 / 600 Balance 600 / 600 -360 / -360 Weight 53.9 kg Intake: Oral 600 / 600 240 / 240 Output: Urine 600 / 600 Other: # Voids 3 Date of Last Bowel Movement 01/13/18 01/13/18 # Bowel Movements 0 0 - Constitutional no acute distress - Routine HEENT Exam Head: Present: normocephalic, atraumatic - Routine Respiratory Exam Absent: accessory muscle use - Routine Abdominal Exam Present: soft, normoactive bowel sounds. Absent: tenderness, distended - Routine Skin Exam Present: dry, warm - Routine Neurological Exam Present: alert, oriented X3 - Urinary Catheter Management Indwelling Urethral Catheter Cath placed during this visit: yes, but has since been removed by the nurse Reason for continuing: Decision to DC catheter Insertion date: 01/13/18 Insertion time: 17:21 Removal date: 01/15/18 Removal time: 05:00 <Evon Beckwith - Last Filed: 01/16/18 13:28> Vital signs: Vital Signs 01/15/18 23:41 01/16/18 00:00 01/16/18 03:45 Temperature 98.0 F Pulse Rate 70 80 78 Respiratory Rate 18 Blood Pressure 148/78 H Pulse Oximetry 95 01/16/18 04:30 01/16/18 08:00 01/16/18 12:00 Temperature 98.5 F 97.8 F 98.1 F Pulse Rate 72 75 80 Respiratory Rate 20 18 18 Blood Pressure 177/75 H 119/56 L 130/60 Pulse Oximetry 96 93 L 94 L 01/16/18 16:00 Temperature 99.5 F Pulse Rate 105 H Respiratory Rate 18 Blood Pressure 160/74 H Pulse Oximetry 94 L Intake & Output 01/16/18 01/16/18 01/17/18 06:59 18:59 06:59 Intake Total 240 / 240 0 / 0 Output Total 600 / 600 Balance -360 / -360 0 / 0 Weight 53.9 kg Intake: Oral 240 / 240 0 / 0 Output: Urine 600 / 600 Other: # Voids 2 Date of Last Bowel Movement 01/13/18 01/16/18 # Bowel Movements 0 1 - Urinary Catheter Management Indwelling Urethral Catheter Cath placed during this visit: no <Fabio Magana - Last Filed: 01/16/18 21:51> Results - Labs CBC & Chem 7: 01/16/18 06:13 01/16/18 06:10 Laboratory Results - last 24 hr 01/16/18 01/16/18 06:10 06:13 WBC 14.0 H RBC 3.93 L Hgb 12.0 Hct 37.2 MCV 94.6 MCH 30.7 MCHC 32.4 RDW 17.1 Plt Count 251 MPV 9.9 Neut % (Auto) 57.1 Lymph % (Auto) 31.4 [place] % (Auto) 9.1 H Eos % (Auto) 2.0 Baso % (Auto) 0.4 Neut # (Auto) 8.0 H Lymph # (Auto) 4.4 [place] # (Auto) 1.3 H Eos # (Auto) 0.3 Baso # (Auto) 0.1 WBC Differential . Differential Comment Auto diff final Sodium 139 Potassium 3.7 Chloride 102 Carbon Dioxide 27.8 Anion Gap 9 BUN 15 Creatinine 0.50 Estimated GFR Greater than 89 Random Glucose 82 Calcium 9.2 Total Bilirubin 0.4 AST 38 H ALT 202 H Alkaline Phosphatase 180 H Total Protein 7.2 D Albumin 3.3 L Microbiology 01/14/18 23:30 Clean Catch Urine Urine Culture - Preliminary Enterobacter cloacae Multidrug Resistant - Imaging Impressions Abdomen X-Ray 01/15/18 00:00 CONCLUSION: Constipation <Neymar Beckwithsey - Last Filed: 01/16/18 13:28> - Labs CBC & Chem 7: 01/16/18 06:13 01/16/18 06:10 Laboratory Results - last 24 hr 01/16/18 01/16/18 06:10 06:13 WBC 14.0 H RBC 3.93 L Hgb 12.0 Hct 37.2 MCV 94.6 MCH 30.7 MCHC 32.4 RDW 17.1 Plt Count 251 MPV 9.9 Neut % (Auto) 57.1 Lymph % (Auto) 31.4 [place] % (Auto) 9.1 H Eos % (Auto) 2.0 Baso % (Auto) 0.4 Neut # (Auto) 8.0 H Lymph # (Auto) 4.4 [place] # (Auto) 1.3 H Eos # (Auto) 0.3 Baso # (Auto) 0.1 WBC Differential . Differential Comment Auto diff final Sodium 139 Potassium 3.7 Chloride 102 Carbon Dioxide 27.8 Anion Gap 9 BUN 15 Creatinine 0.50 Estimated GFR Greater than 89 Random Glucose 82 Calcium 9.2 Total Bilirubin 0.4 AST 38 H ALT 202 H Alkaline Phosphatase 180 H Total Protein 7.2 D Albumin 3.3 L Microbiology 01/14/18 23:30 Clean Catch Urine Urine Culture - Preliminary Enterobacter cloacae Multidrug Resistant <Fabio Magana - Last Filed: 01/16/18 21:51> Assessment and Plan (1) Transaminitis Status: Acute Code(s): R74.0 - Nonspecific elevation of levels of transaminase and lactic acid dehydrogenase [LDH] (2) Abdominal pain Status: Acute Code(s): R10.9 - Unspecified abdominal pain (3) Elevated LFTs Status: Acute Code(s): R94.5 - Abnormal results of liver function studies - Plan Assessment: - Elevated LFTs- highest on 01/09- AST-1714 ALT-1420 T bili-0.7 Alk phos-286 Denies history of liver issues, denies ETOH. Of note, recently on Macrobid for UTI, ? medication reaction MRCP (01/09) Previous cholecystectomy with mild biliary ductal dilatation. No choledocholithiasis. Pancreatic duct normal caliber. HIDA (01/09) Previous cholecystectomy. Normal uptake and excretion by the liver. No biliary ductal obstruction Liver US (01/09) Status post cholecystectomy. Liver slightly enlarged otherwise appears unremarkable. Liver Work up: Hepatitis panel negative. Celiac panel negative. SHELL positive, nonspecific, low titer. AMA negative. ASMA negative. Ceruloplasmin pending AAT-161 Iron-27 Ammonia-12 (01/10) LFTs trending down significantly today. Pt reports no nausea, vomiting, abdominal pain at present. Will continue to monitor LFTs, no indication for ERCP at this time. ? reaction to Macrobid. (01/13) Pt lethargic, does not awaken during my exam. Per RN pt received pain medication prior to my exam and is drowsy from this, nurse reports pt was very anxious prior to receiving medication. LFTs continue to trend down. Liver work up still pending. According to chart from yesterday, pt was complaining of abdominal bloating. US done to evaluate with no acute process. Pt transferred to ICU for hypertension and Cardene gtt. 01/14/2018, patient is awake resting in the intensive care setting able to answer simple questions. Patient states abdominal pain and dull ache has had gradual improvement in minimal amount over the last 2 days. Patient denies any current nausea or vomiting. Positive SHELL noted, other workup pending. Added lab for gammaglobulins. 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 supportive care and reassured patient (01/15) Pt down graded from ICU, now on medical floor. Had some upper abdominal pain this morning, now resolved. States no BM in 2 days. S/P Mag Citrate and Relistor yesterday. (01/16) LFTs continue to trend down. Pt with no GI complaints at this time. Pt with still no BM. KUB yesterday revealed constipation. Plan Mag Citrate Soap suds enema x 2 LFTs trending down, avoid hepatotoxins Our service will sign off, please reconsult as needed Have pt follow up with GI after DC Patient has been seen and examined by myself and Dr. Magana and this note is written on his behalf <Evon Beckwith - Last Filed: 01/16/18 13:28> (1) Transaminitis Status: Acute Code(s): R74.0 - Nonspecific elevation of levels of transaminase and lactic acid dehydrogenase [LDH] (2) Abdominal pain Status: Acute Code(s): R10.9 - Unspecified abdominal pain (3) Elevated LFTs Status: Acute Code(s): R94.5 - Abnormal results of liver function studies - Attending Attestation As above, will need follow up on LFT's and out patient follow up for CLD. Please notify us if needed during this admission. <Fabio Magana - Last Filed: 01/16/18 21:51> <Evon Beckwith - Last Filed: 01/16/18 13:28> (2) Abdominal pain Qualifiers: Abdominal location: epigastric Qualified Code(s): R10.13 - Epigastric pain <Fabio Magana - Last Filed: 01/16/18 21:51> (2) Abdominal pain Qualifiers: Abdominal location: epigastric Qualified Code(s): R10.13 - Epigastric pain
[2018-01-16] MEDS ORDERED: Magnesium Citrate Liq 300 ML Bottle PO ONE (14:00)
[2018-01-16] MEDS: Aluminum/Magnesium/Simethacone Susp 30 ML UDC PO PRN (14:32)
[2018-01-16] MEDS: Loratadine 10 MG Tablet PO SCH (20:32)
[2018-01-17] MEDS: Chlorhexidine Gluconate 2% 1 Pack (2 Cloths) TOPICAL SCH (05:08)
[2018-01-17] MEDS: Levothyroxine 100 MCG Tablet PO SCH (06:46)
[2018-01-17] MEDS: amLODIPine 10 MG Tablet PO SCH (10:11)
[2018-01-17] MEDS: Senna/Docusate Sodium 8.6/50 MG Tablet PO SCH ×2 (10:12→21:01)
[2018-01-17] MEDS: hydrALAZINE 25 MG Tablet PO SCH ×3 (10:13→19:02)
[2018-01-17] MEDS: Lisinopril 20 MG Tablet PO SCH ×2 (10:13→21:01)
[2018-01-17] MEDS: Heparin - SQ 10,000 UNITS/ML Vial SQ SCH ×2 (10:14→21:02)
[2018-01-17] MEDS: Polyethylene Glycol 3350 17 GM Packet PO SCH (10:14)
[2018-01-17 10:43] LABS: Baso # (Auto) 0.1 th/mm3 (0.0-0.2); Baso % (Auto) 0.4 % (0.0-2.0); Eos # (Auto) 0.5 th/mm3 (0.0-0.4); Eos % (Auto) 2.8 % (0.0-4.0); Hematocrit 37.2 % (35.0-46.0); Hemoglobin 12.1 gm/dL (11.6-15.3); Lymph # (Auto) 4.5 th/mm3 (1.0-4.8); Lymph % (Auto) 25.5 % (9.0-44.0); Mean Corpuscular HGB Conc 32.4 % (32.0-36.0); Mean Corpuscular Hemoglobin 30.6 pg (27.0-34.0); Mean Corpuscular Volume 94.4 fL (80.0-100.0); Mean Platelet Volume 10.2 fL (7.0-11.0); Mono # (Auto) 0.9 th/mm3 (0.0-0.9); Mono % (Auto) 5.2 % (0.0-8.0); Neut # (Auto) 11.8 th/mm3 (1.8-7.7); Neut % (Auto) 66.1 % (16.0-70.0); Platelet Count 287 th/mm3 (150-450); Red Blood Count 3.94 mil/mm3 (4.00-5.30); Red Cell Distribution Width 16.9 % (11.6-17.2); White Blood Count 17.8 th/mm3 (4.0-11.0)
--- NOTE | 2018-01-17 10:56 | P.PNIM ---
Subjective Interval history: Reports no shortness of breath. No abdominal pain. Tolerating diet. Wants to go home today if possible. Physical Exam Vital signs: Vital Signs 01/16/18 12:00 01/16/18 16:00 01/16/18 19:42 Temperature 98.1 F 99.5 F Pulse Rate 80 105 H 81 Respiratory Rate 18 18 Blood Pressure 130/60 160/74 H Pulse Oximetry 94 L 94 L 01/16/18 20:00 01/16/18 23:41 01/17/18 00:00 Temperature 99.0 F 98.8 F Pulse Rate 85 78 74 Respiratory Rate 18 18 Blood Pressure 110/55 L 110/55 L Pulse Oximetry 96 95 01/17/18 03:59 01/17/18 04:00 01/17/18 08:00 Temperature 98.4 F 98.1 F Pulse Rate 68 77 78 Respiratory Rate 18 18 Blood Pressure 133/61 130/70 Pulse Oximetry 95 95 Intake & Output 01/16/18 01/17/18 01/17/18 18:59 06:59 18:59 Intake Total 0 / 0 240 / 240 Output Total 400 / 400 Balance 0 / 0 -160 / -160 Weight 54 kg Intake: Oral 0 / 0 240 / 240 Output: Urine 400 / 400 Other: # Voids 2 Date of Last Bowel Movement 01/13/18 01/16/18 # Bowel Movements 1 Narrative: GENERAL: This is a well-nourished, well-developed patient, in no apparent distress. CARDIOVASCULAR: Regular rate and rhythm RESPIRATORY: Relatively clear to auscultation. Breath sounds equal bilaterally. No wheezes, rales, or rhonchi. GASTROINTESTINAL: Abdomen soft, non-tender, nondistended. Normal active bowel sounds MUSCULOSKELETAL: Extremities without clubbing, cyanosis, or edema. NEURO: Alert & Oriented x4 to person, place, time, situation. Moves all ext x4 - Urinary Catheter Management Indwelling Urethral Catheter Cath placed during this visit: yes, but has since been removed by the nurse Reason for continuing: Decision to DC catheter Insertion date: 01/13/18 Insertion time: 17:21 Removal date: 01/15/18 Removal time: 05:00 Results - Labs CBC & Chem 7: 01/17/18 09:50 01/16/18 06:10 Laboratory Results - last 24 hr 01/16/18 01/17/18 17:37 09:50 WBC 17.8 H RBC 3.94 L Hgb 12.1 Hct 37.2 MCV 94.4 MCH 30.6 MCHC 32.4 RDW 16.9 Plt Count 287 MPV 10.2 Neut % (Auto) 66.1 Lymph % (Auto) 25.5 [place] % (Auto) 5.2 Eos % (Auto) 2.8 Baso % (Auto) 0.4 Neut # (Auto) 11.8 H Lymph # (Auto) 4.5 [place] # (Auto) 0.9 Eos # (Auto) 0.5 H Baso # (Auto) 0.1 WBC Differential . Differential Comment Auto diff final Stl C.difficile Tox PCR Negative St C. diff Tox Epid 027 Negative Microbiology 01/14/18 23:30 Clean Catch Urine Urine Culture - Preliminary Enterobacter cloacae Multidrug Resistant Assessment and Plan - Assessment (1) Elevated LFTs Code(s): R94.5 - Abnormal results of liver function studies Status: Acute Plan: patient was started on Nitrofurantoin just two days ago. hepatitis panel pending- will check liver US and tylenol level along with PT/INR - monitor LFT's closely- GI consulted. (2) Hypertension Code(s): I10 - Essential (primary) hypertension Status: Chronic Plan: continue lisinopril and metoprolol-hold Nifedipine. (3) Dyslipidemia Code(s): E78.5 - Hyperlipidemia, unspecified Status: Chronic Plan: hold statin due to elevated LFT's. (4) Hypothyroidism Code(s): E03.9 - Hypothyroidism, unspecified Status: Chronic Plan: resume home meds. (5) Constipation Code(s): K59.00 - Constipation, unspecified Status: Resolved (6) Constipation Code(s): K59.00 - Constipation, unspecified Status: Resolved (7) Constipation due to opioid therapy Code(s): K59.03 - Drug induced constipation; T40.2X5A - Adverse effect of other opioids, initial encounter Status: Acute (8) History of MDR Enterobacter cloacae infection Code(s): Z86.19 - Personal history of other infectious and parasitic diseases Status: Acute (9) UTI (urinary tract infection) due to Enterococcus Code(s): N39.0 - Urinary tract infection, site not specified; B95.2 - Enterococcus as the cause of diseases classified elsewhere Status: Acute - Plan 87-year-old female with Nitrofurantoin reaction Mild to moderate anaphylaxis-resolved Reactive hepatitis Status post treatment with steroid LFTs trending down, continue to monitor Appreciate input from GI Leukocytosis Likely secondary to steroid but worsening, will add doxycycline to the regimen today. Hypertensive urgency on hypertension, chronic Continue baseline treatment including Norvasc 10 mg and lisinopril 20 mg twice daily Continue hydralazine 25 mg 3 times daily daily January 15, 2018 Hyperlipidemia Hold statin secondary to elevated LFTs Hypothyroidism Continue baseline treatments and follows an outpatient Continue Synthroid Dyspepsia Continue Maalox every 6 as needed Constipation due to opioid therapy continue current stool softener Urinary tract infection, Enterobacter cloace MDR Start Bactrim DS twice daily January 16, 2018 Add doxycycline to the regimen due to leukocytosis Hypoxia - Wean oxygen as tolerated and obtain an walk fit test to determine if home oxygen will need to be arranged. DVT prophylaxis SCDs (2) Hypertension Qualifiers: Hypertension type: essential hypertension Qualified Code(s): I10 - Essential (primary) hypertension
--- NOTE | 2018-01-17 10:59 | P.DCO ---
- Diagnosis (1) Hypertension (5) UTI (urinary tract infection) - Physical Therapy Order: Evaluate and treat - Home Health Nursing Order: Medical education, Nursing assessment with vital signs - Certification I have seen patient Hanny Mccloud on 01/17/18. My clinical findings support the need for the requested home health care services because: Limited mobility due to disease progression I certify that my clinical findings support that this patient is homebound because: Unsteady gait/balance (1) Hypertension Qualifiers: Hypertension type: essential hypertension Qualified Code(s): I10 - Essential (primary) hypertension (5) UTI (urinary tract infection) Qualifiers: Urinary tract infection type: acute cystitis
[2018-01-17 11:12] LABS: Albumin 3.5 g/dL (3.4-5.0); Anion Gap 10 meq/L (5-15); Aspartate Aminotransferase 32 U/L (15-37); Blood Urea Nitrogen 20 mg/dL (7-18); Calcium 8.6 mg/dL (8.5-10.1); Carbon Dioxide 25.9 meq/L (21.0-32.0); Chloride 102 meq/L (98-107); Glomerular Filtration Rate 83 mL/min (>89); Glucose,Random 77 mg/dL (74-106); Potassium 3.8 meq/L (3.5-5.1); Sodium 138 meq/L (136-145)
[2018-01-17 11:16] LABS: Alanine Aminotransferase 156 U/L (10-53); Alkaline Phosphatase 169 U/L (45-117); Total Protein 7.5 g/dL (6.4-8.2)
[2018-01-17] MEDS: Loratadine 10 MG Tablet PO SCH (21:02)
[2018-01-18] MEDS: Chlorhexidine Gluconate 2% 1 Pack (2 Cloths) TOPICAL SCH (04:59)
[2018-01-18 08:26] LABS: Baso # (Auto) 0.1 th/mm3 (0.0-0.2); Baso % (Auto) 0.4 % (0.0-2.0); Eos # (Auto) 0.5 th/mm3 (0.0-0.4); Eos % (Auto) 3.8 % (0.0-4.0); Hematocrit 38.4 % (35.0-46.0); Hemoglobin 12.7 gm/dL (11.6-15.3); Lymph # (Auto) 4.2 th/mm3 (1.0-4.8); Lymph % (Auto) 30.9 % (9.0-44.0); Mean Corpuscular Hemoglobin 31.3 pg (27.0-34.0); Mean Corpuscular Volume 94.8 fL (80.0-100.0); Mean Platelet Volume 9.8 fL (7.0-11.0); Mono # (Auto) 1.3 th/mm3 (0.0-0.9); Mono % (Auto) 9.5 % (0.0-8.0); Neut # (Auto) 7.5 th/mm3 (1.8-7.7); Neut % (Auto) 55.4 % (16.0-70.0); Platelet Count 289 th/mm3 (150-450); Red Blood Count 4.05 mil/mm3 (4.00-5.30); Red Cell Distribution Width 16.9 % (11.6-17.2); White Blood Count 13.6 th/mm3 (4.0-11.0)
[2018-01-18] MEDS ORDERED: Nystatin Liq 500,000 UNIT/5 ML UDC SWISH-SWAL ONE (10:29)
[2018-01-18] MEDS: hydrALAZINE 25 MG Tablet PO SCH ×2 (10:32→12:48)
[2018-01-18] MEDS: amLODIPine 10 MG Tablet PO SCH (10:33)
[2018-01-18] MEDS: Lisinopril 20 MG Tablet PO SCH (10:33)
--- NOTE | 2018-01-18 10:38 | P.DS ---
Date of admission: 01/13/18 08:47 Primary care physician: Coretta Schroeder MD Anticipated date of discharge: 01/18/18 Brief History from admission: Obtained from admitting physician's history and physical patient is a 87 y/o female with history of hypertension, hypothyroidism, dyslipidemia who was presented to ER with abdominal pain. she was seen in ER two days ago and was discharged with Macrobid for UTI. she says that she took the antibiotics and then suddenly started to have severe abdominal pain. pain is more or less periumbilical and was associated with nausea and vomiting.she's not sure how many pills she took although she says that ' she completed the course'. DS: Diagnosis - Discharge Diagnosis (1) Adverse drug reaction Status: Resolved Diagnosis: Principal (2) History of MDR Enterobacter cloacae infection Status: Acute Diagnosis: Principal (3) Hypertension Status: Chronic Diagnosis: Secondary (4) Hypothyroidism Status: Chronic Diagnosis: Secondary (5) Constipation Status: Resolved Diagnosis: Secondary (6) UTI (urinary tract infection) Status: Acute Diagnosis: Principal (7) Thrush, oral Status: Acute Diagnosis: Secondary DS: Medications - Discharge Medications Prescriptions: amlodipine [Norvasc] 10 mg PO DAILY #30 tab doxycycline hyclate 100 mg PO Q12H #12 cap hydralazine 25 mg PO TID #90 tab nystatin 5 ml SWISH-SWAL QID #200 ml DS: Summary Hospital Course: These are the medical issues addressed during this hospitalization: 87-year-old female with Nitrofurantoin reaction Mild to moderate anaphylaxis-resolved Reactive hepatitis Status post treatment with steroid LFTs trending down, continue to monitor Appreciate input from GI Leukocytosis Likely secondary to steroid but worsening, will add doxycycline to the regimen today. Hypertensive urgency on hypertension, chronic Continue baseline treatment including Norvasc and lisinopril 20 mg twice daily Continue hydralazine 25 mg 3 times daily daily January 15, 2018 Hyperlipidemia Hold statin secondary to elevated LFTs Hypothyroidism Continue baseline treatments and follows an outpatient Continue Synthroid Dyspepsia Continue Maalox every 6 as needed Constipation due to opioid therapy continue current stool softener Urinary tract infection, Enterobacter cloace MDR Start Bactrim DS twice daily January 16, 2018 which will be discontinued as patient tolerated doxycycline to the regimen -her leukocytosis trended down today Thrushnystatin swish and swallow. DVT prophylaxis SCDs - Time Spent with Patient Total time spent providing and/or coordinating discharge services: Less than 30 minutes - Quality: VTE Deep Vein Thrombosis/Pulmonary Embolism Present on Admission: No Exam Vital signs: Vital Signs 01/17/18 11:00 01/17/18 11:43 01/17/18 12:00 Temperature 97.9 F Pulse Rate 75 Respiratory Rate 18 Blood Pressure 107/53 L Pulse Oximetry 93 L 92 L Pulse Oximetry [Exertion on Room Air] 93 L Pulse Oximetry [Resting on Room Air] 95 01/17/18 15:52 01/17/18 16:00 01/17/18 20:00 Temperature 97.8 F 97.8 F Pulse Rate 76 82 89 Respiratory Rate 18 18 Blood Pressure 119/56 L 133/61 Pulse Oximetry 93 L 94 L Pulse Oximetry [Exertion on Room Air] Pulse Oximetry [Resting on Room Air] 01/18/18 00:00 01/18/18 04:00 01/18/18 07:55 Temperature 98.3 F 98.5 F Pulse Rate 76 89 98 H Respiratory Rate 20 18 Blood Pressure 129/61 140/70 Pulse Oximetry 92 L 94 L Pulse Oximetry [Exertion on Room Air] Pulse Oximetry [Resting on Room Air] 01/18/18 08:00 Temperature 98.3 F Pulse Rate 79 Respiratory Rate 17 Blood Pressure 141/63 H Pulse Oximetry 96 Pulse Oximetry [Exertion on Room Air] Pulse Oximetry [Resting on Room Air] Intake & Output 01/17/18 01/18/18 01/18/18 18:59 06:59 18:59 Intake Total 600 / 600 240 / 240 Balance 600 / 600 240 / 240 Intake: Oral 600 / 600 240 / 240 Other: # Voids 1 2 # Bowel Movements 2 Results Procedures completed during hospitalization: none Labs on day of discharge: Labs from last 24 hours 01/18/18 01/17/18 01/17/18 08:04 09:50 09:50 WBC 13.6 H 17.8 H RBC 4.05 3.94 L Hgb 12.7 12.1 Hct 38.4 37.2 MCV 94.8 94.4 MCH 31.3 30.6 MCHC 33.0 32.4 RDW 16.9 16.9 Plt Count 289 287 MPV 9.8 10.2 Neut % (Auto) 55.4 66.1 Lymph % (Auto) 30.9 25.5 [place] % (Auto) 9.5 H 5.2 Eos % (Auto) 3.8 2.8 Baso % (Auto) 0.4 0.4 Neut # (Auto) 7.5 11.8 H Lymph # (Auto) 4.2 4.5 [place] # (Auto) 1.3 H 0.9 Eos # (Auto) 0.5 H 0.5 H Baso # (Auto) 0.1 0.1 WBC Differential . . Differential Comment Auto diff final Auto diff final Sodium 138 Potassium 3.8 Chloride 102 Carbon Dioxide 25.9 Anion Gap 10 BUN 20 H Creatinine 0.67 Estimated GFR 83 L Random Glucose 77 Calcium 8.6 Total Bilirubin 0.5 AST 32 ALT 156 H Alkaline Phosphatase 169 H Total Protein 7.5 Albumin 3.5 - Impressions ITS Impressions Chest X-Ray 01/08/18 16:37 CONCLUSION: Cardiomegaly with minimal basilar atelectasis and scarring in the lungs. Abdomen/Pelvis CT 01/08/18 18:05 CONCLUSION: 1. Compared with October there is some new consolidation in the left lung base which may represent a small pneumonia. 2. Cholecystectomy without biliary ductal dilatation is stable. 3. 3.1 cm right adrenal mass is stable over the last year. Renal cysts are stable. 4. No bowel obstruction, free air or free fluid. Cholangiopancreatography MRI 01/09/18 00:00 CONCLUSION: 1. Bibasilar airspace disease with trace pleural fluid. 2. Previous cholecystectomy with mild biliary ductal dilatation. No choledocholithiasis. Pancreatic duct normal caliber. 3. Numerous bilateral renal cysts. Liver Ultrasound 01/09/18 00:00 CONCLUSION: 1. Status post cholecystectomy. 2. Multiple right-sided renal cysts. 3. Liver slightly enlarged otherwise appears unremarkable. Bile Acid Absorption NM 01/09/18 14:29 CONCLUSION: 1. Previous cholecystectomy. Normal uptake and excretion by the liver. No biliary ductal obstruction Abdomen Ultrasound 01/13/18 08:00 CONCLUSION: 1. Status post cholecystectomy. 2. Bilateral renal cysts. 3. Otherwise normal evaluation without evidence of acute process. Abdomen X-Ray 01/15/18 00:00 CONCLUSION: Constipation Discharge Plan - Discharge Disposition Patient Disposition: W/Home Health Service - Discharge Condition Condition: Good - Discharge Order Discharge Orders: Discharge Order (Routine); Ordered 01/18/18 Ordered By: Yaa Head - Discharge Details Anticipated Discharge Date: 01/18/18 - Physicians Team Primary Care Provider: Coretta Schroeder Attending Provider: Yaa Head Other Providers: Marilyn Galvez MD
--- NOTE | 2018-01-18 14:04 | P.DCO ---
- Home Health Nursing Order: Medical education, Nursing assessment with vital signs - Certification I have seen patient Hanny Mccloud on 01/18/18. My clinical findings support the need for the requested home health care services because: Limited mobility due to disease progression I certify that my clinical findings support that this patient is homebound because: Unsteady gait/balance
[2018-01-18 17:51] LABS: Ceruloplasmin 26 mg/dL (18-53)
[2018-01-18] MEDS ORDERED: Nystatin Liq 500,000 UNIT/5 ML UDC SWISH-SWAL SCH (18:00)
== END 2018-01-18 14:35 | disposition home health service (06) ==
LOC: PHED 15:20 → PHEDA 15:20 → PHICU 22:12 → N05 01-09 13:36 → HIMC 01-13 06:05 → N04 01-14 14:24
PROVIDERS: ADMIT Family Medicine; ATTEND Family Medicine